=== PATIENT | male | born 1945 | race Caucasian/White ===

== ENCOUNTER 2016-10-03 20:12 | Emergency (ER) | payer MEDICARE, OTHER ==
[~2016-10-03] VITALS: Ht 175.3 cm; Wt 78.0 kg
[~2016-10-03 20:12] MED LIST: ALPR.5 PO; CLON.1 PO; DUONI INH; GABA100C4 PO; LOPE2 PO; RANI150UDC PO; RIVA15 PO; SINE25100 PO
[2016-10-03 20:14] VITALS: BP 152/84; PULSE 105; RESP 16; TEMP 98.6; O2SAT 96
[2016-10-03] MEDS ORDERED: OMEP20TA PO (20:55)
[2016-10-03] MEDS ORDERED: HYDR-3580 PO (20:55)
[2016-10-03] MEDS ORDERED: XARE10TA PO (20:55)
[2016-10-03] MEDS ORDERED: ONDA1TAB16 PO (20:55)
[2016-10-03] MEDS ORDERED: XANA1TAB2 PO (20:55)
[2016-10-03] MEDS ORDERED: CARB25TA9 PO (20:55)
[2016-10-03] MEDS ORDERED: GABA100C4 PO (20:55)
[2016-10-03] MEDS ORDERED: ACETAMINOPHEN 325 MG TAB PO ONE (21:15)
--- NOTE | 2016-10-03 21:15 | PD ---
HPI Chief Complaint: Injury Time Seen by Provider: 20:33 Travel History International Travel<30 days: No Contact w/Intl Traveler<30days: No Traveled to known affect area: No History of Present Illness HPI The patient is a 71 year old male who presents to the [facility] emergency department with a history of right elbow pain that began 4 weeks ago. He denies any specific injury, however he reports that he does have a history of Parkinson's disease and because his was admitted to the intensive care unit a month ago and then ultimately he was not taking his Parkinson's medications on a regular basis. He reports that he developed abnormal movements related to this/jerking movements of his extremities. He reports that he restarted his medicines and the jerking movements stop, however he continued to have pain in the medial aspect, ulnar aspect of the right elbow. He reports that he went to the [facility] an x-ray of the elbow was done which was reportedly unremarkable. He reports that he has a follow-up appointment scheduled for tomorrow. He reports that over the last week the pain has migrated up the arm into the right shoulder. He reports having decreased range of motion related to this. He reports that intermittently he feels a popping sensation in his shoulder. He denies having any chest pain, chest pressure, or shortness of breath. He denies having any sweating. The patient does have a however have a prior history of stage IV esophageal cancer. The patient reports that he had chemotherapy and radiation therapy and in his last scan in July 2016 he continued to be in remission. He reports that he does not follow with an oncologist at this point. The patient reports that related to the history of esophageal cancer and radiation therapy he is on a soft foods diet. The patient reports that he is right-handed. The patient denies any recent fevers, cough, congestion, neck pain, abdominal pain, vomiting , diarrhea, urinary symptoms, or neurologic symptoms. [facility] Past Medical History Narrative Medical The patient's past medical history is significant for stage IV esophageal cancer , Parkinson's disorder, history of prior right clavicle fracture, history of being admitted to the hospital in January 2016 related to septic shock with multiorgan dysfunction syndrome, history of bilateral lower extremity DVT, chronically anticoagulated on Xarelto, history of chronic back pain, history of chronic diarrhea. Anxiety: Yes Cancer: Yes (stage 4 ESOPHAGEAL - 2013) Chemotherapy: Yes Diminished Hearing: No Deep Vein Thrombosis: Yes Gastrointestinal Disorders: Yes (CHRONIC DIARRHEA) GERD: Yes Implanted Vascular Access Dvce: Yes (RIGHT SIDED POWER PORT LAST ACCESS 10/30/14 ) Parkinson's Disease: Yes Respiratory: Yes ('CHEMICAL PNEUMONIA') Immunizations Current: Yes Tetanus Vaccination: < 5 Years Past Surgical History Narrative Surgical The patient's past surgical history is significant for an appendectomy, cholecystectomy, tonsillectomy. Appendectomy: Yes Cholecystectomy: Yes Joint Replacement: No Oral Surgery: Yes (throat cancer) Tonsillectomy: Yes Other Surgery: Yes Social History Alcohol Use: No Tobacco Use: No Substance Use: No Allergies-Medications (Allergen,Severity, Reaction): Coded Allergies: Demerol (Unverified Allergy, Mild, 10/03/16) Morphine (Unverified Allergy, Mild, 10/03/16) Reported Meds & Prescriptions Reported Meds & Active Scripts Active Reported Xarelto (Rivaroxaban) 10 Mg Tab 10 Mg PO DAILY Hydrocodone-Acetaminophen 7.5-325 mg Tab 1 Tab PO BID PRN Ondansetron (Ondansetron HCl) 4 Mg Tab 1 Tab PO BID PRN Omeprazole 20 Mg Tab 20 Mg PO BID Gabapentin 100 Mg Cap 100 Mg PO Q6HR PRN Carbidopa-Levodopa 25-100 Mg Tab 1 Tab PO Q4HR Xanax (Alprazolam) 1 Mg Tab 1 Mg PO TID PRN Review of Systems Except as stated in HPI: all other systems reviewed are Neg General / Constitutional: No: Fever Eyes: No: Visual changes HENT: No: Headaches Cardiovascular: Positive: Dyspnea on exertion (chronic dyspnea on exertion per his report), No: Chest Pain or Discomfort Respiratory: No: Cough, Shortness of Breath Gastrointestinal: No: Nausea, Vomiting, Diarrhea, Abdominal Pain, Hematemesis, Hematochezia, Changes in Bowel Habits (last bowel movement was earlier today), Indigestion, Loss of Appetite Genitourinary: No: Dysuria Musculoskeletal: Positive: Myalgias, Arthralgias, Limited ROM, Pain Skin: No Rash Neurologic: No: Weakness, Focal Abnormalities, Change in Mentation, Slurred Speech, Sensory Disturbance Psychiatric: No: Depression Endocrine: No: Polydipsia Hematologic/Lymphatic: No: Easy Bruising Physical Exam Narrative General: The patient is a well-developed well-nourished male in no acute distress. Head and Neck exam: Head is normocephalic atraumatic. Eyes: EOMI, pupils are equal round and reactive to light. Nose: Midline septum with pink mucous membranes Mouth: Dentition unremarkable. Moist mucus membranes. Posterior oropharynx is not erythematous. No tonsillar hypertrophy. Uvula midline. Airway patent. Neck: No palpable lymphadenopathy. No nuchal rigidity. No thyromegaly. Cardiovascular: Regular rate and rhythm without murmurs, gallops, or rubs. Lungs: Clear to auscultation bilaterally. No wheezes, rhonchi, or rales. Abdomen: Soft, without tenderness to palpation in all 4 quadrants of the abdomen. No guarding, rebound, or rigidity. Normal bowel sounds are audible. No tenderness on palpation of McBurney's point. Extremities: No clubbing, cyanosis, or edema. 2+ pulses in all 4 extremities. The area of interest is the right shoulder, the patient has no clavicle tenderness on palpation. The patient has pain with attempted abduction of his right shoulder beyond 30. The patient has pain with flexion of the shoulder. The patient has no crepitus or step-off. No deformity palpated. The patient reports having pain on palpation of the proximal right humerus. The patient also reports having pain on palpation along the ulnar side of the elbow. There is no deformity. No loss of range of motion of the elbow. Back: No spinous process tenderness to palpation. No costovertebral angle tenderness to palpation. Neurologic Exam: Cranial nerves 2-12 were intact on exam. Strength is 5/5 in all 4 extremities. No sensory deficits noted. Skin Exam: No rash noted. Intact skin that is warm and dry. Data Data Last Documented VS Vital Signs Date Time Temp Pulse Resp B/P Pulse Ox O2 Delivery O2 Flow Rate FiO2 10/03/16 21:20 97 Room Air 10/03/16 20:14 98.6 105 16 152/84 Orders Electrocardiogram (10/03/16 20:52) Humerus (Min 2vws) (10/03/16 20:52) Scapula (10/03/16 20:52) Ice/Cold Pack (10/03/16 20:52) Ct Shoulder W/O Contrast (10/03/16 ) Complete Blood Count With Diff (10/03/16 21:01) Basic Metabolic Panel (Bmp) (10/03/16 21:01) Creatine Kinase (Cpk) (10/03/16 21:01) Ckmb (Isoenzyme) Profile (10/03/16 21:01) Troponin I (10/03/16 21:01) Magnesium (Mg) (10/03/16 21:01) Chest, Single Ap (10/03/16 21:01) Iv Access Insert/Monitor (10/03/16 21:01) Ecg Monitoring (10/03/16 21:01) Oximetry (10/03/16 21:01) Splint Or Brace Apply/Monitor (10/03/16 21:02) Acetaminophen (Tylenol) (10/03/16 21:15) Sling Cradle Arm (10/03/16 ) CKMB (10/03/16 21:20) CKMB% (10/03/16 21:20) Labs Laboratory Tests Test 10/03/16 21:20 White Blood Count 11.4 TH/MM3 Red Blood Count 5.53 MIL/MM3 Hemoglobin 15.6 GM/DL Hematocrit 45.9 % Mean Corpuscular Volume 83.1 FL Mean Corpuscular Hemoglobin 28.3 PG Mean Corpuscular Hemoglobin 34.1 % Concent Red Cell Distribution Width 15.1 % Platelet Count 236 TH/MM3 Mean Platelet Volume 7.8 FL Neutrophils (%) (Auto) 82.8 % Lymphocytes (%) (Auto) 9.2 % Monocytes (%) (Auto) 6.5 % Eosinophils (%) (Auto) 0.9 % Basophils (%) (Auto) 0.6 % Neutrophils # (Auto) 9.4 TH/MM3 Lymphocytes # (Auto) 1.0 TH/MM3 Monocytes # (Auto) 0.7 TH/MM3 Eosinophils # (Auto) 0.1 TH/MM3 Basophils # (Auto) 0.1 TH/MM3 CBC Comment DIFF FINAL Differential Comment Sodium Level 138 MEQ/L Potassium Level 4.5 MEQ/L Chloride Level 102 MEQ/L Carbon Dioxide Level 25.2 MEQ/L Anion Gap 11 MEQ/L Blood Urea Nitrogen 20 MG/DL Creatinine 1.18 MG/DL Estimat Glomerular Filtration 61 ML/MIN Rate Random Glucose 107 MG/DL Calcium Level 11.4 MG/DL Magnesium Level 2.2 MG/DL Total Creatine Kinase 119 U/L Creatine Kinase MB 0.7 NG/ML Troponin I LESS THAN 0.02 NG/ML MDM Medical Decision Making Medical Screen Exam Complete: Yes Emergency Medical Condition: Yes Medical Record Reviewed: Yes Interpretation(s) Last Impressions Chest X-Ray 10/03/162100 Signed Impressions: Service Date/Time: Monday, October 03, 2016 21:30 - CONCLUSION: 1. Right clavicle fracture, appears old. 2. No acute cardiopulmonary disease. Enoc Valdivia MD Scapular X-Ray 10/03/162051 Signed Impressions: Service Date/Time: Monday, October 03, 2016 21:31 - CONCLUSION: 1. Old right clavicle fracture. 2. Irregularity along the glenoid could be related to fracture. Enoc Valdivia MD Humerus X-Ray 10/03/162051 Signed Impressions: Service Date/Time: Monday, October 03, 2016 21:34 - CONCLUSION: No acute fracture. Enoc Valdivia MD Upper Extremity CT 10/03/16 0000 Signed Impressions: Service Date/Time: Monday, October 03, 2016 21:38 - CONCLUSION: 1. Lytic lesion along the posterior glenoid with destruction of the posterior cortex, concerning for a metastatic lesion. 2. No acute fracture. 3. Remote fracture midshaft right clavicle. Enoc Valdivia MD Differential Diagnosis Rotator cuff injury, versus proximal humerus fracture, versus scapular fracture , versus tendinitis, versus bony metastasis related to his history of esophageal cancer Narrative Course During the course of the patients emergency department visit, the patients history, examination, and differential diagnosis were reviewed with the patient. The patient had IV access obtained and blood work sent for analysis. The patient was placed on a personnel monitor with oximetry and blood pressure monitoring. An EKG was done on arrival. The patient's EKG shows a sinus rhythm heart rate of 92, no acute ST segment elevation or depression, downsloping ST segments in lead 3, T waves inverted in V1. Right scapular x-ray , right humerus x-ray, CT scan of the shoulder joint was ordered. The patient was initially provided Tylenol 650 by mouth 1 as he reports that Lortab is too strong for him, ice pack was applied to the right shoulder. The patient was placed in a shoulder sling. The patients laboratory studies were reviewed and remarkable for white count of 11.4, hemoglobin 15.6, platelets 236 with neutrophils 82.8, BMP is remarkable for a BUN of 20, glucose 107, calcium 11.4, CPK is 119, troponin I less than 0.02. Radiology studies were reviewed and remarkable for a chest x-ray that shows an old right mid clavicle fracture, no other acute abnormality, right humerus x- ray shows no acute abnormality, right scapular x-ray reveals an irregularity along the glenoid that could be related to a fracture. CT scan of the shoulder joint shows a lytic lesion along the posterior glenoid with distraction of the posterior cortex concerning for metastatic lesion, no acute fracture. The patient's results were discussed with him. He reports that [facility] The patient will be continued and a right shoulder sling. The patient will be sent home with pain medication to be taken as needed for discomfort. The patient is resting comfortably and feels better, is alert and in no distress. The patients results and examination findings were discussed with the patient. The repeat examination is unremarkable and benign. The history, exam, diagnostic testing, and current condition do not suggest any significant pathology to warrant further testing, continued ED treatment, admission, or surgical evaluation at this point. The vital signs have been stable. The patient does not have uncontrollable pain, intractable vomiting, or other significant symptoms. The patient's condition is stable and appropriate for discharge. The patient will pursue further outpatient evaluation with a primary care physician or other designated or consulting physician as indicated in the discharge instructions. The patient expressed understanding and was agreeable with this plan. Diagnosis Primary Impression: Lytic bone lesions on xray Additional Impression: Right shoulder pain Qualified Code: M25.511 - Acute pain of right shoulder Referrals: [facility] Patient Instructions: General Instructions, Shoulder Pain (ED) Additional Instructions: The patient is provided a copy of this and findings to discuss with his [facility] physician tomorrow. Med/Other Pt SpecificInfo: Prescription(s) given Scripts Hydrocodone-Acetaminophen (Lortab)5-325 Mg Tab1 Tab PO Q6H PRN (PAIN) #16 TAB Ref 0 Prov:Aniyah Lama MD 10/03/16 Disposition: DISCHARGE HOME Condition: Stable Aniyah Lama MD Oct 03, 2016 21:15
[2016-10-03 21:20] VITALS: O2SAT 97
[2016-10-03 21:33] LABS: AUTOMATED NEUTROPHIL # 9.4 TH/MM3 (1.8-7.7); BASOPHIL # 0.1 TH/MM3 (0-0.2); BASOPHIL % 0.6 % (0.0-2.0); EOSINOPHIL # 0.1 TH/MM3 (0-0.4); EOSINOPHIL % 0.9 % (0.0-4.0); HEMATOCRIT 45.9 % (39.0-51.0); HEMO FLAGS DIFF FINAL; LYMPH % 9.2 % (9.0-44.0); MEAN CELL VOLUME 83.1 FL (80.0-100.0); MEAN CORPUSCULAR HEMOGLOBIN 28.3 PG (27.0-34.0); MEAN CORPUSCULAR HGB CONC 34.1 % (32.0-36.0); MONO % 6.5 % (0.0-8.0); NEUT % 82.8 % (16.0-70.0); PLATELET COUNT 236 TH/MM3 (150-450); RED BLOOD COUNT 5.53 MIL/MM3 (4.50-5.90); RED CELL DISTRIBUTION WIDTH 15.1 % (11.6-17.2); WHITE BLOOD COUNT 11.4 TH/MM3 (4.0-11.0)
--- NOTE | 2016-10-03 21:49 | RADRPT ---
EXAM DATE/TIME: 10/03/2016 21:30 [facility] COMPARISON: No previous studies available for comparison. INDICATIONS : Shortness of breath. MEDICAL HISTORY : Parkinson's disease, ptsd, previous right clavicle fracture SURGICAL HISTORY : None. ENCOUNTER: Initial ACUITY: 1 day PAIN SCORE: 0/10 LOCATION: Bilateral chest FINDINGS: A single view of the chest demonstrates the lungs to be symmetrically aerated without evidence of mas s, infiltrate or effusion. The cardiomediastinal contours are unremarkable. Right clavicle fracture, appears old. CONCLUSION: 1. Right clavicle fracture, appears old. 2. No acute cardiopulmonary disease. Enoc Valdivia MD on October 03, 2016 at 21:46 Board Certified Radiologist. This report was verified electronically.
--- NOTE | 2016-10-03 21:51 | RADRPT ---
EXAM DATE/TIME: 10/03/2016 21:31 [facility] COMPARISON: No previous studies available for comparison. INDICATIONS : Right scapula pain. MEDICAL HISTORY : Parkinson's disease, ptsd, previous right clavicle fracture SURGICAL HISTORY : None. ENCOUNTER: Initial ACUITY: 1 month PAIN SCORE: 10/10 LOCATION: Right upper quadrant FINDINGS: Two view examination of the right scapula demonstrates old right clavicle fracture. Irregularity tha g the glenoid is seen. The glenohumeral and acromioclavicular joints are maintained. Proximal humeru s intact. Bony mineralization is normal. CONCLUSION: 1. Old right clavicle fracture. 2. Irregularity along the glenoid could be related to fracture. Enoc Valdivia MD on October 03, 2016 at 21:47 Board Certified Radiologist. This report was verified electronically.
--- NOTE | 2016-10-03 21:51 | RADRPT ---
EXAM DATE/TIME: 10/03/2016 21:34 [facility] COMPARISON: No previous studies available for comparison. INDICATIONS : Right proximal humerus pain. MEDICAL HISTORY : Parkinson's disease, ptsd, previous right clavicle fracture SURGICAL HISTORY : None. ENCOUNTER: Initial ACUITY: 1 month PAIN SCORE: 10/10 LOCATION: Right proximal humerus FINDINGS: Two view examination of the right humerus demonstrates no evidence of fracture or dislocation. Bony mineralization is normal. The soft tissue structures are intact. CONCLUSION: No acute fracture. Enoc Valdivia MD on October 03, 2016 at 21:49 Board Certified Radiologist. This report was verified electronically.
[2016-10-03 22:01] LABS: ANION GAP 11 MEQ/L (5-15); BICARBONATE 25.2 MEQ/L (21.0-32.0); BLOOD UREA NITROGEN 20 MG/DL (7-18); CHLORIDE 102 MEQ/L (98-107); CREATINE KINASE 119 U/L (39-308); GLOMERULAR FILTRATION RATE 61 ML/MIN (>89); MAGNESIUM 2.2 MG/DL (1.5-2.5); POTASSIUM 4.5 MEQ/L (3.5-5.1); SODIUM (NA) 138 MEQ/L (136-145)
--- NOTE | 2016-10-03 22:12 | RADRPT ---
EXAM DATE/TIME: 10/03/2016 21:38 [facility] COMPARISON: SCAPULA RIGHT, October 03, 2016, 21:31. INDICATIONS : Right arm pain , possible injury form seizure four weeks ago . RADIATION DOSE: 30.11 CTDIvol (mGy) MEDICAL HISTORY : Metastatic, neck. Parkinsons. Deep venous thrombosis.Gerd SURGICAL HISTORY : Appendectomy. Cholecystectomy. ENCOUNTER: Initial ACUITY: 1 month PAIN SCALE: 6/10 LOCATION: Right scapular TECHNIQUE: Volumetric scanning of the shoulder was performed. Using automated exposure control and adjustment o f the mA and/or kV according to patient size, radiation dose was kept as low as reasonably achievable to obtain optimal diagnostic quality images. FINDINGS: BONES: No evidence of acute fracture. Alignment is within normal limits. There is prominent lucency within the posterior glenoid measuring 2.3 x 1.3 x 1.6 cm. There is irregularity of the posterior cortex. Me tastatic lesions cannot be excluded. No acute fracture identified. Old fracture of the midshaft of th e clavicle. JOINTS: No evidence of joint narrowing or effusion. SOFT TISSUES: Muscles, tendons, and neurovascular structures are grossly unremarkable. The integrity of the rotato r cuff tendons cannot be reliably evaluated on CT without intra-articular contrast. No evidence of m ass, organized fluid collection, or foreign body. CONCLUSION: 1. Lytic lesion along the posterior glenoid with destruction of the posterior cortex, concerning for a metastatic lesion. 2. No acute fracture. 3. Remote fracture midshaft right clavicle. Enoc Valdivia MD on October 03, 2016 at 22:05 Board Certified Radiologist. This report was verified electronically.
[2016-10-03 22:13] LABS: CKMB 0.7 NG/ML (0.5-3.6)
[2016-10-03] MEDS ORDERED: HYDR-3533 PO (22:24)
--- NOTE | 2016-10-04 20:19 | EKG ---
Date Performed: 10/03/2016 Time Performed: 21:23:07 PTAGE: 71 years EKG: Sinus rhythm NORMAL ECG Since PREVIOUS TRACING , no longer tachycardic PREVIOUS TRACIN01/11/2016 19.48 DOCTOR: Mary Ann Harding Interpretating Date/Time 10/04/2016 20:18:03
== END 2016-10-03 22:49 | disposition home or self-care (01) ==
LOC: NEPE 20:12
DX: M89.9 Disorder of bone, unspecified (principal); M25.511 Pain in right shoulder; M25.521 Pain in right elbow; G20 Parkinson's disease; R06.02 Shortness of breath; Z85.01 Personal history of malignant neoplasm of esophagus; Z79.899 Other long term (current) drug therapy
CPT/HCPCS: 71010; 73010; 73060; 73200; 80048; 82550; 82552; 83735; 84484; 85025; 93005

== ENCOUNTER 2017-01-28 19:54 | Inpatient (IN) | payer OTHER, MEDICARE ==
[~2017-01-28] VITALS: Ht 167.6 cm; Wt 71.3 kg
[~2017-01-28 19:54] MED LIST changes: -ALPR.5 PO; +CARB25TA9 PO; -CLON.1 PO; -DUONI INH; +HYDR-3533 PO; +HYDR-3580 PO; -LOPE2 PO; +OMEP20TA PO; +ONDA1TAB16 PO; -RANI150UDC PO; -RIVA15 PO; -SINE25100 PO; +XANA1TAB2 PO; +XARE10TA PO
[2017-01-28 19:57] VITALS: BP 110/75; PULSE 102; RESP 16; TEMP 97.6; O2SAT 97
[2017-01-28] MEDS ORDERED: PANTOPRAZOLE INJ 80 MG in SODIUM CHLORIDE 0.9% INJ 35 ML IV ONE (22:23)
[2017-01-28] MEDS ORDERED: ONDANSETRON HCL 4 MG/2 ML VIAL ONE (22:23)
[2017-01-28] MEDS ORDERED: SODIUM CHLORIDE 0.9% FLUSH 10 ML FLUSH IVF PRN (22:30)
[2017-01-28] MEDS ORDERED: PROTHROMBIN COMPLEX CONC INJ 4,000 UNITS in SYRINGE/BAG 1 EA IV ONE ×2 (22:30→22:45)
[2017-01-28] MEDS ORDERED: ONDANSETRON HCL 4 MG/2 ML VIAL IVP ONE (22:30)
[2017-01-28] MEDS ORDERED: SODIUM CHLOR 0.9% 1000 ML INJ 1,000 ML IV ONE ×2 (22:30)
[2017-01-28] MEDS ORDERED: MORP1TAB25 PO (22:48)
[2017-01-28 22:51] VITALS: RESP 18
[2017-01-28] MEDS: PANTOPRAZOLE INJ 80 MG in SODIUM CHLORIDE 0.9% INJ 100 ML IV SCH (22:55)
--- NOTE | 2017-01-28 23:00 | RADRPT ---
EXAM DATE/TIME: 01/28/2017 22:44 [facility] COMPARISON: No previous studies available for comparison. INDICATIONS : Chest pain. MEDICAL HISTORY : Parkinson's disease, ptsd, previous right clavicle fracture SURGICAL HISTORY : None. ENCOUNTER: Initial ACUITY: 1 day PAIN SCORE: 0/10 LOCATION: Bilateral chest FINDINGS: A single view of the chest demonstrates the lungs to be symmetrically aerated without evidence of mas s, infiltrate or effusion. [id number] in superior vena cava. The cardiomediastinal contours are un remarkable. Osseous structures are intact. CONCLUSION: 1. No acute findings. Selvin Whittington MD on January 28, 2017 at 22:58 Board Certified Radiologist. This report was verified electronically.
[2017-01-28 23:01] LABS: AUTOMATED NEUTROPHIL # 1.7 TH/MM3 (1.8-7.7); BASOPHIL % 0.2 % (0.0-2.0); EOSINOPHIL % 0.2 % (0.0-4.0); HEMATOCRIT 41.5 % (39.0-51.0); LYMPH % 32.4 % (9.0-44.0); LYMPHOCYTE # 1.1 TH/MM3 (1.0-4.8); MEAN CELL VOLUME 93.2 FL (80.0-100.0); MEAN CORPUSCULAR HEMOGLOBIN 30.3 PG (27.0-34.0); MEAN CORPUSCULAR HGB CONC 32.5 % (32.0-36.0); MONO % 18.8 % (0.0-8.0); NEUT % 48.4 % (16.0-70.0); PLATELET COUNT 91 TH/MM3 (150-450); RED BLOOD COUNT 4.45 MIL/MM3 (4.50-5.90); RED CELL DISTRIBUTION WIDTH 21.8 % (11.6-17.2); WHITE BLOOD COUNT 3.5 TH/MM3 (4.0-11.0)
[2017-01-28 23:04] LABS: HEMO FLAGS AUTO DIFF
[2017-01-28 23:19] LABS: ALT (GPT) 10 U/L (12-78); ANION GAP 16 MEQ/L (5-15); AST (GOT) 32 U/L (15-37); BICARBONATE 21.3 MEQ/L (21.0-32.0); BLOOD UREA NITROGEN 11 MG/DL (7-18); CHLORIDE 101 MEQ/L (98-107); GLOMERULAR FILTRATION RATE 68 ML/MIN (>89); POTASSIUM 3.7 MEQ/L (3.5-5.1); SODIUM (NA) 138 MEQ/L (136-145)
[2017-01-28 23:21] LABS: ALKALINE PHOSPHATASE 107 U/L (45-117); TOTAL BILIRUBIN ADULT 1.4 MG/DL (0.2-1.0)
--- NOTE | 2017-01-28 23:21 | PD ---
HPI Chief Complaint: GI Complaint Time Seen by Provider: 22:26 Travel History International Travel<30 days: No Contact w/Intl Traveler<30days: No Traveled to known affect area: No History of Present Illness HPI Patient is a 71-year-old male with history of stage 4 esophageal cancer, pancreatic cancer, liver cancer, DVT currently on Xarrellto, presents to emergency room with complaints of gi bleed. Patient reports that he has been having abdominal pain, reports that he hasn't been feeling well and has been nauseous all day. Patient reports that he has been vomiting up coffee ground emesis. Patient reports that his fur farmer is Dr. Stone. Reports diffuse abdominal pain at this time. PFSH Past Medical History Anxiety: Yes Cancer: Yes (stage 4 ESOPHAGEAL - 2013) Chemotherapy: Yes Diminished Hearing: No Deep Vein Thrombosis: Yes Gastrointestinal Disorders: Yes (CHRONIC DIARRHEA) GERD: Yes Implanted Vascular Access Dvce: Yes (L. SIDE POWER PORT) Parkinson's Disease: Yes Respiratory: Yes ('CHEMICAL PNEUMONIA') Immunizations Current: Yes Tetanus Vaccination: < 5 Years Influenza Vaccination: No Past Surgical History Appendectomy: Yes Cholecystectomy: Yes Joint Replacement: No Oral Surgery: Yes (throat cancer) Tonsillectomy: Yes Other Surgery: Yes Social History Alcohol Use: No Tobacco Use: No Substance Use: No Allergies-Medications (Allergen,Severity, Reaction): Coded Allergies: meperidine (Unverified Allergy, Mild, 01/23/17) Reported Meds & Prescriptions Reported Meds & Active Scripts Active Reported Morphine ER (Morphine Sulfate) 30 Mg Tab 30 Mg PO DAILY Xarelto (Rivaroxaban) 10 Mg Tab 20 Mg PO DAILY Omeprazole 20 Mg Tab 20 Mg PO BID Gabapentin 100 Mg Cap 100 Mg PO Q6HR PRN Carbidopa-Levodopa 25-100 Mg Tab 1 Tab PO Q4HR Xanax (Alprazolam) 1 Mg Tab 1 Mg PO TID PRN Review of Systems General / Constitutional: No: Fever Eyes: No: Visual changes HENT: No: Headaches Cardiovascular: No: Chest Pain or Discomfort Respiratory: No: Shortness of Breath Gastrointestinal: Positive: Nausea, Vomiting, Diarrhea, Abdominal Pain, Hematemesis, No: Constipation Genitourinary: No: Dysuria Musculoskeletal: No: Pain Skin: No Rash Neurologic: No: Weakness Psychiatric: No: Depression Endocrine: No: Polydipsia Hematologic/Lymphatic: No: Easy Bruising Physical Exam Narrative GENERAL: Moderate distress SKIN: Focused skin assessment warm/dry. HEAD: Atraumatic. Normocephalic. EYES: Pupils equal and round. No scleral icterus. No injection or drainage. ENT: No nasal bleeding or discharge. Mucous membranes pink and moist. Patient vomiting coffee ground emesis NECK: Trachea midline. No JVD. CARDIOVASCULAR: Regular rate and rhythm. No murmur appreciated. RESPIRATORY: No accessory muscle use. Clear to auscultation. Breath sounds equal bilaterally. GASTROINTESTINAL: Abdomen soft, diffuse abdominal tenderness with guarding on exam MUSCULOSKELETAL: No obvious deformities. No clubbing. No cyanosis. No edema. NEUROLOGICAL: Awake and alert. No obvious cranial nerve deficits. Motor grossly within normal limits. Normal speech. PSYCHIATRIC: Appropriate mood and affect; insight and judgment normal. Data Data Last Documented VS Vital Signs Date Time Temp Pulse Resp B/P (MAP) Pulse Ox O2 Delivery O2 Flow Rate FiO2 01/28/17 22:51 18 01/28/17 19:57 97.6 102 97 Room Air Orders Orders Complete Blood Count With Diff (01/28/17 22:23) Comprehensive Metabolic Panel (01/28/17 22:23) Prothrombin Time / Inr (Pt) (01/28/17 22:23) Act Partial Throm Time (Ptt) (01/28/17 22:23) Type And Screen (01/28/17 22:23) Ecg Monitoring (01/28/17 22:23) Iv Access Insert/Monitor (01/28/17 22:23) Ng Gastric Tube Insert/Monitor (01/28/17 22:23) Oximetry (01/28/17 22:23) Ondansetron Inj (Zofran Inj) (01/28/17 22:30) Sodium Chloride 0.9% Flush (Ns Flush) (01/28/17 22:30) Sodium Chloride 0.9... W/Pantoprazole In (01/28/17 22:23) Sodium Chloride 0.9... W/Pantoprazole In (01/28/17 22:23) Ondansetron Inj (Zofran Inj) (01/28/17 22:23) ^ Lab Follow Up (01/28/17 22:24) Prothrombin Complex Conc Inj (Kcentra In (01/28/17 22:30) Sodium Chlorid 0.9%... W/Octreotide Inj (01/28/17 22:25) Lactic Acid (01/28/17 22:25) Ct Abd/Pel W Iv Contrast(Rout) (01/28/17 22:25) Sodium Chlor 0.9% 1000 Ml Inj (Ns 1000 M (01/28/17 22:30) Sodium Chlor 0.9% 1000 Ml Inj (Ns 1000 M (01/28/17 22:30) Chest, Single Ap (01/28/17 22:28) Prothrombin Complex Conc Inj (Kcentra In (01/28/17 22:45) Lipase (01/28/17 22:35) Blood Culture (01/28/17 23:17) Cefepime Inj (Maxipime Inj) (01/28/17 23:30) Iohexol 350 Inj (Omnipaque 350 Inj) (01/28/17 23:32) Vancomycin Inj (Vancomycin Inj) (01/29/17 00:00) Add Patient To Providers List (01/29/17 ) Sodium Chlor 0.9% 250 Ml Inj (Ns 250 Ml (01/29/17 00:30) Sodium Chlor 0.9% 250 Ml Inj (Ns 250 Ml (01/29/17 00:30) Admit Order (Ed Use Only) (01/29/17 00:16) Labs Laboratory Tests Test 01/28/17 22:35 01/28/17 22:40 White Blood Count 3.5 TH/MM3 Red Blood Count 4.45 MIL/MM3 Hemoglobin 13.5 GM/DL Hematocrit 41.5 % Mean Corpuscular Volume 93.2 FL Mean Corpuscular Hemoglobin 30.3 PG Mean Corpuscular Hemoglobin Concent 32.5 % Red Cell Distribution Width 21.8 % Platelet Count 91 TH/MM3 Mean Platelet Volume 7.7 FL Neutrophils (%) (Auto) 48.4 % Lymphocytes (%) (Auto) 32.4 % Monocytes (%) (Auto) 18.8 % Eosinophils (%) (Auto) 0.2 % Basophils (%) (Auto) 0.2 % Neutrophils # (Auto) 1.7 TH/MM3 Lymphocytes # (Auto) 1.1 TH/MM3 Monocytes # (Auto) 0.7 TH/MM3 Eosinophils # (Auto) 0.0 TH/MM3 Basophils # (Auto) 0.0 TH/MM3 CBC Comment AUTO DIFF Prothrombin Time 12.2 SEC Prothromb Time International Ratio 1.1 RATIO Activated Partial Thromboplast Time 29.4 SEC Blood Urea Nitrogen 11 MG/DL Creatinine 1.08 MG/DL Random Glucose 118 MG/DL Total Protein 7.0 GM/DL Albumin 3.4 GM/DL Calcium Level 10.7 MG/DL Alkaline Phosphatase 107 U/L Aspartate Amino Transf (AST/SGOT) 32 U/L Alanine Aminotransferase (ALT/SGPT) 10 U/L Total Bilirubin 1.4 MG/DL Sodium Level 138 MEQ/L Potassium Level 3.7 MEQ/L Chloride Level 101 MEQ/L Carbon Dioxide Level 21.3 MEQ/L Anion Gap 16 MEQ/L Estimat Glomerular Filtration Rate 68 ML/MIN Lipase 79 U/L Lactic Acid Level 6.3 mmol/L [facility] Medical Decision Making Medical Screen Exam Complete: Yes Emergency Medical Condition: Yes Interpretation(s) Vital Signs Date Time Temp Pulse Resp B/P (MAP) Pulse Ox O2 Delivery O2 Flow Rate FiO2 01/28/17 22:51 18 01/28/17 19:57 97.6 102 16 110/75 (87) 97 Room Air Differential Diagnosis Differential includes GI bleed, pneumonia, pancreatitis, gastroenteritis, esophageal rupture, esophageal variceal bleed, SBO Narrative Course Patient is a 71-year-old male who presents to emergency room complaints of coffee-ground emesis with abdominal pain. Patient reports the pain started this morning. Patient with audrey coffee-ground emesis upon arrival to emergency room. Patient is currently on Xarrelto as he has history of DVT. Patient was placed on a drill rig operator upon arrival to emergency room. Patient was given Zofran as he is nauseous and vomiting. Protonix bolus as well as Protonix drip ordered. Octreotide gtt ordered as well. Patient was typed and screened, lab work including blood cultures and lactic acid ordered. CT the abdomen pelvis ordered to evaluate further abdominal pain. Patient is on Xarrelto, [facility] ordered to reverse this - he last took his dose of xarelto this AM. IVF ordered as well Vital Signs Date Time Temp Pulse Resp B/P (MAP) Pulse Ox O2 Delivery O2 Flow Rate FiO2 01/28/17 22:51 18 01/28/17 19:57 97.6 102 16 110/75 (87) 97 Room Air Laboratory Tests Test 8/20/17 22:35 01/28/17 22:40 White Blood Count 3.5 TH/MM3 (4.0-11.0) Red Blood Count 4.45 MIL/MM3 (4.50-5.90) Hemoglobin 13.5 GM/DL (13.0-17.0) Hematocrit 41.5 % (39.0-51.0) Mean Corpuscular Volume 93.2 FL (80.0-100.0) Mean Corpuscular Hemoglobin 30.3 PG (27.0-34.0) Mean Corpuscular Hemoglobin Concent 32.5 % (32.0-36.0) Red Cell Distribution Width 21.8 % (11.6-17.2) Platelet Count 91 TH/MM3 (150-450) Mean Platelet Volume 7.7 FL (7.0-11.0) Neutrophils (%) (Auto) 48.4 % (16.0-70.0) Lymphocytes (%) (Auto) 32.4 % (9.0-44.0) Monocytes (%) (Auto) 18.8 % (0.0-8.0) Eosinophils (%) (Auto) 0.2 % (0.0-4.0) Basophils (%) (Auto) 0.2 % (0.0-2.0) Neutrophils # (Auto) 1.7 TH/MM3 (1.8-7.7) Lymphocytes # (Auto) 1.1 TH/MM3 (1.0-4.8) Monocytes # (Auto) 0.7 TH/MM3 (0-0.9) Eosinophils # (Auto) 0.0 TH/MM3 (0-0.4) Basophils # (Auto) 0.0 TH/MM3 (0-0.2) CBC Comment AUTO DIFF Prothrombin Time 12.2 SEC (9.8-11.6) Prothromb Time International Ratio 1.1 RATIO Activated Partial Thromboplast Time 29.4 SEC (24.3-30.1) Blood Urea Nitrogen 11 MG/DL (7-18) Creatinine 1.08 MG/DL (0.60-1.30) Random Glucose 118 MG/DL (74-106) Total Protein 7.0 GM/DL (6.4-8.2) Albumin 3.4 GM/DL (3.4-5.0) Calcium Level 10.7 MG/DL (8.5-10.1) Alkaline Phosphatase 107 U/L (45-117) Aspartate Amino Transf (AST/SGOT) 32 U/L (15-37) Alanine Aminotransferase (ALT/SGPT) 10 U/L (12-78) Total Bilirubin 1.4 MG/DL (0.2-1.0) Sodium Level 138 MEQ/L (136-145) Potassium Level 3.7 MEQ/L (3.5-5.1) Chloride Level 101 MEQ/L (98-107) Carbon Dioxide Level 21.3 MEQ/L (21.0-32.0) Anion Gap 16 MEQ/L (5-15) Estimat Glomerular Filtration Rate 68 ML/MIN (>89) Lipase 79 U/L (73-393) Lactic Acid Level 6.3 mmol/L (0.4-2.0) Hemoglobin 13.5, platelets 91, lactic acid 6.3 CT abdomen/pelvis: Proximal and mid small bowel dilation with air-fluid levels and distal decompression characteristic of early or partial small bowel obstruction. After patient was given Zofran, patient had resolution of his nausea and vomiting. Patient has stabilized while in the emergency room, he has received 2 L of IV fluid. Patient does have a lactic acid of 6.3, a clear etiology of his source of infection. He has been pancultured. Patient last received radiation treatments to 3 weeks ago, his last course of chemotherapy was last week. Patient was given broad-spectrum antibiotics, cefepime for treatment of this sepsis. Patient was placed on a Protonix drip as well as octreotide drip for his upper GI bleed, plan to admit him to the hospital at this time. Patient reports that he is feeling much better at this time, all studies reviewed with patient in detail. Case reviewed with Dr. Montiel who accepts pt to service Critical Care Narrative Aggregate critical care time was 45 minutes. Time to perform other separately billable procedures was not included in the critical care time. My time did not include minutes spent treating any other patients simultaneously or on activities that did not directly contribute to the patient's treatment. The services I provided to this patient were to treat and/or prevent clinically significant deterioration that could result in: , decompensation, deterioration I provided critical care services requiring my management, as noted below: Chart data review, documentation time, medication orders and management, vital sign assessments/reviewing monitor data, ordering and reviewing lab tests, ordering and interpreting/reviewing x-rays and diagnostic studies, care of the patient and discussion of the patient with the admitting physicians. Diagnosis Primary Impression: GI bleed Additional Impressions: Thrombocytopenia Lactic acid acidosis Small bowel obstruction Jessica Ivey DO Jan 28, 2017 23:21
[2017-01-28] MEDS ORDERED: CEFEPIME INJ 2,000 MG in SODIUM CHLORIDE 0.9% INJ 100 ML IV ONE (23:30)
[2017-01-28] MEDS ORDERED: IOHEXOL 350 MG/ML 10 ML VIAL (for RAD DIAG) IVCONTRAST ONE (23:32)
[2017-01-28 23:37] LABS: APTT (PATIENT) 29.4 SEC (24.3-30.1); INTERNATIONAL NORMALIZED RATIO 1.1 RATIO; PROTHROMBIN TIME - PATIENT 12.2 SEC (9.8-11.6)
--- NOTE | 2017-01-28 23:48 | RADRPT ---
EXAM DATE/TIME: 01/28/2017 23:20 [facility] COMPARISON: CT ABDOMEN & PELVIS W/O CONTRAST, January 13, 2016, 8:51. INDICATIONS : Abdominal pain with nausea and vomiting. IV CONTRAST: 69 cc Omnipaque 350 (iohexol) IV ORAL CONTRAST: No oral contrast ingested. RADIATION DOSE: 12.40 CTDIvol (mGy) MEDICAL HISTORY : Carcinoma, esophageal. Deep venous thrombosis. Parkinsons. SURGICAL HISTORY : Appendectomy. Cholecystectomy. ENCOUNTER: Initial ACUITY: 1 day PAIN SCALE: 7/10 LOCATION: abdomen TECHNIQUE: Volumetric scanning of the abdomen and pelvis was performed. Using automated exposure control and ad justment of the mA and/or kV according to patient size, radiation dose was kept as low as reasonably achievable to obtain optimal diagnostic quality images. DICOM format image data is available electro nically for review and comparison. FINDINGS: There is linear atelectasis or scarring left lung base. Mild fatty liver. Probable small hepatic cyst left lobe as well as suspected small hemangioma anterio rly. There are multiple dilated loops of small bowel proximally with some decompression distally. There ar e air fluid levels. Findings are characteristic of an early or partial small bowel obstruction. Spleen, adrenals, kidneys and pancreas demonstrate no acute findings. Previous cholecystectomy. There is a small amount of free fluid around the liver and in the pelvis. Prostatic enlargement. Small fat containing umbilical hernia. CONCLUSION: 1. Proximal and mid small bowel dilatation with air-fluid levels and distal decompression characteris tic of an early or partial small bowel obstruction. No free air. Small amount of free fluid in the ab domen and pelvis. Selvin Whittington MD on January 28, 2017 at 23:36 Board Certified Radiologist. This report was verified electronically.
[2017-01-29] VITALS (13 sets, daily range): BP systolic 103–133; BP diastolic 60–98; PULSE 83–99; RESP 18–22; TEMP 98.4–99.3; O2SAT 93–98
[2017-01-29] MEDS ORDERED: VANCOMYCIN INJ 1,150 MG in SODIUM CHLOR 0.9% 250 ML INJ 250 ML IV ONE ×2
[2017-01-29] MEDS: OCTREOTIDE INJ 500 MCG in SODIUM CHLORID 0.9% 500 ML INJ 500 ML IV SCH ×3 (00:29→22:26)
[2017-01-29] MEDS ORDERED: SODIUM CHLOR 0.9% 250 ML INJ 250 ML IV ONE ×2 (00:30)
[2017-01-29] MEDS ORDERED: BISACODYL 10 MG SUPP RECTAL PRN (01:15)
[2017-01-29] MEDS ORDERED: MISCELLANEOUS NURSING INFORMATION XX SCH (01:15)
[2017-01-29] MEDS ORDERED: MAGNESIUM HYDROXIDE SUSP 30 ML CUP PO PRN (01:15)
[2017-01-29] MEDS ORDERED: SENNOSIDES 8.6 MG TAB PO PRN (01:15)
[2017-01-29] MEDS ORDERED: GABAPENTIN 100 MG CAP PO PRN (01:15)
[2017-01-29] MEDS ORDERED: RESP: ALBUTEROL 2.5 MG/IPRATROPIUM 0.5 MG NEB (PRN) INH (01:15)
[2017-01-29] MEDS ORDERED: CHLORHEXIDINE GLUCONATE 2 % 1 PACK (2 CLOTHS) TOP PRN (01:15)
[2017-01-29] MEDS ORDERED: MORPHINE SULFATE 4 MG/ML INJ IV PUSH ONE (01:15)
[2017-01-29] MEDS ORDERED: LACTULOSE SYRUP 20 GM/30 ML CUP PO PRN (01:15)
[2017-01-29] MEDS: SODIUM CHLOR 0.9% 1000 ML INJ 1,000 ML IV SCH ×2 (01:19→15:19)
[2017-01-29 01:43] LABS: PROTHROMBIN TIME - PATIENT 10.9 SEC (9.8-11.6)
[2017-01-29 01:44] LABS: SCAN/DIFF AUTO DIFF CONFIRMED
[2017-01-29 01:45] LABS: PLATELET ESTIMATE SMEAR LOW (NORMAL); PLATELET MORPHOLOGY NORMAL (NORMAL)
[2017-01-29 01:46] LABS: ACANTHOCYTES OCC (NORMAL)
[2017-01-29] MEDS: PANTOPRAZOLE SODIUM 40 MG VIAL IV SCH ×2 (02:00→14:00)
--- NOTE | 2017-01-29 02:28 | HHI.HP ---
HPI Service Critical Care Medicine Primary Care Physician Hero Stone III, MD Admission Diagnosis GI BLEED, SBO Diagnosis: Travel History International Travel<30 Days: No Contact w/Intl Traveler <30 Da: No Traveled to Known Affected Are: No History of Present Illness 71-year-old male with history of stage 4 esophageal cancer, pancreatic and liver metastases disease, DVT currently on Xarrellto, presents to emergency room with complaints of gastrointestinal bleed with hematemesis. Patient reports that he has been having abdominal pain, reports that he hasn't been feeling well and has been nauseous all day. Patient reports that he has been vomiting up coffee ground emesis as well as some fresh blood. Patient reports that his gift wrapper is Dr. Stone. He was resuscitated with the IV fluids and reverse coagulation with Kcentra in the emergency department with improvement of vital signs and clinical picture and is admitted to critical care unit due to hematemesis. Review of Systems Constitutional: DENIES: Diaphoretic episodes, Fatigue, Fever, Weight gain, Weight loss, Chills, Dizziness, Change in appetite, Night Sweats Endocrine: DENIES: Heat/cold intolerance, Polydipsia, Polyuria, Polyphagia Eyes: DENIES: Blurred vision, Diplopia, Eye inflammation, Eye pain, Vision loss , Photosensitivity, Double Vision Ears, nose, mouth, throat: DENIES: Tinnitus, Hearing loss, Vertigo, Nasal discharge, Oral lesions, Throat pain, Hoarseness, Ear Pain, Running Nose, Epistaxis, Sinus Pain, Toothache, Odynophagia Respiratory: DENIES: Apneas, Cough, Snoring, Wheezing, Hemoptysis, Sputum production, Shortness of breath Cardiovascular: DENIES: Chest pain, Palpitations, Syncope, Dyspnea on Exertion , PND, Lower Extremity Edema, Orthopnea, Claudication Gastrointestinal: COMPLAINS OF: Abdominal pain, Nausea, Vomiting, Anorexia, DENIES: Black stools, Bloody stools, Constipation, Diarrhea, Difficulty Swallowing Genitourinary: DENIES: Sexual dysfunction, Urinary frequency, Urinary incontinence, Urgency, Hematuria, Dysuria, Nocturia, Penile Discharge, Testicular Pain, Testicular Swelling Musculoskeletal: DENIES: Joint pain, Muscle aches, Stiffness, Joint Swelling, Back pain, Neck pain Integumentary: DENIES: Abnormal pigmentation, Nail changes, Pruritus, Rash Hematologic/lymphatic: DENIES: Bruising, Lymphadenopathy Immunologic/allergic: DENIES: Eczema, Urticaria Neurologic: DENIES: Abnormal gait, Headache, Localized weakness, Paresthesias, Seizures, Speech Problems, Tremor, Poor Balance Psychiatric: DENIES: Anxiety, Confusion, Mood changes, Depression, Hallucinations, Agitation, Suicidal Ideation, Homicidal Ideation, Delusions Past Family Social History Allergies: Coded Allergies: meperidine (Unverified Allergy, Mild, 01/23/17) Past Medical History Esophageal cancer stage IV diagnosed in April 2014 Chronic back pain Chronic diarrhea DVT Past Surgical History Tonsillectomy Appendectomy Cholecystectomy Reported Medications Reported Meds & Active Scripts Active Reported Morphine ER (Morphine Sulfate) 30 Mg Tab 30 Mg PO DAILY Xarelto (Rivaroxaban) 10 Mg Tab 20 Mg PO DAILY Omeprazole 20 Mg Tab 20 Mg PO BID Gabapentin 100 Mg Cap 100 Mg PO Q6HR PRN Carbidopa-Levodopa 25-100 Mg Tab 1 Tab PO Q4HR Xanax (Alprazolam) 1 Mg Tab 1 Mg PO TID PRN Active Ordered Medications Current Medications Medications (Trade) Dose Ordered Sig/Sisi Route PRN Reason Start Time Stop Time Status Last Admin Dose Admin Sodium Chloride (NS Flush) 2 ml UNSCH PRN IVF FLUSH AFTER USING IV ACCESS 01/28/17 22:30 Pantoprazole Sodium 80 mg/ Sodium Chloride 100 ml @ 10 mls/hr Q10H IV 01/28/17 22:23 01/28/17 22:55 Octreotide Acetate 500 mcg/ Sodium Chloride 500.5 ml @ 50 mls/hr Q10H1M IV 01/28/17 22:25 01/29/17 00:29 Sodium Chloride 250 ml @ 15 mls/hr ONCE ONCE IV 01/29/17 00:30 01/29/17 17:09 Sodium Chloride 250 ml @ 15 mls/hr ONCE ONCE IV 01/29/17 00:30 01/29/17 17:09 Alprazolam (Xanax) 1 mg TID PRN PO ANXIETY 01/29/17 01:15 Carbidopa/Levodopa (Sinemet 25-100 Mg) 1 tab Q4HR PO 01/29/17 04:00 01/29/17 05:13 Gabapentin (Neurontin) 100 mg Q6HR PRN PO PAIN 1 TO 10 AND/OR AGITATION 01/29/17 01:15 Morphine Sulfate (Oramorph Sr) 30 mg DAILY PO 01/29/17 09:00 Pantoprazole Sodium (Protonix) 20 mg BID PO 01/29/17 09:00 Sodium Chloride 1,000 ml @ 84 mls/hr [id number] IV 01/29/17 01:05 01/29/17 01:19 Sodium Chloride (NS Flush) 2 ml UNSCH PRN .XX FLUSH AFTER USING IV ACCESS 01/29/17 01:15 Sodium Chloride (NS Flush) 2 ml BID .XX 01/29/17 09:00 Hydromorphone HCl (Dilaudid Pf Inj) 1 mg Q4H PRN IV PAIN SCALE 6 TO 10 01/29/17 01:15 Pantoprazole Sodium (Protonix Inj) 40 mg Q12H IV 01/29/17 02:00 Ondansetron HCl (Zofran Inj) 4 mg Q6H PRN IV NAUSEA OR VOMITING 01/29/17 01:15 Albuterol/ Ipratropium (Duoneb Neb) 1 ampule Q2HR NEB PRN INH WHEEZING 01/29/17 01:15 Miscellaneous Information 1 [id number] XX 01/29/17 01:15 Chlorhexidine Gluconate (Chlorhexidine 2% Cloth) 3 pack Taper DAILY@04 TOP 01/29/17 04:00 01/25/18 03:59 01/29/17 02:30 Chlorhexidine Gluconate (Chlorhexidine 2% Cloth) 3 pack UNSCH PRN TOP HYGIENIC CARE 01/29/17 01:15 Senna/Docusate Sodium (Bryanna-Colace) 1 tab BID PO 01/29/17 09:00 Magnesium Hydroxide (Milk Of Magnesia Liq) 30 ml Q12H PRN PO MILD - MODERATE CONSTIPATION 01/29/17 01:15 Sennosides (Senokot) 17.2 mg Q12H PRN PO MODERATE - SEVERE CONSTIPATION 01/29/17 01:15 Bisacodyl (Dulcolax Supp) 10 mg DAILY PRN RECTAL SEVERE CONSITIPATION 01/29/17 01:15 Lactulose (Lactulose Liq) 30 ml DAILY PRN PO SEVERE CONSITIPATION 01/29/17 01:15 Cefepime HCl 2000 mg/Sodium Chloride 100 ml @ 200 mls/hr Q8H IV 01/29/17 09:00 Family History No family history of early coronary artery disease or malignancy Social History Denies history of alcohol or illicit drug abuse Physical Exam Vital Signs Vital Signs Date Time Temp Pulse Resp B/P (MAP) Pulse Ox O2 Delivery O2 Flow Rate FiO2 01/29/17 02:17 99.3 93 20 128/80 (96) 98 01/29/17 01:51 01/29/17 01:00 98 18 133/98 (110) 96 Room Air 01/28/17 22:51 18 01/28/17 19:57 97.6 102 16 110/75 (87) 97 Room Air Physical Exam GENERAL: Well-nourished, well-developed patient. SKIN: Warm and dry. HEAD: Normocephalic. EYES: No scleral icterus. No injection or drainage. NECK: Supple, trachea midline. No JVD or lymphadenopathy. CARDIOVASCULAR: Regular rate and rhythm without murmurs, gallops, or rubs. RESPIRATORY: Breath sounds equal bilaterally. No accessory muscle use. GASTROINTESTINAL: Abdomen soft, non-tender, nondistended. MUSCULOSKELETAL: No cyanosis, or edema. BACK: Nontender without obvious deformity. NEURO EXAM: GCS: M6 V5 E4 Mental Status: The patient is alert and oriented to person, place, and time with normal speech. Cranial Nerves: Visual acuity intact bilaterally. Visual gilbert normal in all quadrants. Pupils are round, reactive to light. Extraocular movements are intact without ptosis. Hearing is normal bilaterally. Voice is normal. Tongue protrudes midline and moves symmetrically. Reflexes: Biceps, patellar, and Achilles are 2/4 bilaterally. No clonus. Sensation: Sensation is intact bilaterally to pain and light touch. Two-point discrimination is intact. Motor: Good muscle tone. Strength is 5/5 bilaterally. Cerebellar: [id number] and [id number] test normal bilaterally. Laboratory Laboratory Tests Test 01/28/17 22:35 01/28/17 22:40 01/29/17 00:30 01/29/17 01:05 White Blood Count 3.5 Red Blood Count 4.45 Hemoglobin 13.5 Hematocrit 41.5 Mean Corpuscular Volume 93.2 Mean Corpuscular Hemoglobin 30.3 Mean Corpuscular Hemoglobin Concent 32.5 Red Cell Distribution Width 21.8 Platelet Count 91 Mean Platelet Volume 7.7 Neutrophils (%) (Auto) 48.4 Lymphocytes (%) (Auto) 32.4 Monocytes (%) (Auto) 18.8 Eosinophils (%) (Auto) 0.2 Basophils (%) (Auto) 0.2 Neutrophils # (Auto) 1.7 Lymphocytes # (Auto) 1.1 Monocytes # (Auto) 0.7 Eosinophils # (Auto) 0.0 Basophils # (Auto) 0.0 CBC Comment AUTO DIFF Differential Comment AUTO DIFF CONFIRMED Platelet Estimate LOW Platelet Morphology Comment NORMAL Acanthocytes OCC Prothrombin Time 12.2 10.9 Prothromb Time International Ratio 1.1 1.0 Activated Partial Thromboplast Time 29.4 Blood Urea Nitrogen 11 Creatinine 1.08 Random Glucose 118 Total Protein 7.0 Albumin 3.4 Calcium Level 10.7 Alkaline Phosphatase 107 Aspartate Amino Transf (AST/SGOT) 32 Alanine Aminotransferase (ALT/SGPT) 10 Total Bilirubin 1.4 Sodium Level 138 Potassium Level 3.7 Chloride Level 101 Carbon Dioxide Level 21.3 Anion Gap 16 Estimat Glomerular Filtration Rate 68 Lipase 79 Lactic Acid Level 6.3 3.6 Test 01/29/17 01:35 Ammonia 15 Date/Time Source Procedure Growth Status 01/29/17 00:30 Blood Peripheral Aerobic Blood Culture Pending Received 01/29/17 00:30 Blood Peripheral Anaerobic Blood Culture Pending Received Result Diagram: 01/28/17223401/28/172234 Caprini VTE Risk Assessment Caprini VTE Risk Assessment: Mod/High Risk (score >= 2) VTE Pharm Contraindication: Hemorrhage Caprini Risk Assessment Model Point Value = 1 Point Value = 2 Point Value = 3 Point Value = 5 Age 41-60 Minor surgery BMI > 25 kg/m2 Swollen legs Varicose veins or History of unexplained or recurrent spontaneous Oral contraceptives or hormone replacement Sepsis (< 1 month) Serious lung disease, including pneumonia (< 1 month) Abnormal pulmonary function Acute myocardial infarction Congestive heart failure (< 1 month) History of inflammatory bowel disease Medical patient at bed rest Age 61-74 Arthroscopic surgery Major open surgery (> 45 min) Laparoscopic surgery (> 45 min) Malignancy Confined to bed (> 72 hours) Immobilizing plaster cast Central venous access Age >= 75 History of VTE Family history of VTE Factor V Leiden Prothrombin [id number] Lupus anticoagulant Anticardiolipin antibodies Elevated serum homocysteine Heparin-induced thrombocytopenia Other congenital or acquired thrombophilia Stroke (< 1 month) Elective arthroplasty Hip, pelvis, or leg fracture Acute spinal cord injury (< 1 month) Prophylaxis Regimen Total Risk Factor Score Risk Level Prophylaxis Regimen 0-1 Low Early ambulation 2 Moderate Order ONE of the following: *Sequential Compression Device (SCD) *Heparin 5000 units SQ BID 3-4 Higher Order ONE of the following medications: *Heparin 5000 units SQ TID *Enoxaparin/Lovenox 40 mg SQ daily (WT < 150 kg, CrCl > 30 mL/min) *Enoxaparin/Lovenox 30 mg SQ daily (WT < 150 kg, CrCl > 10-29 mL/min) *Enoxaparin/Lovenox 30 mg SQ BID (WT < 150 kg, CrCl > 30 mL/min) AND/OR *Sequential Compression Device (SCD) 5 or more Highest Order ONE of the following medications: *Heparin 5000 units SQ TID (Preferred with Epidurals) *Enoxaparin/Lovenox 40 mg SQ daily (WT < 150 kg, CrCl > 30 mL/min) *Enoxaparin/Lovenox 30 mg SQ daily (WT < 150 kg, CrCl > 10-29 mL/min) *Enoxaparin/Lovenox 30 mg SQ BID (WT < 150 kg, CrCl > 30 mL/min) AND *Sequential Compression Device (SCD) Assessment and Plan Assessment and Plan Hematemesis - IV Protonix - Octreotide - History of metastatic liver disease (possible varices???) - Broad-spectrum antibiotics prophylaxis and variceal bleed?? - GI consult Coagulopathy - On Xarelto - Hold above meds - Reversed by ED with [facility] Esophageal cancer - Supportive care - Palliative care evaluation - Also per GI Thrombocytopenia - No obvious acute - Transfuse for platelet count less than 90 or if acute bleed DVT GI prophylaxis - Teds SCDs - No pharmacological DVT prophylaxis due to acute GI bleed - IV Protonix Critical Care: The total critical care time was 35 minutes. Time to perform other separately billable procedures was not included in the critical care time. Kee Montiel MD Jan 29, 2017 02:28
[2017-01-29] MEDS: CHLORHEXIDINE GLUCONATE 2 % 1 PACK (2 CLOTHS) TOP SCH (02:30)
[2017-01-29 02:36] LABS: LACTIC ACID GHOST NOT REPORTABLE
[2017-01-29 04:07] LABS: HEMATOCRIT 32.5 % (39.0-51.0)
[2017-01-29 04:09] LABS: REVIEW FLAG FINAL
[2017-01-29] MEDS: CARBIDOPA/LEVODOPA 25 MG/100 MG TAB PO SCH ×5 (05:13→21:11)
[2017-01-29] MEDS: DOCUSATE SODIUM 50 MG/SENNA 8.6 MG TAB PO SCH ×2 (08:57→21:11)
[2017-01-29] MEDS: CEFEPIME INJ 2,000 MG in SODIUM CHLORIDE 0.9% INJ 100 ML IV SCH ×2 (08:58→15:20)
[2017-01-29] MEDS: SODIUM CHLORIDE 0.9% FLUSH 10 ML FLUSH SCH ×2 (08:58→21:11)
[2017-01-29] MEDS ORDERED: PANTOPRAZOLE SOD 20 MG DELAYED RELEASE TAB PO SCH (09:00)
--- NOTE | 2017-01-29 09:52 | PD.CONS ---
HPI History of Present Illness This is a 71 year old male with a history of Stage IV esophageal cancer with metastatic disease to the liver. He was diagnosed in April of 2014 and is s/ p chemotherapy and radiation. He reports that he had a PET scan in May that was clear that was recently found to have cancer in his right upper extremity. He cannot provide me the details but states he was having right upper extremity pain and was found to have a lytic lesions in his right upper extremity with a pathological fracture of his right wrist. He reports that he recently completed 3 months of chemotherapy and radiation with Dr. Stone. He also has a history of a DVT and is on Xarelto at home. He presented to the emergency room on 01/28/17 for evaluation of abdominal pain with coffee ground emesis. He has been having "stomach aches" intermittently for several weeks. He reports that on Sunday and Sunday of last week she did have multiple loose stools but denies any melena or hematochezia. He states that this resolved after taking a couple of Imodium and he was having formed bowel movements on Sunday. Yesterday, the abdominal pain returned (dull ache in his epigastric area" and he began vomiting a large amount of dark red/coffee grounds. He reports that he probably had 6-7 episodes in his last episode was around 10 PM last night. He denies any prior history of GI bleeding. He cannot tell me when his last EGD or colonoscopy was but states it was several years ago. He reports that he has had weight loss related to his chemotherapy and that he has to drink insured to keep this stable. He cannot quantify the amount of weight loss. He denies any history of peptic ulcer disease. Hx of appendectomy. (Janice Bajwa) PFSH Past Medical History Stage IV Esophageal cancer Cancer to RUE GERD Parkinson's disease Familial hypercalcemia BPH PTSD Anxiety Hepatitis B Chronic diarrhea Chronic back pain Clavicle fracture. Past Surgical History Appendectomy Cholecystectomy Tonsillectomy Left port placement Teeth extraction EGD/Colonoscopy EUS (Janice Bajwa) Coded Allergies: meperidine (Unverified Allergy, Mild, 01/23/17) Medications Allergies Coded Allergies Type Severity Reaction Last Updated Verified meperidine Allergy Mild 01/23/17 No Active Scripts Medications Dose Route/Sig Max Daily Dose Days Date Category Morphine ER (Morphine Sulfate) 30 Mg Tab 30 Mg PO DAILY 8/20/17 Reported Xarelto (Rivaroxaban) 10 Mg Tab 20 Mg PO DAILY 10/03/16 Reported Omeprazole 20 Mg Tab 20 Mg PO BID 10/03/16 Reported Gabapentin 100 Mg Cap 100 Mg PO Q6HR PRN 10/03/16 Reported Carbidopa-Levodopa 25-100 Mg Tab 1 Tab PO Q4HR 10/03/16 Reported Xanax (Alprazolam) 1 Mg Tab 1 Mg PO TID PRN 10/03/16 Reported Family History Mother from esophageal cancer. Father from esophageal and bladder cancer. Sister and paternal grandmother had pancreatic cancer. Sister has familial hypercalcemia Social History Former smoker No etoh use (Janice Bajwa) Review of Systems Constitutional: COMPLAINS OF: Fatigue, Weight loss, Change in appetite, DENIES : Fever, Chills Respiratory: DENIES: Cough, Hemoptysis Cardiovascular: DENIES: Chest pain Gastrointestinal: COMPLAINS OF: Abdominal pain, Constipation, Diarrhea, Nausea , Vomiting, Hematemesis, DENIES: Black stools, Bloody stools Musculoskeletal: COMPLAINS OF: Joint pain, Joint Swelling Hematologic/lymphatic: COMPLAINS OF: Bruising Neurologic: DENIES: Headache Psychiatric: DENIES: Confusion (Janice Bajwa) GI Exam Vitals I&O Vital Signs Date Time Temp Pulse Resp B/P (MAP) Pulse Ox O2 Delivery O2 Flow Rate FiO2 01/29/17 06:00 92 01/29/17 04:00 96 01/29/17 02:30 99 01/29/17 02:17 99.3 93 20 128/80 (96) 98 01/29/17 01:51 01/29/17 01:00 98 18 133/98 (110) 96 Room Air 01/28/17 22:51 18 01/28/17 19:57 97.6 102 16 110/75 (87) 97 Room Air I/O 01/28/17 01/28/17 01/28/17 01/29/17 01/29/17 01/29/17 07:00 15:00 23:00 07:00 15:00 23:00 Intake Total 1058 ml Output Total 1200 ml Balance -142 ml Intake Oral 30 ml IV Total 1028 ml Output Urine Total 1200 ml # Voids [address] abdomen and pelvis with IV contrast (01/28/17) proximal and mid small bowel dilatation with air-fluid levels and distal decompressive characteristic of an early or partial small bowel obstruction. No free air. Small amount of free fluid in the abdomen and pelvis. Chest x-ray (01/28/17) no acute findings Laboratory Test 01/28/17 22:35 01/28/17 22:40 01/29/17 00:30 01/29/17 01:05 White Blood Count 3.5 TH/MM3 Red Blood Count 4.45 MIL/MM3 Hemoglobin 13.5 GM/DL Hematocrit 41.5 % Mean Corpuscular Volume 93.2 FL Mean Corpuscular Hemoglobin 30.3 PG Mean Corpuscular Hemoglobin Concent 32.5 % Red Cell Distribution Width 21.8 % Platelet Count 91 TH/MM3 Mean Platelet Volume 7.7 FL Neutrophils (%) (Auto) 48.4 % Lymphocytes (%) (Auto) 32.4 % Monocytes (%) (Auto) 18.8 % Eosinophils (%) (Auto) 0.2 % Basophils (%) (Auto) 0.2 % Neutrophils # (Auto) 1.7 TH/MM3 Lymphocytes # (Auto) 1.1 TH/MM3 Monocytes # (Auto) 0.7 TH/MM3 Eosinophils # (Auto) 0.0 TH/MM3 Basophils # (Auto) 0.0 TH/MM3 CBC Comment AUTO DIFF Differential Comment AUTO DIFF CONFIRMED Platelet Estimate LOW Platelet Morphology Comment NORMAL Acanthocytes OCC Prothrombin Time 12.2 SEC 10.9 SEC Prothromb Time International Ratio 1.1 RATIO 1.0 RATIO Activated Partial Thromboplast Time 29.4 SEC Blood Urea Nitrogen 11 MG/DL Creatinine 1.08 MG/DL Random Glucose 118 MG/DL Total Protein 7.0 GM/DL Albumin 3.4 GM/DL Calcium Level 10.7 MG/DL Alkaline Phosphatase 107 U/L Aspartate Amino Transf (AST/SGOT) 32 U/L Alanine Aminotransferase (ALT/SGPT) 10 U/L Total Bilirubin 1.4 MG/DL Sodium Level 138 MEQ/L Potassium Level 3.7 MEQ/L Chloride Level 101 MEQ/L Carbon Dioxide Level 21.3 MEQ/L Anion Gap 16 MEQ/L Estimat Glomerular Filtration Rate 68 ML/MIN Lipase 79 U/L Lactic Acid Level 6.3 mmol/L 3.6 mmol/L Test 01/29/17 01:35 01/29/17 02:15 01/29/17 03:45 Ammonia 15 MCMOL/L Nasal Screen MRSA (PCR) MRSA NOT DETECTED Hemoglobin 10.7 GM/DL Hematocrit 32.5 % Lactic Acid Level 1.5 mmol/L Date/Time Source Procedure Growth Status 01/29/17 00:30 Blood Peripheral Aerobic Blood Culture Pending Received 01/29/17 00:30 Blood Peripheral Anaerobic Blood Culture Pending Received Physical Examination HEENT: Normocephalic; atraumatic; no jaundice. CHEST: CTA CARDIAC: RRR ABDOMEN: Soft, mildly distended, mild diffuse tenderness; no hepatosplenomegaly ; bowel sounds are present in all four quadrants. EXTREMITIES: No clubbing, cyanosis, or edema. SKIN: Normal; no rash; no jaundice. OPERATING ENGINEER: No focal deficits; alert and oriented times three. (Janice Bajwa) Assessment and Plan Plan ASSESSMENT: - Upper GI Bleeding. Intermittent stomachache x 2 weeks. Started having n/v with large amount of dark red/coffee ground yesterday, last episode around 10pm. Hx esophageal cancer. No hx of PUD. On Xarelto at home for DVT. HH 10.7/32.5. - Anemia, acute blood loss. HH 10.7/32.5. - Thrombocytopenia. Plt 91,000. - Ileus vs. PSBO. CT abdomen and pelvis with IV contrast (01/28/17) proximal and mid small bowel dilatation with air-fluid levels and distal decompressive characteristic of an early or partial small bowel obstruction. No free air. Small amount of free fluid in the abdomen and pelvis. Only abdominal surgery appendectomy. Mildly distended/ tender. Last BM (formed) on Sunday. Not currently having nausea/vomiting and requesting ensure. - GERD. PPI - Lytic lesions RUE. Pt poor historian. He cannot provide me the details but states he was having right upper extremity pain and was found to have a lytic lesions in his right upper extremity with a pathological fracture of his right wrist. Recently completed 3 months of chemotherapy and radiation with Dr. Stone. - Hx DVT. On Xarelto at home, currently on hold. - Hx Stage IV Esophageal cancer. Dx April of 2014, s/p chemotherapy and radiation. He reports that he had a PET scan in May that was clear with regards to his esophageal cancer, but that was recently found to have cancer in his right upper extremity. - Parkinson's disease, Hx Familial hypercalcemia, BPH, PTSD, Anxiety, chronic pain per attending. PLAN: - Plan for EGD in am - Obtain consents - NPO except ice chips - KUB today - Protonix Gtt - Monitor HH - Transfuse as necessary - Supportive care - Further recommendations to follow based on results of above - Pt seen and examined by Dr. Li and myself and this note is written on his behalf (Janice Bajwa) Physician Comments Seen and examined, discussed with the patient and his sister endoscopy plan, Will follow up with you Further recommendations to follow pending EGD findings. (Mo Li MD) Janice Bajwa Jan 29, 2017 09:52 Mo iL MD Jan 29, 2017 17:34
[2017-01-29] MEDS: PANTOPRAZOLE INJ 80 MG in SODIUM CHLORIDE 0.9% INJ 100 ML IV SCH ×2 (10:22→18:33)
[2017-01-29] MEDS: MORPHINE SULFATE 30 MG CONTROLLED RELEASE TAB PO SCH (10:24)
--- NOTE | 2017-01-29 11:06 | PD.CONS ---
Consult Service Palliative Care Consult Requested By Dr. Montiel . Primary Care Physician Hero Stone III, MD . Reason for Consultation a. To assist with evaluation and management of symptoms including: pain, debility, nausea/vomiting b. To assist medical decision maker(s) with: better understanding of current medical conditions; weighing benefits/burdens of medical treatment options; making medical treatment decisions. HPI History of Present Illness Mr. Hairston is a 72-year-old male with a history of stage IV esophageal cancer, pancreatic cancer, liver cancer, DVT (on Xarelto), GERD, Parkinson's, BPH, PTSD , anxiety and Hep B. He presented to [facility] ED on 01/28/2017 with diffuse abdominal pain and suspected GI bleed. The patient reported he had been experiencing abdominal pain and feeling nauseated all day. He stated that he had been vomiting coffee-ground emesis. Patient has a history of esophageal cancer status post chemotherapy and radiation. Of note, patient reported he follows Dr. Stone (hematology/oncology) and has been undergoing chemotherapy for 3 months secondary to recurrence of metastatic cancer in September,. Upon presentation to the ED, patient with audrey coffee-ground emesis. Of note, patient is currently on Xarelto due to his history of DVTs. Hemodynamically stable. Heart rate: 102, respirations 16, BP 110/75, oxygen saturation 97% on room air, oral temperature 97.6. Mr. Hairston was given Zofran for his nausea/ vomiting with positive effect. He also received 2L of IV fluids. Additional diagnostic findings: * WBC: 3.5, hemoglobin 13.5, hematocrit 41.5, platelets 91, neutrophils 48.4% * Sodium: 138, potassium 3.7, chloride 101, carbon dioxide 21.3, glucose 118, calcium 10.7 * BUN: 11, creatinine 1.08, GFR 68 * Lactic acid: 6.3 * Total bilirubin: 1.4, AST 32, ALT 10, alkaline phosphatase 107 * Total protein: 7.0, albumin 3.4 * PT: 12.2, INR 1.1, APTT 29.4 Patient's lactic acid was elevated at 6.3, unknown etiology of his source of infection. He was pancultured. Patient was then started on broad-spectrum antibiotics. Patient received a Protonix bolus; he was then placed in a Protonix drip as well as a Octreotide for GI bleed. Patient was administered Kcentral to reverse the effects of the Xarelto which was last taken earlier that morning. Patient was admitted for further evaluation and medical management; gastroenterology was consulted. A chest x-ray showed no acute findings. CT abdomen/pelvis showed proximal and mid small bowel dilatation with air-fluid levels and distal compression characteristic of an early or partial small bowel obstruction; no free air; small amount of free fluid in the abdomen and pelvis. Palliative Care was consulted to assist with symptom management and to discuss with the family the benefits and burdens of his current illnesses and the options regarding future care. . Function/Cognitive Trajectory Patient has a history of esophageal cancer for which he follows Dr. Stone's; reportedly diagnosed with metastatic disease in September, and has been receiving palliative chemotherapy. Patient reports an overall decline in the past year as evidenced by weight loss, decreased appetite, fatigue and debility. . Review of Systems Constitutional: COMPLAINS OF: Fatigue, Weight loss, Change in appetite, Generalized weakness, DENIES: Fever Endocrine: DENIES: Polydipsia, Polyuria, Polyphagia Eyes: DENIES: Blurred vision Ears, nose, mouth, throat: COMPLAINS OF: Hearing loss, DENIES: Epistaxis Respiratory: COMPLAINS OF: Cough, Hemoptysis Cardiovascular: DENIES: Chest pain Gastrointestinal: COMPLAINS OF: Abdominal pain, Vomiting blood (COFFEE GROUND EMESIS ON ADMISSION) Musculoskeletal: COMPLAINS OF: Joint pain, Joint Swelling, Decreased range of motion (RIGHT ARM) Hematologic/Lymphatics: COMPLAINS OF: Bruising Neurologic: COMPLAINS OF: Localized weakness, DENIES: Headache Psychiatric: COMPLAINS OF: Anxiety, DENIES: Confusion Past Family Social History Coded Allergies: meperidine (Unverified Allergy, Mild, 01/23/17) Past Medical History Per old EMR review, conversation with family and medical oncology: Stage IV esophageal cancer originally diagnosed April 2014 s/p chemo and XRT GERD Parkinson's 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 BPH PTSD Anxiety Hepatitis B Chronic diarrhea Chronic back pain Recent clavicle fracture . Past Surgical History Appendectomy Cholecystectomy Tonsillectomy Left port placement Teeth extraction EGD/Colonoscopy EUS . Reported Medications Morphine ER (Morphine Sulfate) 30 Mg Tab 30 Mg PO DAILY Xarelto (Rivaroxaban) 10 Mg Tab 20 Mg PO DAILY Omeprazole 20 Mg Tab 20 Mg PO BID Gabapentin 100 Mg Cap 100 Mg PO Q6HR PRN Carbidopa-Levodopa 25-100 Mg Tab 1 Tab PO Q4HR Xanax (Alprazolam) 1 Mg Tab 1 Mg PO TID PRN . Current Medications Medications (Trade) Dose Ordered Sig/Sisi Route Start Time Stop Time Status Last Admin (NS Flush) 2 ml UNSCH PRN IVF 01/28/17 22:30 Pantoprazole Sodium 80 mg/ Sodium Chloride 100 ml @ 10 mls/hr Q10H IV 01/28/17 22:23 01/28/17 22:55 Octreotide Acetate 500 mcg/ Sodium Chloride 500.5 ml @ 50 mls/hr Q10H1M IV 01/28/17 22:25 01/29/17 00:29 Sodium Chloride 250 ml @ 15 mls/hr ONCE ONCE IV 01/29/17 00:30 01/29/17 17:09 Sodium Chloride 250 ml @ 15 mls/hr ONCE ONCE IV 01/29/17 00:30 01/29/17 17:09 (Xanax) 1 mg TID PRN PO 01/29/17 01:15 (Sinemet 25-100 Mg) 1 tab Q4HR PO 01/29/17 04:00 01/29/17 08:57 (Neurontin) 100 mg Q6HR PRN PO 01/29/17 01:15 (Oramorph Sr) 30 mg DAILY PO 01/29/17 09:00 Sodium Chloride 1,000 ml @ 84 mls/hr [id number] IV 01/29/17 01:05 01/29/17 01:19 (NS Flush) 2 ml UNSCH PRN .XX 01/29/17 01:15 (NS Flush) 2 ml BID .XX 01/29/17 09:00 01/29/17 08:58 (Dilaudid Pf Inj) 1 mg Q4H PRN IV 01/29/17 01:15 (Protonix Inj) 40 mg Q12H IV 01/29/17 02:00 Future hold (Zofran Inj) 4 mg Q6H PRN IV 01/29/17 01:15 (Duoneb Neb) 1 ampule Q2HR NEB PRN INH 01/29/17 01:15 Miscellaneous Information 1 Q361D XX 01/29/17 01:15 (Chlorhexidine 2% Cloth) 3 pack Taper DAILY@04 TOP 01/29/17 04:00 01/25/18 03:59 01/29/17 02:30 (Chlorhexidine 2% Cloth) 3 pack UNSCH PRN TOP 01/29/17 01:15 (Bryanna-Colace) 1 tab BID PO 01/29/17 09:00 01/29/17 08:57 (Milk Of Magnesia Liq) 30 ml Q12H PRN PO 01/29/17 01:15 (Senokot) 17.2 mg Q12H PRN PO 01/29/17 01:15 (Dulcolax Supp) 10 mg DAILY PRN RECTAL 01/29/17 01:15 (Lactulose Liq) 30 ml DAILY PRN PO 01/29/17 01:15 Cefepime HCl 2000 mg/Sodium Chloride 100 ml @ 200 mls/hr Q8H IV 01/29/17 09:00 01/29/17 08:58 Family History Patient's mother is from esophageal cancer; His father is from esophageal and bladder cancer. Patient's sister and paternal grandmother had pancreatic cancer. Sister has familial hypercalcemia. . Substance Use Tobacco: Former smoker; Agent orange exposure Alcohol: None known Prescription med abuse: None known Illicits: None known . Psychosocial History Patient is originally from [place]. He has 1 adult daughter, Tiffany, who still resides there. 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 Patient states he sailed his yacht from [place] to [place] approximately 12 years ago, and has been living here ever since. The patient was 3 times; his third (Gurpreet) from a drug overdose in August,. 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 Served in [employer]. He has one daughter, Tiffany Sheffiled (here from [place]). One sister, Roseann here from [place]. . Spiritual/Cultural Factors Declines kitchen worker support. Health Care Surrogate: Copy in medical record Durable Power of Continuous Improvement Coach: Copy in medical record Date completed: 01/29/17 . . Health Care Surrogate(s): Patient has designated his sister, Roseann, as the healthcare surrogate decision maker. His daughter, Alexandria, is designated as the alternate health care surrogate. . Today's verbally stated goals: Aggressive goals up to the point of cardiopulmonary resuscitation . Family/friends goals: Patient's sister indicates that she supports her brother and his verbalized medical treatment goals. Ethical and Legal Issues No known ethical issues impacting care at this time. . Physical Exam Vital Signs Date Time Temp Pulse Resp B/P (MAP) Pulse Ox O2 Delivery O2 Flow Rate FiO2 01/29/17 06:00 92 01/29/17 04:00 96 01/29/17 02:30 99 01/29/17 02:17 99.3 93 20 128/80 (96) 98 01/29/17 01:51 01/29/17 01:00 98 18 133/98 (110) 96 Room Air 01/28/17 22:51 18 01/28/17 19:57 97.6 102 16 110/75 (87) 97 Room Air . Exam CONSTITUTIONAL/GENERAL: This is a frail elderly male in no apparent distress TUBES/LINES/DRAINS: Planted the ED, PIV SKIN: Pale Ecchymoses on upper extremities. No wounds seen anteriorly. Skin temperature appropriate. Not diaphoretic. HEAD: Atraumatic. Normocephalic. EYES: Pupils equal and round and reactive. No scleral icterus. No injection or drainage. Fundi not examined. ENT: Hearing grossly normal. Nose without bleeding or purulent drainage. NECK: Trachea midline. Supple, nontender. No palpable thyroid enlargement or nodularity. CARDIOVASCULAR: Regular rate and rhythm without murmurs, gallops, or rubs. No JVD. Peripheral pulses symmetric. BLE with trace edema RESPIRATORY/CHEST: Symmetric, unlabored respirations. Breath sounds diminished bilaterally. No wheezes, rales, or rhonchi. GASTROINTESTINAL: Abdomen soft, non-tender, nondistended. No hepato-splenomegaly , or palpable masses. No guarding. Bowel sounds present. GENITOURINARY: Without palpable bladder distension. MUSCULOSKELETAL: Extremities without clubbing, cyanosis. Trace edema LYMPHATICS: No palpable cervical or supraclavicular adenopathy. NEUROLOGICAL: Awake and alert. Follows commands. Cognitively sharp. Moves all extremities. PSYCHIATRIC: No obvious anxiety/depression. no apparent hallucinations or other psychotic thought process. . Diagnostic Tests Laboratory Laboratory Tests Test 01/28/17 22:35 01/28/17 22:40 01/29/17 00:30 01/29/17 01:05 White Blood Count 3.5 TH/MM3 (4.0-11.0) Red Blood Count 4.45 MIL/MM3 (4.50-5.90) Hemoglobin 13.5 GM/DL (13.0-17.0) Hematocrit 41.5 % (39.0-51.0) Mean Corpuscular Volume 93.2 FL (80.0-100.0) Mean Corpuscular Hemoglobin 30.3 PG (27.0-34.0) Mean Corpuscular Hemoglobin Concent 32.5 % (32.0-36.0) Red Cell Distribution Width 21.8 % (11.6-17.2) Platelet Count 91 TH/MM3 (150-450) Mean Platelet Volume 7.7 FL (7.0-11.0) Neutrophils (%) (Auto) 48.4 % (16.0-70.0) Lymphocytes (%) (Auto) 32.4 % (9.0-44.0) Monocytes (%) (Auto) 18.8 % (0.0-8.0) Eosinophils (%) (Auto) 0.2 % (0.0-4.0) Basophils (%) (Auto) 0.2 % (0.0-2.0) Neutrophils # (Auto) 1.7 TH/MM3 (1.8-7.7) Lymphocytes # (Auto) 1.1 TH/MM3 (1.0-4.8) Monocytes # (Auto) 0.7 TH/MM3 (0-0.9) Eosinophils # (Auto) 0.0 TH/MM3 (0-0.4) Basophils # (Auto) 0.0 TH/MM3 (0-0.2) CBC Comment AUTO DIFF Differential Comment AUTO DIFF CONFIRMED Platelet Estimate LOW (NORMAL) Platelet Morphology Comment NORMAL (NORMAL) Acanthocytes OCC (NORMAL) Prothrombin Time 12.2 SEC (9.8-11.6) 10.9 SEC (9.8-11.6) Prothromb Time International Ratio 1.1 RATIO 1.0 RATIO Activated Partial Thromboplast Time 29.4 SEC (24.3-30.1) Blood Urea Nitrogen 11 MG/DL (7-18) Creatinine 1.08 MG/DL (0.60-1.30) Random Glucose 118 MG/DL (74-106) Total Protein 7.0 GM/DL (6.4-8.2) Albumin 3.4 GM/DL (3.4-5.0) Calcium Level 10.7 MG/DL (8.5-10.1) Alkaline Phosphatase 107 U/L (45-117) Aspartate Amino Transf (AST/SGOT) 32 U/L (15-37) Alanine Aminotransferase (ALT/SGPT) 10 U/L (12-78) Total Bilirubin 1.4 MG/DL (0.2-1.0) Sodium Level 138 MEQ/L (136-145) Potassium Level 3.7 MEQ/L (3.5-5.1) Chloride Level 101 MEQ/L (98-107) Carbon Dioxide Level 21.3 MEQ/L (21.0-32.0) Anion Gap 16 MEQ/L (5-15) Estimat Glomerular Filtration Rate 68 ML/MIN (>89) Lipase 79 U/L (73-393) Lactic Acid Level 6.3 mmol/L (0.4-2.0) 3.6 mmol/L (0.4-2.0) Test 01/29/17 01:35 01/29/17 02:15 01/29/17 03:45 Ammonia 15 MCMOL/L (11-32) Nasal Screen MRSA (PCR) MRSA NOT DETECTED (NOT Hemoglobin 10.7 GM/DL (13.0-17.0) Hematocrit 32.5 % (39.0-51.0) Lactic Acid Level 1.5 mmol/L (0.4-2.0) . Result Diagram: 01/29/17 0345 01/28/17 2235 Microbiology Microbiology Date/Time Source Procedure Growth Status 01/29/17 00:30 Blood Peripheral Aerobic Blood Culture Pending Received 01/29/17 00:30 Blood Peripheral Anaerobic Blood Culture Pending Received 01/29/17 00:30 Blood Peripheral Aerobic Blood Culture Pending Received 01/29/17 00:30 Blood Peripheral Anaerobic Blood Culture Pending Received . Patient/Family Conference Present at Family Conference: Met with patient at bedside and again later in the afternoon when his sister was present. . Family Conference Location: Bedside Issues Discussed: * Palliative care role, purpose, approach * Additional medical, psychosocial, and spiritual history * Patients general health, functional status, and cognitive changes in the months leading up to the current hospitalization * Patient/family understanding of the current medical problems * Patient/family understanding of prognosis * Patients goals of care as best understood from advance directives and/or conversations and/or values * Current medical treatment options and benefits/burdens of those options * Likely scenarios comparing ongoing aggressive care with a transition to comfort measures only * Questions answered to the best of my ability * Palliative care contact information provided . Assessment and Plan Disease Oriented Problem List: (1) Esophageal cancer Comment: History of Stage IV esophageal cancer status post chemotherapy and radiation (2) Lytic bone lesions on xray (3) GI bleed (4) Thrombocytopenia (5) DVT of lower extremity, bilateral Comment: History of DVT. On Xarelto at home, currently on hold . (6) Parkinsons disease Symptom Scale: (1) Pain (2) Debility (3) Nausea & vomiting Pertinent Non-Medical Issues Psychosocial:Patient is originally from [place]. He has 1 adult daughter, Tiffany, who still resides there. 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 Patient states he sailed his yacht from [place] to [place] approximately 12 years ago, and has been living here ever since. The patient was 3 times; his third (Gurpreet) from a drug overdose in August. 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 Served in [place]. He has one daughter, Tiffany Sheffiled (here from [place]). One sister, Roseann here from [place]. Spiritual: Patient denies kitchen worker visits Legal:Patient has designated his sister, Roseann, as the healthcare surrogate decision maker. His daughter, Alexandria, is designated as the alternate health care surrogate. Ethical issues impacting care: No known ethical issues impacting care. . Important Contacts Gurpreet Hairston, : [phone] or [phone] Fe Hernandez, daughter: [phone] . Code Status: No Code Plan * NO CODE-DNR/DNI * Decision making: Patient has designated his sister, Roseann, as the healthcare surrogate decision maker. His daughter, Alexandria, is designated as the alternate health care surrogate. * GOALS: Aggressive up to the point of cardiopulmonary resuscitation * Updated POA documentation received from patient's sister. Copy left and patient's paper chart and faxed to HIM to be scanned into the patient's EMR. Patient completed health care surrogate form and living well on 01/29/2017. These documents are also accessible and the patient's EMR. * Symptom management-nausea/vomiting:patient presented with coffee ground emesis ,questionable GI bleed. GI following. PLan for EGD in AM. NPO except for ice chips. Remains on Protonix and Octreotide drip. Monitoring H/H, will transfuse as necessary.PRN Zofran available q6 hours IV * Symptom management-pain. Patient c/o right arm pain that is rated 2-4 at baseline;described as a constant dull ache with occasional sharp pinching sensation. Also having diffuse dull abdominal pain that was not quantified. Orders for MS Contin 30mg PO daily and Dilaudid 4mg IV q4 hours PRN for pain rated 6-10 which was administered x 1 today. Patient states pain is adequately controlled with current regime. * Palliative care contact information provided to the patient and his sister, Roseann. Thank you for the opportunity to participate in the care of Mr. Hairston. Stephanie Melgar Jan 29, 2017 11:06
[2017-01-29 11:09] LABS: HEMATOCRIT 32.2 % (39.0-51.0)
[2017-01-29 11:19] LABS: REVIEW FLAG FINAL
[2017-01-29] MEDS: HYDROmorphone HCL PF 1 MG/ML VIAL IV PRN (11:45)
[2017-01-29] MEDS: ONDANSETRON HCL 4 MG/2 ML VIAL IV PRN (11:45)
--- NOTE | 2017-01-29 12:20 | RADRPT ---
EXAM DATE/TIME: 01/29/2017 11:13 [facility] COMPARISON: CT ABDOMEN & PELVIS W CONTRAST, January 28, 2017, 23:20. INDICATIONS : Follow up ileus vs. partial small bowel obstruction. MEDICAL HISTORY : Carcinoma, esophageal. Parkinson's SURGICAL HISTORY : Appendectomy. Cholecystectomy. ENCOUNTER: Initial ACUITY: 1 day PAIN SCORE: 5/10 LOCATION: Bilateral abdomen FINDINGS: 2 portable supine frontal views of the abdomen showed no significant change from the prior CT. Gas di lated loops of proximal small bowel again seen. A normal caliber colon noted. No gross pneumoperitone um in this supine positioned the patient. Cholecystectomy clips. No organomegaly. CONCLUSION: Unchanged dilated small bowel suggesting distal small bowel obstruction. Gualberto Calderon Jr., MD on January 29, 2017 at 12:17 Board Certified Radiologist. This report was verified electronically.
--- NOTE | 2017-01-29 16:14 | HHI.HCPN ---
Met with Mr. Hairston to discuss living will. Sister also present for conversation and completion of advanced directive. Mr. Hairston is adamant he would not want to "live like a vegetable". He talks about his love for life and participates in some life review regarding things he's seen and done in his lifetime. He specifically states he would not want any such heroic measures ( feeding tube, mechanical ventilation, tracheostomy) if they were to be permanent. Again confirms his desire for NO CODE status. He becomes tearful many times during conversation as he also lost his a few months ago. Appears to be grieving appropriately. Well supported by sister and a daughter. Living will completed 01/29/2017. Copy placed in chart and faxed to HIM for EMR record. Palliative care number provided. All questions answered to the best of my ability. Palliative care will continue to follow throughout hospitalization. Tere Calderon, DRILL PRESS OPERATOR Jan 29, 2017 16:14
[2017-01-29 17:01] LABS: HEMATOCRIT 31.5 % (39.0-51.0)
[2017-01-29 17:03] LABS: REVIEW FLAG FINAL
[2017-01-29 23:03] LABS: HEMATOCRIT 31.7 % (39.0-51.0)
[2017-01-29 23:04] LABS: REVIEW FLAG FINAL
[2017-01-30] VITALS (12 sets, daily range): BP systolic 110–123; BP diastolic 62–76; PULSE 69–91; RESP 14–26; TEMP 98.2–98.9; O2SAT 94–97
[2017-01-30] MEDS: CEFEPIME INJ 2,000 MG in SODIUM CHLORIDE 0.9% INJ 100 ML IV SCH ×4 (00:23→23:31)
[2017-01-30] MEDS: CARBIDOPA/LEVODOPA 25 MG/100 MG TAB PO SCH ×7 (00:23→23:30)
[2017-01-30] MEDS: SODIUM CHLOR 0.9% 1000 ML INJ 1,000 ML IV SCH ×2 (00:24→12:46)
[2017-01-30] MEDS: PANTOPRAZOLE SODIUM 40 MG VIAL IV SCH (02:00)
[2017-01-30] MEDS: CHLORHEXIDINE GLUCONATE 2 % 1 PACK (2 CLOTHS) TOP SCH (03:43)
[2017-01-30] MEDS: HYDROmorphone HCL PF 1 MG/ML VIAL IV PRN (04:03)
[2017-01-30] MEDS: PANTOPRAZOLE INJ 80 MG in SODIUM CHLORIDE 0.9% INJ 100 ML IV SCH ×3 (04:04→23:31)
[2017-01-30 06:24] LABS: AUTOMATED NEUTROPHIL # 0.5 TH/MM3 (1.8-7.7); BASOPHIL % 0.5 % (0.0-2.0); EOSINOPHIL % 2.5 % (0.0-4.0); HEMATOCRIT 32.7 % (39.0-51.0); LYMPH % 34.6 % (9.0-44.0); LYMPHOCYTE # 0.5 TH/MM3 (1.0-4.8); MEAN CELL VOLUME 93.7 FL (80.0-100.0); MEAN CORPUSCULAR HEMOGLOBIN 30.8 PG (27.0-34.0); MEAN CORPUSCULAR HGB CONC 32.9 % (32.0-36.0); MONO % 31.3 % (0.0-8.0); NEUT % 31.1 % (16.0-70.0); PLATELET COUNT 71 TH/MM3 (150-450); RED BLOOD COUNT 3.49 MIL/MM3 (4.50-5.90); RED CELL DISTRIBUTION WIDTH 22.3 % (11.6-17.2); WHITE BLOOD COUNT 1.5 TH/MM3 (4.0-11.0)
[2017-01-30 06:40] LABS: HEMO FLAGS AUTO DIFF
[2017-01-30 07:25] LABS: ALT (GPT) LESS THAN 6 U/L (12-78); ANION GAP 8 MEQ/L (5-15); AST (GOT) 31 U/L (15-37); BICARBONATE 23.5 MEQ/L (21.0-32.0); BLOOD UREA NITROGEN 7 MG/DL (7-18); CHLORIDE 109 MEQ/L (98-107); GLOMERULAR FILTRATION RATE 131 ML/MIN (>89); MAGNESIUM 1.7 MG/DL (1.5-2.5); POTASSIUM 3.1 MEQ/L (3.5-5.1); SODIUM (NA) 140 MEQ/L (136-145)
[2017-01-30 07:28] LABS: ALKALINE PHOSPHATASE 86 U/L (45-117); TOTAL BILIRUBIN ADULT 1.6 MG/DL (0.2-1.0)
[2017-01-30] MEDS: MORPHINE SULFATE 30 MG CONTROLLED RELEASE TAB PO SCH (07:55)
[2017-01-30] MEDS: DOCUSATE SODIUM 50 MG/SENNA 8.6 MG TAB PO SCH ×2 (07:57→21:00)
[2017-01-30] MEDS: SODIUM CHLORIDE 0.9% FLUSH 10 ML FLUSH SCH ×2 (07:57→21:27)
[2017-01-30] MEDS: OCTREOTIDE INJ 500 MCG in SODIUM CHLORID 0.9% 500 ML INJ 500 ML IV SCH ×2 (08:54→16:41)
[2017-01-30 09:38] LABS: BANDS 1 % (0-6); NEUTROPHIL # MANUAL DIFF 0.6 TH/MM3 (1.8-7.7); POLYS (SEG NEUTROPHILS) 38 % (16-70); WBC DIFF SAMPLE 100
[2017-01-30 09:39] LABS: OVALOCYTES 1+ (NORMAL); PLATELET ESTIMATE SMEAR LOW (NORMAL); PLATELET MORPHOLOGY NORMAL (NORMAL); SCAN/DIFF FINAL DIFF MANUAL; TEARDROP RBCS 1+ (NORMAL)
[2017-01-30] MEDS ORDERED: DO NOT ADM ANY ANTICOAGULANT DRUGS PRN (10:30)
--- NOTE | 2017-01-30 10:30 | GIPROC ---
[facility] [address] [facility]. [facility], [address] EGD PROCEDURE REPORT EXAM DATE: 01/30/2017 PATIENT NAME: Anam Hairston MR #: [id number] BIRTHDATE: 1945 ATTENDING: Mo Li MD ORDER #: [id number] ORTHOPEDIC TECHNICIAN: Tere Mejia and Thalia Hester STATUS: inpatient INDICATIONS: The patient is a 71 yr old male here for an EGD due to anemia and hematemesis PROCEDURE PERFORMED: EGD w/ biopsy MEDICATIONS: None and Per Anesthesia. TOPICAL ANESTHETIC: none CONSENT: The patient understands the risks and benefits of the procedure and understands that these risks include, but are not limited to: sedation, allergic reaction, infection, perforation and/or bleeding. Alternative means of evaluation and treatment include, among others: physical exam, x-rays, and/or surgical intervention. The patient elects to proceed with this endoscopic procedure. medical equipment was checked for proper function. Hand hygiene and appropriate measures for infection prevention was taken. After the risks, benefits and alternatives of the procedure were thoroughly explained, Informed consent was verified, confirmed and timeout was successfully executed by the treatment team. The patient was anesthetized with topical anesthesia and the Pentax EG-[id number] endoscope was introduced through the mouth and advanced to the second portion of the duodenum. Retroflexed views revealed a hiatal hernia The gastroscope was then slowly withdrawn and removed. ESOPHAGUS: A large non-bleeding, irregular shaped, deep and clean-based ulcer was found in the distal esophagus. Biopsies were taken at the center of the ulcer and at edge of the ulcer. DUODENUM: The duodenal mucosa appeared normal in the bulb and second portion of the duodenum. STOMACH: The stomach otherwise appeared normal. ADVERSE EVENTS: There were no complications. IMPRESSIONS: 1. Large ulcer was found in the distal esophagus, 5 CM above GE junction; with minimal narrowing of the lumen, biopsies were taken 2. Normal stomach and duodenal mucosa . 3. Retroflexed views revealed a hiatal hernia RECOMMENDATIONS: 1. Await biopsy results. Biopsy results will not be ready for 7-10 days. If you don't hear from us in two weeks, call our office for biopsy results. 2. Continue PPI PATIENT CONDITION: stable DISPOSITION: Observation REPEAT EXAM: NONE Mo Li MD eSigned: Mo Li MD 01/30/2017 10:30 AM cc: PATIENT NAME: Anam Hairston MR#: [id number]
--- NOTE | 2017-01-30 10:37 | HHI.CCPN ---
Subjective Remarks/Hospital Course 71-year-old male with history of stage 4 esophageal cancer, pancreatic and liver metastases disease, DVT currently on Xarrellto, presents to emergency room with complaints of gastrointestinal bleed with hematemesis. Patient reports that he has been having abdominal pain, reports that he hasn't been feeling well and has been nauseous all day. Patient reports that he has been vomiting up coffee ground emesis as well as some fresh blood. 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 He was resuscitated with the IV fluids and reverse coagulation with Kcentra in the emergency department with improvement of vital signs and clinical picture and is admitted to critical care unit due to hematemesis. Subjective 01/30: Resting comfortably in bed. Currently down for EGD in OR. Hemoglobin remained stable. Required hydromorphone for pain management overnight. Objective Vital Signs Date Time Temp Pulse Resp B/P (MAP) Pulse Ox O2 Delivery O2 Flow Rate FiO2 01/30/17 08:55 20 01/30/17 08:00 98.2 83 120/76 (91) 95 01/29/17 01:00 Room Air Intake and Output 01/30/17 01/30/17 01/31/17 08:00 16:00 00:00 Intake Total 1501 ml Output Total 2750 ml Balance -1249 ml Result Diagram: 01/30/17 0520 01/30/17519 Other Results Microbiology Date/Time Source Procedure Growth Status 01/29/17 00:30 Blood Peripheral Aerobic Blood Culture Pending Worksheet 01/29/17 00:30 Blood Peripheral Anaerobic Blood Culture Pending Worksheet Imaging Last Impressions Chest X-Ray 01/28/172227 Signed Impressions: Service Date/Time: Saturday, January 28, 2017 22:44 - CONCLUSION: 1. No acute findings. Selvin Whittington MD Abdomen/Pelvis CT 01/28/172224 Signed Impressions: Service Date/Time: Saturday, January 28, 2017 23:20 - CONCLUSION: 1. Proximal and mid small bowel dilatation with air-fluid levels and distal decompression characteristic of an early or partial small bowel obstruction. No free air. Small amount of free fluid in the abdomen and pelvis. Selvin Whittington MD Objective Remarks GENERAL: 71-year-old male currently resting in bed in no acute distress SKIN: Warm and dry. Well perfused. No rash. HEAD: Normocephalic. EYES: His around 3 mm bilaterally and reactive. No scleral icterus. No injection or drainage. NECK: Supple, trachea midline. No JVD or lymphadenopathy. CARDIOVASCULAR: RRR. S1, S2 without murmur RESPIRATORY: Breath sounds equal bilaterally. No accessory muscle use. GASTROINTESTINAL: Abdomen soft, slightly distended. Hypoactive bowel sounds appreciated with tympanic in right lower quadrant MUSCULOSKELETAL: Prior right clavicle fracture. Pathological BACK: Nontender without obvious deformity. NEURO EXAM: Cranial nerves II-12 grossly intact. Strength is equal symmetric. Normal sensation A/P Assessment and Plan Neuro/Psych: Parkinson's disease PTSD Chronic pain syndrome Anxiety disorder NOS Chronic opiate use Chronic benzodiazepine use Continue carbidopa/levodopa 25/100 1 tablet every 4 hours Parkinson's disease Continue gabapentin 100 mg every 6 hours when necessary pain Patient is on alprazolam 1 mg 3 times a day at nursing facility/at this facility Patient is morphine sulfate 30 mg daily Hydromorphone 1 mg every 4 hours when necessary breakthrough pain CV: Lactic acidosis - resolved Patient is currently hemodynamic stable and normal saline at 84 cc an hour Not requiring antihypertensives and/or vasopressors 2-D echocardiogram revealed EF 55-60%. RV dilation. Lactate 1.5 this am. Resp: Nasal cannula to maintain saturations greater than equal to 92% Incentive spirometry while awake GI: Hematemesis Hepatitis B Gastroesophageal reflux disease PSBO versus ileus Patient is currently on a pantoprazole drip at 8 mg an hour along Sandostatin drip at 50 g an hour Currently down for EGD GI CT abdomen/pelvis 01/29 revealed proximal to mid small bowel dilatation with air in the colon. On omeprazole 20 mg twice a day at nursing facility Patient had liquid green bowel movement today Docusate sodium/senna 1 tablet twice a day for bowel regimen. : Bustamante catheter if indicated for accurate I's and O's in a critically ill patient Endo: Sliding-scale insulin if indicated to maintain euglycemia/blood sugar less than 15 Renal: Monitor urine output Accurate I's and O's Creatinine currently within normal limits Heme: Stage IV esophageal cancer - status post radiation/chemotherapy by Dr. Stone Leukopenia Anemia Thrombocytopenia Chronic Rivaroxaban use Received K Centra/PCC in ED No indication for transfusion of blood proximal at this time. ID: Gram-positive cocci bacteremia versus contaminant Patient is on cefepime 2 g IV every 8 hours upper GI prophylaxis 3 days Pertinent cultures 01/29 - blood cultures 2 - 1+ out of 4 for gram-positive cocci. Recheck blood cultures 2 today FEN: History of familial hypercalcemia Hypopotassemia Hypo-magnesium Hypophosphatemia Replace electrolytes as clinically indicated. 30 mmol K-Phos, 2 g mag sulfate IV 1. MSK: Right upper extremity - chronic pathological fracture PT evaluate and treat Prophylaxis - GI - pantoprazole drip - DVT - SCD/pharmacological prophylaxis contra indicated with active upper GI bleed Access - Utilize peripheral IV. Central line if indicated Level III follow-up Regis Jordan MD Jan 30, 2017 10:37
[2017-01-30] MEDS ORDERED: PROPOFOL 200 MG/20 ML AMP IV ONE (10:38)
[2017-01-30] MEDS ORDERED: POTASSIUM PHOSPHATE INJ 30 MMOL in SODIUM CHLOR 0.9% 250 ML INJ 250 ML IV ONE (11:00)
[2017-01-30] MEDS: MAGNESIUM SULFATE 1 GM PREMIX 100 ML IV SCH ×2 (11:22→12:46)
[2017-01-30] MEDS: ALPRAZolam 1 MG TAB PO PRN (17:06)
--- NOTE | 2017-01-30 18:04 | ECHRPT ---
Indication: follow up endocarditis CONCLUSIONS The left ventricular systolic function is normal with an estimated ejection fraction in the range of 55-60%. No regional wall motion abnormalities are present. Wall thickness is normal. The right ventricular systoilc function is normal. Mild thickening of the mitral valve leaflets. [id number] mitral valve regurgitation. No aortic valve regurgitation. No aortic valve stenosis. There is mild tricuspid valve regurgitation. Mobile vegetation seen on the tricuspid valve. The estimated pulmonary arterial pressure is _32_ mmHg. Tricuspid valve vegetation The pulmonary valve is not well visualized. BP: / HR: Rhythm: MEASUREMENTS (Male / Female) Normal Values Technical Quality:Fair 2D ECHO LV Diastolic Diameter PLAX 4.6 cm 4.2 - 5.9 / 3.9 - 5.3 cm LV Systolic Diameter PLAX 3.5 cm IVS Diastolic Thickness 0.9 cm 0.6 - 1.0 / 0.6 - 0.9 cm LVPW Diastolic Thickness 0.7 cm 0.6 - 1.0 / 0.6 - 0.9 cm LV Relative Wall Thickness 0.3 RV Internal Dim ED PLAX 3.5 cm M-MODE Aortic Root Diameter MM 3.3 cm LA Systolic Diameter MM 3.0 cm LA Ao Ratio MM 0.9 AV Cusp Separation MM 1.9 cm DOPPLER TR Peak Velocity 235.0 cm/s TR Peak Gradient 22.1 mmHg FINDINGS LEFT VENTRICLE The left ventricular systolic function is normal with an estimated ejection fraction in the range of 55-60%. No regional wall motion abnormalities are present. Wall thickness is normal. RIGHT VENTRICLE The right ventricular systoilc function is normal. LEFT ATRIUM The left atrial size is normal. RIGHT ATRIUM The right atrial size is normal. ATRIAL SEPTUM Normal atrial septal thickness without atrial level shunting by limited color doppler interrogation. AORTA The aortic root and proximal ascending aorta are normal in size on limited imaging. MITRAL VALVE Mild thickening of the mitral valve leaflets. [id number] mitral valve regurgitation. AORTIC VALVE Trileaflet aortic valve. No aortic valve regurgitation. No aortic valve stenosis. TRICUSPID VALVE There is mild tricuspid valve regurgitation. Mobile vegetation seen on the tricuspid valve. The estimated pulmonary arterial pressure is _32_ mmHg. Tricuspid valve vegetation PULMONARY VALVE The pulmonary valve is not well visualized. VESSELS The inferior vena cava is normal in size. PERICARDIUM No pericardial effusion. Mary Ann Harding MD, FACC (Electronically Signed) Final Date:30 January 2017 18:04
[2017-01-31] VITALS (11 sets, daily range): BP systolic 104–122; BP diastolic 59–75; PULSE 79–106; RESP 17–39; TEMP 97.9–98.6; O2SAT 94–99
[2017-01-31] MEDS: SODIUM CHLOR 0.9% 1000 ML INJ 1,000 ML IV SCH ×3 (00:45→23:46)
[2017-01-31] MEDS: CHLORHEXIDINE GLUCONATE 2 % 1 PACK (2 CLOTHS) TOP SCH (04:00)
[2017-01-31] MEDS: CARBIDOPA/LEVODOPA 25 MG/100 MG TAB PO SCH ×6 (06:18→23:46)
[2017-01-31] MEDS: PANTOPRAZOLE INJ 80 MG in SODIUM CHLORIDE 0.9% INJ 100 ML IV SCH ×3 (06:18→20:32)
[2017-01-31] MEDS: OCTREOTIDE INJ 500 MCG in SODIUM CHLORID 0.9% 500 ML INJ 500 ML IV SCH ×4 (06:18→23:54)
[2017-01-31 06:19] LABS: HEMATOCRIT 34.4 % (39.0-51.0); MEAN CELL VOLUME 92.8 FL (80.0-100.0); MEAN CORPUSCULAR HEMOGLOBIN 30.5 PG (27.0-34.0); MEAN CORPUSCULAR HGB CONC 32.9 % (32.0-36.0); PLATELET COUNT 86 TH/MM3 (150-450); RED BLOOD COUNT 3.71 MIL/MM3 (4.50-5.90); RED CELL DISTRIBUTION WIDTH 22.7 % (11.6-17.2); WHITE BLOOD COUNT 1.4 TH/MM3 (4.0-11.0)
[2017-01-31 06:23] LABS: REVIEW FLAG FINAL
[2017-01-31 06:53] LABS: ALKALINE PHOSPHATASE 88 U/L (45-117); ALT (GPT) LESS THAN 6 U/L (12-78); ANION GAP 10 MEQ/L (5-15); AST (GOT) 36 U/L (15-37); BICARBONATE 23.5 MEQ/L (21.0-32.0); BLOOD UREA NITROGEN 4 MG/DL (7-18); CHLORIDE 109 MEQ/L (98-107); GLOMERULAR FILTRATION RATE 135 ML/MIN (>89); MAGNESIUM 2.1 MG/DL (1.5-2.5); SODIUM (NA) 142 MEQ/L (136-145); TOTAL BILIRUBIN ADULT 1.6 MG/DL (0.2-1.0)
[2017-01-31 07:00] LABS: POTASSIUM 2.9 MEQ/L (3.5-5.1)
[2017-01-31] MEDS ORDERED: POTASSIUM CHLORIDE 10 MEQ CONTROLLED RELEASE TAB PO ONE (08:15)
[2017-01-31] MEDS: MORPHINE SULFATE 30 MG CONTROLLED RELEASE TAB PO SCH (08:37)
[2017-01-31] MEDS: DOCUSATE SODIUM 50 MG/SENNA 8.6 MG TAB PO SCH ×2 (08:38→20:33)
[2017-01-31] MEDS: SODIUM CHLORIDE 0.9% FLUSH 10 ML FLUSH SCH ×2 (08:38→20:34)
[2017-01-31] MEDS: CEFEPIME INJ 2,000 MG in SODIUM CHLORIDE 0.9% INJ 100 ML IV SCH ×3 (08:39→23:46)
[2017-01-31] MEDS ORDERED: POTASSIUM PHOSPHATE INJ 30 MMOL in SODIUM CHLOR 0.9% 250 ML INJ 250 ML IV ONE (09:00)
--- NOTE | 2017-01-31 09:44 | HHI.CCPN ---
Subjective Remarks/Hospital Course 71-year-old male with history of stage 4 esophageal cancer, pancreatic and liver metastases disease, DVT currently on Xarrellto, presents to emergency room with complaints of gastrointestinal bleed with hematemesis. Patient reports that he has been having abdominal pain, reports that he hasn't been feeling well and has been nauseous all day. Patient reports that he has been vomiting up coffee ground emesis as well as some fresh blood. 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 He was resuscitated with the IV fluids and reverse coagulation with Kcentra in the emergency department with improvement of vital signs and clinical picture and is admitted to critical care unit due to hematemesis. 01/30: Resting comfortably in bed. Currently down for EGD in OR. Hemoglobin remained stable. Required hydromorphone for pain management overnight. Subjective 01/31: Afebrile. Complains of poor sleeping overnight. EGD revealed esophageal ulcer. Continues on pantoprazole and Sandostatin drips. Phosphorus been replaced today. Objective Vital Signs Date Time Temp Pulse Resp B/P (MAP) Pulse Ox O2 Delivery O2 Flow Rate FiO2 01/31/17 08:00 94 01/31/17 08:00 98.6 32 122/69 (86) 01/31/17 04:00 94 01/30/17 10:50 Room Air Intake and Output 01/31/17 01/31/17 02/01/17 08:00 16:00 00:00 Intake Total 1096 ml 100 ml Output Total 1100 ml Balance -4 ml 100 ml Result Diagram: 01/31/17 0530 01/31/17 0530 Other Results Microbiology Date/Time Source Procedure Growth Status 01/30/17 14:35 Blood Peripheral Aerobic Blood Culture Pending Received 01/30/17 14:35 Blood Peripheral Anaerobic Blood Culture Pending Received Imaging Last Impressions Abdomen X-Ray 01/29/17 0000 Signed Impressions: Service Date/Time: Sunday, January 29, 2017 11:13 - CONCLUSION: Unchanged dilated small bowel suggesting distal small bowel obstruction. Gualberto Calderon Jr., MD Chest X-Ray 01/28/172227 Signed Impressions: Service Date/Time: Saturday, January 28, 2017 22:44 - CONCLUSION: 1. No acute findings. Selvin Whittington MD Abdomen/Pelvis CT 01/28/172224 Signed Impressions: Service Date/Time: Saturday, January 28, 2017 23:20 - CONCLUSION: 1. Proximal and mid small bowel dilatation with air-fluid levels and distal decompression characteristic of an early or partial small bowel obstruction. No free air. Small amount of free fluid in the abdomen and pelvis. Slevin Whittington MD Objective Remarks GENERAL: 72-year-old male currently resting in bed in no acute distress SKIN: Warm and dry. Well perfused. No rash. HEAD: Normocephalic. EYES: Pupils around 3 mm bilaterally and reactive. No scleral icterus. No injection or drainage. NECK: Supple, trachea midline. No JVD or lymphadenopathy. CARDIOVASCULAR: RRR. S1, S2 without murmur RESPIRATORY: Breath sounds equal bilaterally. No accessory muscle use. GASTROINTESTINAL: Abdomen soft, slightly distended. Hypoactive bowel sounds appreciated with tympanic in right lower quadrant MUSCULOSKELETAL: Prior right clavicle fracture. Pathological BACK: Nontender without obvious deformity. NEURO EXAM: Cranial nerves II-12 grossly intact. Strength is equal symmetric. Normal sensation A/P Assessment and Plan Neuro/Psych: Parkinson's disease PTSD Chronic pain syndrome Anxiety disorder NOS Chronic opiate use Chronic benzodiazepine use Continue carbidopa/levodopa 25/100 1 tablet every 4 hours Parkinson's disease Continue gabapentin 100 mg every 6 hours when necessary pain Patient is on alprazolam 1 mg 3 times a day at nursing facility/at this facility Patient is morphine sulfate and release 30 mg daily Hydromorphone 1 mg every 4 hours when necessary breakthrough pain CV: Lactic acidosis - resolved Patient is currently hemodynamic stable and normal saline at 84 cc an hour Not requiring antihypertensives and/or vasopressors 2-D echocardiogram revealed EF 55-60%. RV dilation. Lactate 1.5 01/30 Resp: Nasal cannula to maintain saturations greater than equal to 92% Incentive spirometry while awake GI: Esophageal ulcer Hematemesis Hepatitis B Gastroesophageal reflux disease PSBO versus ileus Patient is currently on a pantoprazole drip at 8 mg an hour along Sandostatin drip at 50 g an hour Currently down for EGD GI CT abdomen/pelvis 01/29 revealed proximal to mid small bowel dilatation with air in the colon. On omeprazole 20 mg twice a day at nursing facility Patient had liquid green bowel movement 01/30 Docusate sodium/senna 1 tablet twice a day for bowel regimen. EGD revealed esophageal ulcer 5 cm from gastric junction. Biopsied. : Bustamnate catheter if indicated for accurate I's and O's in a critically ill patient Endo: Sliding-scale insulin if indicated to maintain euglycemia/blood sugar less than 15 Renal: Monitor urine output Accurate I's and O's Creatinine currently within normal limits Heme: Stage IV esophageal cancer - status post radiation/chemotherapy by Dr. Stone Leukopenia Anemia Thrombocytopenia Chronic Rivaroxaban use Received K Centra/PCC in ED No indication for transfusion of blood proximal at this time. Hemoglobin will slowly increasing to 11.3 this a.m. ID: Staph epi bacteremia versus contaminant Patient is on cefepime 2 g IV every 8 hours upper GI prophylaxis 3 days Pertinent cultures 01/29 - blood cultures 2 - 1+ out of 4 for staph epi likely contaminant. Recheck blood cultures FEN: History of familial hypercalcemia Hypopotassemia Hypophosphatemia Replace electrolytes as clinically indicated. 30 mmol K-Phos, 40 mEq KCl by mouth times one. Recheck potassium this evening MSK: Right upper extremity - chronic pathological fracture PT evaluate and treat Prophylaxis - GI - pantoprazole drip - DVT - SCD/pharmacological prophylaxis contra indicated with active upper GI bleed Access - Utilize peripheral IV. Central line if indicated Level II follow-up Regis Jordan MD Jan 31, 2017 09:44
[2017-01-31] MEDS: ONDANSETRON HCL 4 MG/2 ML VIAL IV PRN (11:15)
--- NOTE | 2017-01-31 11:32 | HHI.GIFU ---
Subjective Remarks Pt resting in bed. Denies pain. Says he has no appetite but did eat some grits. BM yesterday. (Niecy Butler) Objective Vitals I&O Vital Signs Date Time Temp Pulse Resp B/P (MAP) Pulse Ox O2 Delivery O2 Flow Rate FiO2 01/31/17 10:00 89 01/31/17 09:37 24 01/31/17 08:00 94 01/31/17 08:00 98.6 94 24 122/69 (86) 99 01/31/17 06:00 79 01/31/17 04:00 98.2 81 39 121/75 (90) 94 01/31/17 04:00 81 01/31/17 02:00 96 01/31/17 00:00 98.2 85 29 111/66 (81) 94 01/31/17 00:00 85 01/30/17 22:00 75 01/30/17 20:00 69 01/30/17 20:00 98.9 69 26 110/62 (78) 94 01/30/17 18:00 79 01/30/17 16:00 98.8 77 16 123/75 (91) 94 01/30/17 16:00 77 01/30/17 14:00 88 01/30/17 12:00 98.6 79 18 117/70 (86) 94 01/30/17 12:00 79 I/O 01/30/17 01/30/17 01/30/17 01/31/17 01/31/17 01/31/17 07:00 15:00 23:00 07:00 15:00 23:00 Intake Total 1501 ml 450 ml 2030 ml 1096 ml 200 ml Output Total 2750 ml 2100 ml 1100 ml Balance -1249 ml 450 ml -70 ml -4 ml 200 ml Intake Oral 200 ml 600 ml 240 ml IV Total 1301 ml 300 ml 1430 ml 856 ml 200 ml Other 150 ml Output Urine Total 2750 ml 2100 ml 1100 ml # Bowel Movements 1 2 1 Laboratory Laboratory Tests Test 01/31/17 05:30 White Blood Count 1.4 Red Blood Count 3.71 Hemoglobin 11.3 Hematocrit 34.4 Mean Corpuscular Volume 92.8 Mean Corpuscular Hemoglobin 30.5 Mean Corpuscular Hemoglobin Concent 32.9 Red Cell Distribution Width 22.7 Platelet Count 86 Mean Platelet Volume 7.2 Blood Urea Nitrogen 4 Creatinine 0.59 Random Glucose 104 Total Protein 5.6 Albumin 2.7 Calcium Level 8.8 Phosphorus Level 1.2 Magnesium Level 2.1 Alkaline Phosphatase 88 Aspartate Amino Transf (AST/SGOT) 36 Alanine Aminotransferase (ALT/SGPT) LESS THAN 6 Total Bilirubin 1.6 Sodium Level 142 Potassium Level 2.9 Chloride Level 109 Carbon Dioxide Level 23.5 Anion Gap 10 Estimat Glomerular Filtration Rate 135 Date/Time Source Procedure Growth Status 01/30/17 14:35 Blood Peripheral Aerobic Blood Culture - Preliminary NO GROWTH IN 1 DAY Resulted 01/30/17 14:35 Blood Peripheral Anaerobic Blood Culture - Preliminary NO GROWTH IN 1 DAY Resulted Physical Exam HEENT: PERRL; normocephalic; atraumatic; no jaundice. CHEST: CTA CARDIAC: RRR ABDOMEN: Soft, nondistended, diffuse TTP; no hepatosplenomegaly; bowel sounds are present in all four quadrants. EXTREMITIES: No clubbing, cyanosis, or edema. SKIN: Normal; no rash; no jaundice. 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 Intermittent stomachache x 2 weeks. Started having n/v with large amount of dark red/coffee ground yesterday, last episode around 10pm. Hx esophageal cancer. No hx of PUD. On Xarelto at home for DVT. HH stable s/p EGD found large ulcer distal esophagus - Anemia, acute blood loss. HH stable - Thrombocytopenia. Plt 91,000 on admission, trending down - Ileus vs. PSBO. CT abdomen and pelvis with IV contrast (01/28/17) proximal and mid small bowel dilatation with air-fluid levels and distal decompressive characteristic of an early or partial small bowel obstruction. No free air. Small amount of free fluid in the abdomen and pelvis. Only abdominal surgery appendectomy. Mildly distended/ tender. BM yesterday. Not currently having nausea/vomiting and requesting ensure. - GERD. PPI - Lytic lesions RUE. Pt poor historian. He cannot provide me the details but states he was having right upper extremity pain and was found to have a lytic lesions in his right upper extremity with a pathological fracture of his right wrist. Recently completed 3 months of chemotherapy and radiation with Dr. Stone. - Hx DVT. On Xarelto at home, currently on hold. - Hx Stage IV Esophageal cancer. Dx April of 2014, s/p chemotherapy and radiation. He reports that he had a PET scan in May that was clear with regards to his esophageal cancer, but that was recently found to have cancer in his right upper extremity. - Parkinson's disease, Hx Familial hypercalcemia, BPH, PTSD, Anxiety, chronic pain per attending. PLAN: - await bx - full liquid diet - cont Protonix Gtt - Monitor HH - Transfuse as necessary - Supportive care - Pt seen and examined by Dr. Li and myself and this note is written on his behalf (Niecy Butler) Physician Comments Seen and examined. Biopsy pending. Will follow up with you. (Mo Li MD) Niecy Butler Jan 31, 2017 11:32 Mo Li MD Jan 31, 2017 12:23
--- NOTE | 2017-01-31 17:01 | HHI.HCPN ---
Reason for visit a. To assist with evaluation and management of symptoms including: pain, debility, nausea/vomiting b. To assist medical decision maker(s) with: better understanding of current medical conditions; weighing benefits/burdens of medical treatment options; making medical treatment decisions. Subjective/Interval History Mr. Hairston is a 72-year-old male with a history of stage IV esophageal cancer, pancreatic cancer, liver cancer, DVT (on Xarelto), GERD, Parkinson's, BPH, PTSD , anxiety and Hep B. He presented to [facility] ED on 01/28/2017 with diffuse abdominal pain and suspected GI bleed. The patient reported he had been experiencing abdominal pain and feeling nauseated all day. He stated that he had been vomiting coffee-ground emesis. Patient has a history of esophageal cancer status post chemotherapy and radiation. Of note, patient reported he follows Dr. Stone (hematology/oncology) and has been undergoing chemotherapy for 3 months secondary to recurrence of metastatic cancer in September,. Upon presentation to the ED, patient with audrey coffee-ground emesis. Patient's lactic acid was elevated at 6.3, unknown etiology of his source of infection. He was pancultured. Patient was then started on broad-spectrum antibiotics. Patient received a Protonix bolus; he was then placed in a Protonix drip as well as a Octreotide for GI bleed. Patient was administered Kcentral to reverse the effects of the Xarelto which was last taken earlier that morning. Patient was admitted for further evaluation and medical management; gastroenterology was consulted. Patient seen and assessed in room 507. Oxygen saturation in the mid 90s on room air. Patient denies dyspnea. Reporting ongoing, intermittent pain in right upper extremity that can be severe at times. Current orders for extended release morphine 30mg PO daily and IV hydromorphone 1 mg PO every 4 hours PRN for breakthrough pain which is being sparingly used. Stable H/H at 11.3/34.4 status post EGD on 01/30/2017 which revealed a large ulcer in the distal esophagus. Biopsy pending. Patient tolerating liquid diet ; reporting poor appetite. Nausea and vomiting have resolved per patient. Patient would like to return home upon discharge with home health care. . Advance Directives Health Care Surrogate: Copy in medical record Durable Power of Cylinder Sander Operator: Copy in medical record Advance Directive Specifics Date completed: 01/29/17 . . Health Care Surrogate(s): Patient has designated his sister, Roseann, as the healthcare surrogate decision maker. His daughter, Alexandria, is designated as the alternate health care surrogate. . Objective Vital Signs Date Time Temp Pulse Resp B/P (MAP) Pulse Ox O2 Delivery O2 Flow Rate FiO2 01/31/17 16:00 96 01/31/17 16:00 97.9 96 23 104/59 (74) 97 01/31/17 14:00 106 01/31/17 12:00 98.3 101 23 115/70 (85) 97 01/31/17 12:00 101 01/31/17 10:00 89 01/31/17 09:37 24 01/31/17 08:00 94 01/31/17 08:00 98.6 94 24 122/69 (86) 99 01/31/17 06:00 79 01/31/17 04:00 98.2 81 39 121/75 (90) 94 01/31/17 04:00 81 01/31/17 02:00 96 01/31/17 00:00 98.2 85 29 111/66 (81) 94 01/31/17 00:00 85 01/30/17 22:00 75 01/30/17 20:00 69 01/30/17 20:00 98.9 69 26 110/62 (78) 94 01/30/17 18:00 79 Intake & Output 01/31/17 01/31/17 07:00 19:00 Intake Total 1356 ml 1960.5 ml Output Total 1100 ml Balance 256 ml 1960.5 ml Intake Oral 240 ml IV Total 1116 ml 1960.5 ml Output Urine Total 1100 ml # Bowel Movements 1 . Physical Exam CONSTITUTIONAL/GENERAL: This is a frail elderly male in no apparent distress TUBES/LINES/DRAINS: , PIV SKIN: Ecchymoses on upper extremities. Skin temperature appropriate. Not diaphoretic. HEAD: Atraumatic. Normocephalic. EYES: Pupils equal and round and reactive. No scleral icterus. No injection or drainage. Fundi not examined. ENT: Hearing grossly normal. Nose without bleeding or purulent drainage. NECK: Trachea midline. Supple, nontender. No palpable thyroid enlargement or nodularity. CARDIOVASCULAR: Regular rate and rhythm without murmurs, gallops, or rubs. RESPIRATORY/CHEST: Symmetric, unlabored respirations. Breath sounds diminished bilaterally. GASTROINTESTINAL: Abdomen soft, non-tender, nondistended.. No guarding. Bowel sounds present. GENITOURINARY: Without palpable bladder distension. MUSCULOSKELETAL: Extremities without clubbing, cyanosis. Trace edema LYMPHATICS: No palpable cervical or supraclavicular adenopathy. NEUROLOGICAL: Awake and alert. Follows commands. Cognitively sharp. Moves all extremities. PSYCHIATRIC: No obvious anxiety/depression. no apparent hallucinations or other psychotic thought process. . Diagnostic Tests Laboratory Laboratory Tests Test 01/28/17 22:35 01/28/17 22:40 01/29/17 00:30 01/29/17 01:05 White Blood Count 3.5 TH/MM3 (4.0-11.0) Red Blood Count 4.45 MIL/MM3 (4.50-5.90) Hemoglobin 13.5 GM/DL (13.0-17.0) Hematocrit 41.5 % (39.0-51.0) Mean Corpuscular Volume 93.2 FL (80.0-100.0) Mean Corpuscular Hemoglobin 30.3 PG (27.0-34.0) Mean Corpuscular Hemoglobin Concent 32.5 % (32.0-36.0) Red Cell Distribution Width 21.8 % (11.6-17.2) Platelet Count 91 TH/MM3 (150-450) Mean Platelet Volume 7.7 FL (7.0-11.0) Neutrophils (%) (Auto) 48.4 % (16.0-70.0) Lymphocytes (%) (Auto) 32.4 % (9.0-44.0) Monocytes (%) (Auto) 18.8 % (0.0-8.0) Eosinophils (%) (Auto) 0.2 % (0.0-4.0) Basophils (%) (Auto) 0.2 % (0.0-2.0) Neutrophils # (Auto) 1.7 TH/MM3 (1.8-7.7) Lymphocytes # (Auto) 1.1 TH/MM3 (1.0-4.8) Monocytes # (Auto) 0.7 TH/MM3 (0-0.9) Eosinophils # (Auto) 0.0 TH/MM3 (0-0.4) Basophils # (Auto) 0.0 TH/MM3 (0-0.2) CBC Comment AUTO DIFF Differential Comment AUTO DIFF CONFIRMED Platelet Estimate LOW (NORMAL) Platelet Morphology Comment NORMAL (NORMAL) Acanthocytes OCC (NORMAL) Prothrombin Time 12.2 SEC (9.8-11.6) 10.9 SEC (9.8-11.6) Prothromb Time International Ratio 1.1 RATIO 1.0 RATIO Activated Partial Thromboplast Time 29.4 SEC (24.3-30.1) Blood Urea Nitrogen 11 MG/DL (7-18) Creatinine 1.08 MG/DL (0.60-1.30) Random Glucose 118 MG/DL (74-106) Total Protein 7.0 GM/DL (6.4-8.2) Albumin 3.4 GM/DL (3.4-5.0) Calcium Level 10.7 MG/DL (8.5-10.1) Alkaline Phosphatase 107 U/L (45-117) Aspartate Amino Transf (AST/SGOT) 32 U/L (15-37) Alanine Aminotransferase (ALT/SGPT) 10 U/L (12-78) Total Bilirubin 1.4 MG/DL (0.2-1.0) Sodium Level 138 MEQ/L (136-145) Potassium Level 3.7 MEQ/L (3.5-5.1) Chloride Level 101 MEQ/L (98-107) Carbon Dioxide Level 21.3 MEQ/L (21.0-32.0) Anion Gap 16 MEQ/L (5-15) Estimat Glomerular Filtration Rate 68 ML/MIN (>89) Lipase 79 U/L (73-393) Lactic Acid Level 6.3 mmol/L (0.4-2.0) 3.6 mmol/L (0.4-2.0) Test 01/29/17 01:35 01/29/17 02:15 01/29/17 03:45 01/29/17 10:30 Ammonia 15 MCMOL/L (11-32) Nasal Screen MRSA (PCR) MRSA NOT DETECTED (NOT Hemoglobin 10.7 GM/DL (13.0-17.0) 10.6 GM/DL (13.0-17.0) Hematocrit 32.5 % (39.0-51.0) 32.2 % (39.0-51.0) Lactic Acid Level 1.5 mmol/L (0.4-2.0) Test 01/29/17 15:30 01/29/17 22:19 01/30/17 05:20 01/31/17 05:30 Hemoglobin 10.3 GM/DL (13.0-17.0) 10.3 GM/DL (13.0-17.0) 10.8 GM/DL (13.0-17.0) 11.3 GM/DL (13.0-17.0) Hematocrit 31.5 % (39.0-51.0) 31.7 % (39.0-51.0) 32.7 % (39.0-51.0) 34.4 % (39.0-51.0) White Blood Count 1.5 TH/MM3 (4.0-11.0) 1.4 TH/MM3 (4.0-11.0) Red Blood Count 3.49 MIL/MM3 (4.50-5.90) 3.71 MIL/MM3 (4.50-5.90) Mean Corpuscular Volume 93.7 FL (80.0-100.0) 92.8 FL (80.0-100.0) Mean Corpuscular Hemoglobin 30.8 PG (27.0-34.0) 30.5 PG (27.0-34.0) Mean Corpuscular Hemoglobin Concent 32.9 % (32.0-36.0) 32.9 % (32.0-36.0) Red Cell Distribution Width 22.3 % (11.6-17.2) 22.7 % (11.6-17.2) Platelet Count 71 TH/MM3 (150-450) 86 TH/MM3 (150-450) Mean Platelet Volume 7.9 FL (7.0-11.0) 7.2 FL (7.0-11.0) Neutrophils (%) (Auto) 31.1 % (16.0-70.0) Lymphocytes (%) (Auto) 34.6 % (9.0-44.0) Monocytes (%) (Auto) 31.3 % (0.0-8.0) Eosinophils (%) (Auto) 2.5 % (0.0-4.0) Basophils (%) (Auto) 0.5 % (0.0-2.0) Neutrophils # (Auto) 0.5 TH/MM3 (1.8-7.7) Lymphocytes # (Auto) 0.5 TH/MM3 (1.0-4.8) Monocytes # (Auto) 0.5 TH/MM3 (0-0.9) Eosinophils # (Auto) 0.0 TH/MM3 (0-0.4) Basophils # (Auto) 0.0 TH/MM3 (0-0.2) CBC Comment AUTO DIFF Differential Total Cells Counted 100 Neutrophils % (Manual) 38 % (16-70) Band Neutrophils % 1 % (0-6) Lymphocytes % 33 % (9-44) Monocytes % 28 % (0-8) Neutrophils # (Manual) 0.6 TH/MM3 (1.8-7.7) Differential Comment FINAL DIFF MANUAL Platelet Estimate LOW (NORMAL) Platelet Morphology Comment NORMAL (NORMAL) Tear Drop Cells 1+ (NORMAL) Ovalocytes 1+ (NORMAL) Blood Urea Nitrogen 7 MG/DL (7-18) 4 MG/DL (7-18) Creatinine 0.61 MG/DL (0.60-1.30) 0.59 MG/DL (0.60-1.30) Random Glucose 96 MG/DL (74-106) 104 MG/DL (74-106) Total Protein 5.5 GM/DL (6.4-8.2) 5.6 GM/DL (6.4-8.2) Albumin 2.6 GM/DL (3.4-5.0) 2.7 GM/DL (3.4-5.0) Calcium Level 8.5 MG/DL (8.5-10.1) 8.8 MG/DL (8.5-10.1) Phosphorus Level 0.9 MG/DL (2.5-4.9) 1.2 MG/DL (2.5-4.9) Magnesium Level 1.7 MG/DL (1.5-2.5) 2.1 MG/DL (1.5-2.5) Alkaline Phosphatase 86 U/L (45-117) 88 U/L (45-117) Aspartate Amino Transf (AST/SGOT) 31 U/L (15-37) 36 U/L (15-37) Alanine Aminotransferase (ALT/SGPT) LESS THAN 6 U/L (12-78) LESS THAN 6 U/L (12-78) Total Bilirubin 1.6 MG/DL (0.2-1.0) 1.6 MG/DL (0.2-1.0) Sodium Level 140 MEQ/L (136-145) 142 MEQ/L (136-145) Potassium Level 3.1 MEQ/L (3.5-5.1) 2.9 MEQ/L (3.5-5.1) Chloride Level 109 MEQ/L (98-107) 109 MEQ/L (98-107) Carbon Dioxide Level 23.5 MEQ/L (21.0-32.0) 23.5 MEQ/L (21.0-32.0) Anion Gap 8 MEQ/L (5-15) 10 MEQ/L (5-15) Estimat Glomerular Filtration Rate 131 ML/MIN (>89) 135 ML/MIN (>89) . Result Diagram: 01/31/1752901/31/1730 Microbiology Microbiology Date/Time Source Procedure Growth Status 01/30/17 14:35 Blood Peripheral Aerobic Blood Culture - Preliminary NO GROWTH IN 1 DAY Resulted 01/30/17 14:35 Blood Peripheral Anaerobic Blood Culture - Preliminary NO GROWTH IN 1 DAY Resulted 01/30/17 14:30 Blood Peripheral Aerobic Blood Culture - Preliminary NO GROWTH IN 1 DAY Resulted 01/30/17 14:30 Blood Peripheral Anaerobic Blood Culture - Preliminary NO GROWTH IN 1 DAY Resulted 01/29/17 00:30 Blood Peripheral Aerobic Blood Culture - Preliminary NO GROWTH IN 2 DAYS Resulted 01/29/17 00:30 Blood Peripheral Anaerobic Blood Culture - Preliminary NO GROWTH IN 2 DAYS Resulted 01/29/17 00:30 Blood Peripheral Aerobic Blood Culture - Final Staph Sp Coagulase Negative Resulted 01/29/17 00:30 Anaerobic Blood Culture - Preliminary Staphylococcus Epidermidis Resulted Assessment and Plan Disease Oriented Problem List: (1) Esophageal cancer Comment: History of Stage IV esophageal cancer status post chemotherapy and radiation (2) Lytic bone lesions on xray (3) GI bleed (4) Thrombocytopenia (5) DVT of lower extremity, bilateral Comment: History of DVT. On Xarelto at home, currently on hold . (6) Parkinsons disease Symptom Scale: (1) Pain (2) Debility (3) Nausea & vomiting Pertinent Non-Medical Issues Psychosocial:Patient is originally from [place]. He has 1 adult daughter, Tiffany, who still resides there. He worked as a [employer] until he retired at the age of 56. Patient states he sailed his yacht from [place] to [place] approximately 12 years ago, and has been living here ever since. The patient was 3 times; his third (Gurpreet) from a drug overdose in August. 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 Served in [place]. He has one daughter, Tiffany Celeste (here from [place]). One sister, Roseann here from [place]. Spiritual: Patient denies online program coordinator visits Legal:Patient has designated his sister, Roseann, as the healthcare surrogate decision maker. His daughter, Alexandria, is designated as the alternate health care surrogate. Ethical issues impacting care: No known ethical issues impacting care. . Important Contacts Gurpreet Hairston, : [phone] or [phone] Fe Hernandez, daughter: [phone] . Prognosis Patient is a 72 year old male with stage IV metastatic esophageal cancer, currently receiving palliative chemotherapy with Dr. Stone. Patient reports an overall decline in past year as evidenced by weight loss, decreased appetite, fatigue and increased difficulty with ADLs/weakness. Given patient's advanced age, disease progression and recent functional decline, his overall prognosis is poor. . Code Status: No Code Plan * NO CODE-DNR/DNI * Decision making: Patient has designated his sister, Roseann, as the healthcare surrogate decision maker. His daughter, Alexandria, is designated as the alternate health care surrogate. * GOALS: Aggressive up to the point of cardiopulmonary resuscitation * Attempted to contact Dr. Stone, patient's oncologist. Message left on physicians voicemail; awaiting return phone call. * Symptom management-nausea/vomiting: Nausea and vomiting have resolved. PRN Zofran available q6 hours IV. * Symptom management-pain: Reporting ongoing, intermittent pain in right upper extremity that can be severe at times. Current orders for extended release morphine 30mg PO daily and IV hydromorphone 1 mg PO every 4 hours PRN for breakthrough pain which is being sparingly used. * Symptom management - debility: Physical therapy is following. Patient would like to return home upon discharge with home health care. . Attestation To help prompt me to consider important information that might be impacting today's encounter and assessment, information from prior notes written by myself or my colleagues may have been "brought forward" into today's note. My signature on this note, however, is an attestation that I personally performed the exam, history, and/or decision-making noted today, and, unless otherwise indicated, the interactions with patient, family, and staff as well as the review of records all occurred today. I also attest that the listed assessment and stated plan reflect my best clinical judgment today based on the combination of historical information, prior notes, and today's exam/ interactions. When time spent is documented, it refers only to time spent today by the signer, or if indicated, combined time spent today by collaborating physician/nurse practitioner. . Stephanie Melgar Jan 31, 2017 17:01
[2017-01-31 20:35] LABS: POTASSIUM 3.3 MEQ/L (3.5-5.1)
[2017-01-31] MEDS: POTASSIUM CHLOR 20 MEQ PREMIX 100 ML IV SCH ×2 (23:46→23:55)
[2017-01-31] MEDS: HYDROmorphone HCL PF 1 MG/ML VIAL IV PRN (23:55)
[2017-02-01] VITALS (9 sets, daily range): BP systolic 102–133; BP diastolic 62–75; PULSE 66–83; RESP 12–19; TEMP 97.8–98.4; O2SAT 97–99
[2017-02-01] MEDS: CHLORHEXIDINE GLUCONATE 2 % 1 PACK (2 CLOTHS) TOP SCH (04:00)
[2017-02-01] MEDS: CARBIDOPA/LEVODOPA 25 MG/100 MG TAB PO SCH ×5 (04:07→23:21)
[2017-02-01] MEDS: PANTOPRAZOLE INJ 80 MG in SODIUM CHLORIDE 0.9% INJ 100 ML IV SCH (04:07)
[2017-02-01 05:23] LABS: HEMATOCRIT 32.3 % (39.0-51.0); MEAN CELL VOLUME 92.9 FL (80.0-100.0); MEAN CORPUSCULAR HEMOGLOBIN 31.5 PG (27.0-34.0); MEAN CORPUSCULAR HGB CONC 33.9 % (32.0-36.0); PLATELET COUNT 95 TH/MM3 (150-450); RED BLOOD COUNT 3.47 MIL/MM3 (4.50-5.90); RED CELL DISTRIBUTION WIDTH 23.8 % (11.6-17.2); WHITE BLOOD COUNT 1.7 TH/MM3 (4.0-11.0)
[2017-02-01 05:35] LABS: HEMO FLAGS AUTO DIFF
[2017-02-01 05:43] LABS: ANION GAP 6 MEQ/L (5-15); AST (GOT) 29 U/L (15-37); BICARBONATE 24.7 MEQ/L (21.0-32.0); BLOOD UREA NITROGEN 4 MG/DL (7-18); CHLORIDE 111 MEQ/L (98-107); GLOMERULAR FILTRATION RATE 119 ML/MIN (>89); MAGNESIUM 1.9 MG/DL (1.5-2.5); POTASSIUM 3.6 MEQ/L (3.5-5.1); SODIUM (NA) 142 MEQ/L (136-145)
[2017-02-01 05:47] LABS: ALKALINE PHOSPHATASE 84 U/L (45-117); ALT (GPT) 6 U/L (12-78); TOTAL BILIRUBIN ADULT 1.2 MG/DL (0.2-1.0)
[2017-02-01 07:39] LABS: CORRECTED NUCLEATED RBC 1 /100 WBC (0-0); EOSINOPHILS 1 % (0-4); POLYS (SEG NEUTROPHILS) 25 % (16-70); WBC DIFF SAMPLE 100
[2017-02-01 07:46] LABS: NEUTROPHIL # MANUAL DIFF 0.4 TH/MM3 (1.8-7.7); PLATELET ESTIMATE SMEAR LOW (NORMAL); PLATELET MORPHOLOGY NORMAL (NORMAL); SCAN/DIFF FINAL DIFF MANUAL
--- NOTE | 2017-02-01 08:26 | HHI.CCPN ---
Subjective Remarks/Hospital Course 71-year-old male with history of stage 4 esophageal cancer, pancreatic and liver metastases disease, DVT currently on Xarrellto, presents to emergency room with complaints of gastrointestinal bleed with hematemesis. Patient reports that he has been having abdominal pain, reports that he hasn't been feeling well and has been nauseous all day. Patient reports that he has been vomiting up coffee ground emesis as well as some fresh blood. Patient reports that his thermostatic controls supervisor is Dr. Stone. He was resuscitated with the IV fluids and reverse coagulation with Kcentra in the emergency department with improvement of vital signs and clinical picture and is admitted to critical care unit due to hematemesis. 01/30: Resting comfortably in bed. Currently down for EGD in OR. Hemoglobin remained stable. Required hydromorphone for pain management overnight. 01/31: Afebrile. Complains of poor sleeping overnight. EGD revealed esophageal ulcer. Continues on pantoprazole and Sandostatin drips. Phosphorus been replaced today. Subjective 02/01: Currently resting in bed. Tolerating diet. Wants to go home. Continues on pantoprazole and Sandostatin drips. Phosphorus again been replaced today. Hemoglobin stable 48 hours. Objective Vital Signs Date Time Temp Pulse Resp B/P (MAP) Pulse Ox O2 Delivery O2 Flow Rate FiO2 02/01/17 04:00 98.2 66 15 122/74 (90) 99 01/30/17 10:50 Room Air Intake and Output 02/01/17 02/01/17 02/02/17 08:00 16:00 00:00 Intake Total 240 ml Output Total 1100 ml Balance -860 ml Result Diagram: 02/01/17 0410 02/01/17 0410 Other Results Microbiology Date/Time Source Procedure Growth Status 01/30/17 14:35 Blood Peripheral Aerobic Blood Culture - Preliminary NO GROWTH IN 1 DAY Resulted 01/30/17 14:35 Blood Peripheral Anaerobic Blood Culture - Preliminary NO GROWTH IN 1 DAY Resulted Imaging Last Impressions Abdomen X-Ray 01/29/17 0000 Signed Impressions: Service Date/Time: Sunday, January 29, 2017 11:13 - CONCLUSION: Unchanged dilated small bowel suggesting distal small bowel obstruction. Gualberto Calderon Jr., MD Chest X-Ray 01/28/178 Signed Impressions: Service Date/Time: Saturday, January 28, 2017 22:44 - CONCLUSION: 1. No acute findings. Selvin Whittington MD Abdomen/Pelvis CT 01/28/17 1356 Signed Impressions: Service Date/Time: Saturday, January 28, 2017 23:20 - CONCLUSION: 1. Proximal and mid small bowel dilatation with air-fluid levels and distal decompression characteristic of an early or partial small bowel obstruction. No free air. Small amount of free fluid in the abdomen and pelvis. Selvin Whittington MD Objective Remarks GENERAL: 72-year-old male currently resting in bed in no acute distress SKIN: Warm and dry. Well perfused. No rash. HEAD: Normocephalic. EYES: Pupils around 3 mm bilaterally and reactive. No scleral icterus. No injection or drainage. NECK: Supple, trachea midline. No JVD or lymphadenopathy. CARDIOVASCULAR: RRR. S1, S2 without murmur RESPIRATORY: Breath sounds equal bilaterally. No accessory muscle use. GASTROINTESTINAL: Abdomen soft, slightly distended. Hypoactive bowel sounds appreciated MUSCULOSKELETAL: Prior right clavicle fracture. Pathological. Right lower extremity brace in place BACK: Nontender without obvious deformity. NEURO EXAM: Cranial nerves II-12 grossly intact. Strength is equal symmetric. Normal sensation A/P Assessment and Plan Neuro/Psych: Parkinson's disease PTSD Chronic pain syndrome Anxiety disorder NOS Chronic opiate use Chronic benzodiazepine use Continue carbidopa/levodopa 25/100 1 tablet every 4 hours Parkinson's disease Continue gabapentin 100 mg every 6 hours when necessary pain Patient is on alprazolam 1 mg 3 times a day at nursing facility/at this facility Patient is morphine sulfate extended release 30 mg daily Hydromorphone 1 mg every 4 hours when necessary breakthrough pain CV: Lactic acidosis - resolved Patient is currently hemodynamic stable and normal saline at 84 cc an hour Not requiring antihypertensives and/or vasopressors 2-D echocardiogram revealed EF 55-60%. RV dilation. Lactate 1.5 01/30 Resp: Nasal cannula to maintain saturations greater than equal to 92% Incentive spirometry while awake GI: Esophageal ulcer Hematemesis Hepatitis B Gastroesophageal reflux disease PSBO versus ileus Patient is currently on a pantoprazole drip at 8 mg an hour along Sandostatin drip at 50 g an hour Currently down for EGD GI CT abdomen/pelvis 01/29 revealed proximal to mid small bowel dilatation with air in the colon. On omeprazole 20 mg twice a day at nursing facility Patient had liquid green bowel movement 01/30 Docusate sodium/senna 1 tablet twice a day for bowel regimen. EGD revealed esophageal ulcer 5 cm from gastric junction. Biopsied with pathology pending as of 02/01. : Bustamante catheter if indicated for accurate I's and O's in a critically ill patient Endo: Sliding-scale insulin if indicated to maintain euglycemia/blood sugar less than 15 Renal: Monitor urine output Accurate I's and O's Creatinine currently within normal limits Heme: Stage IV esophageal cancer - status post radiation/chemotherapy by Dr. Stone Leukopenia Anemia Thrombocytopenia Chronic Rivaroxaban use Received K Centra/PCC in ED No indication for transfusion of blood proximal at this time. Hemoglobin will slowly increasing to 11.3 this a.m. ID: Staph epi bacteremia versus contaminant Patient is on cefepime 2 g IV every 8 hours upper GI prophylaxis 3 days Pertinent cultures 01/29 - blood cultures 2 - 1+ out of 4 for staph epi likely contaminant. Recheck blood cultures FEN: History of familial hypercalcemia Hypophosphatemia Replace electrolytes as clinically indicated. 30 mmol K-Phos, 1000 mg Neutra-Phos by mouth times one. Recheck phosphorus in a.m. MSK: Right upper extremity - chronic pathological fracture PT/OT evaluate and treat Prophylaxis - GI - pantoprazole drip - DVT - SCD/pharmacological prophylaxis contra indicated with active upper GI bleed Access - Utilize peripheral IV. Central line if indicated Level II follow-up. Patient is stable from a critical care medicine standpoint. We'll assign care to hospitalist in a.m. 02/02. Regis Jordan MD Feb 01, 2017 08:26
[2017-02-01] MEDS: DOCUSATE SODIUM 50 MG/SENNA 8.6 MG TAB PO SCH ×2 (09:00→23:22)
[2017-02-01] MEDS: MORPHINE SULFATE 30 MG CONTROLLED RELEASE TAB PO SCH (09:04)
[2017-02-01] MEDS: ONDANSETRON HCL 4 MG/2 ML VIAL IV PRN ×2 (09:04→23:22)
[2017-02-01] MEDS: SODIUM CHLORIDE 0.9% FLUSH 10 ML FLUSH SCH ×2 (09:05→21:00)
[2017-02-01] MEDS: POTASSIUM PHOSPHATE/SODIUM PHOSPHATE 250 MG TAB PO SCH ×4 (09:09→23:22)
[2017-02-01] MEDS ORDERED: POTASSIUM PHOSPHATE INJ 30 MMOL in SODIUM CHLOR 0.9% 250 ML INJ 250 ML IV ONE (10:00)
[2017-02-01] MEDS: HYDROmorphone HCL PF 1 MG/ML VIAL IV PRN ×2 (10:51→23:23)
--- NOTE | 2017-02-01 11:40 | HHI.HCPN ---
Reason for visit a. To assist with evaluation and management of symptoms including: pain, debility, nausea/vomiting b. To assist medical decision maker(s) with: better understanding of current medical conditions; weighing benefits/burdens of medical treatment options; making medical treatment decisions. Subjective/Interval History Mr. Hairston is a 72-year-old male with a history of stage IV esophageal cancer, pancreatic cancer, liver cancer, DVT (on Xarelto), GERD, Parkinson's, BPH, PTSD , anxiety and Hep B. He presented to [facility] ED on 01/28/2017 with diffuse abdominal pain and suspected GI bleed. The patient reported he had been experiencing abdominal pain and feeling nauseated all day. He stated that he had been vomiting coffee-ground emesis. Patient has a history of esophageal cancer status post chemotherapy and radiation. Of note, patient reported he follows Dr. Stone (hematology/oncology) and has been undergoing chemotherapy for 3 months secondary to recurrence of metastatic cancer in September,. Upon presentation to the ED, patient with audrey coffee-ground emesis. Patient's lactic acid was elevated at 6.3, unknown etiology of his source of infection. He was pancultured. Patient was then started on broad-spectrum antibiotics. Patient received a Protonix bolus; he was then placed in a Protonix drip as well as a Octreotide for GI bleed. Patient was administered Kcentral to reverse the effects of the Xarelto which was last taken earlier that morning. Patient was admitted for further evaluation and medical management; gastroenterology was consulted. Patient seen and assessed in room 507, finishing up with PT upon my arrival. He reports fatigue lethargy. Hemodynamically stable. Patient denies shortness of breath, oxygen saturation in the high 90s on room air. Patient reports pain in right upper extremity that can be severe at times, currently rated 7 out of 10. Patient states he does not want to be "floaty" but wants to be comfortable enough to function. He states a pain level of 2 out 10 would be acceptable. Current orders for extended release morphine 30mg PO daily and IV hydromorphone 1 mg PO every 4 hours PRN for breakthrough pain which is being sparingly used. Discussed with patient's nurse, Jessica. PRN hydromorphone administered for breakthrough pain. EGD on 01/30/2017 which revealed a large ulcer in the distal esophagus. Biopsy still pending. Patient's appetite remains poor; nutritional intake consists primarily of ensure. Nausea and vomiting have resolved per patient. Patient remains on Protonix drip, Octreotide has been discontinued. Patient continues to work with physical therapy. Case management assisting with discharge planning. Patient plans to return home with home health care with stable. Currently goals remain aggressive; hospice was introduced to the patient who states he was previously on hospice. Patient states he will discuss medical treatment goals with Dr. Stone further after a PET scan scheduled for Sunday02/05/17. Community DNR completed per patient's request. Patient received original [place] DNR form; copies were placed in the patient's paper chart and faxed to HIM to be scanned into the patient's EMR. . Advance Directives Health Care Surrogate: Copy in medical record Durable Power of Custodian: Copy in medical record Advance Directive Specifics Date completed: 01/29/17 . . Health Care Surrogate(s): Patient has designated his sister, Roseann, as the healthcare surrogate decision maker. His daughter, Alexandria, is designated as the alternate health care surrogate. . Objective Vital Signs Date Time Temp Pulse Resp B/P (MAP) Pulse Ox O2 Delivery O2 Flow Rate FiO2 02/01/17 10:04 15 02/01/17 10:00 83 02/01/17 08:00 67 02/01/17 08:00 98.4 67 12 133/75 (94) 98 02/01/17 04:00 98.2 66 15 122/74 (90) 99 02/01/17 00:00 98.1 70 13 114/67 (83) 99 01/31/17 20:00 98.0 80 17 105/71 (82) 98 01/31/17 18:00 82 01/31/17 16:00 96 01/31/17 16:00 97.9 96 23 104/59 (74) 97 01/31/17 14:00 106 01/31/17 12:00 98.3 101 23 115/70 (85) 97 01/31/17 12:00 101 Intake & Output 02/01/17 02/01/17 07:00 19:00 Intake Total 240 ml 1160 ml Output Total 1100 ml Balance -860 ml 1160 ml Intake Oral 240 ml IV Total 1160 ml Output Urine Total 1100 ml # Bowel Movements 0 Physical Exam CONSTITUTIONAL/GENERAL: This is a frail elderly male in no apparent distress TUBES/LINES/DRAINS: , PIV SKIN: Ecchymoses on upper extremities. Skin temperature appropriate. Not diaphoretic. HEAD: Atraumatic. Normocephalic. EYES: Pupils equal and round and reactive. No scleral icterus. No injection or drainage. Fundi not examined. ENT: Hearing grossly normal. Nose without bleeding or purulent drainage. NECK: Trachea midline. Supple, nontender. No palpable thyroid enlargement or nodularity. CARDIOVASCULAR: Regular rate and rhythm without murmurs, gallops, or rubs. RESPIRATORY/CHEST: Symmetric, unlabored respirations. Breath sounds diminished bilaterally. GASTROINTESTINAL: Abdomen soft, non-tender, nondistended.. No guarding. Bowel sounds present. GENITOURINARY: Without palpable bladder distension. MUSCULOSKELETAL: Extremities without clubbing, cyanosis. Trace edema LYMPHATICS: No palpable cervical or supraclavicular adenopathy. NEUROLOGICAL: Awake and alert. Follows commands. Cognitively sharp. Moves all extremities. PSYCHIATRIC: No obvious anxiety/depression. no apparent hallucinations or other psychotic thought process. . Diagnostic Tests Laboratory Laboratory Tests Test 01/29/17 15:30 01/29/17 22:19 01/30/17 05:20 01/31/17 05:30 Hemoglobin 10.3 GM/DL (13.0-17.0) 10.3 GM/DL (13.0-17.0) 10.8 GM/DL (13.0-17.0) 11.3 GM/DL (13.0-17.0) Hematocrit 31.5 % (39.0-51.0) 31.7 % (39.0-51.0) 32.7 % (39.0-51.0) 34.4 % (39.0-51.0) White Blood Count 1.5 TH/MM3 (4.0-11.0) 1.4 TH/MM3 (4.0-11.0) Red Blood Count 3.49 MIL/MM3 (4.50-5.90) 3.71 MIL/MM3 (4.50-5.90) Mean Corpuscular Volume 93.7 FL (80.0-100.0) 92.8 FL (80.0-100.0) Mean Corpuscular Hemoglobin 30.8 PG (27.0-34.0) 30.5 PG (27.0-34.0) Mean Corpuscular Hemoglobin Concent 32.9 % (32.0-36.0) 32.9 % (32.0-36.0) Red Cell Distribution Width 22.3 % (11.6-17.2) 22.7 % (11.6-17.2) Platelet Count 71 TH/MM3 (150-450) 86 TH/MM3 (150-450) Mean Platelet Volume 7.9 FL (7.0-11.0) 7.2 FL (7.0-11.0) Neutrophils (%) (Auto) 31.1 % (16.0-70.0) Lymphocytes (%) (Auto) 34.6 % (9.0-44.0) Monocytes (%) (Auto) 31.3 % (0.0-8.0) Eosinophils (%) (Auto) 2.5 % (0.0-4.0) Basophils (%) (Auto) 0.5 % (0.0-2.0) Neutrophils # (Auto) 0.5 TH/MM3 (1.8-7.7) Lymphocytes # (Auto) 0.5 TH/MM3 (1.0-4.8) Monocytes # (Auto) 0.5 TH/MM3 (0-0.9) Eosinophils # (Auto) 0.0 TH/MM3 (0-0.4) Basophils # (Auto) 0.0 TH/MM3 (0-0.2) CBC Comment AUTO DIFF Differential Total Cells Counted 100 Neutrophils % (Manual) 38 % (16-70) Band Neutrophils % 1 % (0-6) Lymphocytes % 33 % (9-44) Monocytes % 28 % (0-8) Neutrophils # (Manual) 0.6 TH/MM3 (1.8-7.7) Differential Comment FINAL DIFF MANUAL Platelet Estimate LOW (NORMAL) Platelet Morphology Comment NORMAL (NORMAL) Tear Drop Cells 1+ (NORMAL) Ovalocytes 1+ (NORMAL) Blood Urea Nitrogen 7 MG/DL (7-18) 4 MG/DL (7-18) Creatinine 0.61 MG/DL (0.60-1.30) 0.59 MG/DL (0.60-1.30) Random Glucose 96 MG/DL (74-106) 104 MG/DL (74-106) Total Protein 5.5 GM/DL (6.4-8.2) 5.6 GM/DL (6.4-8.2) Albumin 2.6 GM/DL (3.4-5.0) 2.7 GM/DL (3.4-5.0) Calcium Level 8.5 MG/DL (8.5-10.1) 8.8 MG/DL (8.5-10.1) Phosphorus Level 0.9 MG/DL (2.5-4.9) 1.2 MG/DL (2.5-4.9) Magnesium Level 1.7 MG/DL (1.5-2.5) 2.1 MG/DL (1.5-2.5) Alkaline Phosphatase 86 U/L (45-117) 88 U/L (45-117) Aspartate Amino Transf (AST/SGOT) 31 U/L (15-37) 36 U/L (15-37) Alanine Aminotransferase (ALT/SGPT) LESS THAN 6 U/L (12-78) LESS THAN 6 U/L (12-78) Total Bilirubin 1.6 MG/DL (0.2-1.0) 1.6 MG/DL (0.2-1.0) Sodium Level 140 MEQ/L (136-145) 142 MEQ/L (136-145) Potassium Level 3.1 MEQ/L (3.5-5.1) 2.9 MEQ/L (3.5-5.1) Chloride Level 109 MEQ/L (98-107) 109 MEQ/L (98-107) Carbon Dioxide Level 23.5 MEQ/L (21.0-32.0) 23.5 MEQ/L (21.0-32.0) Anion Gap 8 MEQ/L (5-15) 10 MEQ/L (5-15) Estimat Glomerular Filtration Rate 131 ML/MIN (>89) 135 ML/MIN (>89) Test 01/31/17 18:20 02/01/17 04:10 Potassium Level 3.3 MEQ/L (3.5-5.1) 3.6 MEQ/L (3.5-5.1) Phosphorus Level 1.7 MG/DL (2.5-4.9) 1.1 MG/DL (2.5-4.9) White Blood Count 1.7 TH/MM3 (4.0-11.0) Red Blood Count 3.47 MIL/MM3 (4.50-5.90) Hemoglobin 10.9 GM/DL (13.0-17.0) Hematocrit 32.3 % (39.0-51.0) Mean Corpuscular Volume 92.9 FL (80.0-100.0) Mean Corpuscular Hemoglobin 31.5 PG (27.0-34.0) Mean Corpuscular Hemoglobin Concent 33.9 % (32.0-36.0) Red Cell Distribution Width 23.8 % (11.6-17.2) Platelet Count 95 TH/MM3 (150-450) Mean Platelet Volume 7.7 FL (7.0-11.0) CBC Comment AUTO DIFF Differential Total Cells Counted 100 Neutrophils % (Manual) 25 % (16-70) Lymphocytes % 31 % (9-44) Monocytes % 43 % (0-8) Eosinophils % 1 % (0-4) Neutrophils # (Manual) 0.4 TH/MM3 (1.8-7.7) Nucleated Red Blood Cells 1 /100 WBC (0-0) Differential Comment FINAL DIFF MANUAL Smudge Cells Platelet Estimate LOW (NORMAL) Platelet Morphology Comment NORMAL (NORMAL) Blood Urea Nitrogen 4 MG/DL (7-18) Creatinine 0.66 MG/DL (0.60-1.30) Random Glucose 123 MG/DL (74-106) Total Protein 5.3 GM/DL (6.4-8.2) Albumin 2.6 GM/DL (3.4-5.0) Calcium Level 8.7 MG/DL (8.5-10.1) Magnesium Level 1.9 MG/DL (1.5-2.5) Alkaline Phosphatase 84 U/L (45-117) Aspartate Amino Transf (AST/SGOT) 29 U/L (15-37) Alanine Aminotransferase (ALT/SGPT) 6 U/L (12-78) Total Bilirubin 1.2 MG/DL (0.2-1.0) Sodium Level 142 MEQ/L (136-145) Chloride Level 111 MEQ/L (98-107) Carbon Dioxide Level 24.7 MEQ/L (21.0-32.0) Anion Gap 6 MEQ/L (5-15) Estimat Glomerular Filtration Rate 119 ML/MIN (>89) Result Diagram: 02/01/17 0410 02/01/17 0410 Microbiology Microbiology Date/Time Source Procedure Growth Status 01/30/17 14:35 Blood Peripheral Aerobic Blood Culture - Preliminary NO GROWTH IN 1 DAY Resulted 01/30/17 14:35 Blood Peripheral Anaerobic Blood Culture - Preliminary NO GROWTH IN 1 DAY Resulted 01/30/17 14:30 Blood Peripheral Aerobic Blood Culture - Preliminary NO GROWTH IN 1 DAY Resulted 01/30/17 14:30 Blood Peripheral Anaerobic Blood Culture - Preliminary NO GROWTH IN 1 DAY Resulted Assessment and Plan Disease Oriented Problem List: (1) Esophageal cancer Comment: History of Stage IV esophageal cancer status post chemotherapy and radiation (2) Lytic bone lesions on xray (3) GI bleed (4) Thrombocytopenia (5) DVT of lower extremity, bilateral Comment: History of DVT. On Xarelto at home, currently on hold . (6) Parkinsons disease Symptom Scale: (1) Pain (2) Debility (3) Decrease in appetite Pertinent Non-Medical Issues Psychosocial:Patient is originally from [place]. He has 1 adult daughter, Tiffany, who still resides there. He worked as a [employer] until he retired at the age of 56. Patient states he sailed his yacht from [place] to [place] approximately 12 years ago, and has been living here ever since. The patient was 3 times; his third (Gurpreet) from a drug overdose in August. 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 Served in [place]. He has one daughter, Tiffany Sheffiled (here from [place]). One sister, Roseann here from [place]. Spiritual: Patient denies store shopper visits Legal:Patient has designated his sister, Roseann, as the healthcare surrogate decision maker. His daughter, Alexandria, is designated as the alternate health care surrogate. Ethical issues impacting care: No known ethical issues impacting care. . Important Contacts Gurpreet Hairston, : [phone] or [phone] Fe Hernandez, daughter: [phone] . Prognosis Patient is a 72 year old male with stage IV metastatic esophageal cancer, currently receiving palliative chemotherapy with Dr. Stone. Patient reports an overall decline in past year as evidenced by weight loss, decreased appetite, fatigue and increased difficulty with ADLs/weakness. Given patient's advanced age, disease progression and recent functional decline, his overall prognosis is poor. . Code Status: No Code Plan * NO CODE-DNR/DNI * Decision making: Patient has designated his sister, Roseann, as the healthcare surrogate decision maker. His daughter, Alexandria, is designated as the alternate health care surrogate. * GOALS: Aggressive up to the point of cardiopulmonary resuscitation-Patient states he will discuss medical treatment goals with Dr. Stone further after a PET scan scheduled for Sunday02/05/17. * Hospice was introduced; patient states he was previously on hospice and he is familiar with hospice services. * Discussed with patient's nurse, Jessica * Symptom management-decreased appetite: Patient's appetite remains poor; nutritional intake consists primarily of ensure. Nausea and vomiting have resolved per patient. Consider starting the patient on low dose dexamethasone PO 2mg BID which may assist with feelings of overall wellbeing and improve appetite. * Symptom management-pain: Patient reports pain in right upper extremity that can be severe at times, currently rated 7 out of 10. Patient states he does not want to be "floaty" but wants to be comfortable enough to function. He states a pain level of 2 out 10 would be acceptable. Current orders for extended release morphine 30mg PO daily and IV hydromorphone 1 mg PO every 4 hours PRN for breakthrough pain which is being sparingly used. Discussed with patient's nurse , Jessica. PRN hydromorphone administered for breakthrough pain. Will need to transition from IV hydromorphone to oral prior to discharge. * Symptom management - debility: Patient continues to work with physical therapy. Case management assisting with discharge planning. Patient plans to return home with home health care with stable. * Community DNR completed per patient's request. Patient received original [place] DNR form; copies were placed in the patient's paper chart and faxed to HIM to be scanned into the patient's EMR. . Attestation To help prompt me to consider important information that might be impacting today's encounter and assessment, information from prior notes written by myself or my colleagues may have been "brought forward" into today's note. My signature on this note, however, is an attestation that I personally performed the exam, history, and/or decision-making noted today, and, unless otherwise indicated, the interactions with patient, family, and staff as well as the review of records all occurred today. I also attest that the listed assessment and stated plan reflect my best clinical judgment today based on the combination of historical information, prior notes, and today's exam/ interactions. When time spent is documented, it refers only to time spent today by the signer, or if indicated, combined time spent today by collaborating physician/nurse practitioner. . Stephanie Melgar Feb 01, 2017 11:40
--- NOTE | 2017-02-01 15:08 | HHI.GIFU ---
Subjective Remarks Pt resting in bed. He is tolerating a full liquid diet. He has not had any active GI bleeding. He has mild epigastric discomfort. He states that foods sometimes are sluggish to go down but denies any food actually getting caught in his esophagus. (Janice Bajwa) Objective Vitals I&O Vital Signs Date Time Temp Pulse Resp B/P (MAP) Pulse Ox O2 Delivery O2 Flow Rate FiO2 02/01/17 14:00 83 02/01/17 12:00 98.3 79 19 102/62 (75) 97 02/01/17 12:00 79 02/01/17 11:21 14 02/01/17 10:04 15 02/01/17 10:00 83 02/01/17 08:00 67 02/01/17 08:00 98.4 67 12 133/75 (94) 98 02/01/17 04:00 98.2 66 15 122/74 (90) 99 02/01/17 00:00 98.1 70 13 114/67 (83) 99 01/31/17 20:00 98.0 80 17 105/71 (82) 98 01/31/17 18:00 82 01/31/17 16:00 96 01/31/17 16:00 97.9 96 23 104/59 (74) 97 I/O 01/31/17 01/31/17 01/31/17 02/01/17 02/01/17 02/01/17 06:59 14:59 22:59 06:59 14:59 22:59 Intake Total 1096 ml 200 ml 2580.5 ml 240 ml 1260 ml Output Total 1100 ml 1025 ml 1100 ml Balance -4 ml 200 ml 1555.5 ml -860 ml 1260 ml Intake Oral 240 ml 720 ml 240 ml IV Total 856 ml 200 ml 1860.5 ml 1260 ml Output Urine Total 1100 ml 1025 ml 1100 ml # Bowel Movements 1 1 0 Laboratory Laboratory Tests Test 01/31/17 18:20 02/01/17 04:10 Potassium Level 3.3 3.6 Phosphorus Level 1.7 1.1 White Blood Count 1.7 Red Blood Count 3.47 Hemoglobin 10.9 Hematocrit 32.3 Mean Corpuscular Volume 92.9 Mean Corpuscular Hemoglobin 31.5 Mean Corpuscular Hemoglobin Concent 33.9 Red Cell Distribution Width 23.8 Platelet Count 95 Mean Platelet Volume 7.7 CBC Comment AUTO DIFF Differential Total Cells Counted 100 Neutrophils % (Manual) 25 Lymphocytes % 31 Monocytes % 43 Eosinophils % 1 Neutrophils # (Manual) 0.4 Nucleated Red Blood Cells 1 Differential Comment FINAL DIFF MANUAL Smudge Cells Platelet Estimate LOW Platelet Morphology Comment NORMAL Blood Urea Nitrogen 4 Creatinine 0.66 Random Glucose 123 Total Protein 5.3 Albumin 2.6 Calcium Level 8.7 Magnesium Level 1.9 Alkaline Phosphatase 84 Aspartate Amino Transf (AST/SGOT) 29 Alanine Aminotransferase (ALT/SGPT) 6 Total Bilirubin 1.2 Sodium Level 142 Chloride Level 111 Carbon Dioxide Level 24.7 Anion Gap 6 Estimat Glomerular Filtration Rate 119 Date/Time Source Procedure Growth Status 01/30/17 14:35 Blood Peripheral Aerobic Blood Culture - Preliminary NO GROWTH IN 2 DAYS Resulted 01/30/17 14:35 Blood Peripheral Anaerobic Blood Culture - Preliminary NO GROWTH IN 2 DAYS Resulted Imaging Last Impressions Abdomen X-Ray 01/29/17 0000 Signed Impressions: Service Date/Time: Sunday, January 29, 2017 11:13 - CONCLUSION: Unchanged dilated small bowel suggesting distal small bowel obstruction. Gualberto Calderon Jr., MD Chest X-Ray 01/28/[id number] Signed Impressions: Service Date/Time: Saturday, January 28, 2017 22:44 - CONCLUSION: 1. No acute findings. Selvin Whittington MD Abdomen/Pelvis CT 01/28/[id number] Signed Impressions: Service Date/Time: Saturday, January 28, 2017 23:20 - CONCLUSION: 1. Proximal and mid small bowel dilatation with air-fluid levels and distal decompression characteristic of an early or partial small bowel obstruction. No free air. Small amount of free fluid in the abdomen and pelvis. Selvin Whittington MD Physical Exam HEENT: Normocephalic; atraumatic; no jaundice. CHEST: CTA, diminished bases CARDIAC: RRR ABDOMEN: Soft, nondistended, mild epigastric tenderness; no hepatosplenomegaly ; bowel sounds are present in all four quadrants. EXTREMITIES: No clubbing, cyanosis, or edema. SKIN: Normal; no rash; no jaundice. 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 S/P EGD (01/30/17)----> 1. Large ulcer was found in the distal esophagus, 5 CM above GE junction; with minimal narrowing of the lumen, biopsies were taken 2. Normal stomach and duodenal mucosa. 3. Retroflexed views revealed a hiatal hernia. Pathology pending. No further bleeding. HH stable 10.9/32.3. Protonix Gtt. Tolerating full liquids. - Anemia, acute blood loss. HH stable at 10.9/32.3 - Thrombocytopenia. Plt 95,000 - Ileus vs. PSBO. CT abdomen and pelvis with IV contrast (01/28/17) proximal and mid small bowel dilatation with air-fluid levels and distal decompressive characteristic of an early or partial small bowel obstruction. No free air. Small amount of free fluid in the abdomen and pelvis. Only abdominal surgery appendectomy. KUB (01/29/17)---> unchanged dilated small bowel suggesting distal small bowel obstruction. Abdomen soft. Tolerating full liquids. (+) 1 bm. Will get repeat KUB in am to follow up. - GERD. PPI - Lytic lesions RUE. Pt poor historian. He cannot provide me the details but states he was having right upper extremity pain and was found to have a lytic lesions in his right upper extremity with a pathological fracture of his right wrist. Recently completed 3 months of chemotherapy and radiation with Dr. Stone. - Hx DVT. On Xarelto at home, currently on hold. - Hx Stage IV Esophageal cancer. Dx April of 2014, s/p chemotherapy and radiation. He reports that he had a PET scan in May that was clear with regards to his esophageal cancer, but that was recently found to have cancer in his right upper extremity. - Parkinson's disease, Hx Familial hypercalcemia, BPH, PTSD, Anxiety, chronic pain per attending. PLAN: - Soft diet as tolerated - Await pathology - D/C protonix Gtt - Protonix 40mg po BID - KUB in am - Monitor HH - Transfuse as necessary - Hold Xarelto 3 days - Supportive care - Pt seen and examined by Dr. Li and myself and this note is written on his behalf (Janice Bajwa) Physician Comments Seen and examined, plan as above, further recommendations to follow. (Mo Li MD) Janice Bajwa Feb 01, 2017 15:08 Mo Li MD Feb 02, 2017 06:16
[2017-02-01] MEDS: PANTOPRAZOLE SOD 40 MG DELAYED RELEASE TAB PO SCH (23:21)
[2017-02-02 00:13] VITALS: BP 100/63; PULSE 84; RESP 18; TEMP 98.3; O2SAT 93
[2017-02-02] MEDS: CARBIDOPA/LEVODOPA 25 MG/100 MG TAB PO SCH ×6 (00:46→22:02)
[2017-02-02 01:32] LABS: POTASSIUM 3.2 MEQ/L (3.5-5.1)
[2017-02-02] MEDS: CHLORHEXIDINE GLUCONATE 2 % 1 PACK (2 CLOTHS) TOP SCH (04:00)
[2017-02-02] MEDS: HYDROmorphone HCL PF 1 MG/ML VIAL IV PRN ×2 (04:40→22:03)
[2017-02-02] MEDS: SODIUM CHLORIDE 0.9% FLUSH 10 ML FLUSH PRN (04:41)
[2017-02-02 05:03] VITALS: BP 101/61; PULSE 71; RESP 16; TEMP 97.6; O2SAT 95
[2017-02-02 08:00] VITALS: BP 111/65; PULSE 71; RESP 17; RESP 18; TEMP 98.8; O2SAT 97
[2017-02-02] MEDS: SODIUM CHLORIDE 0.9% FLUSH 10 ML FLUSH SCH ×2 (09:00→22:04)
--- NOTE | 2017-02-02 09:28 | RADRPT ---
EXAM DATE/TIME: 02/02/2017 08:40 [facility] COMPARISON: ABDOMEN KUB ONLY, January 29, 2017, 11:13. INDICATIONS : Abdominal pain . MEDICAL HISTORY : Carcinoma, esophageal. Parkinson's SURGICAL HISTORY : Cholecystectomy. Appendectomy. ENCOUNTER: Subsequent ACUITY: 4 - 6 days PAIN SCORE: 1/10 LOCATION: Bilateral upper quadrant FINDINGS: A single frontal view of the abdomen in the supine position shows gas-filled loops of nondilated smal l bowel. A small amount of gas and stool seen scattered throughout the colon. Gas seen to the level o f the sigmoid. No dilated loops of bowel currently seen. No gross pneumoperitoneum. Cholecystectomy c lips noted. CONCLUSION: Some improvement with gas-filled loops of nondilated small bowel. This is a nonspecific pattern. Gualberto Calderon Jr., MD on February 02, 2017 at 9:25 Board Certified Radiologist. This report was verified electronically.
[2017-02-02] MEDS: PANTOPRAZOLE SOD 40 MG DELAYED RELEASE TAB PO SCH ×2 (09:37→22:03)
[2017-02-02] MEDS: DOCUSATE SODIUM 50 MG/SENNA 8.6 MG TAB PO SCH ×3 (09:37→22:03)
[2017-02-02] MEDS: MORPHINE SULFATE 30 MG CONTROLLED RELEASE TAB PO SCH (09:38)
[2017-02-02 10:13] LABS: HEMATOCRIT 36.7 % (39.0-51.0); MEAN CELL VOLUME 94.3 FL (80.0-100.0); MEAN CORPUSCULAR HEMOGLOBIN 31.2 PG (27.0-34.0); MEAN CORPUSCULAR HGB CONC 33.1 % (32.0-36.0); PLATELET COUNT 117 TH/MM3 (150-450); RED CELL DISTRIBUTION WIDTH 23.7 % (11.6-17.2); WHITE BLOOD COUNT 2.2 TH/MM3 (4.0-11.0)
[2017-02-02 10:33] LABS: HEMO FLAGS AUTO DIFF
[2017-02-02 11:01] LABS: ALKALINE PHOSPHATASE 92 U/L (45-117); ALT (GPT) 8 U/L (12-78); ANION GAP 10 MEQ/L (5-15); AST (GOT) 26 U/L (15-37); BICARBONATE 26.2 MEQ/L (21.0-32.0); BLOOD UREA NITROGEN 8 MG/DL (7-18); CHLORIDE 104 MEQ/L (98-107); GLOMERULAR FILTRATION RATE 95 ML/MIN (>89); MAGNESIUM 1.9 MG/DL (1.5-2.5); POTASSIUM 3.1 MEQ/L (3.5-5.1); SODIUM (NA) 140 MEQ/L (136-145); TOTAL BILIRUBIN ADULT 1.2 MG/DL (0.2-1.0)
[2017-02-02 11:24] LABS: EOSINOPHILS 2 % (0-4); POLYS (SEG NEUTROPHILS) 23 % (16-70); WBC DIFF SAMPLE 100
[2017-02-02 11:25] LABS: ACANTHOCYTES 1+ (NORMAL); OVALOCYTES 1+ (NORMAL); PLATELET ESTIMATE SMEAR LOW (NORMAL); PLATELET MORPHOLOGY NORMAL (NORMAL); TEARDROP RBCS 2+ (NORMAL)
[2017-02-02 11:26] LABS: SCAN/DIFF FINAL DIFF MANUAL
[2017-02-02 11:33] LABS: NEUTROPHIL # MANUAL DIFF 0.5 TH/MM3 (1.8-7.7)
[2017-02-02 12:00] VITALS: BP_SYST 99; BP_DIAS 59; BP_DIAS 60; PULSE 80; RESP 17; TEMP 98.6; O2SAT 95
[2017-02-02] MEDS ORDERED: POTASSIUM CHLORIDE 20 MEQ CONTROLLED RELEASE TAB PO ONE (12:30)
[2017-02-02 16:00] VITALS: BP 117/71; PULSE 86; RESP 18; TEMP 98.5; O2SAT 99
[2017-02-02] MEDS: ALPRAZolam 1 MG TAB PO PRN (16:27)
--- NOTE | 2017-02-02 16:27 | HHI.PR ---
Subjective Remarks Patient denies any cough fever chills chest pain diarrhea He wants to be discharged his WBC is 2.2 today, however it's trending up This with him and his family, work on discharging him tomorrow hopefully if WBC and 2 new to get higher Objective Vitals Vital Signs Date Time Temp Pulse Resp B/P (MAP) Pulse Ox O2 Delivery O2 Flow Rate FiO2 02/02/17 12:00 98.6 80 17 99/60 (73) 95 02/02/17 08:00 98.8 71 18 111/65 (80) 97 02/02/17 08:00 98.8 71 17 111/65 (80) 97 02/02/17 05:03 97.6 71 16 101/61 (74) 95 02/02/17 00:13 98.3 84 18 100/63 (75) 93 02/01/17 20:49 97.8 67 18 111/62 (78) 98 02/01/17 17:21 98.0 73 18 122/65 (84) 99 I/O 02/01/17 02/01/17 02/01/17 02/02/17 02/02/17 02/02/17 07:00 15:00 23:00 07:00 15:00 23:00 Intake Total 340 ml 1160 ml 1240 ml Output Total 1100 ml 2310 ml Balance -760 ml 1160 ml -1070 ml Intake Oral 240 ml 720 ml IV Total 100 ml 1160 ml 520 ml Output Urine Total 1100 ml 2310 ml # Voids 2 # Bowel Movements 0 Result Diagram: 02/02/1720 02/02/17 0820 Objective Remarks GENERAL: This is a well-nourished, well-developed patient, in no apparent distress. SKIN: No rashes, warm and dry HEAD: Atraumatic. Normocephalic. EYES: Pupils equal round and reactive. Extraocular motions intact. No scleral icterus. ENT: Nose without bleeding, or drainage, Airway patent. NECK: Trachea midline. Supple CARDIOVASCULAR: Regular rate and rhythm without murmurs, gallops, or rubs. RESPIRATORY: Fair air entry bilaterally. No wheezes, rales, or rhonchi. GASTROINTESTINAL: Abdomen soft, non-tender, nondistended. Positive bowel sounds MUSCULOSKELETAL: Extremities without clubbing, cyanosis, or edema. Pedal pulses appreciated NEUROLOGICAL: Awake and alert. Moves all extremity. Normal speech.no focal neurological deficit A/P Assessment and Plan 02/02: Patient wants to be discharged home, however he doesn't look strong enough to be discharged today I discussed with him to monitor his CBC and his bowel movement for tonight make sure his WBC is trending up A/P: Esophageal ulcer Hematemesis Hepatitis B Gastroesophageal reflux disease Recurrent versus ileus CT abdomen/pelvis 01/29 revealed proximal to mid small bowel dilatation with air in the colon. On omeprazole 20 mg twice a day at nursing facility Patient had liquid green bowel movement 01/30 Docusate sodium/senna 1 tablet twice a day for bowel regimen. EGD revealed esophageal ulcer 5 cm from gastric junction. Biopsied with pathology pending as of 02/01. Stage IV esophageal cancer - status post radiation/chemotherapy by Dr. Stone Pancytopenia Chronic Rivaroxaban use, on hold until 02/05 per GI Parkinson's disease PTSD Chronic pain syndrome Anxiety disorder NOS Chronic opiate use Chronic benzodiazepine use Continue carbidopa/levodopa 25/100 1 tablet every 4 hours Parkinson's disease Continue gabapentin 100 mg every 6 hours when necessary pain Patient is on alprazolam 1 mg 3 times a day at nursing facility/at this facility Patient is morphine sulfate extended release 30 mg daily Hydromorphone 1 mg every 4 hours when necessary breakthrough pain Lactic acidosis - resolved 2-D echocardiogram revealed EF 55-60%. RV dilation. Lactate 1.5 01/30 History of familial hypercalcemia Hypophosphatemia PT/OT evaluate and treat Prophylaxis - GI - pantoprazole drip - DVT - SCD/pharmacological prophylaxis contra indicated with active upper GI bleed Pa Murray MD Feb 02, 2017 16:27
--- NOTE | 2017-02-02 16:29 | HHI.DS ---
Discharge Summary Admission Date Jan 29, 2017 at 00:17 Discharge Date: Feb 06, 2017 Admitting Diagnosis GI BLEED, SBO (1) Nausea & vomiting ICD Code: R11.2 - Nausea with vomiting, unspecified (2) GI bleed ICD Code: K92.2 - Gastrointestinal hemorrhage, unspecified Status: Acute (3) Small bowel obstruction ICD Code: K56.69 - Other intestinal obstruction Status: Acute Procedures See below Brief History - From Admission 71-year-old male with history of stage 4 esophageal cancer, pancreatic and liver metastases disease, DVT currently on Xarrellto, presents to emergency room with complaints of gastrointestinal bleed with hematemesis. Patient reports that he has been having abdominal pain, reports that he hasn't been feeling well and has been nauseous all day. Patient reports that he has been vomiting up coffee ground emesis as well as some fresh blood. 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 Stone. He was resuscitated with the IV fluids and reverse coagulation with Kcentra in the emergency department with improvement of vital signs and clinical picture and is admitted to critical care unit due to hematemesis. CBC/BMP: 02/02/17 0820 02/02/17 0820 Significant Findings Laboratory Tests Test 01/31/17 05:30 01/31/17 18:20 02/01/17 04:10 02/02/17 00:50 White Blood Count 1.4 TH/MM3 (4.0-11.0) 1.7 TH/MM3 (4.0-11.0) Red Blood Count 3.71 MIL/MM3 (4.50-5.90) 3.47 MIL/MM3 (4.50-5.90) Hemoglobin 11.3 GM/DL (13.0-17.0) 10.9 GM/DL (13.0-17.0) Hematocrit 34.4 % (39.0-51.0) 32.3 % (39.0-51.0) Red Cell Distribution Width 22.7 % (11.6-17.2) 23.8 % (11.6-17.2) Platelet Count 86 TH/MM3 (150-450) 95 TH/MM3 (150-450) Blood Urea Nitrogen 4 MG/DL (7-18) 4 MG/DL (7-18) Creatinine 0.59 MG/DL (0.60-1.30) Total Protein 5.6 GM/DL (6.4-8.2) 5.3 GM/DL (6.4-8.2) Albumin 2.7 GM/DL (3.4-5.0) 2.6 GM/DL (3.4-5.0) Phosphorus Level 1.2 MG/DL (2.5-4.9) 1.7 MG/DL (2.5-4.9) 1.1 MG/DL (2.5-4.9) Alanine Aminotransferase (ALT/SGPT) LESS THAN 6 U/L (12-78) 6 U/L (12-78) Total Bilirubin 1.6 MG/DL (0.2-1.0) 1.2 MG/DL (0.2-1.0) Potassium Level 2.9 MEQ/L (3.5-5.1) 3.3 MEQ/L (3.5-5.1) 3.2 MEQ/L (3.5-5.1) Chloride Level 109 MEQ/L (98-107) 111 MEQ/L (98-107) Monocytes % 43 % (0-8) Neutrophils # (Manual) 0.4 TH/MM3 (1.8-7.7) Nucleated Red Blood Cells 1 /100 WBC (0-0) Platelet Estimate LOW (NORMAL) Random Glucose 123 MG/DL (74-106) Test 02/02/17 08:20 White Blood Count 2.2 TH/MM3 (4.0-11.0) Red Blood Count 3.90 MIL/MM3 (4.50-5.90) Hemoglobin 12.1 GM/DL (13.0-17.0) Hematocrit 36.7 % (39.0-51.0) Red Cell Distribution Width 23.7 % (11.6-17.2) Platelet Count 117 TH/MM3 (150-450) Lymphocytes % 46 % (9-44) Monocytes % 29 % (0-8) Neutrophils # (Manual) 0.5 TH/MM3 (1.8-7.7) Platelet Estimate LOW (NORMAL) Tear Drop Cells 2+ (NORMAL) Ovalocytes 1+ (NORMAL) Acanthocytes 1+ (NORMAL) Total Protein 6.0 GM/DL (6.4-8.2) Albumin 3.0 GM/DL (3.4-5.0) Alanine Aminotransferase (ALT/SGPT) 8 U/L (12-78) Total Bilirubin 1.2 MG/DL (0.2-1.0) Potassium Level 3.1 MEQ/L (3.5-5.1) PE at Discharge GENERAL: This is a well-nourished, well-developed patient, in no apparent distress. SKIN: No rashes, warm and dry HEAD: Atraumatic. Normocephalic. EYES: Pupils equal round and reactive. Extraocular motions intact. No scleral icterus. ENT: Nose without bleeding, or drainage, Airway patent. NECK: Trachea midline. Supple CARDIOVASCULAR: Regular rate and rhythm without murmurs, gallops, or rubs. RESPIRATORY: Fair air entry bilaterally. No wheezes, rales, or rhonchi. GASTROINTESTINAL: Abdomen soft, non-tender, nondistended. Positive bowel sounds MUSCULOSKELETAL: Extremities without clubbing, cyanosis, or edema. Pedal pulses appreciated NEUROLOGICAL: Awake and alert. Moves all extremity. Normal speech.no focal neurological deficit Hospital Course 47 years old male with history of esophageal cancer admitted with Upper GI Bleeding, hematemesis. S/P EGD (01/30/17)----> 1. Large ulcer was found in the distal esophagus, 5 CM above GE junction; with minimal narrowing of the lumen, biopsies were taken 2. Normal stomach and duodenal mucosa. Retroflexed views revealed a hiatal hernia. Pathology pending. No further bleeding. HH stable 10.9/32.3. Protonix Gtt. Tolerating full liquids. Anemia, acute blood loss. HH stable at 10.9/32.3 Thrombocytopenia. Was trending up Ileus vs. PSBO. CT abdomen and pelvis with IV contrast (01/28/17) proximal and mid small bowel dilatation with airfluid levels and distal decompressive characteristic of an early or partial small bowel obstruction. No free air. Small amount of free fluid in the abdomen and pelvis. Only abdominal surgery appendectomy. KUB (01/29/17)> unchanged dilated small bowel suggesting distal small bowel obstruction. Abdomen soft. Tolerating full liquids. (+) 1 bm. Will get repeat KUB in am to follow up. Lytic lesions RUE. Patient stated he follow up with with Dr. Stone. He is on chemotherapy and radiation Hx DVT. On Xarelto at home, currently on hold. Hx Stage IV Esophageal cancer. Dx April of 2014, s/p chemotherapy and radiation. He reports that he had a PET scan in May that was clear with regards to his esophageal cancer, but that was recently found to have cancer in his right upper extremity. Parkinson's disease, Hx Familial hypercalcemia, BPH, PTSD, Anxiety, continue meds. Today white blood count is 2.6, patient cleared by GI for discharge and to resume Xarelto on 05 February Patient does not want to wait till WBC normalized, he stated he has appointment with his oncologist on Sunday, I explained to him the neutropenic precaution, he has no symptoms, will discharge him and check CBC in 2 days Pt Condition on Discharge: Fair Discharge Disposition: Discharge Home Discharge Time: <= 30 minutes Discharge Instructions New Orders: CBC WITH DIFF - 2-3 Days Continued Medications: Alprazolam (Xanax) 1 Mg Tab 1 MG PO TID PRN for ANXIETY, TAB 0 Refills Carbidopa-Levodopa (Carbidopa-Levodopa) 25-100 Mg Tab 1 TAB PO Q4HR for Parkinson Disease Mgmt, #90 TAB 0 Refills Gabapentin (Gabapentin) 100 Mg Cap 100 MG PO Q6HR PRN for PAIN 1 TO 10 AND/OR AGITATION, #90 CAP 0 Refills Morphine ER (Morphine ER) 30 Mg Tab 30 MG PO DAILY for Pain Management, TAB 0 Refills Omeprazole (Omeprazole) 20 Mg Tab 20 MG PO BID, #30 TAB 0 Refills Rivaroxaban (Xarelto) 10 Mg Tab 20 MG PO DAILY for Blood Clot Prevention, TAB 0 Refills Pa Murray MD Feb 02, 2017 16:28
[2017-02-02 20:00] VITALS: BP 160/65; PULSE 75; RESP 18; TEMP 96.8; O2SAT 100
[2017-02-02] MEDS: ONDANSETRON HCL 4 MG/2 ML VIAL IV PRN (22:02)
[2017-02-03] VITALS: BP 157/55; PULSE 76; RESP 18; TEMP 97.6; O2SAT 100
[2017-02-03] MEDS: CARBIDOPA/LEVODOPA 25 MG/100 MG TAB PO SCH ×6 (00:22→21:09)
[2017-02-03] MEDS: HYDROmorphone HCL PF 1 MG/ML VIAL IV PRN ×5 (02:41→22:16)
[2017-02-03] MEDS: ONDANSETRON HCL 4 MG/2 ML VIAL IV PRN ×3 (03:45→18:01)
[2017-02-03] MEDS: CHLORHEXIDINE GLUCONATE 2 % 1 PACK (2 CLOTHS) TOP SCH (04:00)
[2017-02-03] MEDS ORDERED: PROCHLORPERAZINE INJ 10 MG/2 ML VIAL IV PUSH ONE (05:30)
[2017-02-03 05:49] VITALS: BP 117/75; PULSE 93; RESP 19; TEMP 97.9; O2SAT 95
[2017-02-03] MEDS: SODIUM CHLORIDE 0.9% FLUSH 10 ML FLUSH PRN (05:55)
--- NOTE | 2017-02-03 06:01 | RADRPT ---
EXAM DATE/TIME: 02/03/2017 05:15 [facility] COMPARISON: ABDOMEN KUB ONLY, February 02, 2017, 8:40. INDICATIONS : Vomiting MEDICAL HISTORY : Carcinoma, esophageal. Parkinson's SURGICAL HISTORY : Appendectomy. Cholecystectomy. ENCOUNTER: Subsequent ACUITY: 4 - 6 days PAIN SCORE: 8/10 LOCATION: Bilateral Abdomen FINDINGS: Supine view of the abdomen was performed. Cholecystectomy clips in position The abdominal bowel gas p attern is normal however there is clearly more small bowel air in some distended loops of small bowel than on the 25th. No abnormal masses, calcifications, or organomegaly is seen. The osseous structu res are unremarkable. CONCLUSION: There does appear to be some more small bowel air today than on the 25th. Glenn Kiser MD on February 03, 2017 at 5:59 Board Certified Radiologist. This report was verified electronically.
[2017-02-03 06:54] LABS: AUTOMATED NEUTROPHIL # 1.1 TH/MM3 (1.8-7.7); BASOPHIL % 0.4 % (0.0-2.0); EOSINOPHIL % 0.3 % (0.0-4.0); HEMATOCRIT 41.5 % (39.0-51.0); HEMO FLAGS DIFF FINAL; LYMPH % 23.3 % (9.0-44.0); LYMPHOCYTE # 0.6 TH/MM3 (1.0-4.8); MEAN CELL VOLUME 93.2 FL (80.0-100.0); MEAN CORPUSCULAR HEMOGLOBIN 30.7 PG (27.0-34.0); MONO % 33.1 % (0.0-8.0); NEUT % 42.9 % (16.0-70.0); PLATELET COUNT 130 TH/MM3 (150-450); RED BLOOD COUNT 4.45 MIL/MM3 (4.50-5.90); RED CELL DISTRIBUTION WIDTH 24.1 % (11.6-17.2); WHITE BLOOD COUNT 2.6 TH/MM3 (4.0-11.0)
[2017-02-03 08:00] VITALS: BP 110/80; PULSE 96; RESP 16; TEMP 97.6; O2SAT 95
[2017-02-03] MEDS: SODIUM CHLORIDE 0.9% FLUSH 10 ML FLUSH SCH ×2 (09:00→21:11)
[2017-02-03] MEDS: DOCUSATE SODIUM 50 MG/SENNA 8.6 MG TAB PO SCH ×2 (09:00→21:10)
[2017-02-03] MEDS: MORPHINE SULFATE 30 MG CONTROLLED RELEASE TAB PO SCH (09:00)
--- NOTE | 2017-02-03 11:59 | HHI.GIFU ---
Subjective Remarks Patient resting in bed. Reports that he had a bad night with multiple episodes of nausea and vomiting. He has diffuse abdominal discomfort. He states that he did pass 2 formed bowel movements this a.m. (Janice Bajwa) Objective Vitals I&O Vital Signs Date Time Temp Pulse Resp B/P (MAP) Pulse Ox O2 Delivery O2 Flow Rate FiO2 02/03/17 08:00 97.6 96 16 110/80 (90) 95 02/03/17 05:49 97.9 93 19 117/75 (89) 95 02/03/17 00:00 97.6 76 18 157/55 (89) 100 02/02/17 20:00 96.8 75 18 160/65 (96) 100 02/02/17 16:00 98.5 86 18 117/71 (86) 99 02/02/17 12:00 98.6 80 17 99/60 (73) 95 I/O 02/02/17 02/02/17 02/02/17 02/03/17 02/03/17 02/03/17 07:00 15:00 23:00 07:00 15:00 23:00 # Voids 2 3 # Bowel Movements 1 Laboratory Laboratory Tests Test 02/03/17 06:30 White Blood Count 2.6 Red Blood Count 4.45 Hemoglobin 13.7 Hematocrit 41.5 Mean Corpuscular Volume 93.2 Mean Corpuscular Hemoglobin 30.7 Mean Corpuscular Hemoglobin Concent 33.0 Red Cell Distribution Width 24.1 Platelet Count 130 Mean Platelet Volume 7.2 Neutrophils (%) (Auto) 42.9 Lymphocytes (%) (Auto) 23.3 Monocytes (%) (Auto) 33.1 Eosinophils (%) (Auto) 0.3 Basophils (%) (Auto) 0.4 Neutrophils # (Auto) 1.1 Lymphocytes # (Auto) 0.6 Monocytes # (Auto) 0.9 Eosinophils # (Auto) 0.0 Basophils # (Auto) 0.0 CBC Comment DIFF FINAL Differential Comment Date/Time Source Procedure Growth Status 01/30/17 14:35 Blood Peripheral Aerobic Blood Culture - Preliminary NO GROWTH IN 4 DAYS Resulted 01/30/17 14:35 Blood Peripheral Anaerobic Blood Culture - Preliminary NO GROWTH IN 4 DAYS Resulted Imaging Last Impressions Abdomen X-Ray 02/03/17 0000 Signed Impressions: Service Date/Time: Friday, February 03, 2017 05:15 - CONCLUSION: There does appear to be some more small bowel air today than on the . Glenn Kiser MD Chest X-Ray 01/28/172227 Signed Impressions: Service Date/Time: Saturday, January 28, 2017 22:44 - CONCLUSION: 1. No acute findings. Selvin Whittington MD Abdomen/Pelvis CT 01/28/172224 Signed Impressions: Service Date/Time: Saturday, January 28, 2017 23:20 - CONCLUSION: 1. Proximal and mid small bowel dilatation with air-fluid levels and distal decompression characteristic of an early or partial small bowel obstruction. No free air. Small amount of free fluid in the abdomen and pelvis. Selvin Whittington MD Physical Exam HEENT: Normocephalic; atraumatic; no jaundice. CHEST: CTA, diminished bases CARDIAC: RRR ABDOMEN: Mildly tympanic, distended, diffuse tenderness; no hepatosplenomegaly ; bowel sounds are present in all four quadrants. EXTREMITIES: No clubbing, cyanosis, or edema. SKIN: Normal; no rash; no jaundice. DIGITAL PRESS OPERATOR: lethargic (Janice Bajwa) Assessment and Plan Plan ASSESSMENT: - Upper GI Bleeding, hematemesis. S/P EGD (01/30/17)----> 1. Large ulcer was found in the distal esophagus, 5 CM above GE junction; with minimal narrowing of the lumen, biopsies were taken 2. Normal stomach and duodenal mucosa. 3. Retroflexed views revealed a hiatal hernia. Pathology invasively poorly differentiated carcinoma with extensive ulceration, A GMS stain is negative for fungal organisms. No active bleeding. H&H stable. Will change Protonix to IV with twice a day dosing secondary to persistent nausea and vomiting - Esophageal cancer. Patient has a history of stage IV esophageal cancer, diagnosed in April 2014. He was treated with chemotherapy and radiation and reports that his last PET scan in May 2016 did not show any active disease with regards to his esophageal cancer. He was noted to have lytic lesions in his right upper extremity for which she is being treated for by Dr. Stone. She underwent EGD for evaluation of hematemesis and was noted to have a large ulcer in distal esophagus, pathology came back as invasive poorly differentiated carcinoma with extensive ulceration. Discuss the findings with the patient. Riya consult medical oncology for further recommendations. - Ileus versus PSBO. CT abdomen and pelvis with IV contrast (01/28/17) proximal and mid small bowel dilatation with air-fluid levels and distal decompressive characteristic of an early or partial small bowel obstruction. No free air. Small amount of free fluid in the abdomen and pelvis. Only abdominal surgery appendectomy. This was improving , however the patient had worsening abdominal distention with Multiple episodes of nausea vomiting with abdominal discomfort overnight. Will start Reglan. Also check small bowel follow-through to rule out Bowel obstruction. If patient has any further nausea or vomiting, insert NG tube in place to LIWS. - Anemia, acute blood loss. HH stable at 13.7/41.5 - Thrombocytopenia. Plt 130, 000 - GERD. PPI - Lytic lesions RUE. Pt poor historian. He cannot provide me the details but states he was having right upper extremity pain and was found to have a lytic lesions in his right upper extremity with a pathological fracture of his right wrist. Recently completed 3 months of chemotherapy and radiation with Dr. Stone. - Hx DVT. On Xarelto at home, currently on hold. - Hx Stage IV Esophageal cancer. Dx April of 2014, s/p chemotherapy and radiation. He reports that he had a PET scan in May that was clear with regards to his esophageal cancer, but that was recently found to have cancer in his right upper extremity. - Parkinson's disease, Hx Familial hypercalcemia, BPH, PTSD, Anxiety, chronic pain per attending. PLAN: - Nothing by mouth except ice chips - Small bowel follow-through - If further nausea and vomiting, insert NG tube in place to LIWS - Change Protonix to 2 IV with twice a day dosing - Monitor H&H - Transfuse as necessary - Consult medical oncology for recurrent esophageal cancer - Reglan 10 mg IV every 8 hours - Supportive care - Further recommendations to follow based on results of above - Pt seen and examined by Dr. Li and myself and this note is written on his behalf (Janice Bajwa) Physician Comments Seen and examined, plan as above, agree with the need for SBFT . Will follow up with you. (Mo Li MD) Janice Bajwa Feb 03, 2017 11:59 Mo Li MD Feb 03, 2017 14:41
[2017-02-03 12:00] VITALS: BP 98/66; PULSE 111; RESP 17; TEMP 97.8; O2SAT 97
--- NOTE | 2017-02-03 13:45 | HHI.PR ---
Subjective Remarks Patient doing much worse today nausea and multiple vomiting abdominal discomfort No fever or chills looked like bowel obstruction, I discussed with GI POWER DISTRIBUTOR Objective Vitals Vital Signs Date Time Temp Pulse Resp B/P (MAP) Pulse Ox O2 Delivery O2 Flow Rate FiO2 02/03/17 12:00 97.8 111 17 98/66 (77) 97 02/03/17 08:00 97.6 96 16 110/80 (90) 95 02/03/17 05:49 97.9 93 19 117/75 (89) 95 02/03/17 00:00 97.6 76 18 157/55 (89) 100 02/02/17 20:00 96.8 75 18 160/65 (96) 100 02/02/17 16:00 98.5 86 18 117/71 (86) 99 I/O 02/02/17 02/02/17 02/02/17 02/03/17 02/03/17 02/03/17 07:00 15:00 23:00 07:00 15:00 23:00 # Voids 2 3 # Bowel Movements 1 Result Diagram: 02/03/17 0630 02/02/17 0820 Imaging Last Impressions Abdomen/Pelvis CT 02/03/17 0000 Signed Impressions: Service Date/Time: Friday, February 03, 2017 15:48 - CONCLUSION: 1. Persistent fluid-filled dilated loops of small bowel suggesting small bowel obstruction. Clinical correlation is recommended. 2. Multiple enhancing lesions scattered throughout the liver raising the possibility of metastatic disease. PET/CT scan would be helpful for further evaluation of these lesions. The largest lesion measures 1.7 cm. 3. Circumferentially thickened distal esophagus raising the possibility of neoplasm or esophagitis. Upper endoscopy may be helpful; for further evaluation of this finding. 4. 2.6 x 1.9 cm right adrenal nodule which is indeterminate. Metastatic disease and adenoma remain in the differential. 5. Sclerotic lesions within the lumbar spine which are indeterminate. These also could be assessed with PET/CT scan to rule out metastatic disease. 6. Uncomplicated colonic diverticulosis. 7. Enlarged prostate. 8. Fatty liver. 9. Tiny bilateral pleural effusions with left basilar atelectasis and/or scarring. 10. Umbilical hernia containing only fat. Joaquim Lawson MD Abdomen X-Ray 02/03/17 0000 Signed Impressions: Service Date/Time: Friday, February 03, 2017 05:15 - CONCLUSION: There does appear to be some more small bowel air today than on the . Glenn Kiser MD Chest X-Ray 01/28/178 Signed Impressions: Service Date/Time: Saturday, January 28, 2017 22:44 - CONCLUSION: 1. No acute findings. Selvin Whittington MD Objective Remarks - GENERAL: This is a well-nourished, well-developed patient, in mild distress due to nausea and vomiting SKIN: No rashes, warm and dry HEAD: Atraumatic. Normocephalic. EYES: Pupils equal round and reactive. Extraocular motions intact. No scleral icterus. ENT: Nose without bleeding, or drainage, Airway patent. NECK: Trachea midline. Supple CARDIOVASCULAR: Regular rate and rhythm without murmurs, gallops, or rubs. RESPIRATORY: Fair air entry bilaterally. No wheezes, rales, or rhonchi. GASTROINTESTINAL: Abdomen soft, slightly tender to palpation, nondistended. Positive bowel sounds MUSCULOSKELETAL: Extremities without clubbing, cyanosis, or edema. Pedal pulses appreciated NEUROLOGICAL: Awake and alert. Moves all extremity. Normal speech.no focal neurological deficit Procedures See below A/P Problem List: (1) Nausea & vomiting ICD Code: R11.2 - Nausea with vomiting, unspecified (2) GI bleed ICD Code: K92.2 - Gastrointestinal hemorrhage, unspecified Status: Acute (3) Small bowel obstruction ICD Code: K56.69 - Other intestinal obstruction Status: Acute Assessment and Plan 02/03: Worsening nausea and vomiting, CT abdomen repeated today showed dilated intestinal loop consistent with obstruction, discussed with GI POWER DISTRIBUTOR did not recommend NG tube due to the ulcer, discussed with Dr. Lao's oncologist who recommended iv fluid for hydration, and surgery consultation for SBO, added potassium to the iv fluid, monitor electrolyte, poor prognosis for oncologist A/P: Esophageal ulcer Hematemesis Hepatitis B Gastroesophageal reflux disease Recurrent versus ileus CT abdomen/pelvis 01/29 revealed proximal to mid small bowel dilatation with air in the colon. On omeprazole 20 mg twice a day at nursing facility Patient had liquid green bowel movement 01/30 Docusate sodium/senna 1 tablet twice a day for bowel regimen. EGD revealed esophageal ulcer 5 cm from gastric junction. Biopsied with pathology pending as of 02/01. Stage IV esophageal cancer - status post radiation/chemotherapy by Dr. Stone Pancytopenia Chronic Rivaroxaban use, on hold until 02/05 per GI Parkinson's disease PTSD Chronic pain syndrome Anxiety disorder NOS Chronic opiate use Chronic benzodiazepine use Continue carbidopa/levodopa 25/100 1 tablet every 4 hours Parkinson's disease Continue gabapentin 100 mg every 6 hours when necessary pain Patient is on alprazolam 1 mg 3 times a day at nursing facility/at this facility Patient is morphine sulfate extended release 30 mg daily Hydromorphone 1 mg every 4 hours when necessary breakthrough pain Lactic acidosis - resolved 2-D echocardiogram revealed EF 55-60%. RV dilation. Lactate 1.5 01/30 History of familial hypercalcemia Hypophosphatemia PT/OT evaluate and treat Prophylaxis - GI - pantoprazole drip - DVT - SCD/pharmacological prophylaxis contra indicated with active upper GI bleed Pa Murray MD Feb 03, 2017 13:45
[2017-02-03] MEDS: PANTOPRAZOLE SODIUM 40 MG VIAL IV PUSH SCH (14:12)
[2017-02-03] MEDS: METOCLOPRAMIDE HCL 10 MG/2 ML VIAL IV PUSH SCH ×2 (14:13→21:10)
[2017-02-03] MEDS ORDERED: IOHEXOL 350 MG/ML 10 ML VIAL (for RAD DIAG) IVCONTRAST ONE (15:52)
[2017-02-03 16:00] VITALS: BP 146/94; PULSE 111; RESP 16; TEMP 96.4; O2SAT 96
--- NOTE | 2017-02-03 16:36 | RADRPT ---
EXAM DATE/TIME: 02/03/2017 15:48 [facility] COMPARISON: CT ABDOMEN & PELVIS W CONTRAST, January 28, 2017, 23:20. INDICATIONS : Abdominal distension with nausea and vomiting. IV CONTRAST: 90 cc Omnipaque 350 (iohexol) IV ORAL CONTRAST: No oral contrast ingested. RADIATION DOSE: 16.24 CTDIvol (mGy) MEDICAL HISTORY : Parkinson's. Carcinoma, esophageal. SURGICAL HISTORY : Appendectomy. Cholecystectomy. ENCOUNTER: Initial ACUITY: 1 day PAIN SCALE: 5/10 LOCATION: Bilateral abdomen TECHNIQUE: Volumetric scanning of the abdomen and pelvis was performed. Using automated exposure control and ad justment of the mA and/or kV according to patient size, radiation dose was kept as low as reasonably achievable to obtain optimal diagnostic quality images. DICOM format image data is available electro nically for review and comparison. FINDINGS: There is persistent fluid-filled dilatation of the proximal and mid small bowel suggestive of persist ent small bowel obstruction. The distal small bowel is decompressed. The colon is nondilated. Ther e is circumferential thickening of the visualized portion of the distal esophagus consistent with pos sible neoplasm or esophagitis. Upper endoscopy may be helpful for further evaluation of this finding . There are scattered enhancing lesions within the liver parenchyma with the largest measuring 1.7 c m in size. These lesions raise the possibility of metastatic disease. PET/CT scan would be helpful for further evaluation of these lesions. There is a low density lesion within the medial segment of the left lobe of the liver which measures 1.4 cm consistent with probable cyst. There is underlying fatty infiltration of the liver also. The patient is status post cholecystectomy. There is no intra hepatic biliary ductal dilatation. There is a 2.6 x 1.9 cm right adrenal nodule which is nonspecific . Adrenal adenoma and metastatic disease remain the top two possibilities in this patient. The left adrenal gland is unremarkable. The pancreas is normal. Uncomplicated colonic diverticulosis is not ed. The kidneys enhance briskly and demonstrate no evidence of focal mass or hydronephrosis. The sp gage is normal. Tiny bilateral pleural effusions are noted. Left basilar atelectasis is noted. An umbilical hernia containing only fat is noted. The prostate gland is enlarged. The urinary bladder is unremarkable. The abdominal aorta and inferior vena cava are unremarkable. There is no paraaorti c, retroperitoneal or mesenteric lymphadenopathy. Scattered sclerotic lesions are noted within the l umbar spine and are indeterminate. These also could be evaluated with PET/CT scan to rule out metast atic disease. CONCLUSION: 1. Persistent fluid-filled dilated loops of small bowel suggesting small bowel obstruction. Clinica l correlation is recommended. 2. Multiple enhancing lesions scattered throughout the liver raising the possibility of metastatic d isease. PET/CT scan would be helpful for further evaluation of these lesions. The largest lesion me asures 1.7 cm. 3. Circumferentially thickened distal esophagus raising the possibility of neoplasm or esophagitis. Upper endoscopy may be helpful; for further evaluation of this finding. 4. 2.6 x 1.9 cm right adrenal nodule which is indeterminate. Metastatic disease and adenoma remain in the differential. 5. Sclerotic lesions within the lumbar spine which are indeterminate. These also could be assessed with PET/CT scan to rule out metastatic disease. 6. Uncomplicated colonic diverticulosis. 7. Enlarged prostate. 8. Fatty liver. 9. Tiny bilateral pleural effusions with left basilar atelectasis and/or scarring. 10. Umbilical hernia containing only fat. Joaquim Lawson MD on February 03, 2017 at 16:13 Board Certified Radiologist. This report was verified electronically.
[2017-02-03] MEDS ORDERED: DEXT 5%-NACL 0.9% 1000 ML INJ 1,000 ML IV SCH (19:30)
--- NOTE | 2017-02-03 21:04 | RADRPT ---
EXAM DATE/TIME: 02/03/2017 20:28 [facility] COMPARISON: No previous studies available for comparison. INDICATIONS : Left lower leg pain. Pain on the medial side. Rule-out metastases. MEDICAL HISTORY : Parkinson's. carcinoma, esophageal. SURGICAL HISTORY : Appendectomy. Cholecystectomy. ENCOUNTER: Initial ACUITY: 3 months PAIN SCORE: 10/10 LOCATION: Left medial lower leg. FINDINGS: Two view examination of the left tibia demonstrates no evidence of fracture or dislocation. Bony min eralization is normal. The soft tissue structures are intact. CONCLUSION: No acute disease. Joaquim Lawson MD on February 03, 2017 at 21:02 Board Certified Radiologist. This report was verified electronically.
--- NOTE | 2017-02-03 21:08 | RADRPT ---
EXAM DATE/TIME: 02/03/2017 20:26 [facility] COMPARISON: No previous studies available for comparison. INDICATIONS : Left knee and lower leg pain. Pain on medial side. Rule out metastases. MEDICAL HISTORY : Parkinson's. Carcinoma, esophageal. SURGICAL HISTORY : Appendectomy. Cholecystectomy. ENCOUNTER: Initial ACUITY: 3 months PAIN SCORE: 10/10 LOCATION: Left medial knee. FINDINGS: There is no acute fracture or dislocation of the left knee. Mild degenerative changes are noted invo lving the femoral tibial and patellofemoral joints. There is no knee joint effusion. There is spurr ing at the insertion of the quadriceps tendon on the patella. CONCLUSION: 1. Mild degenerative changes involving the femoral tibial and patellofemoral joints. 2. No acute fracture or dislocation. 3. No knee joint effusion. 4. Spurring at the insertion of the quadriceps tendon on the patella. Joaquim Lawson MD on February 03, 2017 at 21:00 Board Certified Radiologist. This report was verified electronically.
[2017-02-03] MEDS: ALPRAZolam 1 MG TAB PO PRN (21:10)
[2017-02-03] MEDS: D5-1/2 NS + KCL 20 MEQ INJ 1,000 ML IV SCH (21:11)
[2017-02-03 21:12] VITALS: BP 125/85; PULSE 117; RESP 18; TEMP 98.2; O2SAT 100
--- NOTE | 2017-02-03 21:35 | MB ---
cc: HERO STONE M.D., RICHARD C. M.D. DATE OF CONSULTATION 02/03/17 REASON FOR CONSULTATION Patient with metastatic esophageal cancer, recent upper GI bleed, and possible bowel obstruction. PATIENT PROFILE The patient is a 75-year old white male. He has been at the very least three times. His in August of 2016 of a drug overdose. The patient was born in [place], [place]. He has lived in [place] for 10 years. He lives alone. 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 He does not smoke and does not drink. HISTORY OF PRESENT ILLNESS The patient is a 71-year-old whose history dates back to approximately April of 2013 when he had an upper endoscopy at the [facility] and was found to have an esophageal cancer. He was treated by Dr. Hero Stone and received radiation therapy and concomitant chemotherapy. The radiation was delivered at [facility] over approximately six weeks. He did well and entered a remission. In August of 2016, he was found to have recurrent disease with metastatic disease to multiple bones including the right shoulder, right hand, scapula and liver. He was started on chemotherapy which he has been receiving every other week administered by Dr. Stone. He was scheduled within the next 1-2 weeks for a PET scan to evaluate his response to therapy. His current admission to the hospital was precipitated by an upper gastrointestinal hemorrhage. He takes Xarelto 20 mg a day. He has a history of a deep venous thrombosis dating back to 01/11/2016 when he had an ultrasound showing extensive bilateral lower extremity deep venous thrombosis, worse on the right side. He has taken Xarelto since this time and has had no recurrent thromboembolic events. The Xarelto was discontinued. He underwent an upper endoscopy on 01/30/2017 and the esophagus showed a large non-bleeding irregularly shaped deep based ulcer in the distal esophagus. Biopsies were taken and this revealed a poorly differentiated carcinoma with extensive acute ulceration. There were no fungal organisms present. He was being prepared for discharge and then developed abdominal distension, nausea and vomiting. He underwent a CT scan of the abdomen and pelvis today. I have reviewed the images and also reviewed them with the patient and his sister. He has persistent fluid-filled dilated loops of small bowel suggesting a small bowel obstruction. There are multiple enhancing lesions scattered throughout the liver raising the possibility of metastatic disease. There is circumferentially thickened distal esophagus raising the possibility of neoplasm or esophagitis. There is a 2.6 cm right adrenal nodule which is indeterminate. There are sclerotic lesions within the lumbar spine which are indeterminate. There is uncomplicated colonic diverticulosis. At the present time, the patient is miserable. He is thirsty. He is n.p.o. He has had episodes of nausea and vomiting. He has significant pain in the left knee and is afraid that he has metastases to this area as he recently had a pathologic fracture involving the hand. PAST SURGICAL HISTORY 1. Appendectomy 2. Cholecystectomy 3. Tonsillectomy 4. Port placement. PAST MEDICAL HISTORY 1. Stage IV esophageal cancer 2. History of deep vein thrombosis in 2016 3. Mild Parkinson's. MEDICATIONS Prior to admission 1. Morphine sulfate extended release 30 mg p.o. q.8 h 2. Neurontin 100 mg t.i.d. 3. Omeprazole 20 mg a day 4. Dilaudid 4 mg p.o. q.4 h 5. Xarelto 20 mg a day. 6. Carbidopa-levodopa 25/100 b.i.d. 7. MiraLax. ALLERGIES None. FAMILY HISTORY Father at 83 of bladder cancer. Mother of cancer of the oral cavity. The patient has a sister who of pancreatic cancer. REVIEW OF SYSTEMS Vision is fine. Hearing is slightly diminished. CARDIOVASCULAR: No chest pain, palpitations. RESPIRATORY: Minimal exertional shortness of breath. GI: Nausea, vomiting, abdominal discomfort. : No dysuria or frequency. MUSCULOSKELETAL: Severe pain left knee. NEUROLOGIC: Generalized weakness. PSYCHIATRIC: Discouraged and sad SKIN: Intact. PHYSICAL EXAMINATION GENERAL: A chronically ill-appearing male looking older than his age of 75. He has significant muscle wasting. VITAL SIGNS: Blood pressure is 140/90, respiratory rate 16, pulse 110, afebrile. O2 sat 96%. HEENT: Head is normocephalic. Sclerae and conjunctivae are normal. Oropharynx - missing teeth. There is no cervical, supraclavicular, axillary or inguinal adenopathy. HEART: Regular rhythm. LUNGS: Clear. ABDOMEN: Soft. No hepatosplenomegaly or masses. EXTREMITIES: Trace edema. Muscle wasting is present. MUSCULOSKELETAL: There is muscle wasting. The patient has severe tenderness of the area of the left knee. NEUROLOGIC: Generalized but not focal weakness. ASSESSMENT The patient is a 75-year old male. He has widespread metastatic esophageal cancer. He has been extensively treated. I believe that he is terminally ill. He may have a bowel obstruction or another possibility is an ileus. He may be at risk of imminent fracture involving the area about the left knee. PLAN 1. I contacted his medical oncologist, Dr. Hero Stone, and we had a lengthy discussion. I then handed my phone to the patient's sister and they were able to talk to Dr. Stone as we worked out a plan. 2. The patient will begin IV fluids. 3. I will place a consultation with surgery. I do not believe that he is likely to be a surgical candidate even if he has a mechanical bowel obstruction. I would like the surgeons to help us determine whether he has an ileus or mechanical obstruction. If he has obstruction, it would be reasonable to place a gastrostomy tube. It would be very difficult to place an NG tube as he has a large ulcerated lesion involving the esophagus which is malignant and would likely bleed if there was an NG tube present. I will order x-rays of the left knee and left tibia. I have contacted his primary care physician, Dr. Murray, and asked that he write for IV fluids. I have spoken with Dr. Sanderson from surgery Ultimately, I believe He is going to end up with Hospice and Dr. Stone feels likewise. I feel that we need to make these efforts to see if we can resolve the current problem of a potential obstruction, and, after this, I feel that he is likely to be transitioned to Hospice. This was explained to the patient and his sister. MD EVA Dickey/ /7:39 PM /9:06 PM [facility]AV[facility]
--- NOTE | 2017-02-03 21:48 | HHI.PR ---
Subjective Subjective Notes came to see pt for surgical consult, he was asleep with lights off, no family present. willl try again tomorrow or sunday. d/w dr andres. PSBO vs ileus. Objective Vitals/I&O Vital Signs Date Time Temp Pulse Resp B/P (MAP) Pulse Ox O2 Delivery O2 Flow Rate FiO2 02/03/17 21:12 98.2 117 18 125/85 (98) 100 01/30/17 10:50 Room Air Labs Laboratory Tests Test 02/03/17 06:30 White Blood Count 2.6 Red Blood Count 4.45 Hemoglobin 13.7 Hematocrit 41.5 Mean Corpuscular Volume 93.2 Mean Corpuscular Hemoglobin 30.7 Mean Corpuscular Hemoglobin Concent 33.0 Red Cell Distribution Width 24.1 Platelet Count 130 Mean Platelet Volume 7.2 Neutrophils (%) (Auto) 42.9 Lymphocytes (%) (Auto) 23.3 Monocytes (%) (Auto) 33.1 Eosinophils (%) (Auto) 0.3 Basophils (%) (Auto) 0.4 Neutrophils # (Auto) 1.1 Lymphocytes # (Auto) 0.6 Monocytes # (Auto) 0.9 Eosinophils # (Auto) 0.0 Basophils # (Auto) 0.0 CBC Comment DIFF FINAL Differential Comment Date/Time Source Procedure Growth Status 01/30/17 14:35 Blood Peripheral Aerobic Blood Culture - Preliminary NO GROWTH IN 4 DAYS Resulted 01/30/17 14:35 Blood Peripheral Anaerobic Blood Culture - Preliminary NO GROWTH IN 4 DAYS Resulted A/P Assessment and Plan metastatic recurrent esophageal cancer - PSBO vs Ileus will d/w pt and family whether they want to pursue laparoscopy to r/o PSBO or just have palliative PEG tube by GI. i will try to come by Sunday or Sunday to review options with patient and family Galen Sanderson MD Feb 03, 2017 21:48
[2017-02-04] MEDS: CARBIDOPA/LEVODOPA 25 MG/100 MG TAB PO SCH ×6 (00:01→20:00)
[2017-02-04] MEDS: PANTOPRAZOLE SODIUM 40 MG VIAL IV PUSH SCH ×2 (00:02→15:30)
[2017-02-04 00:43] VITALS: BP 135/53; PULSE 110; RESP 18; TEMP 98.6; O2SAT 100
[2017-02-04] MEDS: CHLORHEXIDINE GLUCONATE 2 % 1 PACK (2 CLOTHS) TOP SCH (04:00)
[2017-02-04 04:04] VITALS: BP 145/57; PULSE 114; RESP 18; TEMP 98.4; O2SAT 100
[2017-02-04] MEDS: METOCLOPRAMIDE HCL 10 MG/2 ML VIAL IV PUSH SCH ×3 (04:57→21:58)
[2017-02-04] MEDS: HYDROmorphone HCL PF 1 MG/ML VIAL IV PRN ×4 (04:58→21:58)
[2017-02-04] MEDS: D5-1/2 NS + KCL 20 MEQ INJ 1,000 ML IV SCH ×2 (06:55→15:45)
[2017-02-04 07:38] LABS: AUTOMATED NEUTROPHIL # 2.2 TH/MM3 (1.8-7.7); BASOPHIL % 0.1 % (0.0-2.0); EOSINOPHIL % 0.4 % (0.0-4.0); HEMATOCRIT 38.8 % (39.0-51.0); HEMO FLAGS DIFF FINAL; LYMPH % 23.2 % (9.0-44.0); LYMPHOCYTE # 1.1 TH/MM3 (1.0-4.8); MEAN CORPUSCULAR HEMOGLOBIN 31.4 PG (27.0-34.0); MEAN CORPUSCULAR HGB CONC 33.1 % (32.0-36.0); MONO % 27.6 % (0.0-8.0); NEUT % 48.7 % (16.0-70.0); PLATELET COUNT 140 TH/MM3 (150-450); RED BLOOD COUNT 4.08 MIL/MM3 (4.50-5.90); RED CELL DISTRIBUTION WIDTH 22.9 % (11.6-17.2); WHITE BLOOD COUNT 4.6 TH/MM3 (4.0-11.0)
[2017-02-04 07:50] LABS: BICARBONATE 23.8 MEQ/L (21.0-32.0); POTASSIUM 3.3 MEQ/L (3.5-5.1)
[2017-02-04 08:00] VITALS: BP 104/57; PULSE 100; RESP 18; TEMP 97.8; O2SAT 98
[2017-02-04] MEDS: SODIUM CHLORIDE 0.9% FLUSH 10 ML FLUSH SCH ×2 (09:00→21:00)
[2017-02-04] MEDS: MORPHINE SULFATE 30 MG CONTROLLED RELEASE TAB PO SCH (09:00)
[2017-02-04] MEDS: DOCUSATE SODIUM 50 MG/SENNA 8.6 MG TAB PO SCH ×2 (09:00→21:00)
[2017-02-04] MEDS: ONDANSETRON HCL 4 MG/2 ML VIAL IV PRN ×2 (09:29→15:25)
[2017-02-04 12:00] VITALS: BP 98/56; PULSE 88; RESP 18; TEMP 97.9; O2SAT 95
--- NOTE | 2017-02-04 15:00 | HHI.PR ---
Subjective Remarks Patient stated he passed stool today, no abdominal pain, no nausea or vomiting Surgery general and oncology as well as GI on the case regarding his symptoms of ileus versus bowel partial obstruction Objective Vitals Vital Signs Date Time Temp Pulse Resp B/P (MAP) Pulse Ox O2 Delivery O2 Flow Rate FiO2 02/04/17 12:00 97.9 88 18 98/56 (70) 95 02/04/17 08:00 97.8 100 18 104/57 (73) 98 02/04/17 04:04 98.4 114 18 145/57 (86) 100 02/04/17 00:43 98.6 110 18 135/53 (80) 100 02/03/17 21:12 98.2 117 18 125/85 (98) 100 02/03/17 16:00 96.4 111 16 146/94 (111) 96 I/O 02/03/17 02/03/17 02/03/17 02/04/17 02/04/17 02/04/17 06:59 14:59 22:59 06:59 14:59 22:59 # Voids 2 4 # Bowel Movements 1 1 Result Diagram: 02/04/17 0655 02/04/17 0655 Objective Remarks - GENERAL: This is a well-nourished, well-developed patient, in mild distress due to nausea and vomiting SKIN: No rashes, warm and dry HEAD: Atraumatic. Normocephalic. EYES: Pupils equal round and reactive. Extraocular motions intact. No scleral icterus. ENT: Nose without bleeding, or drainage, Airway patent. NECK: Trachea midline. Supple CARDIOVASCULAR: Regular rate and rhythm without murmurs, gallops, or rubs. RESPIRATORY: Fair air entry bilaterally. No wheezes, rales, or rhonchi. GASTROINTESTINAL: Abdomen soft, slightly tender to palpation, nondistended. Positive bowel sounds MUSCULOSKELETAL: Extremities without clubbing, cyanosis, or edema. Pedal pulses appreciated NEUROLOGICAL: Awake and alert. Moves all extremity. Normal speech.no focal neurological deficit Procedures See below A/P Problem List: (1) Nausea & vomiting ICD Code: R11.2 - Nausea with vomiting, unspecified (2) GI bleed ICD Code: K92.2 - Gastrointestinal hemorrhage, unspecified Status: Acute (3) Small bowel obstruction ICD Code: K56.69 - Other intestinal obstruction Status: Acute Assessment and Plan 02/04 : Discussed with GI, and oncology, consulted symptoms of bowel obstruction , GI recommended small bowel follow-through, Gen. surgery consulted, iv fluid started, monitor electrolyte A/P: Esophageal ulcer Hematemesis Hepatitis B Gastroesophageal reflux disease Recurrent versus ileus CT abdomen/pelvis 01/29 revealed proximal to mid small bowel dilatation with air in the colon. On omeprazole 20 mg twice a day at nursing facility Patient had liquid green bowel movement 01/30 Docusate sodium/senna 1 tablet twice a day for bowel regimen. EGD revealed esophageal ulcer 5 cm from gastric junction. Biopsied with pathology pending as of 02/01. Stage IV esophageal cancer - status post radiation/chemotherapy by Dr. Stone Pancytopenia Chronic Rivaroxaban use, on hold until 02/05 per GI Parkinson's disease PTSD Chronic pain syndrome Anxiety disorder NOS Chronic opiate use Chronic benzodiazepine use Continue carbidopa/levodopa 25/100 1 tablet every 4 hours Parkinson's disease Continue gabapentin 100 mg every 6 hours when necessary pain Patient is on alprazolam 1 mg 3 times a day at nursing facility/at this facility Patient is morphine sulfate extended release 30 mg daily Hydromorphone 1 mg every 4 hours when necessary breakthrough pain Lactic acidosis - resolved 2-D echocardiogram revealed EF 55-60%. RV dilation. Lactate 1.5 01/30 History of familial hypercalcemia Hypophosphatemia PT/OT evaluate and treat Prophylaxis - GI - pantoprazole drip - DVT - SCD/pharmacological prophylaxis contra indicated with active upper GI bleed Pa Murray MD Feb 04, 2017 15:00
--- NOTE | 2017-02-04 15:06 | PD.ONC.PN ---
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 Objective Data Date Time Temp Pulse Resp B/P (MAP) Pulse Ox O2 Delivery O2 Flow Rate FiO2 02/04/17 12:00 97.9 88 18 98/56 (70) 95 02/04/17 08:00 97.8 100 18 104/57 (73) 98 02/04/17 04:04 98.4 114 18 145/57 (86) 100 02/04/17 00:43 98.6 110 18 135/53 (80) 100 02/03/17 21:12 98.2 117 18 125/85 (98) 100 02/03/17 16:00 96.4 111 16 146/94 (111) 96 Result Diagram: 02/04/1755 02/04/17 0655 Laboratory Results Laboratory Tests Test 02/04/17 06:55 White Blood Count 4.6 TH/MM3 Red Blood Count 4.08 MIL/MM3 Hemoglobin 12.8 GM/DL Hematocrit 38.8 % Mean Corpuscular Volume 95.0 FL Mean Corpuscular Hemoglobin 31.4 PG Mean Corpuscular Hemoglobin Concent 33.1 % Red Cell Distribution Width 22.9 % Platelet Count 140 TH/MM3 Mean Platelet Volume 7.7 FL Neutrophils (%) (Auto) 48.7 % Lymphocytes (%) (Auto) 23.2 % Monocytes (%) (Auto) 27.6 % Eosinophils (%) (Auto) 0.4 % Basophils (%) (Auto) 0.1 % Neutrophils # (Auto) 2.2 TH/MM3 Lymphocytes # (Auto) 1.1 TH/MM3 Monocytes # (Auto) 1.3 TH/MM3 Eosinophils # (Auto) 0.0 TH/MM3 Basophils # (Auto) 0.0 TH/MM3 CBC Comment DIFF FINAL Differential Comment Blood Urea Nitrogen 16 MG/DL Creatinine 0.88 MG/DL Random Glucose 110 MG/DL Calcium Level 8.9 MG/DL Sodium Level 138 MEQ/L Potassium Level 3.3 MEQ/L Chloride Level 105 MEQ/L Carbon Dioxide Level 23.8 MEQ/L Anion Gap 9 MEQ/L Estimat Glomerular Filtration Rate 85 ML/MIN Administered Medications Medications (Trade) Dose Ordered Sig/Sisi Route PRN Reason Start Time Stop Time Status Last Admin Dose Admin Alprazolam (Xanax) 1 mg TID PRN PO ANXIETY 01/29/17 01:15 02/03/17 21:10 Carbidopa/Levodopa (Sinemet 25-100 Mg) 1 tab Q4HR PO 01/29/17 04:00 02/04/17 04:57 Morphine Sulfate (Oramorph Sr) 30 mg DAILY PO 01/29/17 09:00 02/02/17 09:38 Sodium Chloride (NS Flush) 2 ml UNSCH PRN .XX FLUSH AFTER USING IV ACCESS 01/29/17 01:15 02/03/17 05:55 Sodium Chloride (NS Flush) 2 ml BID .XX 01/29/17 09:00 02/03/17 21:11 Hydromorphone HCl (Dilaudid Pf Inj) 1 mg Q4H PRN IV PAIN SCALE 6 TO 10 01/29/17 01:15 02/04/17 09:35 Ondansetron HCl (Zofran Inj) 4 mg Q6H PRN IV NAUSEA OR VOMITING 01/29/17 01:15 02/04/17 09:29 Chlorhexidine Gluconate (Chlorhexidine 2% Cloth) Taper DAILY@04 TOP 01/29/17 04:00 01/25/18 03:59 02/01/17 04:00 Senna/Docusate Sodium (Bryanna-Colace) 1 tab BID PO 01/29/17 09:00 02/03/17 21:10 Metoclopramide HCl (Reglan Inj) 10 mg Q8HR IV PUSH 02/03/17 14:00 02/04/17 04:57 Pantoprazole Sodium (Protonix Inj) 40 mg Q12H IV PUSH 02/03/17 13:00 02/04/17 00:02 Potassium Chloride/Dextrose/ Sod Cl 1,000 ml @ 100 mls/hr Q10H IV 02/03/17 19:45 02/04/17 06:55 Objective Remarks GENERAL: Chronically ill appearing older male, resting in bed in no acute distress. SKIN: Warm and dry. HEAD: Normocephalic. EYES: No injection or drainage. NECK: Supple, trachea midline. CARDIOVASCULAR: Regular rate and rhythm without murmurs. RESPIRATORY: Breath sounds equal bilaterally. No accessory muscle use. GASTROINTESTINAL: Abdomen soft, mildly protuberant but non-tender. EXTREMITIES: No cyanosis, or edema. NEUROLOGICAL: No obvious focal deficit. Awake, alert, and oriented x3. Assessment/Plan Plan 1. The pt has just returned from getting a small bowel GI series done in radiology. We examined the pt along with the GI nurse practitioner. She will followup on the result of the GI series and allow the pt clear liquids if there does not appear to be a blockage. 2. Dr Galen Sanderson will see the pt in am to discuss surgical placement of G tube if there is an obstruction and if this is the best approach 3. His overall prognosis remains the same and when all is said and done, he is still a candidate for Hospice. Attending Statement The exam, history, and the medical decision-making described in the above note were completed with the assistance of the mid-level provider. I reviewed and agree with the findings presented. I attest that I had a [id number] encounter with the patient on the same day, and personally performed and documented my assessment and findings in the medical record. He looks better today and hopefully the GI series will not demonstrate an obstruction. If there is no obstruction he will begin clear liquids. Even if there is no obstruction it is unlikely that he will receive additional chemotherapy. If and when taking PO he will be able to go home and follow up with Thelma Gaspar Feb 04, 2017 15:06 Ricci Johns MD Feb 04, 2017 15:11
[2017-02-04 16:00] VITALS: BP 112/64; PULSE 89; RESP 18; TEMP 98.4; O2SAT 95
--- NOTE | 2017-02-04 16:11 | HHI.GIFU ---
Subjective Remarks Pt just back from SBFT. Says he feels better. Says he was able to drink one container of contrast, did not vomit. No vomiting today. had 3-4 liquid stool , + flatus. (Niecy Butler) Objective Vitals I&O Vital Signs Date Time Temp Pulse Resp B/P (MAP) Pulse Ox O2 Delivery O2 Flow Rate FiO2 02/04/17 12:00 97.9 88 18 98/56 (70) 95 02/04/17 08:00 97.8 100 18 104/57 (73) 98 02/04/17 04:04 98.4 114 18 145/57 (86) 100 02/04/17 00:43 98.6 110 18 135/53 (80) 100 02/03/17 21:12 98.2 117 18 125/85 (98) 100 I/O 02/03/17 02/03/17 02/03/17 02/04/17 02/04/17 02/04/17 07:00 15:00 23:00 07:00 15:00 23:00 # Voids 2 4 # Bowel Movements 1 1 Laboratory Laboratory Tests Test 02/04/17 06:55 White Blood Count 4.6 Red Blood Count 4.08 Hemoglobin 12.8 Hematocrit 38.8 Mean Corpuscular Volume 95.0 Mean Corpuscular Hemoglobin 31.4 Mean Corpuscular Hemoglobin Concent 33.1 Red Cell Distribution Width 22.9 Platelet Count 140 Mean Platelet Volume 7.7 Neutrophils (%) (Auto) 48.7 Lymphocytes (%) (Auto) 23.2 Monocytes (%) (Auto) 27.6 Eosinophils (%) (Auto) 0.4 Basophils (%) (Auto) 0.1 Neutrophils # (Auto) 2.2 Lymphocytes # (Auto) 1.1 Monocytes # (Auto) 1.3 Eosinophils # (Auto) 0.0 Basophils # (Auto) 0.0 CBC Comment DIFF FINAL Differential Comment Blood Urea Nitrogen 16 Creatinine 0.88 Random Glucose 110 Calcium Level 8.9 Sodium Level 138 Potassium Level 3.3 Chloride Level 105 Carbon Dioxide Level 23.8 Anion Gap 9 Estimat Glomerular Filtration Rate 85 Date/Time Source Procedure Growth Status 01/30/17 14:35 Blood Peripheral Aerobic Blood Culture - Final NO GROWTH IN 5 DAYS Complete 01/30/17 14:35 Blood Peripheral Anaerobic Blood Culture - Final NO GROWTH IN 5 DAYS Complete Imaging Last Impressions Tibia/Fibula X-Ray 02/03/17 0000 Signed Impressions: Service Date/Time: Friday, February 03, 2017 20:28 - CONCLUSION: No acute disease. Joaquim Lawson MD Knee X-Ray 02/03/17 0000 Signed Impressions: Service Date/Time: Friday, February 03, 2017 20:26 - CONCLUSION: 1. Mild degenerative changes involving the femoral tibial and patellofemoral joints. 2. No acute fracture or dislocation. 3. No knee joint effusion. 4. Spurring at the insertion of the quadriceps tendon on the patella. Joaquim Lawson MD Abdomen/Pelvis CT 02/03/17 0000 Signed Impressions: Service Date/Time: Friday, February 03, 2017 15:48 - CONCLUSION: 1. Persistent fluid-filled dilated loops of small bowel suggesting small bowel obstruction. Clinical correlation is recommended. 2. Multiple enhancing lesions scattered throughout the liver raising the possibility of metastatic disease. PET/CT scan would be helpful for further evaluation of these lesions. The largest lesion measures 1.7 cm. 3. Circumferentially thickened distal esophagus raising the possibility of neoplasm or esophagitis. Upper endoscopy may be helpful; for further evaluation of this finding. 4. 2.6 x 1.9 cm right adrenal nodule which is indeterminate. Metastatic disease and adenoma remain in the differential. 5. Sclerotic lesions within the lumbar spine which are indeterminate. These also could be assessed with PET/CT scan to rule out metastatic disease. 6. Uncomplicated colonic diverticulosis. 7. Enlarged prostate. 8. Fatty liver. 9. Tiny bilateral pleural effusions with left basilar atelectasis and/or scarring. 10. Umbilical hernia containing only fat. Joaquim Lawson MD Abdomen X-Ray 02/03/17 0000 Signed Impressions: Service Date/Time: Friday, February 03, 2017 05:15 - CONCLUSION: There does appear to be some more small bowel air today than on the . Glenn Kiser MD Chest X-Ray 01/28/178 Signed Impressions: Service Date/Time: Saturday, January 28, 2017 22:44 - CONCLUSION: 1. No acute findings. Selvin Whittington MD Physical Exam HEENT: Normocephalic; atraumatic; no jaundice. CHEST: CTA, diminished bases CARDIAC: RRR ABDOMEN: Mildly tympanic, soft, mildly distended, mild diffuse TTP; no hepatosplenomegaly; bowel sounds are present in all four quadrants. EXTREMITIES: No clubbing, cyanosis, or edema. SKIN: Normal; no rash; no jaundice. THERAPY SITE COORDINATOR: alert and oriented (Niecy Butler) Assessment and Plan Plan ASSESSMENT: - Upper GI Bleeding, hematemesis. S/P EGD (01/30/17)----> 1. Large ulcer was found in the distal esophagus, 5 CM above GE junction; with minimal narrowing of the lumen, biopsies were taken 2. Normal stomach and duodenal mucosa. 3. Retroflexed views revealed a hiatal hernia. Pathology invasively poorly differentiated carcinoma with extensive ulceration, A GMS stain is negative for fungal organisms. No active bleeding. H&H stable. Will change Protonix to IV with twice a day dosing secondary to persistent nausea and vomiting - Esophageal cancer. Patient has a history of stage IV esophageal cancer, diagnosed in April 2014. He was treated with chemotherapy and radiation and reports that his last PET scan in May 2016 did not show any active disease with regards to his esophageal cancer. He was noted to have lytic lesions in his right upper extremity for which she is being treated for by Dr. Stone. She underwent EGD for evaluation of hematemesis and was noted to have a large ulcer in distal esophagus, pathology came back as invasive poorly differentiated carcinoma with extensive ulceration. Discuss the findings with the patient. Oncology following - Ileus versus PSBO. CT abdomen and pelvis with IV contrast (01/28/17) proximal and mid small bowel dilatation with air-fluid levels and distal decompressive characteristic of an early or partial small bowel obstruction. No free air. Small amount of free fluid in the abdomen and pelvis. Only abdominal surgery appendectomy. This was improving , however the patient had worsening abdominal distention with Multiple episodes of nausea vomiting with abdominal discomfort overnight. Today improved. Reglan. SBFT in progress, d/w radiology and so far the contrast is passing through albeit slowly; +BM, flatus. If patient has any further nausea or vomiting, insert NG tube in place to LIWS. - Anemia, acute blood loss. Hgb mild decrease to 12.8 - Thrombocytopenia. improving - GERD. PPI - Lytic lesions RUE. Pt poor historian. He cannot provide me the details but states he was having right upper extremity pain and was found to have a lytic lesions in his right upper extremity with a pathological fracture of his right wrist. Recently completed 3 months of chemotherapy and radiation with Dr. Stone. - Hx DVT. On Xarelto at home, currently on hold. - Hx Stage IV Esophageal cancer. Dx April of 2014, s/p chemotherapy and radiation. He reports that he had a PET scan in May that was clear with regards to his esophageal cancer, but that was recently found to have cancer in his right upper extremity. - Parkinson's disease, Hx Familial hypercalcemia, BPH, PTSD, Anxiety, chronic pain per attending. PLAN: - consider hospice - await GS f/u - sips of clears and ice chips for nwo - await Small bowel follow-through, per radiology contrast is moving through but slowly; report not ready for another hour - if no obstruction can advance to clears liquids - If further nausea and vomiting, insert NG tube in place to LIWS - cont IV protonix - Monitor H&H - Transfuse as necessary - continue Reglan 10 mg IV every 8 hours - Supportive care - d/w DR Johns & [employer] - Pt seen and examined by Dr. Li and myself and this note is written on his behalf (Niecy Bulter) Physician Comments Agree with the plan as above, SBFT pending. jail plan pending . Will follow up with you. (Mo Li MD) Niecy Butler Feb 04, 2017 16:11 Mo Li MD Feb 04, 2017 22:56
--- NOTE | 2017-02-04 17:23 | RADRPT ---
EXAM DATE/TIME: 02/04/2017 13:11 [facility] COMPARISON: CT ABDOMEN & PELVIS W CONTRAST, February 03, 2017, 15:48. INDICATIONS : Evaluate for small bowel obstruction. FLUORO TIME: 0 minutes IMAGE COUNT: 12 CONTRAST: MD Chambers IMAGING TIME(S): 15 min, 30 min, 45 min, 1 hr, 2 hr, 3.5 hrs MEDICAL HISTORY : Carcinoma, esophageal. Gastroesophageal reflux disease. SURGICAL HISTORY : Appendectomy. Cholecystectomy. ENCOUNTER: Initial ACUITY: 1 day PAIN SCORE: 10/10 LOCATION: Left abdomen FINDINGS: The initial steel layer radiograph shows mild jejunal distention. No colonic distention. No evidence of chauncey e air. Gastroesophageal reflux is demonstrated during the course of this exam. Moderate severity mucosal fold thickening seen of the jejunum. The jejunum is at the upper limits of normal caliber. There is normal caliber ileum without evidence of wall thickening. Small bowel transi t time is approximately 3 hours. CONCLUSION: 1. Ileus versus low-grade mid small bowel obstruction. No complete obstruction is demonstrated. 2. Nonspecific enteritis of the jejunum. 3. Gastroesophageal reflux. Robbin Cheney MD on February 04, 2017 at 17:19 Board Certified Radiologist. This report was verified electronically.
[2017-02-04 20:00] VITALS: BP 101/59; PULSE 96; RESP 18; TEMP 98.5; O2SAT 94
[2017-02-05] MEDS: CARBIDOPA/LEVODOPA 25 MG/100 MG TAB PO SCH ×6 (00:40→20:43)
[2017-02-05] MEDS: PANTOPRAZOLE SODIUM 40 MG VIAL IV PUSH SCH ×2 (00:42→13:20)
[2017-02-05] MEDS: D5-1/2 NS + KCL 20 MEQ INJ 1,000 ML IV SCH ×3 (00:43→21:45)
[2017-02-05] MEDS: CHLORHEXIDINE GLUCONATE 2 % 1 PACK (2 CLOTHS) TOP SCH (03:56)
[2017-02-05 04:00] VITALS: BP 93/51; PULSE 94; RESP 20; TEMP 98.8; O2SAT 95
[2017-02-05] MEDS: HYDROmorphone HCL PF 1 MG/ML VIAL IV PRN ×3 (04:00→20:43)
[2017-02-05 05:54] VITALS: BP 92/58; PULSE 93; RESP 18; O2SAT 96
[2017-02-05] MEDS: METOCLOPRAMIDE HCL 10 MG/2 ML VIAL IV PUSH SCH ×3 (05:54→20:43)
[2017-02-05 08:43] VITALS: BP 105/60; PULSE 92; RESP 20; TEMP 98.8; O2SAT 95
[2017-02-05] MEDS: SODIUM CHLORIDE 0.9% FLUSH 10 ML FLUSH SCH ×2 (09:00→20:43)
[2017-02-05] MEDS: MORPHINE SULFATE 30 MG CONTROLLED RELEASE TAB PO SCH (10:34)
[2017-02-05] MEDS: DOCUSATE SODIUM 50 MG/SENNA 8.6 MG TAB PO SCH ×2 (10:35→20:43)
[2017-02-05 11:33] VITALS: BP 115/75; PULSE 90; RESP 20; TEMP 98.2; O2SAT 99
--- NOTE | 2017-02-05 11:55 | MB ---
cc: KAYLEY ONOFRE M.D. DATE OF CONSULTATION 02/05/2017 REASON FOR CONSULTATION Possible bowel obstruction. HISTORY OF PRESENT ILLNESS Mr. Hairston is a very pleasant 72-year-old gentleman who unfortunately has recurrent metastatic esophageal cancer. He was admitted on 01/29/2017 for nausea, vomiting and upper GI bleed. He was having some abdominal pain. He was vomiting up dark red emesis consistent with an upper GI bleed. He underwent an endoscopy which unfortunately showed recurrence of his esophageal cancer with a large tumor with ulceration. Since then the patient has been hospitalized and has had intermittent episodes of nausea and vomiting. He underwent imaging which showed a mildly dilated small bowel with some decompressed distal bowel and there was a concern for possible bowel obstruction. The patient reports his only previous abdominal surgery was appendicitis many years ago. The patient was seen by Dr. Johns who requested surgical consultation to evaluate for possible mechanical bowel obstruction. I initially attempted see the patient on Sunday night but he was asleep and there were no family members present so I advised the nursing staff I would return today to do a formal consultation and evaluate him. This morning the patient states he feels fine. He is hungry and requesting food. He reports multiple loose bowel movements over the weekend. He denies any abdominal pain at this time. The patient is asking if I can order him some Boost or Ensure because he has not had anything to eat for several days and he is quite weak and hungry. PAST MEDICAL HISTORY 1. Stage IV esophageal cancer. 2. He also has anxiety disorder. 3. Hepatitis B. 4. Reflux disease. PAST SURGICAL HISTORY 1. Appendectomy. 2. Laparoscopic cholecystectomy. 3. Tonsillectomy. 4. [id number] placement. 5. Esophageal dilatations. MEDICATIONS His medication list is well-documented in the EMR. Please see that. ALLERGIES His only documented allergy is to MEPERIDINE. FAMILY HISTORY He has extensive family history of esophageal cancer as well as pancreatic cancer. SOCIAL HISTORY His social history is a former smoker. Does not currently smoke or drink alcohol. 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 REVIEW OF SYSTEMS Please see HPI. PHYSICAL EXAMINATION VITAL SIGNS: Temperature is 98, pulse is 90, blood pressure 100/60, respiratory rate 20. GENERAL: This si a pleasant older gentleman watching TV, in no apparent distress. HEENT: Pupils equal round, reactive to light. Sclerae are white. Oropharynx is clear and moist. NECK: Supple. No masses. LUNGS: Clear to auscultation bilaterally. HEART: S1-S2, no murmur. ABDOMEN: Soft and nondistended. Active bowel sounds. He has a large umbilical hernia that is easily reducible. No abdominal tenderness. EXTREMITIES: Free range of motion x 4. NEUROLOGICAL: Alert and oriented x 3. ALL IMAGING REVIEWED The patient has had two CT scans which showed some mild dilatation of the proximal small bowel. He does have air and stool in the colon on both the CAT scans indicating that his intestinal tract appears to be patent. He had a small bowel series yesterday which showed slow transit through the bowel but he was able to get contrast to his colon. LABORATORY DATA White blood cell count is 4, hemoglobin 12, platelet count is 140. Electrolytes - Hypokalemia at 3.3, hyperglycemia at 110. IMPRESSION 1. Ileus versus partial small bowel obstruction. 2. Stage IV esophageal cancer. PLAN At this point I advised the patient that he does not appear to have a complete mechanical bowel obstruction. I believe that his most likely etiology for his bowel dysfunction is his metastatic esophageal cancer and recent upper GI bleed. I have recommended that we go ahead and start him on a full liquid diet and see how he tolerates that. The patient is requesting some Boost or Ensure and I have ordered that. I also discussed the fact that the patient may need a palliative G-tube as his esophageal cancer continues to progress. He states he is going to follow up with Dr. Stone and will discussed the G-tube with him. If he develops an esophageal obstruction, he may be a candidate for a laparoscopic G-tube. If his bowels fail to open up, we could always do a diagnostic laparoscopy and evaluate the small bowel and place a G-tube at that time. At this point the patient is deferring any surgical intervention or placement of a G-tube. He would like to be started on a diet and see how he does. He would like to follow up with Dr. Stone is an outpatient. I will go ahead and start him on a full liquid diet today with Boost or Ensure and will recheck him in the next day or two. Thank you so much for allowing me to participate in his care. Sincerely, Kayley MD MAILE Onofre /10:20 AM /11:33 AM
--- NOTE | 2017-02-05 14:58 | PD.ONC.PN ---
Subjective Subjective Remarks feeling better and tolerating liquid diet and had loose stools. Objective Data Date Time Temp Pulse Resp B/P (MAP) Pulse Ox O2 Delivery O2 Flow Rate FiO2 02/05/17 11:33 98.2 90 20 115/75 (88) 99 02/05/17 08:43 98.8 92 20 105/60 (75) 95 02/05/17 05:54 93 18 92/58 (69) 96 02/05/17 04:30 17 02/05/17 04:00 98.8 94 20 93/51 (65) 95 02/04/17 20:00 98.5 96 18 101/59 (73) 94 02/04/17 16:00 98.4 89 18 112/64 (80) 95 02/05/17 02/05/17 02/05/17 07:00 15:00 23:00 Intake Total 601 ml Output Total 275 ml Balance 326 ml Result Diagram: 02/04/17 0655 02/04/17 0655 Imaging Studies Last 48 hours Impressions Small Bowel X-Ray 02/04/17 0000 Signed Impressions: Service Date/Time: Saturday, February 04, 2017 13:11 - CONCLUSION: 1. Ileus versus low-grade mid small bowel obstruction. No complete obstruction is demonstrated. 2. Nonspecific enteritis of the jejunum. 3. Gastroesophageal reflux. Robbin Cheney MD Administered Medications Medications (Trade) Dose Ordered Sig/Sisi Route PRN Reason Start Time Stop Time Status Last Admin Dose Admin Alprazolam (Xanax) 1 mg TID PRN PO ANXIETY 01/29/17 01:15 02/03/17 21:10 Carbidopa/Levodopa (Sinemet 25-100 Mg) 1 tab Q4HR PO 01/29/17 04:00 02/05/17 12:00 Morphine Sulfate (Oramorph Sr) 30 mg DAILY PO 01/29/17 09:00 02/05/17 10:34 Sodium Chloride (NS Flush) 2 ml UNSCH PRN .XX FLUSH AFTER USING IV ACCESS 01/29/17 01:15 02/03/17 05:55 Sodium Chloride (NS Flush) 2 ml BID .XX 01/29/17 09:00 02/05/17 09:00 Hydromorphone HCl (Dilaudid Pf Inj) 1 mg Q4H PRN IV PAIN SCALE 6 TO 10 01/29/17 01:15 02/05/17 04:00 Ondansetron HCl (Zofran Inj) 4 mg Q6H PRN IV NAUSEA OR VOMITING 01/29/17 01:15 02/04/17 15:25 Chlorhexidine Gluconate (Chlorhexidine 2% Cloth) Taper DAILY@04 TOP 01/29/17 04:00 01/25/18 03:59 02/01/17 04:00 Senna/Docusate Sodium (Bryanna-Colace) 1 tab BID PO 01/29/17 09:00 02/05/17 10:35 Metoclopramide HCl (Reglan Inj) 10 mg Q8HR IV PUSH 02/03/17 14:00 02/05/17 13:20 Pantoprazole Sodium (Protonix Inj) 40 mg Q12H IV PUSH 02/03/17 13:00 02/05/17 13:20 Potassium Chloride/Dextrose/ Sod Cl 1,000 ml @ 100 mls/hr Q10H IV 02/03/17 19:45 02/05/17 00:43 Objective Remarks GENERAL: frail and gaunt. SKIN: Warm and dry. HEAD: Normocephalic. EYES: No scleral icterus. No injection or drainage. NECK: Supple, trachea midline. No JVD or lymphadenopathy. LYMPHATIC: No adenopathy. CARDIOVASCULAR: Regular rate and rhythm without murmurs. RESPIRATORY: Breath sounds equal bilaterally. No accessory muscle use. GASTROINTESTINAL: mild distention and soft. EXTREMITIES: No cyanosis, or edema. MUSCULOSKELETAL: poor muscle tone. NEUROLOGICAL: No obvious focal deficit. Awake, alert, and oriented x3. PSYCHIATRIC: Appropriate mood and affect; insight and judgment normal. Assessment/Plan Plan 1. doing better and if able to take po will be able to go home and follow up with Dr. Stone. Situation discussed with patient and daughter. I have asked him to walk about with help of daughter and not remain in bed as being sedentary will not help an ileus resolve. Ricci Johns MD Feb 05, 2017 14:58
[2017-02-05 16:23] VITALS: BP 99/58; PULSE 100; RESP 20; TEMP 97.6; O2SAT 95
--- NOTE | 2017-02-05 16:40 | HHI.GIFU ---
Subjective Remarks Pt resting in bed, family at bedside. He feels better, + liquid stools, + flatus. Tolerating full liquid diet. REady to go home. Does not want g tube at this time. (Niecy Butler) Objective Vitals I&O Vital Signs Date Time Temp Pulse Resp B/P (MAP) Pulse Ox O2 Delivery O2 Flow Rate FiO2 02/05/17 16:23 97.6 100 20 99/58 (72) 95 02/05/17 11:33 98.2 90 20 115/75 (88) 99 02/05/17 08:43 98.8 92 20 105/60 (75) 95 02/05/17 05:54 93 18 92/58 (69) 96 02/05/17 04:30 17 02/05/17 04:00 98.8 94 20 93/51 (65) 95 02/04/17 20:00 98.5 96 18 101/59 (73) 94 I/O 02/04/17 02/04/17 02/04/17 02/05/17 02/05/17 02/05/17 07:00 15:00 23:00 07:00 15:00 23:00 Intake Total 0 ml 1000 ml 601 ml 712 ml Output Total 275 ml Balance 0 ml 1000 ml 326 ml 712 ml Intake Oral 0 ml 1 ml 712 ml IV Total 1000 ml 600 ml Output Urine Total 275 ml # Voids 4 5 2 # Bowel Movements 1 4 1 Laboratory Date/Time Source Procedure Growth Status 01/30/17 14:35 Blood Peripheral Aerobic Blood Culture - Final NO GROWTH IN 5 DAYS Complete 01/30/17 14:35 Blood Peripheral Anaerobic Blood Culture - Final NO GROWTH IN 5 DAYS Complete Imaging Last Impressions Small Bowel X-Ray 02/04/17 0000 Signed Impressions: Service Date/Time: Saturday, February 04, 2017 13:11 - CONCLUSION: 1. Ileus versus low-grade mid small bowel obstruction. No complete obstruction is demonstrated. 2. Nonspecific enteritis of the jejunum. 3. Gastroesophageal reflux. Robbin Cheney MD Tibia/Fibula X-Ray 02/03/17 0000 Signed Impressions: Service Date/Time: Friday, February 03, 2017 20:28 - CONCLUSION: No acute disease. Joaquim Lawson MD Knee X-Ray 02/03/17 0000 Signed Impressions: Service Date/Time: Friday, February 03, 2017 20:26 - CONCLUSION: 1. Mild degenerative changes involving the femoral tibial and patellofemoral joints. 2. No acute fracture or dislocation. 3. No knee joint effusion. 4. Spurring at the insertion of the quadriceps tendon on the patella. Joaquim Lawson MD Abdomen/Pelvis CT 02/03/17 0000 Signed Impressions: Service Date/Time: Friday, February 03, 2017 15:48 - CONCLUSION: 1. Persistent fluid-filled dilated loops of small bowel suggesting small bowel obstruction. Clinical correlation is recommended. 2. Multiple enhancing lesions scattered throughout the liver raising the possibility of metastatic disease. PET/CT scan would be helpful for further evaluation of these lesions. The largest lesion measures 1.7 cm. 3. Circumferentially thickened distal esophagus raising the possibility of neoplasm or esophagitis. Upper endoscopy may be helpful; for further evaluation of this finding. 4. 2.6 x 1.9 cm right adrenal nodule which is indeterminate. Metastatic disease and adenoma remain in the differential. 5. Sclerotic lesions within the lumbar spine which are indeterminate. These also could be assessed with PET/CT scan to rule out metastatic disease. 6. Uncomplicated colonic diverticulosis. 7. Enlarged prostate. 8. Fatty liver. 9. Tiny bilateral pleural effusions with left basilar atelectasis and/or scarring. 10. Umbilical hernia containing only fat. Joaquim Lawson MD Abdomen X-Ray 02/03/17 0000 Signed Impressions: Service Date/Time: Friday, February 03, 2017 05:15 - CONCLUSION: There does appear to be some more small bowel air today than on the . Glenn Kiser MD Chest X-Ray 01/28/178 Signed Impressions: Service Date/Time: Saturday, January 28, 2017 22:44 - CONCLUSION: 1. No acute findings. Selvin Whittington MD Physical Exam HEENT: Normocephalic; atraumatic; no jaundice. CHEST: CTA, diminished bases CARDIAC: RRR ABDOMEN: soft, mildly distended, mild diffuse TTP; no hepatosplenomegaly; bowel sounds are present in all four quadrants. EXTREMITIES: No clubbing, cyanosis, or edema. SKIN: Normal; no rash; no jaundice. PHYSICIAN OBSTETRICIAN: alert and oriented (Niecy Butler ENDBAND CUTTER HAND) Assessment and Plan Plan ASSESSMENT: - Upper GI Bleeding, hematemesis. S/P EGD (01/30/17)----> 1. Large ulcer was found in the distal esophagus, 5 CM above GE junction; with minimal narrowing of the lumen, biopsies were taken 2. Normal stomach and duodenal mucosa. 3. Retroflexed views revealed a hiatal hernia. Pathology invasively poorly differentiated carcinoma with extensive ulceration, A GMS stain is negative for fungal organisms. No active bleeding. H&H stable. Will change Protonix to IV with twice a day dosing secondary to persistent nausea and vomiting - Esophageal cancer. Patient has a history of stage IV esophageal cancer, diagnosed in April 2014. He was treated with chemotherapy and radiation and reports that his last PET scan in May 2016 did not show any active disease with regards to his esophageal cancer. He was noted to have lytic lesions in his right upper extremity for which she is being treated for by Dr. Stone. She underwent EGD for evaluation of hematemesis and was noted to have a large ulcer in distal esophagus, pathology came back as invasive poorly differentiated carcinoma with extensive ulceration. Discuss the findings with the patient. Oncology following - Ileus versus PSBO. CT abdomen and pelvis with IV contrast (01/28/17) proximal and mid small bowel dilatation with air-fluid levels and distal decompressive characteristic of an early or partial small bowel obstruction. No free air. Small amount of free fluid in the abdomen and pelvis. Only abdominal surgery appendectomy. This was improving , however the patient had worsening abdominal distention with Multiple episodes of nausea vomiting with abdominal discomfort overnight. Today improved. Reglan. +BM, flatus. SBFT --> ileus vs low grade mid small bowel obstruction, no complete obstruction seen. GS following. May be candidate for lap g tube, diagnostic lap. Pt does not want g tube at this time, tolerating ensures - Anemia, acute blood loss. Hgb mild decrease to 12.8 - Thrombocytopenia. improving - GERD. PPI - Lytic lesions RUE. Pt poor historian. He cannot provide me the details but states he was having right upper extremity pain and was found to have a lytic lesions in his right upper extremity with a pathological fracture of his right wrist. Recently completed 3 months of chemotherapy and radiation with Dr. Stone. - Hx DVT. On Xarelto at home, currently on hold. - Hx Stage IV Esophageal cancer. Dx April of 2014, s/p chemotherapy and radiation. He reports that he had a PET scan in May that was clear with regards to his esophageal cancer, but that was recently found to have cancer in his right upper extremity. - Parkinson's disease, Hx Familial hypercalcemia, BPH, PTSD, Anxiety, chronic pain per attending. PLAN: - consider hospice - diet per GS - cont IV protonix - Monitor H&H - Transfuse as necessary - continue Reglan 10 mg IV every 8 hours - Supportive care - GI will sign off. please reconsult if needed - Pt seen and examined by Dr. Li and myself and this note is written on his behalf (Niecy Butler) Physician Comments Plan as above, please notify us if further needed. (Mo Li MD) Niecy Butler Feb 05, 2017 16:40 Mo Li MD Feb 05, 2017 21:54
--- NOTE | 2017-02-05 16:46 | HHI.PR ---
Subjective Remarks Stated he is passing loose stool, he was able to eat in short today without any nausea or vomiting or problems Surgery, GI, oncology following up, hopefully discharge tomorrow if he continued to be stable and no GI obstruction symptoms Objective Vitals Vital Signs Date Time Temp Pulse Resp B/P (MAP) Pulse Ox O2 Delivery O2 Flow Rate FiO2 02/05/17 16:23 97.6 100 20 99/58 (72) 95 02/05/17 11:33 98.2 90 20 115/75 (88) 99 02/05/17 08:43 98.8 92 20 105/60 (75) 95 02/05/17 05:54 93 18 92/58 (69) 96 02/05/17 04:30 17 02/05/17 04:00 98.8 94 20 93/51 (65) 95 02/04/17 20:00 98.5 96 18 101/59 (73) 94 I/O 02/04/17 02/04/17 02/04/17 02/05/17 02/05/17 02/05/17 07:00 15:00 23:00 07:00 15:00 23:00 Intake Total 0 ml 1000 ml 601 ml 712 ml Output Total 275 ml Balance 0 ml 1000 ml 326 ml 712 ml Intake Oral 0 ml 1 ml 712 ml IV Total 1000 ml 600 ml Output Urine Total 275 ml # Voids 4 5 2 # Bowel Movements 1 4 1 Result Diagram: 02/04/17 0655 02/04/17 0655 Imaging Last Impressions Small Bowel X-Ray 02/04/17 0000 Signed Impressions: Service Date/Time: Saturday, February 04, 2017 13:11 - CONCLUSION: 1. Ileus versus low-grade mid small bowel obstruction. No complete obstruction is demonstrated. 2. Nonspecific enteritis of the jejunum. 3. Gastroesophageal reflux. Robbin Cheney MD Tibia/Fibula X-Ray 02/03/17 0000 Signed Impressions: Service Date/Time: Friday, February 03, 2017 20:28 - CONCLUSION: No acute disease. Joaquim Lawson MD Knee X-Ray 02/03/17 0000 Signed Impressions: Service Date/Time: Friday, February 03, 2017 20:26 - CONCLUSION: 1. Mild degenerative changes involving the femoral tibial and patellofemoral joints. 2. No acute fracture or dislocation. 3. No knee joint effusion. 4. Spurring at the insertion of the quadriceps tendon on the patella. Joaquim Lawson MD Abdomen/Pelvis CT 02/03/17 0000 Signed Impressions: Service Date/Time: Friday, February 03, 2017 15:48 - CONCLUSION: 1. Persistent fluid-filled dilated loops of small bowel suggesting small bowel obstruction. Clinical correlation is recommended. 2. Multiple enhancing lesions scattered throughout the liver raising the possibility of metastatic disease. PET/CT scan would be helpful for further evaluation of these lesions. The largest lesion measures 1.7 cm. 3. Circumferentially thickened distal esophagus raising the possibility of neoplasm or esophagitis. Upper endoscopy may be helpful; for further evaluation of this finding. 4. 2.6 x 1.9 cm right adrenal nodule which is indeterminate. Metastatic disease and adenoma remain in the differential. 5. Sclerotic lesions within the lumbar spine which are indeterminate. These also could be assessed with PET/CT scan to rule out metastatic disease. 6. Uncomplicated colonic diverticulosis. 7. Enlarged prostate. 8. Fatty liver. 9. Tiny bilateral pleural effusions with left basilar atelectasis and/or scarring. 10. Umbilical hernia containing only fat. Joaquim Lawson MD Abdomen X-Ray 02/03/17 0000 Signed Impressions: Service Date/Time: Friday, February 03, 2017 05:15 - CONCLUSION: There does appear to be some more small bowel air today than on the . Glenn Kiser MD Chest X-Ray 01/28/17 2228 Signed Impressions: Service Date/Time: Saturday, January 28, 2017 22:44 - CONCLUSION: 1. No acute findings. Selvin Whittington MD Objective Remarks - GENERAL: This is a well-nourished, well-developed patient, in mild distress due to nausea and vomiting SKIN: No rashes, warm and dry HEAD: Atraumatic. Normocephalic. EYES: Pupils equal round and reactive. Extraocular motions intact. No scleral icterus. ENT: Nose without bleeding, or drainage, Airway patent. NECK: Trachea midline. Supple CARDIOVASCULAR: Regular rate and rhythm without murmurs, gallops, or rubs. RESPIRATORY: Fair air entry bilaterally. No wheezes, rales, or rhonchi. GASTROINTESTINAL: Abdomen soft, slightly tender to palpation, nondistended. Positive bowel sounds MUSCULOSKELETAL: Extremities without clubbing, cyanosis, or edema. Pedal pulses appreciated NEUROLOGICAL: Awake and alert. Moves all extremity. Normal speech.no focal neurological deficit Procedures See below A/P Problem List: (1) Nausea & vomiting ICD Code: R11.2 - Nausea with vomiting, unspecified (2) GI bleed ICD Code: K92.2 - Gastrointestinal hemorrhage, unspecified Status: Acute (3) Small bowel obstruction ICD Code: K56.69 - Other intestinal obstruction Status: Acute Assessment and Plan 02/04 : Discussed with GI, and oncology, consulted symptoms of bowel obstruction , GI recommended small bowel follow-through, Gen. surgery consulted, iv fluid started, monitor electrolyte 02/05: Small bowel follow-through showed Ileus versus low-grade mid small bowel obstruction. No complete obstruction is demonstrated. 2. Nonspecific enteritis of the jejunum. 3. Gastroesophageal reflux. Oncology/general surgery/GI following> decided on resuming diet and monitoring symptoms, should any recurrent symptoms of obstruction surgery may consider laparoscopy and drainage A/P: Esophageal ulcer Hematemesis Hepatitis B Gastroesophageal reflux disease Recurrent versus ileus CT abdomen/pelvis 01/29 revealed proximal to mid small bowel dilatation with air in the colon. On omeprazole 20 mg twice a day at nursing facility Patient had liquid green bowel movement 01/30 Docusate sodium/senna 1 tablet twice a day for bowel regimen. EGD revealed esophageal ulcer 5 cm from gastric junction. Biopsied with pathology pending as of 02/01. Stage IV esophageal cancer - status post radiation/chemotherapy by Dr. Stone Pancytopenia Chronic Rivaroxaban use, on hold until 02/05 per GI Parkinson's disease PTSD Chronic pain syndrome Anxiety disorder NOS Chronic opiate use Chronic benzodiazepine use Continue carbidopa/levodopa 25/100 1 tablet every 4 hours Parkinson's disease Continue gabapentin 100 mg every 6 hours when necessary pain Patient is on alprazolam 1 mg 3 times a day at nursing facility/at this facility Patient is morphine sulfate extended release 30 mg daily Hydromorphone 1 mg every 4 hours when necessary breakthrough pain Lactic acidosis - resolved 2-D echocardiogram revealed EF 55-60%. RV dilation. Lactate 1.5 01/30 History of familial hypercalcemia Hypophosphatemia PT/OT evaluate and treat Prophylaxis - GI - pantoprazole drip - DVT - SCD/pharmacological prophylaxis contra indicated with active upper GI bleed Pa Murray MD Feb 05, 2017 16:46
--- NOTE | 2017-02-05 16:57 | HHI.HCPN ---
Reason for visit a. To assist with evaluation and management of symptoms including: pain, debility, decreased appetite b. To assist medical decision maker(s) with: better understanding of current medical conditions; weighing benefits/burdens of medical treatment options; making medical treatment decisions. Subjective/Interval History Patient seen and assessed in room 1525. Patient's daughter, Concepcion, arrived earlier today and was sitting at bedside. Patient is alert and oriented 4. He reports he is feeling better; tolerating full liquid diet today. Having loose stools. Patient denies any complaints, wants to go home. Possible discharge tomorrow if he continues to tolerate PO. EGD on 01/30/2017 which revealed a large ulcer in the distal esophagus; pathology revealed invasive poorly differentiated carcinoma with extensive acute ulceration. Small bowel x-ray on 02/04/17 revealed ileus versus low-grade mid small bowel obstruction, no complete obstruction was seen. It is unclear if the patient is a candidate for additional chemotherapy. He plans to follow-up with Dr. Stone outpatient and proceed with planned PET scan. We discussed potential for disease progression and continued functional decline. Patient verbalizes understanding that current treatment is palliative , but he states he is feeling better and he wants to continue treatment as long as it is offered. Patient's asking about home health services when he returns home; he was previously followed by [facility]. Discussed with Julieta INTERIANO. She has contacted [facility] and they will coordinate a [id number] visit with the patient at home after discharge. . Advance Directives Health Care Surrogate: Copy in medical record Durable Power of Pleating Supervisor: Copy in medical record Advance Directive Specifics Date completed: 01/29/17 . . Health Care Surrogate(s): Patient has designated his sister, Roseann, as the healthcare surrogate decision maker. His daughter, Alexandria, is designated as the alternate health care surrogate. . Objective Vital Signs Date Time Temp Pulse Resp B/P (MAP) Pulse Ox O2 Delivery O2 Flow Rate FiO2 02/05/17 16:23 97.6 100 20 99/58 (72) 95 02/05/17 11:33 98.2 90 20 115/75 (88) 99 02/05/17 08:43 98.8 92 20 105/60 (75) 95 02/05/17 05:54 93 18 92/58 (69) 96 02/05/17 04:30 17 02/05/17 04:00 98.8 94 20 93/51 (65) 95 02/04/17 20:00 98.5 96 18 101/59 (73) 94 Intake & Output 02/05/17 02/05/17 06:59 18:59 Intake Total 1601 ml 712 ml Output Total 275 ml Balance 1326 ml 712 ml Intake Oral 1 ml 712 ml IV Total 1600 ml Output Urine Total 275 ml # Voids 2 # Bowel Movements 1 . Physical Exam CONSTITUTIONAL/GENERAL: This is a frail elderly male in no apparent distress TUBES/LINES/DRAINS: PIV x 1 SKIN: Ecchymoses on upper extremities. Skin temperature appropriate. Not diaphoretic. Pale HEAD: Atraumatic. Normocephalic. EYES: Pupils equal and round and reactive. No scleral icterus. No injection or drainage. Fundi not examined. ENT: Hearing grossly normal. Nose without bleeding or purulent drainage. NECK: Trachea midline. Supple, nontender. No palpable thyroid enlargement or nodularity. CARDIOVASCULAR: Regular rate and rhythm without murmurs, gallops, or rubs. RESPIRATORY/CHEST: Symmetric, unlabored respirations. Breath sounds equal bilaterally. GASTROINTESTINAL: Abdomen soft, non-tender, nondistended.. No guarding. Bowel sounds present. GENITOURINARY: Without palpable bladder distension. MUSCULOSKELETAL: Extremities without clubbing, cyanosis. LYMPHATICS: No palpable cervical or supraclavicular adenopathy. NEUROLOGICAL: Awake and alert. Follows commands. Cognitively sharp. Moves all extremities. PSYCHIATRIC: No obvious anxiety/depression. No apparent hallucinations or other psychotic thought process. . Diagnostic Tests Laboratory Laboratory Tests Test 02/03/17 06:30 02/04/17 06:55 White Blood Count 2.6 TH/MM3 (4.0-11.0) 4.6 TH/MM3 (4.0-11.0) Red Blood Count 4.45 MIL/MM3 (4.50-5.90) 4.08 MIL/MM3 (4.50-5.90) Hemoglobin 13.7 GM/DL (13.0-17.0) 12.8 GM/DL (13.0-17.0) Hematocrit 41.5 % (39.0-51.0) 38.8 % (39.0-51.0) Mean Corpuscular Volume 93.2 FL (80.0-100.0) 95.0 FL (80.0-100.0) Mean Corpuscular Hemoglobin 30.7 PG (27.0-34.0) 31.4 PG (27.0-34.0) Mean Corpuscular Hemoglobin Concent 33.0 % (32.0-36.0) 33.1 % (32.0-36.0) Red Cell Distribution Width 24.1 % (11.6-17.2) 22.9 % (11.6-17.2) Platelet Count 130 TH/MM3 (150-450) 140 TH/MM3 (150-450) Mean Platelet Volume 7.2 FL (7.0-11.0) 7.7 FL (7.0-11.0) Neutrophils (%) (Auto) 42.9 % (16.0-70.0) 48.7 % (16.0-70.0) Lymphocytes (%) (Auto) 23.3 % (9.0-44.0) 23.2 % (9.0-44.0) Monocytes (%) (Auto) 33.1 % (0.0-8.0) 27.6 % (0.0-8.0) Eosinophils (%) (Auto) 0.3 % (0.0-4.0) 0.4 % (0.0-4.0) Basophils (%) (Auto) 0.4 % (0.0-2.0) 0.1 % (0.0-2.0) Neutrophils # (Auto) 1.1 TH/MM3 (1.8-7.7) 2.2 TH/MM3 (1.8-7.7) Lymphocytes # (Auto) 0.6 TH/MM3 (1.0-4.8) 1.1 TH/MM3 (1.0-4.8) Monocytes # (Auto) 0.9 TH/MM3 (0-0.9) 1.3 TH/MM3 (0-0.9) Eosinophils # (Auto) 0.0 TH/MM3 (0-0.4) 0.0 TH/MM3 (0-0.4) Basophils # (Auto) 0.0 TH/MM3 (0-0.2) 0.0 TH/MM3 (0-0.2) CBC Comment DIFF FINAL DIFF FINAL Differential Comment Blood Urea Nitrogen 16 MG/DL (7-18) Creatinine 0.88 MG/DL (0.60-1.30) Random Glucose 110 MG/DL (74-106) Calcium Level 8.9 MG/DL (8.5-10.1) Sodium Level 138 MEQ/L (136-145) Potassium Level 3.3 MEQ/L (3.5-5.1) Chloride Level 105 MEQ/L (98-107) Carbon Dioxide Level 23.8 MEQ/L (21.0-32.0) Anion Gap 9 MEQ/L (5-15) Estimat Glomerular Filtration Rate 85 ML/MIN (>89) . Result Diagram: 02/04/17 0655 02/04/17 0655 Imaging Last 72 hours Impressions Small Bowel X-Ray 02/04/17 0000 Signed Impressions: Service Date/Time: Saturday, February 04, 2017 13:11 - CONCLUSION: 1. Ileus versus low-grade mid small bowel obstruction. No complete obstruction is demonstrated. 2. Nonspecific enteritis of the jejunum. 3. Gastroesophageal reflux. Robbin Cheney MD Tibia/Fibula X-Ray 02/03/17 0000 Signed Impressions: Service Date/Time: Friday, February 03, 2017 20:28 - CONCLUSION: No acute disease. Joaquim Lawson MD Knee X-Ray 02/03/17 0000 Signed Impressions: Service Date/Time: Friday, February 03, 2017 20:26 - CONCLUSION: 1. Mild degenerative changes involving the femoral tibial and patellofemoral joints. 2. No acute fracture or dislocation. 3. No knee joint effusion. 4. Spurring at the insertion of the quadriceps tendon on the patella. Joaquim Lawson MD Abdomen/Pelvis CT 02/03/17 0000 Signed Impressions: Service Date/Time: Friday, February 03, 2017 15:48 - CONCLUSION: 1. Persistent fluid-filled dilated loops of small bowel suggesting small bowel obstruction. Clinical correlation is recommended. 2. Multiple enhancing lesions scattered throughout the liver raising the possibility of metastatic disease. PET/CT scan would be helpful for further evaluation of these lesions. The largest lesion measures 1.7 cm. 3. Circumferentially thickened distal esophagus raising the possibility of neoplasm or esophagitis. Upper endoscopy may be helpful; for further evaluation of this finding. 4. 2.6 x 1.9 cm right adrenal nodule which is indeterminate. Metastatic disease and adenoma remain in the differential. 5. Sclerotic lesions within the lumbar spine which are indeterminate. These also could be assessed with PET/CT scan to rule out metastatic disease. 6. Uncomplicated colonic diverticulosis. 7. Enlarged prostate. 8. Fatty liver. 9. Tiny bilateral pleural effusions with left basilar atelectasis and/or scarring. 10. Umbilical hernia containing only fat. Joaquim Lawson MD Abdomen X-Ray 02/03/17 0000 Signed Impressions: Service Date/Time: Sunday, February 03, 2017 05:15 - CONCLUSION: There does appear to be some more small bowel air today than on the . Glenn Kiser MD . Assessment and Plan Disease Oriented Problem List: (1) Esophageal cancer Comment: History of Stage IV esophageal cancer status post chemotherapy and radiation (2) Lytic bone lesions on xray (3) GI bleed (4) Thrombocytopenia (5) DVT of lower extremity, bilateral Comment: History of DVT. On Xarelto at home, currently on hold . (6) Parkinsons disease Symptom Scale: (1) Pain (2) Debility (3) Decrease in appetite Pertinent Non-Medical Issues Psychosocial:Patient is originally from [place]. He has 1 adult daughter, Tiffany, who still resides there. 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 Patient states [place], and has been living here ever since. The patient was 3 times; his third (Gurpreet) from a drug overdose in August. 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 Served in [place]. He has one daughter, Tiffany Sheffiled (here from [place]). One sister, Roseann here from [place]. Spiritual: Patient denies diabetes physician visits Legal:Patient has designated his sister, Roseann, as the healthcare surrogate decision maker. His daughter, Alexandria, is designated as the alternate health care surrogate. Ethical issues impacting care: No known ethical issues impacting care. . Important Contacts Gurpreet Hairston, : [phone] or [phone] Fe Hernandez, daughter: [phone] . Prognosis Patient is a 72 year old male with stage IV metastatic esophageal cancer, currently receiving palliative chemotherapy with Dr. Stone. Patient reports an overall decline in past year as evidenced by weight loss, decreased appetite, fatigue and increased difficulty with ADLs/weakness. Given patient's advanced age, disease progression and recent functional decline, his overall prognosis is poor. . Code Status: No Code Plan * NO CODE-DNR/DNI * Decision making: Patient has designated his sister, Roseann, as the healthcare surrogate decision maker. His daughter, Alexandria, is designated as the alternate health care surrogate. * GOALS: Aggressive up to the point of cardiopulmonary resuscitation-Patient states he will discuss medical treatment goals with Dr. Stone further after a PET. * Symptom management-decreased appetite: Concern for possible obstruction over the weekend. Small bowel x-ray on 02/04/17 revealed ileus versus low-grade mid small bowel obstruction, no complete obstruction was seen. Patient tolerating full liquid diet today. Consider starting the patient on low dose dexamethasone PO 2mg BID which may assist with feelings of overall wellbeing and improve appetite. * Symptom management-pain: Patient previously reporting pain and right upper extremity but denies pain on exam. Current orders for extended release morphine 30mg PO daily and IV hydromorphone 1 mg PO every 4 hours PRN. Patient has had 3 doses of IV Dilaudid in the past 24 hours; will need to transition to oral medications prior to discharge. * Symptom management - debility: Patient continues to work with physical therapy. Patient's asking about home health services when he returns home; he was previously followed by [facility]. Discussed with Julieta INTERIANO. She has contacted [facility] and they will coordinate a [id number] visit with the patient at home after discharge. * It is unclear if the patient is a candidate for additional chemotherapy. He plans to follow-up with Dr. Stone outpatient and proceed with planned PET scan. We discussed potential for disease progression and continued functional decline. Patient verbalizes understanding that current treatment is palliative , but he states he is feeling better and he wants to continue treatment as long as it is offered. * Community DNR completed on 01/31/17. Accessible in EMR. * Received a phone call from patient's sister, Roseann. Update provided on patient's clinical condition and current medical treatment goals. Met with the patient and his dtr, who just arrived from out of state, at bedside. Answers questions best mobility. . Stephanie Melgar Feb 05, 2017 16:56
[2017-02-05 20:48] VITALS: BP 107/64; PULSE 94; RESP 20; TEMP 98.5; O2SAT 96
[2017-02-06 01:11] VITALS: BP 99/57; PULSE 90; RESP 19; TEMP 98.6; O2SAT 97
[2017-02-06] MEDS: CARBIDOPA/LEVODOPA 25 MG/100 MG TAB PO SCH ×3 (02:03→07:55)
[2017-02-06] MEDS: PANTOPRAZOLE SODIUM 40 MG VIAL IV PUSH SCH (02:04)
[2017-02-06] MEDS: CHLORHEXIDINE GLUCONATE 2 % 1 PACK (2 CLOTHS) TOP SCH (04:00)
[2017-02-06] MEDS: METOCLOPRAMIDE HCL 10 MG/2 ML VIAL IV PUSH SCH (05:33)
[2017-02-06] MEDS: HYDROmorphone HCL PF 1 MG/ML VIAL IV PRN (05:35)
[2017-02-06 06:14] VITALS: BP 109/59; PULSE 86; RESP 20; TEMP 99; O2SAT 95
[2017-02-06] MEDS: DOCUSATE SODIUM 50 MG/SENNA 8.6 MG TAB PO SCH (07:53)
[2017-02-06] MEDS: MORPHINE SULFATE 30 MG CONTROLLED RELEASE TAB PO SCH (07:56)
[2017-02-06] MEDS: SODIUM CHLORIDE 0.9% FLUSH 10 ML FLUSH SCH (08:00)
[2017-02-06 08:51] VITALS: BP 101/58; PULSE 82; RESP 18; TEMP 98.8; O2SAT 94
--- NOTE | 2017-02-06 10:02 | PD.ONC.PN ---
Subjective Subjective Remarks Tolerating full liquids Passing flatus Objective Data Date Time Temp Pulse Resp B/P (MAP) Pulse Ox O2 Delivery O2 Flow Rate FiO2 02/06/17 08:51 98.8 82 18 101/58 (72) 94 02/06/17 06:14 99.0 86 20 109/59 (76) 95 02/06/17 01:11 98.6 90 19 99/57 (71) 97 02/05/17 20:48 98.5 94 20 107/64 (78) 96 02/05/17 16:23 97.6 100 20 99/58 (72) 95 02/05/17 11:33 98.2 90 20 115/75 (88) 99 Result Diagram: 02/04/1765402/04/17654 Administered Medications Medications (Trade) Dose Ordered Sig/Sisi Route PRN Reason Start Time Stop Time Status Last Admin Dose Admin Alprazolam (Xanax) 1 mg TID PRN PO ANXIETY 01/29/17 01:15 02/03/17 21:10 Carbidopa/Levodopa (Sinemet 25-100 Mg) 1 tab Q4HR PO 01/29/17 04:00 02/06/17 07:55 Morphine Sulfate (Oramorph Sr) 30 mg DAILY PO 01/29/17 09:00 02/06/17 07:56 Sodium Chloride (NS Flush) 2 ml UNSCH PRN .XX FLUSH AFTER USING IV ACCESS 01/29/17 01:15 02/03/17 05:55 Sodium Chloride (NS Flush) 2 ml BID .XX 01/29/17 09:00 02/05/17 20:43 Hydromorphone HCl (Dilaudid Pf Inj) 1 mg Q4H PRN IV PAIN SCALE 6 TO 10 01/29/17 01:15 02/06/17 05:35 Ondansetron HCl (Zofran Inj) 4 mg Q6H PRN IV NAUSEA OR VOMITING 01/29/17 01:15 02/04/17 15:25 Chlorhexidine Gluconate (Chlorhexidine 2% Cloth) Taper DAILY@04 TOP 01/29/17 04:00 01/25/18 03:59 02/01/17 04:00 Senna/Docusate Sodium (Bryanna-Colace) 1 tab BID PO 01/29/17 09:00 02/06/17 07:53 Metoclopramide HCl (Reglan Inj) 10 mg Q8HR IV PUSH 02/03/17 14:00 02/06/17 05:33 Pantoprazole Sodium (Protonix Inj) 40 mg Q12H IV PUSH 02/03/17 13:00 02/06/17 02:04 Potassium Chloride/Dextrose/ Sod Cl 1,000 ml @ 100 mls/hr Q10H IV 02/03/17 19:45 02/05/17 16:09 Objective Remarks GENERAL: Chronically ill appearing older male, resting in bed in no acute distress. SKIN: Warm and dry. HEAD: Normocephalic. EYES: No injection or drainage. NECK: Supple, trachea midline. CARDIOVASCULAR: Regular rate and rhythm without murmurs. RESPIRATORY: Breath sounds equal bilaterally. No accessory muscle use. GASTROINTESTINAL: Abdomen soft, mildly protuberant but non-tender. EXTREMITIES: No cyanosis, or edema. NEUROLOGICAL: No obvious focal deficit. Awake, alert, and oriented x3. Assessment/Plan Plan 1. Okay for discharge from oncology standpoint 2. Dr. Johns has discussed with Dr. Stone and the pt will followup with him once discharged. 3. He was again encouraged to get up and move about the room as much as possible to help improve the situation with the ileus. Attending Statement The exam, history, and the medical decision-making described in the above note were completed with the assistance of the mid-level provider. I reviewed and agree with the findings presented. I attest that I had a [id number] encounter with the patient on the same day, and personally performed and documented my assessment and findings in the medical record. patient tolerating po liquids and having bowel movement. He can go him and I instructed him to take primarily liquids for the next couple of days. I reviewed his hospital stay with Dr. Stone today and he he will have the appropriate follow up in place which will include an outpatient Pet scan to review his response to chemotherapy. Thelma Ricketts Feb 06, 2017 10:02 Ricci Johns MD Feb 06, 2017 19:35
--- NOTE | 2017-02-06 12:12 | HHI.PR ---
Objective Vitals Vital Signs Date Time Temp Pulse Resp B/P (MAP) Pulse Ox O2 Delivery O2 Flow Rate FiO2 02/06/17 08:51 98.8 82 18 101/58 (72) 94 02/06/17 06:14 99.0 86 20 109/59 (76) 95 02/06/17 01:11 98.6 90 19 99/57 (71) 97 02/05/17 20:48 98.5 94 20 107/64 (78) 96 02/05/17 16:23 97.6 100 20 99/58 (72) 95 I/O 02/05/17 02/05/17 02/05/17 02/06/17 02/06/17 02/06/17 07:00 15:00 23:00 07:00 15:00 23:00 Intake Total 601 ml 712 ml Output Total 275 ml Balance 326 ml 712 ml Intake Oral 1 ml 712 ml IV Total 600 ml Output Urine Total 275 ml # Voids 2 2 # Bowel Movements 1 Result Diagram: 02/04/1755 02/04/17654 Objective Remarks - GENERAL: This is a well-nourished, well-developed patient, in mild distress due to nausea and vomiting SKIN: No rashes, warm and dry HEAD: Atraumatic. Normocephalic. EYES: Pupils equal round and reactive. Extraocular motions intact. No scleral icterus. ENT: Nose without bleeding, or drainage, Airway patent. NECK: Trachea midline. Supple CARDIOVASCULAR: Regular rate and rhythm without murmurs, gallops, or rubs. RESPIRATORY: Fair air entry bilaterally. No wheezes, rales, or rhonchi. GASTROINTESTINAL: Abdomen soft, slightly tender to palpation, nondistended. Positive bowel sounds MUSCULOSKELETAL: Extremities without clubbing, cyanosis, or edema. Pedal pulses appreciated NEUROLOGICAL: Awake and alert. Moves all extremity. Normal speech.no focal neurological deficit Procedures See below A/P Problem List: (1) Nausea & vomiting ICD Code: R11.2 - Nausea with vomiting, unspecified (2) GI bleed ICD Code: K92.2 - Gastrointestinal hemorrhage, unspecified Status: Acute (3) Small bowel obstruction ICD Code: K56.69 - Other intestinal obstruction Status: Acute Assessment and Plan 02/04 : Discussed with GI, and oncology, consulted symptoms of bowel obstruction , GI recommended small bowel follow-through, Gen. surgery consulted, iv fluid started, monitor electrolyte 02/05: Small bowel follow-through showed Ileus versus low-grade mid small bowel obstruction. No complete obstruction is demonstrated. 2. Nonspecific enteritis of the jejunum. 3. Gastroesophageal reflux. Oncology/general surgery/GI following> decided on resuming diet and monitoring symptoms, should any recurrent symptoms of obstruction surgery may consider laparoscopy and drainage A/P: Esophageal ulcer Hematemesis Hepatitis B Gastroesophageal reflux disease Recurrent versus ileus CT abdomen/pelvis 01/29 revealed proximal to mid small bowel dilatation with air in the colon. On omeprazole 20 mg twice a day at nursing facility Patient had liquid green bowel movement 01/30 Docusate sodium/senna 1 tablet twice a day for bowel regimen. EGD revealed esophageal ulcer 5 cm from gastric junction. Biopsied with pathology pending as of 02/01. Stage IV esophageal cancer - status post radiation/chemotherapy by Dr. Stone Pancytopenia Chronic Rivaroxaban use, on hold until 02/05 per GI Parkinson's disease PTSD Chronic pain syndrome Anxiety disorder NOS Chronic opiate use Chronic benzodiazepine use Continue carbidopa/levodopa 25/100 1 tablet every 4 hours Parkinson's disease Continue gabapentin 100 mg every 6 hours when necessary pain Patient is on alprazolam 1 mg 3 times a day at nursing facility/at this facility Patient is morphine sulfate extended release 30 mg daily Hydromorphone 1 mg every 4 hours when necessary breakthrough pain Lactic acidosis - resolved 2-D echocardiogram revealed EF 55-60%. RV dilation. Lactate 1.5 01/30 History of familial hypercalcemia Hypophosphatemia PT/OT evaluate and treat Prophylaxis - GI - pantoprazole drip - DVT - SCD/pharmacological prophylaxis contra indicated with active upper GI bleed Pa Murray MD Feb 06, 2017 12:12
[2017-02-06 12:40] VITALS: BP 99/58; PULSE 96; RESP 18; TEMP 98.5; O2SAT 96
== END 2017-02-06 13:22 | disposition home health service (06) | DRG 378 ==
LOC: NEPE 19:54 → NEDA 01-29 00:17 → HIMW 01-29 02:00 → HIME 01-30 18:42 → N05B 02-01 17:08
PROVIDERS: ADMIT Hospitalist; ATTEND Hospitalist
PROC: 0DB38ZX Excision of Lower Esophagus, Via Natural or Artificial Opening Endoscopic, Diagnostic (ICD-10-PCS; 2017-01-30)
PROC: 0DJ08ZZ Inspection of Upper Intestinal Tract, Via Natural or Artificial Opening Endoscopic (ICD-10-PCS; principal; 2017-01-30 10:07)
DX: K92.0 Hematemesis (principal); K56.60 Unspecified intestinal obstruction; K22.11 Ulcer of esophagus with bleeding; D61.818 Other pancytopenia; C78.7 Secondary malignant neoplasm of liver and intrahepatic bile duct; C78.89 Secondary malignant neoplasm of other digestive organs; C15.9 Malignant neoplasm of esophagus, unspecified; B19.10 Unspecified viral hepatitis B without hepatic coma; C79.51 Secondary malignant neoplasm of bone; E87.2 Acidosis; D62 Acute posthemorrhagic anemia; M84.58XD Pathological fracture in neoplastic disease, other specified site, subsequent encounter for fracture with routine healing; D69.6 Thrombocytopenia, unspecified; E83.52 Hypercalcemia; G20 Parkinson's disease; K21.9 Gastro-esophageal reflux disease without esophagitis; M54.9 Dorsalgia, unspecified; Z66 Do not resuscitate; N40.0 Benign prostatic hyperplasia without lower urinary tract symptoms; F43.10 Post-traumatic stress disorder, unspecified; Z87.891 Personal history of nicotine dependence; Z92.21 Personal history of antineoplastic chemotherapy; Z92.3 Personal history of irradiation; Z80.0 Family history of malignant neoplasm of digestive organs; Z80.52 Family history of malignant neoplasm of bladder; M79.601 Pain in right arm; K44.9 Diaphragmatic hernia without obstruction or gangrene; E27.8 Other specified disorders of adrenal gland; K57.30 Diverticulosis of large intestine without perforation or abscess without bleeding; M25.562 Pain in left knee; Z86.718 Personal history of other venous thrombosis and embolism; Z79.01 Long term (current) use of anticoagulants; K42.9 Umbilical hernia without obstruction or gangrene; E87.6 Hypokalemia; Z51.5 Encounter for palliative care; G89.4 Chronic pain syndrome; Z79.891 Long term (current) use of opiate analgesic; E83.39 Other disorders of phosphorus metabolism; Z79.899 Other long term (current) drug therapy
CPT/HCPCS: 71010; 73564; 73590; 74000; 74177; 74250; 80048; 80053; 82140; 82948; 83605; 83690; 83735; 84100; 84132; 85007; 85014; 85018; 85025; 85027; 85610; 85730; 86850; 86900; 86901; 87040; 87186; 87205; 87641; 88305; 88312; 93308; 96365; 96375; C9113; C9132; J0692; J0780; J1170; J1642; J2270; J2354; J2405; J2765; J3370; J3475; J3480; J7030; J7040; J7050; Q9967

== ENCOUNTER 2017-02-08 06:39 | Inpatient (IN) | payer OTHER, MEDICARE ==
[~2017-02-08] VITALS: Ht 167.6 cm; Wt 66.0 kg
[~2017-02-08 06:39] MED LIST changes: -HYDR-3533 PO; -HYDR-3580 PO; +MORP1TAB25 PO; -ONDA1TAB16 PO
[2017-02-08 06:42] VITALS: BP 116/74; PULSE 112; RESP 24; TEMP 99.5; O2SAT 95
[2017-02-08] MEDS ORDERED: SODIUM CHLOR 0.9% 1000 ML INJ 1,000 ML IV SCH (07:18)
[2017-02-08] MEDS ORDERED: PANTOPRAZOLE INJ 80 MG in SODIUM CHLORIDE 0.9% INJ 35 ML IV ONE (07:18)
[2017-02-08] MEDS ORDERED: ONDANSETRON HCL 4 MG/2 ML VIAL IVP ONE (07:30)
[2017-02-08] MEDS ORDERED: HYDROmorphone HCL PF 1 MG/ML VIAL IV ONE (07:30)
[2017-02-08 07:41] VITALS: O2SAT 94
[2017-02-08 07:44] LABS: AUTOMATED NEUTROPHIL # 14.3 TH/MM3 (1.8-7.7); BASOPHIL % 0.2 % (0.0-2.0); EOSINOPHIL % 0.1 % (0.0-4.0); HEMATOCRIT 39.1 % (39.0-51.0); HEMO FLAGS DIFF FINAL; LYMPH % 4.8 % (9.0-44.0); LYMPHOCYTE # 0.8 TH/MM3 (1.0-4.8); MEAN CELL VOLUME 93.9 FL (80.0-100.0); MEAN CORPUSCULAR HEMOGLOBIN 30.6 PG (27.0-34.0); MEAN CORPUSCULAR HGB CONC 32.6 % (32.0-36.0); MONO % 9.5 % (0.0-8.0); NEUT % 85.4 % (16.0-70.0); PLATELET COUNT 192 TH/MM3 (150-450); RED BLOOD COUNT 4.17 MIL/MM3 (4.50-5.90); RED CELL DISTRIBUTION WIDTH 21.3 % (11.6-17.2); WHITE BLOOD COUNT 16.8 TH/MM3 (4.0-11.0)
[2017-02-08 07:52] LABS: INTERNATIONAL NORMALIZED RATIO 1.1 RATIO; PROTHROMBIN TIME - PATIENT 11.7 SEC (9.8-11.6)
[2017-02-08 08:00] LABS: BICARBONATE 24.9 MEQ/L (21.0-32.0); POTASSIUM 3.9 MEQ/L (3.5-5.1)
[2017-02-08] MEDS: PANTOPRAZOLE INJ 80 MG in SODIUM CHLORIDE 0.9% INJ 100 ML IV SCH ×3 (08:15→21:05)
--- NOTE | 2017-02-08 09:04 | PD ---
HPI . GI bleed Chief Complaint: GI Complaint Time Seen by Provider: 07:18 Travel History International Travel<30 days: No Contact w/Intl Traveler<30days: No Traveled to known affect area: No History of Present Illness HPI This patient presents with a chief complaint of GI bleed. Onset of symptoms was yesterday. The patient and his family report 15+ episodes of dark, bloody emesis. No blood in the stool noted. He is also complaining with some periumbilical pain. No modifying factors. Patient reports a history of esophageal cancer. He reportedly has metastases to the bone and the liver. He is followed by Dr. Stone. [facility] Past Medical History Anxiety: Yes Cancer: Yes (stage 4 ESOPHAGEAL - 2013) Chemotherapy: Yes Diminished Hearing: No Deep Vein Thrombosis: Yes Gastrointestinal Disorders: Yes (CHRONIC DIARRHEA) GERD: Yes Implanted Vascular Access Dvce: Yes (L. SIDE POWER PORT) Parkinson's Disease: Yes Respiratory: Yes ('CHEMICAL PNEUMONIA') Immunizations Current: Yes Tetanus Vaccination: < 5 Years Influenza Vaccination: Yes Past Surgical History Appendectomy: Yes Cholecystectomy: Yes Joint Replacement: No Oral Surgery: Yes (throat cancer) Tonsillectomy: Yes Other Surgery: Yes Social History Alcohol Use: No Tobacco Use: No Substance Use: No Allergies-Medications (Allergen,Severity, Reaction): Coded Allergies: meperidine (Unverified Allergy, Mild, 02/08/17) Reported Meds & Prescriptions Reported Meds & Active Scripts Active Reported Morphine ER (Morphine Sulfate) 30 Mg Tab 30 Mg PO DAILY Xarelto (Rivaroxaban) 10 Mg Tab 20 Mg PO DAILY Omeprazole 20 Mg Tab 20 Mg PO BID Gabapentin 100 Mg Cap 100 Mg PO Q6HR PRN Carbidopa-Levodopa 25-100 Mg Tab 1 Tab PO Q4HR Xanax (Alprazolam) 1 Mg Tab 1 Mg PO TID PRN Review of Systems Except as stated in HPI: all other systems reviewed are Neg General / Constitutional: No: Fever, Chills Cardiovascular: No: Chest Pain or Discomfort Respiratory: No: Shortness of Breath Gastrointestinal: Positive: Nausea, Vomiting, Abdominal Pain, Hematemesis, No: Diarrhea Genitourinary: Positive: Decreased Urinary Output, Other (dark urine) Physical Exam Narrative GENERAL: This is a chronically ill-appearing man who is in no acute distress. SKIN: Warm and dry. He is pink. HEAD: Atraumatic. Normocephalic. EYES: Pupils equal and round. Sclerae are anicteric. ENT: No nasal bleeding or discharge. Mucous membranes pink and moist. NECK: Trachea midline. Neck is supple. CARDIOVASCULAR: Resting tachycardia at about 1:15. Heart sounds are normal. RESPIRATORY: No accessory muscle use. Lungs are clear with good air movement throughout. GASTROINTESTINAL: Abdomen soft. Mild mid abdominal tenderness with no guarding or rebound. Bowel sounds are present. Nondistended. MUSCULOSKELETAL: No obvious deformities. No edema. NEUROLOGICAL: Awake and alert. No obvious cranial nerve deficits. Motor grossly within normal limits. Normal speech. PSYCHIATRIC: Appropriate mood and affect; insight and judgment normal. Data Data Last Documented VS Vital Signs Date Time Temp Pulse Resp B/P (MAP) Pulse Ox O2 Delivery O2 Flow Rate FiO2 02/08/17 10:18 96/60 (72) 02/08/17 07:41 94 Room Air 02/08/17 06:42 99.5 112 24 Orders Orders Basic Metabolic Panel (Bmp) (02/08/17 07:18) Complete Blood Count With Diff (02/08/17 07:18) Prothrombin Time / Inr (Pt) (02/08/17 07:18) Act Partial Throm Time (Ptt) (02/08/17 07:18) Type And Screen (02/08/17 07:18) Ecg Monitoring (02/08/17 07:18) Iv Access Insert/Monitor (02/08/17 07:18) Ng Gastric Tube Insert/Monitor (02/08/17 07:18) Oximetry (02/08/17 07:18) Ondansetron Inj (Zofran Inj) (02/08/17 07:30) Sodium Chlor 0.9% 1000 Ml Inj (Ns 1000 M (02/08/17 07:18) Sodium Chloride 0.9% Flush (Ns Flush) (02/08/17 07:30) Sodium Chloride 0.9... W/Pantoprazole In (02/08/17 07:18) Sodium Chloride 0.9... W/Pantoprazole In (02/08/17 07:18) Hydromorphone Pf Inj (Dilaudid Pf Inj) (02/08/17 07:30) Ed Comfort Care (02/08/17 08:54) Diet Full Liquid (02/08/17 Breakfast) Consult Palliative Care (02/08/17 ) Morphine Inj (Morphine Inj) (02/08/17 09:00) Sodium Chlor 0.9% 1000 Ml Inj (Ns 1000 M (02/08/17 09:45) Ct Abd/Pel W/O Iv Contrast (02/08/17 09:39) Oral Contrast - Adult (02/08/17 09:52) (Hub Use Only)Inp Phy Cons/Ref (02/08/17 ) Diatrizoate Liq ( Gastroview Liq) (02/08/17 10:05) Ceftriaxone Inj (Rocephin Inj) (02/08/17 14:15) Azithromycin Inj (Zithromax Inj) (02/08/17 14:15) Blood Culture (02/08/17 14:05) Lactic Acid (02/08/17 14:05) Sodium Chlor 0.9% 1000 Ml Inj (Ns 1000 M (02/08/17 14:15) Admit Order (Ed Use Only) (02/08/17 16:35) Code Status (02/08/17 16:35) Consult General Surgery (02/08/17 ) Consult Medical Oncology (02/08/17 ) Complete Blood Count With Diff (02/09/17 06:00) Hgb & Hct (02/08/17 16:35) Hgb & Hct (02/08/17 22:35) Pantoprazole Inj (Protonix Inj) (02/08/17 16:45) Labs Laboratory Tests Test 02/08/17 07:30 02/08/17 14:20 White Blood Count 16.8 TH/MM3 Red Blood Count 4.17 MIL/MM3 Hemoglobin 12.8 GM/DL Hematocrit 39.1 % Mean Corpuscular Volume 93.9 FL Mean Corpuscular Hemoglobin 30.6 PG Mean Corpuscular Hemoglobin Concent 32.6 % Red Cell Distribution Width 21.3 % Platelet Count 192 TH/MM3 Mean Platelet Volume 8.0 FL Neutrophils (%) (Auto) 85.4 % Lymphocytes (%) (Auto) 4.8 % Monocytes (%) (Auto) 9.5 % Eosinophils (%) (Auto) 0.1 % Basophils (%) (Auto) 0.2 % Neutrophils # (Auto) 14.3 TH/MM3 Lymphocytes # (Auto) 0.8 TH/MM3 Monocytes # (Auto) 1.6 TH/MM3 Eosinophils # (Auto) 0.0 TH/MM3 Basophils # (Auto) 0.0 TH/MM3 CBC Comment DIFF FINAL Differential Comment Prothrombin Time 11.7 SEC Prothromb Time International Ratio 1.1 RATIO Activated Partial Thromboplast Time 26.0 SEC Blood Urea Nitrogen 13 MG/DL Creatinine 0.75 MG/DL Random Glucose 127 MG/DL Calcium Level 10.1 MG/DL Sodium Level 134 MEQ/L Potassium Level 3.9 MEQ/L Chloride Level 100 MEQ/L Carbon Dioxide Level 24.9 MEQ/L Anion Gap 9 MEQ/L Estimat Glomerular Filtration Rate 103 ML/MIN Lactic Acid Level 0.8 mmol/L MDM Medical Decision Making Medical Screen Exam Complete: Yes Emergency Medical Condition: Yes Medical Record Reviewed: Yes (this patient was admitted to the hospital from January 2129. Palliative care was consult during that hospitalization. He had an EGD done on 01/30 which showed an esophageal ulcer which was secondary to invasive cancer site.) Differential Diagnosis My differential diagnosis loose but is not limited to gastritis, esophagitis, bleeding ulcers, coagulopathy Narrative Course This patient presents complaining with hematemesis. He had a resting tachycardia which has been treated with IV fluids. CBC & BMP Diagram 02/08/17 07:30 Calcium Level 10.1 He is being treated with IV Protonix. The patient refused NG tube. The patient's family has refused palliative care. Last Impressions Abdomen/Pelvis CT 02/08/17 0939 Signed Impressions: Service Date/Time: January 13:23 - CONCLUSION: 1. New areas of consolidation in the left lower lobe most characteristic of pneumonia. 2. Worsening bowel gas pattern with increased dilatation of multiple loops of small bowel with air-fluid levels. Contrast is noted in the distal colon and this could indicate a partial small bowel obstruction. 3. Right adrenal mass again noted. Anam Agarwal MD I have ordered blood cultures and a lactic acid. He will be treated with Rocephin and Zithromax. The patient has been here for about 9 hours. There has been no hematemesis reported to me in that period of time. I'm not sure what we would be able to do with this patient. It seems that he probably has terminal cancer. He and his family seem to have an unrealistic expectation regarding his ultimate outcome. Dr. Murray was consulted for disposition. He requested a GI consult which has been obtained. The patient/family seem to be under the impression that he would be a candidate for aggressive surgical management although many people have explained to them that he is not. Physician Communication Physician Communication I spoke with Dr. Stone's PA. They have not seen the patient since his recent hospitalization. I have placed a consult to palliative care to help us with disposition. The patient's family refused care. I have talked with Dr. Murray. He requested a GI consult. I have talked to Yuliya Bajwa with GI. She will see the patient. She reports that the patient needs a G-tube to decompress his obstruction but he has refused. Diagnosis Primary Impression: Upper GI bleed Additional Impressions: Esophageal cancer Qualified Codes: C15.9 - Malignant neoplasm of esophagus, unspecified Pneumonia Qualified Codes: J18.1 - Lobar pneumonia, unspecified organism Bowel obstruction Qualified Codes: K56.60 - Unspecified intestinal obstruction Admitting Information Admitting Physician Requests: Admit Condition: Stable Janey Pablo MD Feb 08, 2017 09:04
[2017-02-08] MEDS ORDERED: SODIUM CHLOR 0.9% 1000 ML INJ 1,000 ML IV ONE ×2 (09:45→14:15)
[2017-02-08] MEDS ORDERED: DIATRIZOATE MEGLUM/DIATRIZOATE SOD 9 ML CUP ONE (10:05)
[2017-02-08 10:18] VITALS: BP 96/60
[2017-02-08] MEDS: MORPHINE SULFATE 4 MG/ML INJ IV PRN ×3 (11:29→14:50)
--- NOTE | 2017-02-08 12:20 | HHI.HCPN ---
Palliative care is familiar with this patient who was recently hospitalized with a GI bleed. He was discharged 02/06/17. Palliative care was reconsulted to assist with clarification of medical treatment goals. Prior to meeting with the patient, i received a phone call from patient's daughter in the ED asking if palliative care is the same thing as hospice. We discussed the difference between palliative care and hospice. We discussed the patient's recent decline and that his ongoing decline may impact treatment options. Patient/daughter state that medical treatment goals remain aggressive, and they do not wish to meet with palliative care at this time. Dr. Pablo in the ED was notified. . Stephanie Melgar Feb 08, 2017 12:20
--- NOTE | 2017-02-08 13:43 | RADRPT ---
EXAM DATE/TIME: 02/08/2017 13:23 [facility] COMPARISON: CT ABDOMEN & PELVIS W CONTRAST, February 03, 2017, 15:48. CT ABDOMEN & PELVIS W/O CONTRAST, January 13, 2016, 8:51. INDICATIONS : Nausea and vomiting for 2 days ORAL CONTRAST: Prescribed oral contrast ingested. RADIATION DOSE: 14.35 CTDIvol (mGy) MEDICAL HISTORY : Carcinoma, esophageal. Parkinsons. SURGICAL HISTORY : Appendectomy. Cholecystectomy. ENCOUNTER: Initial ACUITY: 2 days PAIN SCALE: 7/10 LOCATION: abdomen TECHNIQUE: Volumetric scanning of the abdomen and pelvis was performed. Using automated exposure control and ad justment of the mA and/or kV according to patient size, radiation dose was kept as low as reasonably achievable to obtain optimal diagnostic quality images. DICOM format image data is available electro nically for review and comparison. FINDINGS: LOWER LUNGS: There are new areas of consolidation in the left lower lobe most characteristic of pneumonia. There i s minimal apparent pleural fluid. LIVER: Homogeneous density without lesion. There is no dilation of the biliary tree. Status post cholecyste ctomy. SPLEEN: Normal size without lesion. PANCREAS: Within normal limits. KIDNEYS: Normal in size and shape. There is no mass, stone, or hydronephrosis. ADRENAL GLANDS: A right adrenal mass is again identified measuring approximately 2.6 x 1.9 cm. The left adrenal gland is unremarkable. VASCULAR: There is no aortic aneurysm. BOWEL/MESENTERY: An abnormal bowel gas pattern is again noted. There is increasing dilatation of multiple loops of dil ated small bowel which now measure up to approximately 4.4 cm in diameter with a couple air fluid lev els. The distal small bowel and colon are relatively decompressed. Contrast is noted in the distal co [place]. There is no free air or abnormal fluid collection. There is mild increased density noted in the mesentery. ABDOMINAL WALL: Within normal limits. RETROPERITONEUM: There is no lymphadenopathy. BLADDER: No wall thickening or mass. REPRODUCTIVE: The prostate gland remains moderately enlarged with multiple calcifications. INGUINAL: There is no lymphadenopathy or hernia. MUSCULOSKELETAL: Degenerative changes are again noted as well as minimal scoliosis. Multiple sclerotic areas are again noted which are nonspecific. There is partial fusion of the sacroiliac joints. CONCLUSION: 1. New areas of consolidation in the left lower lobe most characteristic of pneumonia. 2. Worsening bowel gas pattern with increased dilatation of multiple loops of small bowel with air-fl uid levels. Contrast is noted in the distal colon and this could indicate a partial small bowel obstr uction. 3. Right adrenal mass again noted. Anam Agarwal MD on February 08, 2017 at 13:34 Board Certified Radiologist. This report was verified electronically.
[2017-02-08] MEDS ORDERED: cefTRIAXone INJ 1,000 MG in SODIUM CHLORIDE 0.9% INJ 100 ML IV ONE (14:15)
[2017-02-08] MEDS ORDERED: AZITHROMYCIN INJ 500 MG in SODIUM CHLOR 0.9% 250 ML INJ 250 ML IV ONE (14:15)
[2017-02-08] MEDS: SODIUM CHLOR 0.9% 1000 ML INJ 1,000 ML IV SCH ×3 (16:56→20:47)
[2017-02-08] MEDS ORDERED: MORPHINE SULFATE 4 MG/ML INJ IV PUSH PRN ×2 (17:00)
[2017-02-08] MEDS ORDERED: ACETAMINOPHEN 325 MG TAB PO PRN (17:00)
[2017-02-08] MEDS ORDERED: NALOXONE HCL 0.4 MG/ML AMP IV PRN (17:00)
--- NOTE | 2017-02-08 17:02 | PD.CONS ---
HPI History of Present Illness This is a 72 year old male patient with a history of metastatic esophageal cancer, who was recently hospitalized for hematemesis. He was diagnosed in April of 2014 and is s/p chemotherapy and radiation. He was recently found to have metastatic disease in his right upper extremity and states that he recently completed 3 months of chemotherapy and radiation with Dr. Stone. He was evaluated with EGD (01/30/17)----> 1. Large ulcer was found in the distal esophagus, 5 CM above GE junction; with minimal narrowing of the lumen, biopsies were taken 2. Normal stomach and duodenal mucosa. 3. Retroflexed views revealed a hiatal hernia. Pathology invasively poorly differentiated carcinoma with extensive ulceration, A GMS stain is negative for fungal organisms. During this hospitalization, he developed abdominal distention with nausea and vomiting. CT scan abdomen and pelvis with IV contrast (02/03/17)---- > persistent fluid-filled dilated loops of small bowel suggesting small bowel obstruction. Multiple enhancing lesions scattered throughout the liver raising the possibility of metastatic disease. PET/CT scan would be helpful for further evaluation of these lesions. The largest lesion measurings 1.7 cm. Circumferentially thickened distal esophagus raising the possibility of neoplasm or esophagitis. 2.6 x 1.9 cm right adrenal nodule which is indeterminate. Metastatic disease and adenoma remain in the differential. Sclerotic lesions within the lumbar spine which are indeterminate. These also could be assessed with PET/CT scan to rule out metastatic disease, uncomplicated colonic diverticulosis, enlarged prostate, fatty liver, tiny bilateral pleural effusions with left basilar atelectasis and or scarring, umbilical hernia containing only fat. SBFT (02/04/17) revealed ileus versus low grade mid small bowel obstruction. No complete obstruction is demonstrated. Nonspecific enteritis of the jejunum, Gastroesophageal reflux. Dr. Johns was consulted for oncology, as the patient is normally followed by Dr. Stone and he does not come here. He was also seen by Dr. Sanderson for his PSBO. Pt was offered PEG tube placement for decompression, but refused at that time. His condition improved and he was discharged home with the plan of following up with Dr. Stone as outpatient for further evaluation/recommendations. The patient reports that he has an appointment with Dr. Stone on Sunday and is scheduled for a PET scan on Sunday. They report that at discharge, he was doing much better, tolerating ensure/milk, not having nausea/vomiting/bleeding/ pain. The patient reports that he was upset that he lost 15 lbs while in the hospital and was anxious to start eating again. [facility] and had 2 soft cooked eggs. He then had some mashed potatoes and finely chopped meat with gravy later in the afternoon. Around 4pm , he started having worsening abdominal distention, pain, and nausea and vomiting, consisting of brown emesis. The vomiting was persistent and forceful and he reports that he was vomiting every hour. His stomach continued to worsen and he came to the ER for further evaluation. When he arrived to the ER , he had an episode of black emesis. The patient and daughter report that this was the first episode. He went for a CT scan abdomen and pelvis without contrast (02/08/17) and this revealed new areas of consolidation in the left lower lobe most characteristic of pneumonia. Worsening bowel gas pattern with increased dilatation of multiple loops of small bowel with air-fluid levels. Contrast noted in the distal colon and this could indicate a partial small bowel obstruction. Right adrenal mass noted again. Of note, since the CT scan he has had multiple black tarry stools. The patient and his daughter state that they want aggressive care for his cancer and want to go to the OR so that his bowel issues could be addressed. They are upset and asking if they or the surgeon have the final say on if he is a candidate. They are requesting both surgical and oncology evaluation. They would like to start treatment for his cancer. I did discuss code status with patient and his daughter and they both agree that while they want aggressive care with regards to his cancer and bowel issues, he DOES NOT want to be intubated or to receive CPR/ACLS protocol should his heart stop and would like to be a NO CODE. (Janice Bajwa) PFSH Past Medical History Metastatic esophageal cancer Recent PSBO vs. 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 Past Surgical History Appendectomy Cholecystectomy Tonsillectomy Left port placement Teeth extraction EGD/Colonoscopy EUS (Janice Bajwa) Coded Allergies: meperidine (Unverified Allergy, Mild, 02/08/17) Medications Allergies Coded Allergies Type Severity Reaction Last Updated Verified meperidine Allergy Mild 02/08/17 No Active Scripts Medications Dose Route/Sig Max Daily Dose Days Date Category Morphine ER (Morphine Sulfate) 30 Mg Tab 30 Mg PO DAILY 01/28/17 Reported Xarelto (Rivaroxaban) 10 Mg Tab 20 Mg PO DAILY 10/03/16 Reported Omeprazole 20 Mg Tab 20 Mg PO BID 10/03/16 Reported Gabapentin 100 Mg Cap 100 Mg PO Q6HR PRN 10/03/16 Reported Carbidopa-Levodopa 25-100 Mg Tab 1 Tab PO Q4HR 10/03/16 Reported Xanax (Alprazolam) 1 Mg Tab 1 Mg PO TID PRN 10/03/16 Reported Family History Mother from esophageal cancer. Father from esophageal and bladder cancer. Sister and paternal grandmother had pancreatic cancer. Sister has familial hypercalcemia Social History Former smoker No etoh use (Janice Bajwa) Review of Systems Constitutional: COMPLAINS OF: Fatigue, Weight loss, Change in appetite, DENIES : Fever, Chills Cardiovascular: DENIES: Chest pain Gastrointestinal: COMPLAINS OF: Abdominal pain, Black stools, Diarrhea, Nausea , Vomiting, Swelling of Abdomen, DENIES: Bloody stools, Constipation Musculoskeletal: COMPLAINS OF: Joint pain Hematologic/lymphatic: COMPLAINS OF: Bruising Neurologic: DENIES: Headache Psychiatric: DENIES: Confusion (Janice Bajwa) GI Exam Vitals I&O Vital Signs Date Time Temp Pulse Resp B/P (MAP) Pulse Ox O2 Delivery O2 Flow Rate FiO2 02/08/17 10:18 96/60 (72) 02/08/17 07:41 94 Room Air 02/08/17 06:42 99.5 112 24 116/74 (88) 95 I/O 02/07/17 02/07/17 02/07/17 02/08/17 02/08/17 02/08/17 07:00 15:00 23:00 07:00 15:00 23:00 Intake Total 2035 ml 1250 ml Balance 2035 ml 1250 ml Intake IV Total 2035 ml 1250 ml Imaging Last 24 hours Impressions Abdomen/Pelvis CT 02/08/17 0939 Signed Impressions: Service Date/Time: January 13:23 - CONCLUSION: 1. New areas of consolidation in the left lower lobe most characteristic of pneumonia. 2. Worsening bowel gas pattern with increased dilatation of multiple loops of small bowel with air-fluid levels. Contrast is noted in the distal colon and this could indicate a partial small bowel obstruction. 3. Right adrenal mass again noted. Anam Agarwal MD Laboratory Test 02/08/17 07:30 02/08/17 14:20 White Blood Count 16.8 TH/MM3 Red Blood Count 4.17 MIL/MM3 Hemoglobin 12.8 GM/DL Hematocrit 39.1 % Mean Corpuscular Volume 93.9 FL Mean Corpuscular Hemoglobin 30.6 PG Mean Corpuscular Hemoglobin Concent 32.6 % Red Cell Distribution Width 21.3 % Platelet Count 192 TH/MM3 Mean Platelet Volume 8.0 FL Neutrophils (%) (Auto) 85.4 % Lymphocytes (%) (Auto) 4.8 % Monocytes (%) (Auto) 9.5 % Eosinophils (%) (Auto) 0.1 % Basophils (%) (Auto) 0.2 % Neutrophils # (Auto) 14.3 TH/MM3 Lymphocytes # (Auto) 0.8 TH/MM3 Monocytes # (Auto) 1.6 TH/MM3 Eosinophils # (Auto) 0.0 TH/MM3 Basophils # (Auto) 0.0 TH/MM3 CBC Comment DIFF FINAL Differential Comment Prothrombin Time 11.7 SEC Prothromb Time International Ratio 1.1 RATIO Activated Partial Thromboplast Time 26.0 SEC Blood Urea Nitrogen 13 MG/DL Creatinine 0.75 MG/DL Random Glucose 127 MG/DL Calcium Level 10.1 MG/DL Sodium Level 134 MEQ/L Potassium Level 3.9 MEQ/L Chloride Level 100 MEQ/L Carbon Dioxide Level 24.9 MEQ/L Anion Gap 9 MEQ/L Estimat Glomerular Filtration Rate 103 ML/MIN Lactic Acid Level 0.8 mmol/L Date/Time Source Procedure Growth Status 02/08/17 14:20 Blood Peripheral Aerobic Blood Culture Pending Received 02/08/17 14:20 Blood Peripheral Anaerobic Blood Culture Pending Received Physical Examination HEENT: Normocephalic; atraumatic; no jaundice. CHEST: CTA, diminished CARDIAC: RRR. ABDOMEN: Soft, distended, mild diffuse tenderness, reducible umbilical hernia. bowel sounds are active, (+) BM in er. EXTREMITIES: No clubbing, cyanosis, or edema. SKIN: Generalized pallor. DOOR REPAIRMAN: No focal deficits; alert and oriented times three. (Janice Bajwa [facility]) Assessment and Plan Plan ASSESSMENT: - PSBO vs. Severe Ileus. Pt was recently hospitalized and noted to have PSBO vs. Ileus. He was evaluated by surgery and G tube for decompression was recommended, but the patient refused at that time. SBFT (02/04/17) revealed ileus versus low grade mid small bowel obstruction. No complete obstruction is demonstrated. Nonspecific enteritis of the jejunum, Gastroesophageal reflux. His symptoms improved and he went home. He was doing well with ensure/milk, but states he was feeling better and anxious to gain back the 15 lbs that he had lost while in the hospital. He went to [employer] for breakfast and had 2 soft cooked eggs. He then had some mashed potatoes and finely chopped meat with gravy later in the afternoon. Around 4pm, he started having worsening abdominal distention, pain, and nausea and vomiting, consisting of brown emesis and then one episode of black emesis after persistent vomiting. CT scan abdomen and pelvis without contrast (02/08/17) and this revealed new areas of consolidation in the left lower lobe most characteristic of pneumonia. Worsening bowel gas pattern with increased dilatation of multiple loops of small bowel with air-fluid levels. Contrast noted in the distal colon and this could indicate a partial small bowel obstruction. Right adrenal mass noted again. Of note, since the CT scan he has had multiple black tarry stools. Family and patient want surgical evaluation. NPO. - GIB. One episode of black emesis after persistent n/v with brown emesis. Also has had black tarry stool since getting contrast for CT. EGD (01/30/17)----> 1. Large ulcer was found in the distal esophagus, 5 CM above GE junction; with minimal narrowing of the lumen, biopsies were taken 2. Normal stomach and duodenal mucosa. 3. Retroflexed views revealed a hiatal hernia. Pathology invasively poorly differentiated carcinoma with extensive ulceration, A GMS stain is negative for fungal organisms. Cont. Protonix Gtt. This would be difficult to control endoscopically. Supportive care/transfuse as necessary. HH stable at this time. - Leukocytosis. WBC 16.8. - Aspiration pneumonia. WBC 16.8. Per attending. - Metastatic esophageal cancer. Dx April of 2014 and is s/p chemotherapy and radiation. He was recently found to have metastatic disease in his right upper extremity and states that he recently completed 3 months of chemotherapy and radiation with Dr. Stone. He was noted to have metastatic disease to liver, sclerotic lesions within the lumbar spine which are indeterminate. Pt sees Dr. Stone. has an appointment with Dr. Stone on Sunday and is scheduled for a PET scan on Sunday. PLAN: - NPO - Protonix Gtt - Serial HH - Transfuse as necessary - Add zosyn - GS evaluation - Oncology evaluation - No Code per patient and daughter request - Supportive care - Further recommendations to follow based on results of above - PT seen and examined by Dr. Li and myself and this note is written on his behalf (Janice Bajwa) Physician Comments Seen and examined, plan as above. Will follow up with. Thank you for the consult (Mo Li MD) Janice Bajwa Feb 08, 2017 17:02 Mo Li MD Feb 08, 2017 19:04
[2017-02-08 17:11] VITALS: O2SAT 95
--- NOTE | 2017-02-08 17:27 | HHI.HP ---
[facility] Unknown Admission Diagnosis upper GI bleed, SBO, ? pneumonia Diagnoses: Chief Complaint: Bloody vomit Travel History International Travel<30 Days: No Contact w/Intl Traveler <30 Da: No Traveled to Known Affected Are: No History of Present Illness 72 years old male with past medical history esophageal cancer with metastases to the bone liver was recently discharged from the hospital after he had been workup by GI, oncology and surgery, patient had ulcer in the esophagus, and episodes of SBO, and GI bleed. Patient returned back this afternoon prior to see his oncologist Dr. Irizarry because of multiple hematemesis, up to 15 times as per the daughter and the patient, the daughter told me the blood was dark, however she told the surgery [employer] that it was bright, there was multiple contiguous addiction between with the patient on to say and the daughter mentioning, saying that he is not right and she knows better because she take care of him. Patient currently resting in bed he is in no pain, no acute vomit , he stated he has been having loose stool, a lot of it as per the daughter, no fever or chills, patient has been seen by surgery team, I discussed with [employer], plan for possible exploratory laparotomy and possible G-tube to alleviate his symptoms Review of Systems All systems reviewed and was positive for what is mentioned in history of present illness otherwise negative Past Family Social History Past Medical History Metastatic esophageal cancer Recent PSBO vs. 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 Past Surgical History Appendectomy Cholecystectomy Tonsillectomy Left port placement Teeth extraction EGD/Colonoscopy EUS Allergies: Coded Allergies: meperidine (Unverified Allergy, Mild, 02/08/17) Family History Mother from esophageal cancer. Father from esophageal and bladder cancer. Sister and paternal grandmother had pancreatic cancer. Sister has familial hypercalcemia Social History Former smoker No etoh use Physical Exam Vital Signs Vital Signs Date Time Temp Pulse Resp B/P (MAP) Pulse Ox O2 Delivery O2 Flow Rate FiO2 02/08/17 17:11 95 21 02/08/17 10:18 96/60 (72) 02/08/17 07:41 94 Room Air 02/08/17 06:42 99.5 112 24 116/74 (88) 95 Physical Exam GENERAL: This is a well-nourished, well-developed patient, in no apparent distress. SKIN: No rashes, warm and dry HEAD: Atraumatic. Normocephalic. EYES: Pupils equal round and reactive. Extraocular motions intact. No scleral icterus. ENT: Nose without bleeding, or drainage, Airway patent. NECK: Trachea midline. Supple CARDIOVASCULAR: Regular rate and rhythm without murmurs, gallops, or rubs. RESPIRATORY: Fair air entry bilaterally. No wheezes, rales, or rhonchi. GASTROINTESTINAL: Abdomen soft, non-tender, nondistended. Positive bowel sounds MUSCULOSKELETAL: Extremities without clubbing, cyanosis, or edema. Pedal pulses appreciated NEUROLOGICAL: Awake and alert. Moves all extremity. Normal speech.no focal neurological deficit Laboratory Laboratory Tests Test 02/08/17 07:30 02/08/17 14:20 White Blood Count 16.8 Red Blood Count 4.17 Hemoglobin 12.8 Hematocrit 39.1 Mean Corpuscular Volume 93.9 Mean Corpuscular Hemoglobin 30.6 Mean Corpuscular Hemoglobin Concent 32.6 Red Cell Distribution Width 21.3 Platelet Count 192 Mean Platelet Volume 8.0 Neutrophils (%) (Auto) 85.4 Lymphocytes (%) (Auto) 4.8 Monocytes (%) (Auto) 9.5 Eosinophils (%) (Auto) 0.1 Basophils (%) (Auto) 0.2 Neutrophils # (Auto) 14.3 Lymphocytes # (Auto) 0.8 Monocytes # (Auto) 1.6 Eosinophils # (Auto) 0.0 Basophils # (Auto) 0.0 CBC Comment DIFF FINAL Differential Comment Prothrombin Time 11.7 Prothromb Time International Ratio 1.1 Activated Partial Thromboplast Time 26.0 Blood Urea Nitrogen 13 Creatinine 0.75 Random Glucose 127 Calcium Level 10.1 Sodium Level 134 Potassium Level 3.9 Chloride Level 100 Carbon Dioxide Level 24.9 Anion Gap 9 Estimat Glomerular Filtration Rate 103 Lactic Acid Level 0.8 Date/Time Source Procedure Growth Status 02/08/17 14:20 Blood Peripheral Aerobic Blood Culture Pending Received 02/08/17 14:20 Blood Peripheral Anaerobic Blood Culture Pending Received Result Diagram: 02/08/17 0730 02/08/17 0730 Imaging Last Impressions Abdomen/Pelvis CT 02/08/17 0939 Signed Impressions: Service Date/Time: January 13:23 - CONCLUSION: 1. New areas of consolidation in the left lower lobe most characteristic of pneumonia. 2. Worsening bowel gas pattern with increased dilatation of multiple loops of small bowel with air-fluid levels. Contrast is noted in the distal colon and this could indicate a partial small bowel obstruction. 3. Right adrenal mass again noted. MD Herminio Ricardo VTE Risk Assessment Caprini VTE Risk Assessment: Mod/High Risk (score >= 2) VTE Pharm Contraindication: High risk for bleeding Caprini Risk Assessment Model Point Value = 1 Point Value = 2 Point Value = 3 Point Value = 5 Age 41-60 Minor surgery BMI > 25 kg/m2 Swollen legs Varicose veins or History of unexplained or recurrent spontaneous Oral contraceptives or hormone replacement Sepsis (< 1 month) Serious lung disease, including pneumonia (< 1 month) Abnormal pulmonary function Acute myocardial infarction Congestive heart failure (< 1 month) History of inflammatory bowel disease Medical patient at bed rest Age 61-74 Arthroscopic surgery Major open surgery (> 45 min) Laparoscopic surgery (> 45 min) Malignancy Confined to bed (> 72 hours) Immobilizing plaster cast Central venous access Age >= 75 History of VTE Family history of VTE Factor V Leiden Prothrombin [id number] Lupus anticoagulant Anticardiolipin antibodies Elevated serum homocysteine Heparin-induced thrombocytopenia Other congenital or acquired thrombophilia Stroke (< 1 month) Elective arthroplasty Hip, pelvis, or leg fracture Acute spinal cord injury (< 1 month) Prophylaxis Regimen Total Risk Factor Score Risk Level Prophylaxis Regimen 0-1 Low Early ambulation 2 Moderate Order ONE of the following: *Sequential Compression Device (SCD) *Heparin 5000 units SQ BID 3-4 Higher Order ONE of the following medications: *Heparin 5000 units SQ TID *Enoxaparin/Lovenox 40 mg SQ daily (WT < 150 kg, CrCl > 30 mL/min) *Enoxaparin/Lovenox 30 mg SQ daily (WT < 150 kg, CrCl > 10-29 mL/min) *Enoxaparin/Lovenox 30 mg SQ BID (WT < 150 kg, CrCl > 30 mL/min) AND/OR *Sequential Compression Device (SCD) 5 or more Highest Order ONE of the following medications: *Heparin 5000 units SQ TID (Preferred with Epidurals) *Enoxaparin/Lovenox 40 mg SQ daily (WT < 150 kg, CrCl > 30 mL/min) *Enoxaparin/Lovenox 30 mg SQ daily (WT < 150 kg, CrCl > 10-29 mL/min) *Enoxaparin/Lovenox 30 mg SQ BID (WT < 150 kg, CrCl > 30 mL/min) AND *Sequential Compression Device (SCD) Assessment and Plan Assessment and Plan 72 years old male with history of 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 came with Multiple episode of hematemesis 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 Partial SBO versus ileus GI bleed Leukocytosis Bilateral pneumonia possibly aspiration DVT prophylaxis with SCD Plan: Admit to telemetry, nothing by mouth Iv Protonix Consult surgery, consult GI, consult oncology appreciated their input Zosyn and Zithromax Sent for blood culture and sputum culture if available Plan for exploratory laparotomy in a.m. Palliative care also seen the patient in the daughter, they refused to accept palliative care, bland still for aggressive treatment DVT prophylaxis with SCD due to GI bleed Discussed Condition With Patient, his daughter, surgery [employer], ED physician Pa Murray MD Feb 08, 2017 17:27
--- NOTE | 2017-02-08 17:32 | PD.CONS ---
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 The patient has completed chemotherapy and radiation. The patient was recently hospitalized for PSBO and discharged home in stable condition on Sunday. The patient had some soft eggs at [facility] Sunday morning as well as some mashed potatoes. Since then he started feeling nausea and reports he threw up 15 times audrey red blood. He is having bowel movements. A CT abd/pelvis was obtained which showed air fluid levels and contrast in the distal colon. A General Surgery consultation has been requested for evaluation of surgical options for PSBO. Review of Systems Constitutional: COMPLAINS OF: Fatigue, Weight loss Endocrine: DENIES: Polydipsia, Polyuria, Polyphagia Eyes: DENIES: Diplopia Ears, nose, mouth, throat: DENIES: Hearing loss Respiratory: DENIES: Apneas Cardiovascular: DENIES: Chest pain Gastrointestinal: COMPLAINS OF: Abdominal pain, Diarrhea, Nausea, Vomiting Genitourinary: DENIES: Urgency Musculoskeletal: DENIES: Muscle aches Integumentary: DENIES: Abnormal pigmentation Hematologic/lymphatic: DENIES: Bruising Immunologic/allergic: DENIES: Eczema Neurologic: DENIES: Abnormal gait, Headache Psychiatric: DENIES: Confusion, Mood changes, Depression Past Family Social History Past Medical History Esophagus cancer Metastatic disease to the liver and bone Past Surgical History Laparoscopic cholecystectomy Open appendectomy Reported Medications Xarelto (last taken 10 days ago) Morphine Gabapentin Xanax Carbidopa-Levodopa Omeprazole Allergies: Coded Allergies: meperidine (Unverified Allergy, Mild, 02/08/17) Active Ordered Medications Current Medications Medications (Trade) Dose Ordered Sig/Sisi Route Start Time Stop Time Status Last Admin (NS Flush) 2 ml UNSCH PRN IVF 02/08/17 07:30 Pantoprazole Sodium 80 mg/ Sodium Chloride 100 ml @ 10 mls/hr Q10H IV 02/08/17 07:18 02/08/17 08:15 (Morphine Inj) 2 mg Q15M PRN IV 02/08/17 09:00 02/08/17 14:50 Pantoprazole Sodium 80 mg/ Sodium Chloride 100 ml @ 10 mls/hr CONTINUOUS IV 02/08/17 16:45 UNV Sodium Chloride 1,000 ml @ 100 mls/hr Q10H IV 02/08/17 16:56 UNV (Tylenol) 650 mg Q4H PRN PO 02/08/17 17:00 UNV (Zofran Inj) 4 mg Q6H PRN IVP 02/08/17 17:00 UNV (Narcan Inj) 0.4 mg UNSCH PRN IV 02/08/17 17:00 UNV (Morphine Inj) 1 mg Q4H PRN IV PUSH 02/08/17 17:00 UNV (Morphine Inj) 2 mg Q4H PRN IV PUSH 02/08/17 17:00 UNV Piperacillin Sod/ Tazobactam Sod 50 ml @ 100 mls/hr Q6H IV 02/08/17 17:15 UNV Sodium Chloride 1,000 ml @ 84 mls/hr [id number] IV 02/08/17 17:15 UNV Family History Non contributory Social History Denies tobacco use Denies ETOH use Denies illicit drug use Physical Exam Vital Signs Vital Signs Date Time Temp Pulse Resp B/P (MAP) Pulse Ox O2 Delivery O2 Flow Rate FiO2 02/08/17 10:18 96/60 (72) 02/08/17 07:41 94 Room Air 02/08/17 06:42 99.5 112 24 116/74 (88) 95 Physical Exam GENERAL: 72 year old male resting in bed in no acute distress. SKIN: Warm and dry. HEAD: Atraumatic. Normocephalic. EYES: Pupils equal and round. No scleral icterus. No injection or drainage. ENT: No nasal bleeding or discharge. Mucous membranes pink and moist. NECK: Trachea midline. CARDIOVASCULAR: Regular rate and rhythm. RESPIRATORY: No accessory muscle use. Bilateral rhonchi with auscultation. GASTROINTESTINAL: Abdomen soft, minimally tender to palpation; umbilical hernia ; large well healed RLQ scar. MUSCULOSKELETAL: Extremities without clubbing, cyanosis, or edema. No obvious deformities. NEUROLOGICAL: Awake and alert. No obvious cranial nerve deficits. Motor grossly within normal limits. Five out of 5 muscle strength in the arms and legs. Normal speech. PSYCHIATRIC: Appropriate mood and affect; insight and judgment normal. Laboratory Laboratory Tests Test 02/08/17 07:30 02/08/17 14:20 White Blood Count 16.8 Red Blood Count 4.17 Hemoglobin 12.8 Hematocrit 39.1 Mean Corpuscular Volume 93.9 Mean Corpuscular Hemoglobin 30.6 Mean Corpuscular Hemoglobin Concent 32.6 Red Cell Distribution Width 21.3 Platelet Count 192 Mean Platelet Volume 8.0 Neutrophils (%) (Auto) 85.4 Lymphocytes (%) (Auto) 4.8 Monocytes (%) (Auto) 9.5 Eosinophils (%) (Auto) 0.1 Basophils (%) (Auto) 0.2 Neutrophils # (Auto) 14.3 Lymphocytes # (Auto) 0.8 Monocytes # (Auto) 1.6 Eosinophils # (Auto) 0.0 Basophils # (Auto) 0.0 CBC Comment DIFF FINAL Differential Comment Prothrombin Time 11.7 Prothromb Time International Ratio 1.1 Activated Partial Thromboplast Time 26.0 Blood Urea Nitrogen 13 Creatinine 0.75 Random Glucose 127 Calcium Level 10.1 Sodium Level 134 Potassium Level 3.9 Chloride Level 100 Carbon Dioxide Level 24.9 Anion Gap 9 Estimat Glomerular Filtration Rate 103 Lactic Acid Level 0.8 Date/Time Source Procedure Growth Status 02/08/17 14:20 Blood Peripheral Aerobic Blood Culture Pending Received 02/08/17 14:20 Blood Peripheral Anaerobic Blood Culture Pending Received Result Diagram: 02/08/17 0730 02/08/17 0730 Imaging Last 48 hours Impressions Abdomen/Pelvis CT 02/08/17 0939 Signed Impressions: Service Date/Time: January 13:23 - CONCLUSION: 1. New areas of consolidation in the left lower lobe most characteristic of pneumonia. 2. Worsening bowel gas pattern with increased dilatation of multiple loops of small bowel with air-fluid levels. Contrast is noted in the distal colon and this could indicate a partial small bowel obstruction. 3. Right adrenal mass again noted. Anam Agarwal MD Assessment and Plan Assessment and Plan 72 year old male with metastatic esophagus cancer; PSBO -Plan for OR tomorrow at noon with Dr. Onofre -Obtain consents -NPO -Explained to both patient and daughter that this may not result in any solution to this problem -Continue to hold Eliquis -Thank you for this consult I CERTIFY AND ATTEST THAT I PERSONALLY EXAMINED THE PATIENT IN THEIR ROOM. MS HARDY DOCUMENTED OUR VISIT AND ENTERED ORDERS IN THE EMR UNDER MY DIRECT SUPERVISION. I REVIEWED THE CARE PLAN WITH THE FAMILY AND NURSING STAFF. WILL PROCEED WITH LAPAROSCOPY AND G TUBE PLACEMENT KAYLEY ONOFRE MD FACS Discussed Condition With Dr. Kin CABRERA Mr. Hairston + daughter Antonia Hardy RICK Feb 08, 2017 17:32 Kayley Onofre MD Feb 13, 2017 15:05
[2017-02-08 19:46] VITALS: BP 104/65; PULSE 88; RESP 17; TEMP 98.4; O2SAT 94
[2017-02-08] MEDS: PIPERACIL-TAZO 3.375 GM PREMIX 50 ML IV SCH (20:00)
[2017-02-08 22:08] LABS: HEMATOCRIT 26.9 % (39.0-51.0)
[2017-02-08 22:11] LABS: REVIEW FLAG FINAL
[2017-02-08 22:27] VITALS: PULSE 82
[2017-02-09] VITALS (10 sets, daily range): BP systolic 86–119; BP diastolic 56–71; PULSE 62–100; RESP 15–22; TEMP 95.5–98.7; O2SAT 95–98
[2017-02-09] MEDS: SODIUM CHLORIDE 0.9% FLUSH 10 ML FLUSH IVF PRN (01:29)
[2017-02-09] MEDS: PIPERACIL-TAZO 3.375 GM PREMIX 50 ML IV SCH ×4 (01:29→20:21)
[2017-02-09] MEDS: SODIUM CHLOR 0.9% 1000 ML INJ 1,000 ML IV SCH ×3 (02:56→17:00)
[2017-02-09 04:12] LABS: AUTOMATED NEUTROPHIL # 5.2 TH/MM3 (1.8-7.7); BASOPHIL % 0.3 % (0.0-2.0); EOSINOPHIL % 0.5 % (0.0-4.0); HEMATOCRIT 31.5 % (39.0-51.0); LYMPH % 13.5 % (9.0-44.0); MEAN CELL VOLUME 93.4 FL (80.0-100.0); MEAN CORPUSCULAR HEMOGLOBIN 31.6 PG (27.0-34.0); MEAN CORPUSCULAR HGB CONC 33.9 % (32.0-36.0); MONO % 11.6 % (0.0-8.0); NEUT % 74.1 % (16.0-70.0); PLATELET COUNT 137 TH/MM3 (150-450); RED BLOOD COUNT 3.37 MIL/MM3 (4.50-5.90); RED CELL DISTRIBUTION WIDTH 21.3 % (11.6-17.2); WHITE BLOOD COUNT 7.1 TH/MM3 (4.0-11.0)
[2017-02-09 04:21] LABS: HEMO FLAGS AUTO DIFF
[2017-02-09 04:42] LABS: BICARBONATE 21.6 MEQ/L (21.0-32.0); POTASSIUM 3.3 MEQ/L (3.5-5.1)
[2017-02-09 05:00] LABS: KERATOCYTES 1+ (NORMAL); OVALOCYTES 1+ (NORMAL); SCAN/DIFF AUTO DIFF CONFIRMED
--- NOTE | 2017-02-09 09:16 | MB ---
cc: MAYFIELDOSVALDO DATE OF CONSULTATION 02/08/2017 REASON FOR CONSULTATION 1. Metastatic esophageal cancer. 2. Possible bowel obstruction. 3. Probable pneumonia from aspiration. PATIENT PROFILE The patient is a 75-year-old male. He has been several times. His in August of 2016 of a drug overdose. The patient was born in [place], [place]. He has lived in [place] for 10 years. He lives alone. 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 He does not smoke and does not drink. HISTORY OF PRESENT ILLNESS The patient's history dates back to 2012 when he had an upper endoscopy at the [facility]. He was found to have an esophageal cancer. He was treated with radiation therapy and concomitant chemotherapy. His medical oncologist is Dr. Stone. He did well and entered a remission. In August of 2016 he was found to have recurrent disease with metastases to multiple bones including the right shoulder, right hand, scapula and liver. He has been receiving chemotherapy every other week. He was recently hospitalized at [facility] with an upper gastrointestinal hemorrhage. He underwent upper endoscopy on 01/30/2017 and was found to have a large ulcer in the distal esophagus. Biopsies revealed a poorly differentiated carcinoma. At the same time he had a CAT scan of the abdomen showing possible bowel obstruction with ileus. He underwent a small bowel series on 02/04/2017 showing an ileus versus a low grade mid-small bowel obstruction. Subsequent to this he was taking liquids without problems. He was discharged home and told (1) not to have solids, (2) follow up with his medical oncologist, Dr. Stone. At that time he was offered Hospice and supportive care and this is not the direction he wanted to go. He had eggs I believe this morning; he had significant vomiting following this and his family brought him to the emergency room. There is a question as to whether he was having a GI bleed. On 02/08 which is today, hemoglobin is 12.8, white count 16,000, platelets 192,000. 'Lytes, BUN and creatinine are unremarkable. He had a CT scan of the abdomen and pelvis today due to the nausea and vomiting. He was found to have an abnormal gas pattern not dissimilar from what he had before. He has increasing dilation of multiple loops of small bowel now measuring up to 4.4 cm with air-fluid levels. The distal small bowel and colon are relatively decompressed. He also has consolidation in the left lower lobe suggestive of an aspiration pneumonia. He is now scheduled for laparoscopic surgery tomorrow for evaluation of possible obstruction and if necessary placement of a gastrostomy tube if the obstruction cannot be relieved. PAST SURGICAL HISTORY 1. Appendectomy. 2. Cholecystectomy. 3. Tonsillectomy. 4. Port placement. PAST MEDICAL HISTORY 1. Stage IV esophageal cancer. 1. History of DVT in 2016. 2. Mild Parkinson's. 3. Probable partial small bowel obstruction. MEDICATIONS ON ADMISSION 1. Xanax. 2. Carbidopa-levodopa. 3. Gabapentin. 4. Morphine sulfate extended release 30 mg. 5. Omeprazole. ALLERGIES ADVERSE REACTION TO MEPERIDINE. FAMILY HISTORY Noncontributory. REVIEW OF SYSTEMS No change in vision or hearing. No chest pain or palpitations. He has had mild abdominal discomfort, nausea and vomiting. He still had occasional bowel movements. Urinary stream is poor. No bone pain. PHYSICAL EXAMINATION GENERAL: Physical exam reveals a chronically ill-appearing gentleman. VITAL SIGNS: Blood pressure 105/60, respiratory rate 18, pulse 80, afebrile. O2 sat is 94%. HEENT: Head is normocephalic. Sclerae and conjunctivae are normal. Oropharynx unremarkable. LYMPHATICS: No adenopathy. CHEST: He has a port in the upper chest. HEART: Regular rhythm. LUNGS: Slightly decreased at the left base. ABDOMEN: Without hepatosplenomegaly or masses. ABDOMEN: The abdomen is mildly distended. EXTREMITIES: Trace edema. MUSCULOSKELETAL: No bone pain. NEUROLOGIC: No focal weakness. Cognition and affect are normal SKIN: Unremarkable. ASSESSMENT The patient is a 72-year-old male. He has Stage IV adenocarcinoma of the esophagus. He still the primary tumor in place which has left him with a bleeding ulcerated area. The major issue presently is a probable bowel obstruction. PLAN I agree with laparoscopic evaluation tomorrow as this will answer the question about obstruction. If the obstruction cannot be relieved, it as my understanding a gastrostomy tube will be placed. IV fluids have been started and he has been placed on antibiotics as well as it appears that he has an aspiration pneumonia with an infiltrate at the left base. MD EVA Dickey/ELMO Rivera: 02/08/2017/8:00 PM /8:56 AM DONAVAN
--- NOTE | 2017-02-09 09:21 | PD.ONC.PN ---
Subjective Subjective Remarks patient comfortable and awaiting surgery Objective Data Date Time Temp Pulse Resp B/P (MAP) Pulse Ox O2 Delivery O2 Flow Rate FiO2 02/09/17 09:00 17 02/09/17 07:18 98.2 87 18 110/69 (83) 97 02/09/17 05:43 97 21 02/09/17 05:37 98.2 89 17 86/56 (66) 96 02/09/17 00:18 98.1 77 18 105/70 (82) 95 02/08/17 22:27 82 02/08/17 19:46 98.4 88 17 104/65 (78) 94 02/08/17 18:56 02/08/17 17:11 95 21 02/08/17 10:18 96/60 (72) 02/09/17 02/09/17 02/09/17 07:00 15:00 23:00 Intake Total 0 ml Balance 0 ml Result Diagram: 02/09/17 0400 02/09/17 0400 Laboratory Results Laboratory Tests Test 02/08/17 14:20 02/08/17 21:28 02/09/17 04:00 Lactic Acid Level 0.8 mmol/L Hemoglobin 8.8 GM/DL 10.7 GM/DL Hematocrit 26.9 % 31.5 % White Blood Count 7.1 TH/MM3 Red Blood Count 3.37 MIL/MM3 Mean Corpuscular Volume 93.4 FL Mean Corpuscular Hemoglobin 31.6 PG Mean Corpuscular Hemoglobin Concent 33.9 % Red Cell Distribution Width 21.3 % Platelet Count 137 TH/MM3 Mean Platelet Volume 7.6 FL Neutrophils (%) (Auto) 74.1 % Lymphocytes (%) (Auto) 13.5 % Monocytes (%) (Auto) 11.6 % Eosinophils (%) (Auto) 0.5 % Basophils (%) (Auto) 0.3 % Neutrophils # (Auto) 5.2 TH/MM3 Lymphocytes # (Auto) 1.0 TH/MM3 Monocytes # (Auto) 0.8 TH/MM3 Eosinophils # (Auto) 0.0 TH/MM3 Basophils # (Auto) 0.0 TH/MM3 CBC Comment AUTO DIFF Differential Comment AUTO DIFF CONFIRMED Ovalocytes 1+ Keratocytes 1+ Blood Urea Nitrogen 8 MG/DL Creatinine 0.49 MG/DL Random Glucose 89 MG/DL Calcium Level 9.3 MG/DL Sodium Level 139 MEQ/L Potassium Level 3.3 MEQ/L Chloride Level 109 MEQ/L Carbon Dioxide Level 21.6 MEQ/L Anion Gap 8 MEQ/L Estimat Glomerular Filtration Rate 168 ML/MIN Culture Results Microbiology Date/Time Source Procedure Growth Status 02/08/17 14:20 Blood Peripheral Aerobic Blood Culture Pending Received 02/08/17 14:20 Blood Peripheral Anaerobic Blood Culture Pending Received 02/08/17 14:15 Blood Peripheral Aerobic Blood Culture Pending Received 02/08/17 14:15 Blood Peripheral Anaerobic Blood Culture Pending Received Imaging Studies Last 24 hours Impressions Abdomen/Pelvis CT 02/08/17 0939 Signed Impressions: Service Date/Time: January 13:23 - CONCLUSION: 1. New areas of consolidation in the left lower lobe most characteristic of pneumonia. 2. Worsening bowel gas pattern with increased dilatation of multiple loops of small bowel with air-fluid levels. Contrast is noted in the distal colon and this could indicate a partial small bowel obstruction. 3. Right adrenal mass again noted. Anam Agarwal MD Administered Medications Medications (Trade) Dose Ordered Sig/Sisi Route PRN Reason Start Time Stop Time Status Last Admin Dose Admin Sodium Chloride (NS Flush) 2 ml UNSCH PRN IVF FLUSH AFTER USING IV ACCESS 02/08/17 07:30 02/09/17 01:29 Morphine Sulfate (Morphine Inj) 2 mg Q15M PRN IV PAIN SCALE 4 TO 10 02/08/17 09:00 02/08/17 14:50 Pantoprazole Sodium 80 mg/ Sodium Chloride 100 ml @ 10 mls/hr CONTINUOUS IV 02/08/17 16:45 02/08/17 21:05 Morphine Sulfate (Morphine Inj) 1 mg Q4H PRN IV PUSH pain 3-5 02/08/17 17:00 02/09/17 08:51 Piperacillin Sod/ Tazobactam Sod 50 ml @ 100 mls/hr Q6H IV 02/08/17 20:00 02/09/17 08:27 Sodium Chloride 1,000 ml @ 100 mls/hr Q10H IV 02/09/17 08:45 02/09/17 08:45 Objective Remarks GENERAL: gaunt with abd distention SKIN: Warm and dry. HEAD: Normocephalic. EYES: No scleral icterus. No injection or drainage. NECK: Supple, trachea midline. No JVD or lymphadenopathy. LYMPHATIC: No adenopathy. CARDIOVASCULAR: Regular rate and rhythm without murmurs. RESPIRATORY: Breath sounds equal bilaterally. No accessory muscle use. GASTROINTESTINAL: Abdomen distended and soft. EXTREMITIES: trace edema. MUSCULOSKELETAL: muscle wasting NEUROLOGICAL: No obvious focal deficit. Awake, alert, and oriented x3. PSYCHIATRIC: Appropriate mood and affect; insight and judgment normal. Assessment/Plan Assessment 1: Met with patient and with Dr. Sanderson and reviewed situation. They understand that if there is an obstruction it may be possible to relieve obstruction with surgery as long as there is not extensive disease. Situation will be clarified with surgery and will be easier for everyone to deal with once we have results of operation. If wide spread mets and not able to resolve obstruction then hospice would I believe be acceptable to family. Nothing else to add and will be back Sunday. Ricci Johns MD Feb 09, 2017 09:21
--- NOTE | 2017-02-09 10:41 | HHI.GIFU ---
Subjective Remarks Resting in bed, no distress. Going to OR today around noon per patient. No vomiting overnight. No hematemesis. States he had brown liquid stool overnight , none today. Objective Vitals I&O Vital Signs Date Time Temp Pulse Resp B/P (MAP) Pulse Ox O2 Delivery O2 Flow Rate FiO2 02/09/17 09:00 17 02/09/17 07:18 98.2 87 18 110/69 (83) 97 02/09/17 05:43 97 21 02/09/17 05:37 98.2 89 17 86/56 (66) 96 02/09/17 00:18 98.1 77 18 105/70 (82) 95 02/08/17 22:27 82 02/08/17 19:46 98.4 88 17 104/65 (78) 94 02/08/17 18:56 02/08/17 17:11 95 21 I/O 02/08/17 02/08/17 02/08/17 02/09/17 02/09/17 02/09/17 07:00 15:00 23:00 07:00 15:00 23:00 Intake Total 2035 ml 1350 ml 0 ml Balance 2035 ml 1350 ml 0 ml Intake IV Total 2035 ml 1350 ml 0 ml Laboratory Laboratory Tests Test 02/08/17 14:20 02/08/17 21:28 02/09/17 04:00 Lactic Acid Level 0.8 Hemoglobin 8.8 10.7 Hematocrit 26.9 31.5 White Blood Count 7.1 Red Blood Count 3.37 Mean Corpuscular Volume 93.4 Mean Corpuscular Hemoglobin 31.6 Mean Corpuscular Hemoglobin Concent 33.9 Red Cell Distribution Width 21.3 Platelet Count 137 Mean Platelet Volume 7.6 Neutrophils (%) (Auto) 74.1 Lymphocytes (%) (Auto) 13.5 Monocytes (%) (Auto) 11.6 Eosinophils (%) (Auto) 0.5 Basophils (%) (Auto) 0.3 Neutrophils # (Auto) 5.2 Lymphocytes # (Auto) 1.0 Monocytes # (Auto) 0.8 Eosinophils # (Auto) 0.0 Basophils # (Auto) 0.0 CBC Comment AUTO DIFF Differential Comment AUTO DIFF CONFIRMED Ovalocytes 1+ Keratocytes 1+ Blood Urea Nitrogen 8 Creatinine 0.49 Random Glucose 89 Calcium Level 9.3 Sodium Level 139 Potassium Level 3.3 Chloride Level 109 Carbon Dioxide Level 21.6 Anion Gap 8 Estimat Glomerular Filtration Rate 168 Date/Time Source Procedure Growth Status 02/08/17 14:20 Blood Peripheral Aerobic Blood Culture Pending Received 02/08/17 14:20 Blood Peripheral Anaerobic Blood Culture Pending Received Imaging Last Impressions Abdomen/Pelvis CT 02/08/17 0939 Signed Impressions: Service Date/Time: January 13:23 - CONCLUSION: 1. New areas of consolidation in the left lower lobe most characteristic of pneumonia. 2. Worsening bowel gas pattern with increased dilatation of multiple loops of small bowel with air-fluid levels. Contrast is noted in the distal colon and this could indicate a partial small bowel obstruction. 3. Right adrenal mass again noted. Anam Agarwal MD Physical Exam HEENT: Normocephalic; atraumatic; no jaundice. CHEST: CTA CARDIAC: RRR ABDOMEN: Soft, distended, mild diffuse tenderness no hepatosplenomegaly; bowel sounds are present in all four quadrants. EXTREMITIES: No clubbing, cyanosis, or edema. SKIN: Generalized pallor [employer] COMM[employer] MECH[employer]ICIAN: No focal deficits; alert and oriented times three. Assessment and Plan Plan ASSESSMENT: - PSBO. Was tolerating liquids at home, but developed distention/pain/n/v after eating solid food on 02/08. CT scan abdomen and pelvis without contrast (02/08/17) and this revealed new areas of consolidation in the left lower lobe most characteristic of pneumonia. Worsening bowel gas pattern with increased dilatation of multiple loops of small bowel with air-fluid levels. Contrast noted in the distal colon and this could indicate a partial small bowel obstruction. Right adrenal mass noted again. No vomiting. (+) liquid brown stool. GS following, going to OR today. - GIB. One episode of black emesis after persistent n/v with brown emesis. Also has had black tarry stool since getting contrast for CT. EGD (01/30/17)----> 1. Large ulcer was found in the distal esophagus, 5 CM above GE junction; with minimal narrowing of the lumen, biopsies were taken 2. Normal stomach and duodenal mucosa. 3. Retroflexed views revealed a hiatal hernia. Pathology invasively poorly differentiated carcinoma with extensive ulceration, A GMS stain is negative for fungal organisms. Cont. Protonix Gtt. This would be difficult to control endoscopically. Supportive care/transfuse as necessary. HH stable at this time. Pt denies any hematemesis or melena overnight. - Leukocytosis. Improved. Zosyn. - Aspiration pneumonia. Zosyn. - Metastatic esophageal cancer. Dx April of 2014 and is s/p chemotherapy and radiation. He was recently found to have metastatic disease in his right upper extremity and states that he recently completed 3 months of chemotherapy and radiation with Dr. Stone. He was noted to have metastatic disease to liver, sclerotic lesions within the lumbar spine which are indeterminate. Pt sees Dr. Stone. has an appointment with Dr. Stone on Sunday and is scheduled for a PET scan on Sunday. PLAN: - Going to OR with GS today - NPO - Protonix Gtt - Serial HH - Transfuse as necessary - Zosyn - GS following - Oncology following - Supportive care - No Code per patient and daughter request - Further recommendations to follow based on results of above - PT seen and examined by Dr. Arroyo and myself and this note is written on his behalf Janice Bajwa Feb 09, 2017 10:41
[2017-02-09] MEDS: MORPHINE SULFATE 4 MG/ML INJ IV PRN (10:59)
[2017-02-09] MEDS ORDERED: ONDANSETRON HCL 4 MG/2 ML VIAL IV PUSH ONE (12:00)
[2017-02-09] MEDS ORDERED: PROPOFOL 200 MG/20 ML AMP IV ONE (12:00)
[2017-02-09] MEDS ORDERED: NEOSTIGMINE 3 MG/3 ML SYR IV ONE (12:00)
[2017-02-09] MEDS ORDERED: MIDAZOLAM HCL 2 MG/2 ML VIAL ONE (13:22)
[2017-02-09] MEDS ORDERED: FAMOTIDINE 20 MG/2 ML VIAL ONE (13:22)
[2017-02-09] MEDS ORDERED: BUPIVACAINE/EPINEPHRINE 0.25% 50 ML VIAL ONE (13:50)
[2017-02-09] MEDS ORDERED: ceFAZolin INJ 1,000 MG VIAL IV ONE (14:03)
--- NOTE | 2017-02-09 14:27 | HHI.PR ---
Subjective Remarks No vomiting, no bowel movement today he feels okay no abdominal pain no short of breath no fever or chills Plan to go for exploratory laparotomy today Objective Vitals Vital Signs Date Time Temp Pulse Resp B/P (MAP) Pulse Ox O2 Delivery O2 Flow Rate FiO2 02/09/17 11:28 98.1 86 18 98/69 (79) 96 02/09/17 11:14 98.7 02/09/17 11:00 22 02/09/17 09:22 85 02/09/17 09:00 17 02/09/17 07:18 98.2 87 18 110/69 (83) 97 02/09/17 05:43 97 21 02/09/17 05:37 98.2 89 17 86/56 (66) 96 02/09/17 00:18 98.1 77 18 105/70 (82) 95 02/08/17 22:27 82 02/08/17 19:46 98.4 88 17 104/65 (78) 94 02/08/17 18:56 02/08/17 17:11 95 21 I/O 02/08/17 02/08/17 02/08/17 02/09/17 02/09/17 02/09/17 06:59 14:59 22:59 06:59 14:59 22:59 Intake Total 2035 ml 1350 ml 0 ml Balance 2035 ml 1350 ml 0 ml Intake IV Total 2035 ml 1350 ml 0 ml Result Diagram: 02/09/17 0400 02/09/17 0400 Imaging Last Impressions Abdomen/Pelvis CT 02/08/17 0939 Signed Impressions: Service Date/Time: January 13:23 - CONCLUSION: 1. New areas of consolidation in the left lower lobe most characteristic of pneumonia. 2. Worsening bowel gas pattern with increased dilatation of multiple loops of small bowel with air-fluid levels. Contrast is noted in the distal colon and this could indicate a partial small bowel obstruction. 3. Right adrenal mass again noted. Anam Agarwal MD Objective Remarks GENERAL: This is a well-nourished, well-developed patient, in no apparent distress. SKIN: No rashes, warm and dry HEAD: Atraumatic. Normocephalic. EYES: Pupils equal round and reactive. Extraocular motions intact. No scleral icterus. ENT: Nose without bleeding, or drainage, Airway patent. NECK: Trachea midline. Supple CARDIOVASCULAR: Regular rate and rhythm without murmurs, gallops, or rubs. RESPIRATORY: Fair air entry bilaterally. No wheezes, rales, or rhonchi. GASTROINTESTINAL: Abdomen soft, non-tender, nondistended. Positive bowel sounds MUSCULOSKELETAL: Extremities without clubbing, cyanosis, or edema. Pedal pulses appreciated NEUROLOGICAL: Awake and alert. Moves all extremity. Normal speech.no focal neurological deficit A/P Assessment and Plan 72 years old male with history of 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 came with Multiple episode of hematemesis 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 Partial SBO versus ileus GI bleed Leukocytosis Bilateral pneumonia possibly aspiration DVT prophylaxis with SCD Plan: Going for exploratory laparotomy today by surgical team Iv Protonix Appreciate GI, oncology consult Zosyn and Zithromax Sent for blood culture and sputum culture if available Palliative care also seen the patient in the daughter, they refused to accept palliative care, bland still for aggressive treatment DVT prophylaxis with SCD due to GI bleed Pa Murray MD Feb 09, 2017 14:27
--- NOTE | 2017-02-09 15:03 | PD.CONS ---
Consult Service Palliative Care . Consult Requested By Dr. Pablo . Primary Care Physician Unknown . Reason for Consultation a. To assist with evaluation and management of symptoms including: Pain, nausea/vomiting, debility b. To assist medical decision maker(s) with: better understanding of current medical conditions; weighing benefits/burdens of medical treatment options; making medical treatment decisions. . HPI History of Present Illness Mr. Hairston is a 72-year-old male who presented to [facility] on 02/08/2017 a chief complaint of GI bleed. The patient/family reported 15+ episodes of dark bloody emesis x 1 day. He also complained of periumbilical pain with no modifying factors. The patient had recently been hospitalized at [facility] with an upper GI bleed. He underwent an EGD on 01/30/17 which showed a large ulcer in the distal esophagus. Pathology revealed a poorly differentiated carcinoma. During the same hospitalization a CT of the abdomen was concerning for possible bowel obstruction with ileus. He then underwent a small bowel series which showed an ileus versus a low-grade mid small bowel obstruction. The patient was discharged home tolerating a full liquid diet. Of note, Mr. Hairston was first diagnosed with esophageal cancer in 2012. He was treated with radiation therapy and concomitant therapy. He was doing well until August, when he was found to have disease progression with metastasis to the bones and liver. Patient follows Dr. Irizarry; receiving palliative chemotherapy. Additional diagnostic data includes * Pulse: 112, respirations 24, BP 116/74, oxygen saturation 95% on room air, oral temperature 99.5 * WBC: 16.8, hemoglobin 12.8, hematocrit 39.1, platelets 192, neutrophils 85.4% * PT: 11.7, INR 1.1, APTT 26.[address] of the abdomen/pelvis showed new areas of consolidation in the left lower lobe characteristic of pneumonia; worsening bowel gas pattern with increased irritation of multiple loops of bowel - contrast is noted in the distal colon and could be indicative of a partial small bowel obstruction; right adrenal mass was again noted. Patient received IV fluids and was started on IV Protonix. He refused NGT placement. Patient had multiple back tarry stools while in the ED. Blood cultures and lactic acid were ordered. Patient was started on broad spectrum antibiotics. GI was consulted. Palliative care is familiar with this patient and was consulted to assist with disposition, however the family refused. The patient and his daughter were verbalizing aggressive goals stating they wanted to go to the OR to have the bowel issue addressed. They were requesting evaluation by both general surgery and oncology. He would like to continue treatment for his cancer. Goals remain aggressive up to the point of cardiopulmonary resuscitation. The patient DOES NOT want to be intubated or to receive CPR/ACLS protocol should his heart stop and would like to be a NO CODE. General surgery evaluated the patient for surgical options for PSBO. The patient is scheduled for laparoscopic surgery on 02/09/17 for evaluation of obstruction and possible G-tube placement to alleviate GI symptoms on 02/09/17. Dr. Johns, oncology, spoke with the patient and family regarding plans for surgery. They verbalize understanding that it may be possible to relieve the obstruction with surgery if there is not extensive disease. If patient is found to have widespread metastatic disease and the obstruction cannot be resolved and recommendations would be made for hospice. Palliative Care received a phone call from the patient's family stating they decided they would like palliative care to follow the patient to assist with symptom management, provide ongoing support and to discuss with the family the benefits and burdens of her current illnesses and the options regarding future care. . Function/Cognitive Trajectory Patient has a history of esophageal cancer for which he follows Dr. Stone's; reportedly diagnosed with disease progression with metastases to the bone and liver in September,. Patient has been receiving palliative chemotherapy .Patient reports an overall decline in the past year as evidenced by weight loss , decreased appetite, fatigue and debility. He continues to experience ongoing functional decline. . Review of Systems Constitutional: COMPLAINS OF: Fatigue, Fever, Weight loss, Change in appetite, Pain Ears, nose, mouth, throat: DENIES: Hearing loss Respiratory: COMPLAINS OF: Shortness of breath, DENIES: Cough, Wheezing Cardiovascular: DENIES: Chest pain, Lower Extremity Edema Gastrointestinal: COMPLAINS OF: Abdominal pain, Black stools, Nausea, Vomiting , Difficulty Swallowing, Vomiting blood Integumentary: DENIES: Pruritus Hematologic/Lymphatics: COMPLAINS OF: Bruising Neurologic: COMPLAINS OF: Poor Balance Psychiatric: COMPLAINS OF: Anxiety Past Family Social History Coded Allergies: meperidine (Unverified Allergy, Mild, 02/08/17) Past Medical History Metastatic esophageal cancer Recent PSBO vs. 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 . Past Surgical History Appendectomy Cholecystectomy Tonsillectomy Left port placement Teeth extraction EGD/Colonoscopy EUS . Reported Medications Morphine ER (Morphine Sulfate) 30 Mg Tab 30 Mg PO DAILY Xarelto (Rivaroxaban) 10 Mg Tab 20 Mg PO DAILY Omeprazole 20 Mg Tab 20 Mg PO BID Gabapentin 100 Mg Cap 100 Mg PO Q6HR PRN Carbidopa-Levodopa 25-100 Mg Tab 1 Tab PO Q4HR Xanax (Alprazolam) 1 Mg Tab 1 Mg PO TID PRN . Current Medications Medications (Trade) Dose Ordered Sig/Sisi Route Start Time Stop Time Status Last Admin (NS Flush) 2 ml UNSCH PRN IVF 02/08/17 07:30 02/09/17 01:29 Pantoprazole Sodium 80 mg/ Sodium Chloride 100 ml @ 10 mls/hr CONTINUOUS IV 02/08/17 16:45 02/08/17 21:05 (Tylenol) 650 mg Q4H PRN PO 02/08/17 17:00 (Zofran Inj) 4 mg Q6H PRN IVP 02/08/17 17:00 (Narcan Inj) 0.4 mg UNSCH PRN IV 02/08/17 17:00 (Morphine Inj) 1 mg Q4H PRN IV PUSH 02/08/17 17:00 02/09/17 08:51 (Morphine Inj) 2 mg Q4H PRN IV PUSH 02/08/17 17:00 Piperacillin Sod/ Tazobactam Sod 50 ml @ 100 mls/hr Q6H IV 02/08/17 20:00 02/09/17 08:27 Sodium Chloride 1,000 ml @ 100 mls/hr Q10H IV 02/09/17 08:45 02/09/17 08:45 Azithromycin 500 mg/Sodium Chloride 250 ml @ 250 mls/hr Q24H IV 02/09/17 14:00 Family History Mother from esophageal cancer. Father from esophageal and bladder cancer. Sister and paternal grandmother had pancreatic cancer. Sister has familial hypercalcemia Substance Use Tobacco: Former smoker Alcohol: He does not drink alcohol Prescription med abuse: None known Illicits: None known . Psychosocial History Patient is originally from [place], [place]. The patient was 3 times ; his third (Gurpreet) from a drug overdose in August,. He has 1 adult daughter, Tiffany Celeste, who still resides in [place]. One sister, Roseann here from [place]. 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 Patient states he sailed his yacht from [place] to [place] approximately 12 years ago, and has been living here ever since. 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 . Spiritual/Cultural Factors Declines expanded duty dental assistant support. . Living Will: Copy in medical record (Per patient's living will, he would not want a feeding tube for or then 12 weeks. He would not want it permanently. He feels similar about being on a ventilator or tracheostomy.) Health Care Surrogate: Copy in medical record Durable Power of Mangle Roll Operator: Copy in medical record Date completed: 01/29/17 . Health Care Surrogate(s): Patient has designated his sister, Roseann, as the healthcare surrogate decision maker. His daughter, Alexandria, is designated as the alternate health care surrogate. . Documented care wishes: Accessible in the EMR. . Today's verbally stated goals: Aggressive goals up to the point of cardiopulmonary resuscitation . Family/friends goals: Patient's sister indicates that she supports her brother and his verbalized medical treatment goals. Patient's daughter wants him to continue aggressive interventions as long as they are offered. . Ethical and Legal Issues No known ethical or legal issues impacting care at this time . Physical Exam Vital Signs Date Time Temp Pulse Resp B/P (MAP) Pulse Ox O2 Delivery O2 Flow Rate FiO2 02/09/17 11:28 98.1 86 18 98/69 (79) 96 02/09/17 11:14 98.7 02/09/17 11:00 22 02/09/17 09:22 85 02/09/17 09:00 17 02/09/17 07:18 98.2 87 18 110/69 (83) 97 02/09/17 05:43 97 21 02/09/17 05:37 98.2 89 17 86/56 (66) 96 02/09/17 00:18 98.1 77 18 105/70 (82) 95 02/08/17 22:27 82 02/08/17 19:46 98.4 88 17 104/65 (78) 94 02/08/17 18:56 02/08/17 17:11 95 21 . , 02/09/17 02/10/17 19:00 07:00 Intake Total 0 ml Balance 0 ml Intake IV Total 0 ml . Exam CONSTITUTIONAL/GENERAL: This is an adequately nourished patient, in no apparent distress. TUBES/LINES/DRAINS: Left chest port accessed SKIN: No jaundice, rashes, or lesions. No wounds seen anteriorly. Skin temperature appropriate. Not diaphoretic. Generalized pallor HEAD: Atraumatic. Normocephalic. EYES: Pupils equal and round and reactive. No scleral icterus. No injection or drainage. Fundi not examined. ENT: Hearing grossly normal. Nose without bleeding or purulent drainage. NECK: Trachea midline. Neck supple. CARDIOVASCULAR: Regular rate and rhythm without murmurs, gallops, or rubs. RESPIRATORY/CHEST: Symmetric, unlabored respirations. Clear to auscultation. Breath sounds diminished bilaterally. GASTROINTESTINAL: Abdomen soft, slightly distended, diffuse tenderness. Bowel sounds present x 4 GENITOURINARY: Without palpable bladder distension. Bustamante catheter in place. MUSCULOSKELETAL: Extremities without clubbing, cyanosis, or edema. No mottling or clubbing. LYMPHATICS: No palpable cervical or supraclavicular adenopathy. NEUROLOGICAL: Alert and oriented to person, place and time. Able to answer questions; able to make needs known. PSYCHIATRIC: No obvious anxiety/depression. no apparent hallucinations or other psychotic thought process. . Diagnostic Tests Laboratory Laboratory Tests Test 02/08/17 07:30 02/08/17 14:20 02/08/17 21:28 02/09/17 04:00 White Blood Count 16.8 TH/MM3 (4.0-11.0) 7.1 TH/MM3 (4.0-11.0) Red Blood Count 4.17 MIL/MM3 (4.50-5.90) 3.37 MIL/MM3 (4.50-5.90) Hemoglobin 12.8 GM/DL (13.0-17.0) 8.8 GM/DL (13.0-17.0) 10.7 GM/DL (13.0-17.0) Hematocrit 39.1 % (39.0-51.0) 26.9 % (39.0-51.0) 31.5 % (39.0-51.0) Mean Corpuscular Volume 93.9 FL (80.0-100.0) 93.4 FL (80.0-100.0) Mean Corpuscular Hemoglobin 30.6 PG (27.0-34.0) 31.6 PG (27.0-34.0) Mean Corpuscular Hemoglobin Concent 32.6 % (32.0-36.0) 33.9 % (32.0-36.0) Red Cell Distribution Width 21.3 % (11.6-17.2) 21.3 % (11.6-17.2) Platelet Count 192 TH/MM3 (150-450) 137 TH/MM3 (150-450) Mean Platelet Volume 8.0 FL (7.0-11.0) 7.6 FL (7.0-11.0) Neutrophils (%) (Auto) 85.4 % (16.0-70.0) 74.1 % (16.0-70.0) Lymphocytes (%) (Auto) 4.8 % (9.0-44.0) 13.5 % (9.0-44.0) Monocytes (%) (Auto) 9.5 % (0.0-8.0) 11.6 % (0.0-8.0) Eosinophils (%) (Auto) 0.1 % (0.0-4.0) 0.5 % (0.0-4.0) Basophils (%) (Auto) 0.2 % (0.0-2.0) 0.3 % (0.0-2.0) Neutrophils # (Auto) 14.3 TH/MM3 (1.8-7.7) 5.2 TH/MM3 (1.8-7.7) Lymphocytes # (Auto) 0.8 TH/MM3 (1.0-4.8) 1.0 TH/MM3 (1.0-4.8) Monocytes # (Auto) 1.6 TH/MM3 (0-0.9) 0.8 TH/MM3 (0-0.9) Eosinophils # (Auto) 0.0 TH/MM3 (0-0.4) 0.0 TH/MM3 (0-0.4) Basophils # (Auto) 0.0 TH/MM3 (0-0.2) 0.0 TH/MM3 (0-0.2) CBC Comment DIFF FINAL AUTO DIFF Differential Comment AUTO DIFF CONFIRMED Prothrombin Time 11.7 SEC (9.8-11.6) Prothromb Time International Ratio 1.1 RATIO Activated Partial Thromboplast Time 26.0 SEC (24.3-30.1) Blood Urea Nitrogen 13 MG/DL (7-18) 8 MG/DL (7-18) Creatinine 0.75 MG/DL (0.60-1.30) 0.49 MG/DL (0.60-1.30) Random Glucose 127 MG/DL (74-106) 89 MG/DL (74-106) Calcium Level 10.1 MG/DL (8.5-10.1) 9.3 MG/DL (8.5-10.1) Sodium Level 134 MEQ/L (136-145) 139 MEQ/L (136-145) Potassium Level 3.9 MEQ/L (3.5-5.1) 3.3 MEQ/L (3.5-5.1) Chloride Level 100 MEQ/L (98-107) 109 MEQ/L (98-107) Carbon Dioxide Level 24.9 MEQ/L (21.0-32.0) 21.6 MEQ/L (21.0-32.0) Anion Gap 9 MEQ/L (5-15) 8 MEQ/L (5-15) Estimat Glomerular Filtration Rate 103 ML/MIN (>89) 168 ML/MIN (>89) Lactic Acid Level 0.8 mmol/L (0.4-2.0) Ovalocytes 1+ (NORMAL) Keratocytes 1+ (NORMAL) . Result Diagram: 02/09/1739902/09/17399 Microbiology Microbiology Date/Time Source Procedure Growth Status 02/08/17 14:20 Blood Peripheral Aerobic Blood Culture - Preliminary NO GROWTH IN 1 DAY Resulted 02/08/17 14:20 Blood Peripheral Anaerobic Blood Culture - Preliminary NO GROWTH IN 1 DAY Resulted 02/08/17 14:15 Blood Peripheral Aerobic Blood Culture - Preliminary NO GROWTH IN 1 DAY Resulted 02/08/17 14:15 Blood Peripheral Anaerobic Blood Culture - Preliminary NO GROWTH IN 1 DAY Resulted . Imaging Last 72 hours Impressions Abdomen/Pelvis CT 02/08/17 0939 Signed Impressions: Service Date/Time: January 13:23 - CONCLUSION: 1. New areas of consolidation in the left lower lobe most characteristic of pneumonia. 2. Worsening bowel gas pattern with increased dilatation of multiple loops of small bowel with air-fluid levels. Contrast is noted in the distal colon and this could indicate a partial small bowel obstruction. 3. Right adrenal mass again noted. Anam Agarwal MD . Procedures Patient/Family Conference Present at Family Conference: Met with patient's sister and daughter at bedside. . Family Conference Location: Bedside Issues Discussed: * Palliative care role, purpose, approach * Additional medical, psychosocial, and spiritual history * Patients general health, functional status, and cognitive changes in the months leading up to the current hospitalization * Patient/family understanding of the current medical problems * Patient/family understanding of prognosis * Patients goals of care as best understood from advance directives and/or conversations and/or values * Current medical treatment options and benefits/burdens of those options * Likely scenarios comparing ongoing aggressive care with a transition to comfort measures only * Questions answered to the best of my ability * Palliative care contact information provided . Assessment and Plan Disease Oriented Problem List: (1) Esophageal cancer (2) Bowel obstruction (3) DVT of lower extremity, bilateral (4) Parkinsons disease Symptom Scale: (1) Nausea & vomiting (2) Pain (3) Debility Pertinent Non-Medical Issues Psychosocial: Patient is originally from [place], [place]. The patient was 3 times; his third (Gurpreet) from a drug overdose in August,. He has 1 adult daughter, Tiffany Celeste, who still resides in [place]. One sister, Roseann here from [place]. 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 Patient states he sailed his yacht from [place] to [place] approximately 12 years ago, and has been living here ever since. 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 Spiritual: Refusing expanded duty dental assistant visits Legal:Patient has designated his sister, Roseann, as the healthcare surrogate decision maker. His daughter, Alexandria, is designated as the alternate health care surrogate. Ethical issues impacting care: No known ethical issues impacting care at this time. . Important Contacts Gurpreet Hairston, : [phone] or [phone] Fe Hernandez, daughter: [phone] . Prognosis Patient is a 72 year old male with stage IV metastatic esophageal cancer, currently receiving palliative chemotherapy with Dr. Stone. Patient reports an overall decline in past year as evidenced by weight loss, decreased appetite, fatigue and increased difficulty with ADLs/weakness. Currently hospitalized with infected PSBO. Given patient's advanced age, disease progression and recent functional decline, his overall prognosis is poor. . Code Status: No Code Plan * NO CODE-DNR/DNI * Decision making: Patient has designated his sister, Roseann, as the healthcare surrogate decision maker. His daughter, Alexandria, is designated as the alternate health care surrogate. * Living will completed 01/29/2017. Accessible in the EMR. * GOALS: Aggressive up to the point of cardiopulmonary resuscitation * The patient and his daughter verbalize aggressive goals stating they want to go to the OR to have the bowel issue addressed. He would like to continue treatment for his cancer. Goals remain aggressive up to the point of cardiopulmonary resuscitation. The patient DOES NOT want to be intubated or to receive CPR/ACLS protocol should his heart stop and would like to be a NO CODE. * Symptom management-nausea/vomiting: Nausea/vomiting likely secondary to small bowel obstruction. GI and general surgery following. Plan for laparoscopic evaluation tomorrow for suspected bowel obstruction. If obstruction cannot be relieved, G-tube will likely be placed. Zofran 4mg IV q6 hours PRN * Symptom management-pain. Patient reporting moderate diffuse dull, aching abdominal pain. Current orders for morphine 1 mg to 2 mg every 4 hours IV PRN for pain; patient has received 1 dose in the past 24 hours. Patient states pain is adequately controlled with current regime. * Palliative care is familiar with this patient and was consulted to assist with disposition, however the family refused. Palliative Care received a phone call from the patient's family today 02/09/2017 stating they decided they would like palliative care to follow the patient to assist with symptom management, provide ongoing support and to discuss with the family the benefits and burdens of her current illnesses and the options regarding future care. . Thank you for the opportunity to participate in the care of Mr. Hairston. Attestation To help prompt me to consider important information that might be impacting today's encounter and assessment, information from prior notes written by myself or my colleagues may have been "brought forward" into today's note. My signature on this note, however, is an attestation that I personally performed the exam, history, and/or decision-making noted today, and, unless otherwise indicated, the interactions with patient, family, and staff as well as the review of records all occurred today. I also attest that the listed assessment and stated plan reflect my best clinical judgment today based on the combination of historical information, prior notes, and today's exam/ interactions. When time spent is documented, it refers only to time spent today by the signer, or if indicated, combined time spent today by collaborating physician/nurse practitioner. . Stephanie Melgar Feb 09, 2017 14:34
[2017-02-09] MEDS ORDERED: DO NOT ADM ANY ANTICOAGULANT DRUGS PRN (15:37)
[2017-02-09] MEDS ORDERED: *morphine SULFATE 8 MG/ML PERIprocedure ONLY ONE ×2 (15:44→15:56)
[2017-02-09] MEDS ORDERED: ceFAZolin 2 GM PREMIX 50 ML IV ONE (16:00)
[2017-02-09] MEDS ORDERED: *HYDROmorphone PF 1 MG VIAL PERIprocedural Use ONLY ONE (16:13)
[2017-02-09] MEDS ORDERED: MORPHINE SULFATE 30 MG/30 ML PCA ONE (16:26)
[2017-02-09] MEDS ORDERED: NALOXONE HCL 0.4 MG/ML AMP IV PRN (16:45)
[2017-02-09] MEDS: PANTOPRAZOLE INJ 80 MG in SODIUM CHLORIDE 0.9% INJ 100 ML IV SCH (17:02)
[2017-02-09] MEDS: MORPHINE SULFATE 30 MG/30 ML PCA IV SCH (17:04)
[2017-02-09] MEDS: AZITHROMYCIN INJ 500 MG in SODIUM CHLOR 0.9% 250 ML INJ 250 ML IV SCH (17:45)
[2017-02-09 19:10] LABS: HEMATOCRIT 31.9 % (39.0-51.0)
[2017-02-09 19:12] LABS: REVIEW FLAG FINAL
[2017-02-09] MEDS: PCA - TOTAL MG MORPHINE DELIVERED PER SHIFT SCH (20:21)
[2017-02-10] VITALS (9 sets, daily range): BP systolic 99–124; BP diastolic 57–69; PULSE 70–92; RESP 18–20; TEMP 96.2–98.6; O2SAT 94–98
[2017-02-10] MEDS: MORPHINE SULFATE 30 MG/30 ML PCA IV SCH ×2 (00:24→16:56)
[2017-02-10] MEDS: PIPERACIL-TAZO 3.375 GM PREMIX 50 ML IV SCH ×4 (00:36→20:04)
[2017-02-10] MEDS: PCA - TOTAL MG MORPHINE DELIVERED PER SHIFT SCH ×3 (04:31→20:04)
[2017-02-10] MEDS: SODIUM CHLOR 0.9% 1000 ML INJ 1,000 ML IV SCH ×2 (04:31→16:56)
[2017-02-10] MEDS: PANTOPRAZOLE INJ 80 MG in SODIUM CHLORIDE 0.9% INJ 100 ML IV SCH ×2 (04:32→13:22)
[2017-02-10 05:01] LABS: AUTOMATED NEUTROPHIL # 7.1 TH/MM3 (1.8-7.7); BASOPHIL % 0.3 % (0.0-2.0); HEMATOCRIT 29.2 % (39.0-51.0); HEMO FLAGS DIFF FINAL; LYMPH % 8.7 % (9.0-44.0); LYMPHOCYTE # 0.8 TH/MM3 (1.0-4.8); MEAN CELL VOLUME 93.4 FL (80.0-100.0); MEAN CORPUSCULAR HEMOGLOBIN 31.1 PG (27.0-34.0); MEAN CORPUSCULAR HGB CONC 33.2 % (32.0-36.0); MONO % 9.5 % (0.0-8.0); NEUT % 81.5 % (16.0-70.0); PLATELET COUNT 164 TH/MM3 (150-450); RED BLOOD COUNT 3.12 MIL/MM3 (4.50-5.90); RED CELL DISTRIBUTION WIDTH 20.9 % (11.6-17.2); WHITE BLOOD COUNT 8.7 TH/MM3 (4.0-11.0)
[2017-02-10 05:44] LABS: POTASSIUM 3.4 MEQ/L (3.5-5.1)
--- NOTE | 2017-02-10 10:38 | HHI.PR ---
Immediate Post Op Note Procedure Date: Feb 09, 2017 Pre Op Diagnosis: recurrent metastatic esophageal cancer, R/O SBO Post Op Diagnosis: no evidence of SBO - ileus pattern throughout entire small bowel, no adhesions, no evidence of carcinomatosis Surgeon: Galen Sanderson Homoeopath(s): dr martinez PGY1 Procedure: diagnostic laparoscopy, laparoscopic G tube (18F RUFUS) Findings: no SBO, no adhesions, ileus of entire small bowel, smal liver met, Complications: none Estimated blood loss: minimal Anesthesia: General Drains: None IVF Patient to: PACU Patient Condition: Good Galen Sanderson MD Feb 10, 2017 10:38
--- NOTE | 2017-02-10 11:07 | HHI.PR ---
Subjective Remarks Patient resting in bed comfortably awake alert No fever or chills, he had exploratory laparoscopy yesterday we did not show adhesions, only generalized ileus G-tube to suctioning gravity with dark material Objective Vitals Vital Signs Date Time Temp Pulse Resp B/P (MAP) Pulse Ox O2 Delivery O2 Flow Rate FiO2 02/10/17 09:09 Nasal Cannula 2.00 02/10/17 08:00 96.2 83 18 104/60 (75) 96 02/10/17 04:31 18 02/10/17 04:00 97.2 86 20 120/64 (82) 95 02/10/17 00:24 18 02/10/17 00:00 97.2 78 20 99/61 (74) 94 02/09/17 20:32 Nasal Cannula 2.00 02/09/17 20:21 18 02/09/17 20:00 99 02/09/17 20:00 98.3 62 20 118/63 (81) 98 02/09/17 18:00 95.5 100 15 119/71 (87) 97 02/09/17 17:31 Nasal Cannula 2.00 02/09/17 17:04 16 02/09/17 17:00 97.6 93 16 133/76 (95) 98 Nasal Cannula 2 02/09/17 16:45 92 15 135/78 (97) 97 Nasal Cannula 2 02/09/17 16:43 15 02/09/17 16:30 91 15 139/77 (97) 96 Nasal Cannula 2 02/09/17 16:15 90 15 140/76 (97) 96 Nasal Cannula 2 02/09/17 16:01 15 02/09/17 16:00 92 15 146/79 (101) 95 Nasal Cannula 2 02/09/17 15:49 15 02/09/17 15:45 92 15 151/82 (105) 100 Nasal Cannula 3 02/09/17 15:35 97.9 91 20 153/78 (103) 99 Nasal Cannula 3 02/09/17 11:28 98.1 86 18 98/69 (79) 96 02/09/17 11:14 98.7 I/O 02/09/17 02/09/17 02/09/17 02/10/17 02/10/17 02/10/17 07:00 15:00 23:00 07:00 15:00 23:00 Intake Total 0 ml 2120 ml 1150 ml Output Total 990 ml 1150 ml Balance 0 ml 1130 ml 0 ml Intake Oral 120 ml 0 ml IV Total 0 ml 400 ml 1150 ml Other 1600 ml Output Urine Total 950 ml 1100 ml Gastric Drainage Total 40 ml 50 ml # Bowel Movements 0 0 Result Diagram: 02/10/1744402/10/17444 Objective Remarks - GENERAL: This is a well-nourished, well-developed patient, in no apparent distress. SKIN: No rashes, warm and dry HEAD: Atraumatic. Normocephalic. EYES: Pupils equal round and reactive. Extraocular motions intact. No scleral icterus. ENT: Nose without bleeding, or drainage, Airway patent. NECK: Trachea midline. Supple CARDIOVASCULAR: Regular rate and rhythm without murmurs, gallops, or rubs. RESPIRATORY: Fair air entry bilaterally. No wheezes, rales, or rhonchi. GASTROINTESTINAL: Abdomen soft, non-tender, nondistended. Positive bowel sounds , G-tube in place suctioning to gravity with Dr. ward MUSCULOSKELETAL: Extremities without clubbing, cyanosis, or edema. Pedal pulses appreciated NEUROLOGICAL: Awake and alert. Moves all extremity. Normal speech.no focal neurological deficit A/P Assessment and Plan 72 years old male with history of 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 came with Multiple episode of hematemesis 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 Partial SBO versus ileus GI bleed Leukocytosis Bilateral pneumonia possibly aspiration DVT prophylaxis with SCD Plan: Status post exploratory laparotomy 02/09 showing generalized ileus, no adhesions no SBO, appreciate surgery follow up Iv Protonix Appreciate GI, oncology consult Zosyn and Zithromax Sent for blood culture and sputum culture if available Palliative care also seen the patient in the daughter, they refused to accept palliative care, bland still for aggressive treatment DVT prophylaxis with SCD due to GI bleed Pa Murray MD Feb 10, 2017 11:07
--- NOTE | 2017-02-10 11:21 | HHI.GIFU ---
Subjective Remarks Patient is resting in bed, feeling hungry, denies abd pain. He is s/p diagnostic laparoscopy, laparoscopic G tube (18 F) Objective Vitals I&O Vital Signs Date Time Temp Pulse Resp B/P (MAP) Pulse Ox O2 Delivery O2 Flow Rate FiO2 02/10/17 09:09 Nasal Cannula 2.00 02/10/17 08:00 96.2 83 18 104/60 (75) 96 02/10/17 04:31 18 02/10/17 04:00 97.2 86 20 120/64 (82) 95 02/10/17 00:24 18 02/10/17 00:00 97.2 78 20 99/61 (74) 94 02/09/17 20:32 Nasal Cannula 2.00 02/09/17 20:21 18 02/09/17 20:00 99 02/09/17 20:00 98.3 62 20 118/63 (81) 98 02/09/17 18:00 95.5 100 15 119/71 (87) 97 02/09/17 17:31 Nasal Cannula 2.00 02/09/17 17:04 16 02/09/17 17:00 97.6 93 16 133/76 (95) 98 Nasal Cannula 2 02/09/17 16:45 92 15 135/78 (97) 97 Nasal Cannula 2 02/09/17 16:43 15 02/09/17 16:30 91 15 139/77 (97) 96 Nasal Cannula 2 02/09/17 16:15 90 15 140/76 (97) 96 Nasal Cannula 2 02/09/17 16:01 15 02/09/17 16:00 92 15 146/79 (101) 95 Nasal Cannula 2 02/09/17 15:49 15 02/09/17 15:45 92 15 151/82 (105) 100 Nasal Cannula 3 02/09/17 15:35 97.9 91 20 153/78 (103) 99 Nasal Cannula 3 02/09/17 11:28 98.1 86 18 98/69 (79) 96 I/O 02/09/17 02/09/17 02/09/17 02/10/17 02/10/17 02/10/17 07:00 15:00 23:00 07:00 15:00 23:00 Intake Total 0 ml 2120 ml 1150 ml Output Total 990 ml 1150 ml Balance 0 ml 1130 ml 0 ml Intake Oral 120 ml 0 ml IV Total 0 ml 400 ml 1150 ml Other 1600 ml Output Urine Total 950 ml 1100 ml Gastric Drainage Total 40 ml 50 ml # Bowel Movements 0 0 Laboratory Laboratory Tests Test 02/09/17 18:39 02/10/17 04:45 Hemoglobin 10.6 9.7 Hematocrit 31.9 29.2 White Blood Count 8.7 Red Blood Count 3.12 Mean Corpuscular Volume 93.4 Mean Corpuscular Hemoglobin 31.1 Mean Corpuscular Hemoglobin Concent 33.2 Red Cell Distribution Width 20.9 Platelet Count 164 Mean Platelet Volume 7.5 Neutrophils (%) (Auto) 81.5 Lymphocytes (%) (Auto) 8.7 Monocytes (%) (Auto) 9.5 Eosinophils (%) (Auto) 0.0 Basophils (%) (Auto) 0.3 Neutrophils # (Auto) 7.1 Lymphocytes # (Auto) 0.8 Monocytes # (Auto) 0.8 Eosinophils # (Auto) 0.0 Basophils # (Auto) 0.0 CBC Comment DIFF FINAL Differential Comment Blood Urea Nitrogen 8 Creatinine 0.60 Random Glucose 102 Calcium Level 9.2 Sodium Level 140 Potassium Level 3.4 Chloride Level 107 Carbon Dioxide Level 25.0 Anion Gap 8 Estimat Glomerular Filtration Rate 133 Date/Time Source Procedure Growth Status 02/08/17 14:20 Blood Peripheral Aerobic Blood Culture - Preliminary NO GROWTH IN 2 DAYS Resulted 02/08/17 14:20 Blood Peripheral Anaerobic Blood Culture - Preliminary NO GROWTH IN 2 DAYS Resulted Imaging Last Impressions Abdomen/Pelvis CT 02/08/17 0939 Signed Impressions: Service Date/Time: January 13:23 - CONCLUSION: 1. New areas of consolidation in the left lower lobe most characteristic of pneumonia. 2. Worsening bowel gas pattern with increased dilatation of multiple loops of small bowel with air-fluid levels. Contrast is noted in the distal colon and this could indicate a partial small bowel obstruction. 3. Right adrenal mass again noted. Anam Agarwal MD Physical Exam HEENT: Normocephalic; atraumatic; no jaundice. CHEST: CTA CARDIAC: RRR ABDOMEN: Soft, distended, mild diffuse tenderness no hepatosplenomegaly; bowel sounds are hypo. G tube EXTREMITIES: No clubbing, cyanosis, or edema. SKIN: Generalized pallor CARPENTER ASSISTANT INSTALLER: No focal deficits; alert and oriented times three. Assessment and Plan Plan ASSESSMENT: - PSBO. S/P diagnostic laparoscopy, laparoscopic G tube (18 F) (02/09/17)---> ileus pattern throughout entire small bowel, no adhesions, no evidence of carcinomatosis CT scan abdomen and pelvis without contrast (02/08/17) and this revealed new areas of consolidation in the left lower lobe most characteristic of pneumonia. Worsening bowel gas pattern with increased dilatation of multiple loops of small bowel with air-fluid levels. Contrast noted in the distal colon and this could indicate a partial small bowel obstruction. Right adrenal mass noted again. - GIB. One episode of black emesis after persistent n/v with brown emesis. Also has had black tarry stool since getting contrast for CT. Currently has rectal tube with some blood liquid stools s/ p surgery yesterday. EGD (01/30/17)----> 1. Large ulcer was found in the distal esophagus, 5 CM above GE junction; with minimal narrowing of the lumen, biopsies were taken 2. Normal stomach and duodenal mucosa. 3. Retroflexed views revealed a hiatal hernia. Pathology invasively poorly differentiated carcinoma with extensive ulceration, A GMS stain is negative for fungal organisms. Cont. Protonix Gtt. This would be difficult to control endoscopically. Supportive care/transfuse as necessary. HH stable at this time. - Leukocytosis. Improved. Zosyn. - Aspiration pneumonia. Zosyn. - Metastatic esophageal cancer. Dx April of 2014 and is s/p chemotherapy and radiation. He was recently found to have metastatic disease in his right upper extremity and states that he recently completed 3 months of chemotherapy and radiation with Dr. Stone. He was noted to have metastatic disease to liver, sclerotic lesions within the lumbar spine which are indeterminate. Pt sees Dr. Stone. has an appointment with Dr. Stone on Sunday and is scheduled for a PET scan on Sunday. PLAN: - NPO, diet per GS - Protonix Gtt - Serial HH - Transfuse as necessary - Zosyn - GS following - Oncology following - Supportive care - No Code per patient and daughter request - Further recommendations to follow based on results of above - PT seen and examined by Dr. Arroyo and myself and this note is written on his behalf Reuben Grijalva Feb 10, 2017 11:21
[2017-02-10] MEDS: AZITHROMYCIN INJ 500 MG in SODIUM CHLOR 0.9% 250 ML INJ 250 ML IV SCH (13:22)
[2017-02-11] VITALS (8 sets, daily range): BP systolic 95–142; BP diastolic 60–78; PULSE 78–100; RESP 17–20; TEMP 95.9–98.4; O2SAT 91–99
[2017-02-11] MEDS: PIPERACIL-TAZO 3.375 GM PREMIX 50 ML IV SCH ×4 (00:24→19:54)
[2017-02-11] MEDS: PANTOPRAZOLE INJ 80 MG in SODIUM CHLORIDE 0.9% INJ 100 ML IV SCH ×2 (00:25→11:38)
[2017-02-11] MEDS: SODIUM CHLOR 0.9% 1000 ML INJ 1,000 ML IV SCH ×3 (00:25→19:54)
[2017-02-11] MEDS: PCA - TOTAL MG MORPHINE DELIVERED PER SHIFT SCH ×3 (04:58→22:00)
[2017-02-11 05:21] LABS: AUTOMATED NEUTROPHIL # 5.7 TH/MM3 (1.8-7.7); BASOPHIL % 0.5 % (0.0-2.0); EOSINOPHIL % 0.6 % (0.0-4.0); HEMATOCRIT 32.2 % (39.0-51.0); HEMO FLAGS DIFF FINAL; LYMPH % 11.2 % (9.0-44.0); LYMPHOCYTE # 0.9 TH/MM3 (1.0-4.8); MEAN CELL VOLUME 92.6 FL (80.0-100.0); MEAN CORPUSCULAR HEMOGLOBIN 30.3 PG (27.0-34.0); MEAN CORPUSCULAR HGB CONC 32.7 % (32.0-36.0); MONO % 13.6 % (0.0-8.0); NEUT % 74.1 % (16.0-70.0); PLATELET COUNT 174 TH/MM3 (150-450); RED BLOOD COUNT 3.47 MIL/MM3 (4.50-5.90); RED CELL DISTRIBUTION WIDTH 20.7 % (11.6-17.2); WHITE BLOOD COUNT 7.6 TH/MM3 (4.0-11.0)
[2017-02-11 05:35] LABS: BICARBONATE 27.2 MEQ/L (21.0-32.0)
[2017-02-11 05:39] LABS: POTASSIUM 2.8 MEQ/L (3.5-5.1)
[2017-02-11] MEDS ORDERED: POTASSIUM CHLORIDE 25 MEQ EFFERVESCENT TAB PO ONE (06:00)
[2017-02-11] MEDS ORDERED: POTASSIUM CHLOR 20 MEQ PREMIX 100 ML IV ONE (06:00)
--- NOTE | 2017-02-11 10:38 | HHI.PR ---
Subjective Remarks Discussed with patient and daughter Status post laparoscopy and exploratory 2 days ago Has G-tube to suction Family wanting to know when he can eat we'll defer that to surgery and GI Many questions answered Restart Xanax and Sinemet Discussed with patient and RN and daughter Objective Vitals Vital Signs Date Time Temp Pulse Resp B/P (MAP) Pulse Ox O2 Delivery O2 Flow Rate FiO2 02/11/17 09:30 Nasal Cannula 2.00 02/11/17 08:00 97.8 88 18 142/78 (99) 95 02/11/17 04:00 96.4 78 20 131/72 (91) 95 02/11/17 00:08 96.5 80 20 117/71 (86) 97 02/10/17 20:08 84 02/10/17 20:07 18 02/10/17 20:04 18 02/10/17 20:00 98.6 70 19 103/61 (75) 94 02/10/17 18:01 98 21 02/10/17 16:00 97.0 92 18 100/57 (71) 98 02/10/17 12:00 97.7 86 18 124/69 (87) 98 I/O 02/10/17 02/10/17 02/10/17 02/11/17 02/11/17 02/11/17 07:00 15:00 23:00 07:00 15:00 23:00 Intake Total 1150 ml 1672 ml 320 ml Output Total 1150 ml 1100 ml 2350 ml Balance 0 ml 572 ml -2030 ml Intake Oral 0 ml 240 ml 120 ml IV Total 1150 ml 1432 ml 200 ml Output Urine Total 1100 ml 1100 ml 2350 ml Gastric Drainage Total 50 ml # Voids 0 # Bowel Movements 0 0 0 Result Diagram: 02/11/17 0500 02/11/17 0500 Other Results Laboratory Tests Test 02/08/17 14:20 02/08/17 21:28 02/09/17 04:00 02/09/17 18:39 Lactic Acid Level 0.8 mmol/L Hemoglobin 8.8 GM/DL 10.7 GM/DL 10.6 GM/DL Hematocrit 26.9 % 31.5 % 31.9 % White Blood Count 7.1 TH/MM3 Red Blood Count 3.37 MIL/MM3 Mean Corpuscular Volume 93.4 FL Mean Corpuscular Hemoglobin 31.6 PG Mean Corpuscular Hemoglobin Concent 33.9 % Red Cell Distribution Width 21.3 % Platelet Count 137 TH/MM3 Mean Platelet Volume 7.6 FL Neutrophils (%) (Auto) 74.1 % Lymphocytes (%) (Auto) 13.5 % Monocytes (%) (Auto) 11.6 % Eosinophils (%) (Auto) 0.5 % Basophils (%) (Auto) 0.3 % Neutrophils # (Auto) 5.2 TH/MM3 Lymphocytes # (Auto) 1.0 TH/MM3 Monocytes # (Auto) 0.8 TH/MM3 Eosinophils # (Auto) 0.0 TH/MM3 Basophils # (Auto) 0.0 TH/MM3 CBC Comment AUTO DIFF Differential Comment AUTO DIFF CONFIRMED Ovalocytes 1+ Keratocytes 1+ Blood Urea Nitrogen 8 MG/DL Creatinine 0.49 MG/DL Random Glucose 89 MG/DL Calcium Level 9.3 MG/DL Sodium Level 139 MEQ/L Potassium Level 3.3 MEQ/L Chloride Level 109 MEQ/L Carbon Dioxide Level 21.6 MEQ/L Anion Gap 8 MEQ/L Estimat Glomerular Filtration Rate 168 ML/MIN Test 02/10/17 04:45 02/11/17 05:00 White Blood Count 8.7 TH/MM3 7.6 TH/MM3 Red Blood Count 3.12 MIL/MM3 3.47 MIL/MM3 Hemoglobin 9.7 GM/DL 10.5 GM/DL Hematocrit 29.2 % 32.2 % Mean Corpuscular Volume 93.4 FL 92.6 FL Mean Corpuscular Hemoglobin 31.1 PG 30.3 PG Mean Corpuscular Hemoglobin Concent 33.2 % 32.7 % Red Cell Distribution Width 20.9 % 20.7 % Platelet Count 164 TH/MM3 174 TH/MM3 Mean Platelet Volume 7.5 FL 7.3 FL Neutrophils (%) (Auto) 81.5 % 74.1 % Lymphocytes (%) (Auto) 8.7 % 11.2 % Monocytes (%) (Auto) 9.5 % 13.6 % Eosinophils (%) (Auto) 0.0 % 0.6 % Basophils (%) (Auto) 0.3 % 0.5 % Neutrophils # (Auto) 7.1 TH/MM3 5.7 TH/MM3 Lymphocytes # (Auto) 0.8 TH/MM3 0.9 TH/MM3 Monocytes # (Auto) 0.8 TH/MM3 1.0 TH/MM3 Eosinophils # (Auto) 0.0 TH/MM3 0.0 TH/MM3 Basophils # (Auto) 0.0 TH/MM3 0.0 TH/MM3 CBC Comment DIFF FINAL DIFF FINAL Differential Comment Blood Urea Nitrogen 8 MG/DL 6 MG/DL Creatinine 0.60 MG/DL 0.54 MG/DL Random Glucose 102 MG/DL 103 MG/DL Calcium Level 9.2 MG/DL 9.4 MG/DL Sodium Level 140 MEQ/L 141 MEQ/L Potassium Level 3.4 MEQ/L 2.8 MEQ/L Chloride Level 107 MEQ/L 108 MEQ/L Carbon Dioxide Level 25.0 MEQ/L 27.2 MEQ/L Anion Gap 8 MEQ/L 6 MEQ/L Estimat Glomerular Filtration Rate 133 ML/MIN 150 ML/MIN Magnesium Level 1.8 MG/DL Imaging Last Impressions Abdomen/Pelvis CT 02/08/17 0939 Signed Impressions: Service Date/Time: , February 08, 2017 13:23 - CONCLUSION: 1. New areas of consolidation in the left lower lobe most characteristic of pneumonia. 2. Worsening bowel gas pattern with increased dilatation of multiple loops of small bowel with air-fluid levels. Contrast is noted in the distal colon and this could indicate a partial small bowel obstruction. 3. Right adrenal mass again noted. Anam Agarwal MD Objective Remarks - GENERAL: This is a well-nourished, well-developed patient, in no apparent distress. SKIN: No rashes, warm and dry HEAD: Atraumatic. Normocephalic. EYES: Pupils equal round and reactive. Extraocular motions intact. No scleral icterus. ENT: Nose without bleeding, or drainage, Airway patent. Tongue is midline orol mucosa is moist NECK: Trachea midline. Supple CARDIOVASCULAR: Regular rate and rhythm without murmurs, gallops, or rubs. S1- S2 no S3 or S4 no heave or thrill RESPIRATORY: Fair air entry bilaterally. No wheezes, rales, or rhonchi. GASTROINTESTINAL: Abdomen soft, non-tender, nondistended. Positive bowel sounds , G-tube in place suctioning to gravity with dark material MUSCULOSKELETAL: Extremities without clubbing, cyanosis, or edema. Pedal pulses appreciated NEUROLOGICAL: Awake and alert. Moves all extremity. Normal speech.no focal neurological deficit Insight and judgment is okay mood and behavior is somewhat appropriate Procedures Umbilical hernia repair and diagnostic laparoscopy and laparoscopic G-tube placement on 02/09/[address] Galen sawant Medications and IVs Current Medications Ondansetron HCl (Zofran Inj) 4 mg ONCE ONCE IVP Last administered on 07:48; Start 02/08/17 at 07:30; Stop 02/08/17 at 07:31; Status DC Sodium Chloride 1,000 ml @ 1,000 mls/hr Q1H IV Last administered on 02/08/17 07:41; Start 02/08/17 at 07:18; Stop 02/08/17 at 08:17; Status DC Sodium Chloride (NS Flush) 2 ml UNSCH PRN IVF FLUSH AFTER USING IV ACCESS Last administered on 02/09/17 01:29; Start 02/08/17 at 07:30 Pantoprazole Sodium 80 mg/ Sodium Chloride 35 ml @ 420 mls/hr Q5M ONCE IV Last administered on 02/08/17 08:08; Start 02/08/17 at 07:18; Stop 02/08/17 at 07:22; Status DC Pantoprazole Sodium 80 mg/ Sodium Chloride 100 ml @ 10 mls/hr Q10H IV Last administered on 02/08/17 08:15; Start 02/08/17 at 07:18; Stop 02/09/17 at 02:08 ; Status DC Hydromorphone HCl (Dilaudid Pf Inj) 1 mg ONCE ONCE IV Last administered on 07:48; Start 02/08/17 at 07:30; Stop 02/08/17 at 07:31; Status DC Morphine Sulfate (Morphine Inj) 2 mg Q15M PRN IV PAIN SCALE 4 TO 10 Last administered on 02/09/17 10:59; Start 02/08/17 at 09:00; Stop 02/09/17 at 11:00; Status DC Sodium Chloride 1,000 ml @ 999 mls/hr BOLUS ONCE IV Last administered on 02/08 09:44; Start 02/08/17 at 09:45; Stop 02/08/17 at 10:45; Status DC Diatrizoate Meglum/ Diatrizoate Sod ( Gastroview Liq) 18 ml STK-MED ONCE .ROUTE Last administered on 02/08/17 10:10; Start 02/08/17 at 10:05; Stop at 10:06; Status DC Ceftriaxone Sodium 1000 mg/ Sodium Chloride 100 ml @ 200 mls/hr ONCE ONCE IV Last administered on 02/08/17 15:37; Start 02/08/17 at 14:15; Stop 02/08/17 at 14:44; Status DC Azithromycin 500 mg/Sodium Chloride 250 ml @ 250 mls/hr ONCE ONCE IV Last administered on 02/08/17 14:30; Start 02/08/17 at 14:15; Stop 02/08/17 at 15:14 ; Status DC Sodium Chloride 1,000 ml @ 999 mls/hr BOLUS ONCE IV Last administered on 02/08 14:31; Start 02/08/17 at 14:15; Stop 02/08/17 at 15:15; Status DC Pantoprazole Sodium 80 mg/ Sodium Chloride 100 ml @ 10 mls/hr CONTINUOUS IV Last administered on 02/11/17 00:25; Start 02/08/17 at 16:45 Sodium Chloride 1,000 ml @ 100 mls/hr Q10H IV Last administered on 02/09/17 02 :56; Start 02/08/17 at 16:56; Stop 02/09/17 at 08:37; Status DC Acetaminophen (Tylenol) 650 mg Q4H PRN PO TEMP > 100.4; Start 02/08/17 at 17:00 Ondansetron HCl (Zofran Inj) 4 mg Q6H PRN IVP NAUSEA OR VOMITING; Start at 17:00 Naloxone HCl (Narcan Inj) 0.4 mg UNSCH PRN IV SEE LABEL COMMENTS; Start at 17:00 Morphine Sulfate (Morphine Inj) 1 mg Q4H PRN IV PUSH pain 3-5 Last administered on 02/09/17 08:51; Start 02/08/17 at 17:00; Stop 02/09/17 at 16:41; Status DC Morphine Sulfate (Morphine Inj) 2 mg Q4H PRN IV PUSH pain 6-10; Start 02/08/17 at 17:00; Stop 02/09/17 at 16:41; Status DC Piperacillin Sod/ Tazobactam Sod 50 ml @ 100 mls/hr Q6H IV Last administered on 02/11/17 09:13; Start 02/08/17 at 20:00 Sodium Chloride 1,000 ml @ 84 mls/hr [id number] IV Last administered on 20:47; Start 02/08/17 at 17:15; Stop 02/09/17 at 08:38; Status DC Sodium Chloride 1,000 ml @ 100 mls/hr Q10H IV Last administered on 02/11/17 00 :25; Start 02/09/17 at 08:45 Azithromycin 500 mg/Sodium Chloride 250 ml @ 250 mls/hr Q24H IV Last administered on 02/10/17 13:22; Start 02/09/17 at 14:00 Midazolam HCl (Versed Inj) 2 mg STK-MED ONCE .ROUTE ; Start 02/09/17 at 13:22; Stop 02/09/17 at 13:23; Status DC Famotidine (Pepcid Inj) 20 mg STK-MED ONCE .ROUTE ; Start 02/09/17 at 13:22; Stop 02/09/17 at 13:23; Status DC Bupivacaine HCl/ Epinephrine Bitart (Sensorcaine-Epinephrine 0.25% Inj) 50 ml STK-MED ONCE .ROUTE Last administered on 02/09/17 14:04; Start 02/09/17 at 13:50 ; Stop 02/09/17 at 13:51; Status DC Cefazolin Sodium (Ancef Inj) 2,000 mg ONCE ONCE IV ; Start 02/09/17 at 14:03; Stop 02/09/17 at 14:04; Status UNV Cefazolin Sodium/ Dextrose 50 ml @ 100 mls/hr ONCE ONCE IV Last administered on 02/09/17 16:45; Start 02/09/17 at 16:00; Stop 02/09/17 at 16:29; Status DC Morphine Sulfate (*morphine INJ PERIprocedure ONLY) 8 mg STK-MED ONCE .ROUTE Last administered on 02/09/17 15:44; Start 02/09/17 at 15:44; Stop 02/09/17 at 15: 45; Status DC Fentanyl Citrate (fentaNYL INJ) 400 mcg STK-MED ONCE .ROUTE ; Start 02/09/17 at 15:48; Stop 02/09/17 at 15:49; Status DC Fentanyl Citrate (fentaNYL INJ) 100 mcg STK-MED ONCE .ROUTE ; Start 02/09/17 at 15:48; Stop 02/09/17 at 15:49; Status DC Morphine Sulfate (*morphine INJ PERIprocedure ONLY) 8 mg STK-MED ONCE .ROUTE Last administered on 02/09/17 15:56; Start 02/09/17 at 15:56; Stop 02/09/17 at 15: 57; Status DC Miscellaneous Information ALL NURSING DEPARTME... UNSCH PRN .XX SEE LABEL COMMENTS; Start 02/09/17 at 15:37; Stop 02/10/17 at 15:36; Status DC Hydromorphone HCl (*DILAUDID PF INJ PERIprocedural ONLY) 1 mg STK-MED ONCE .ROUTE Last administered on 02/09/17 16:13; Start 02/09/17 at 16:13; Stop at 16:14; Status DC Morphine Sulfate (Morphine 1 Mg/ ml JUMPBASTING FACING BASTER) 30 mg STK-MED ONCE .ROUTE ; Start at 16:26; Stop 02/09/17 at 16:27; Status DC Morphine Sulfate (Morphine 1 Mg/ ml JUMPBASTING FACING BASTER) 30 mg UNSCH IV Last administered on 16:56; Start 02/09/17 at 16:45 JUMPBASTING FACING BASTER Dosage Infused (Pha) 1 Q8HR .XX Last administered on 02/10/17 20:04; Start 02/09/17 at 22:00 Naloxone HCl (Narcan Inj) 0.4 mg UNSCH PRN IV RESPIRATORY RATE LESS THAN 10; Start 02/09/17 at 16:45 Potassium Bicarb/ Potassium Chloride (K-Lyte Cl Eff) 50 meq ONCE ONCE PO Last administered on 02/11/17 06:06; Start 02/11/17 at 06:00; Stop 02/11/17 at 06: 01; Status DC Potassium Chloride 100 ml @ 50 mls/hr ONCE ONCE IV Last administered on 06:05; Start 02/11/17 at 06:00; Stop 02/11/17 at 07:59; Status DC Urinary Catheter: No A/P Assessment and Plan 72 years old male with history of 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 came with Multiple episode of hematemesis 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 Partial SBO versus ileus GI bleed Leukocytosis Bilateral pneumonia possibly aspiration DVT prophylaxis with SCD Hypokalemia will need replacement Parkinsons restart home Sinemet ANXIETY RESTART HOME XANAX Plan: Status post exploratory laparotomy 02/09 showing generalized ileus, no adhesions no SBO, appreciate surgery follow up Iv Protonix Appreciate GI, oncology consult Zosyn and Zithromax Sent for blood culture and sputum culture if available Palliative care also seen the patient in the daughter, they refused to accept palliative care, plan is still for aggressive treatment DVT prophylaxis with SCD due to GI bleed Baldomero Arango DO Feb 11, 2017 10:38
[2017-02-11] MEDS ORDERED: POTASSIUM PHOSPHATE INJ 30 MMOL in SODIUM CHLOR 0.9% 250 ML INJ 250 ML IV ONE (10:45)
[2017-02-11] MEDS ORDERED: cloNIDine HCL 0.1 MG TAB PO PRN (10:45)
[2017-02-11] MEDS: POTASSIUM CHLORIDE INJ 40 MEQ in SODIUM CHLOR 0.45% 1000 ML INJ 1,000 ML IV SCH (11:39)
[2017-02-11] MEDS: ALPRAZolam 1 MG TAB PO PRN (11:40)
[2017-02-11] MEDS: CARBIDOPA/LEVODOPA 25 MG/100 MG TAB PO SCH ×4 (11:40→23:31)
[2017-02-11] MEDS: AZITHROMYCIN INJ 500 MG in SODIUM CHLOR 0.9% 250 ML INJ 250 ML IV SCH (13:28)
--- NOTE | 2017-02-11 14:32 | HHI.PR ---
Subjective Subjective Notes no acute issues, feels more weak today, tolerating fulls, g tube clamped Objective Vitals/I&O Vital Signs Date Time Temp Pulse Resp B/P (MAP) Pulse Ox O2 Delivery O2 Flow Rate FiO2 02/11/17 12:00 96.4 100 18 114/75 (88) 98 02/11/17 09:30 Nasal Cannula 2.00 02/10/17 18:01 21 Labs Laboratory Tests Test 02/11/17 05:00 White Blood Count 7.6 Red Blood Count 3.47 Hemoglobin 10.5 Hematocrit 32.2 Mean Corpuscular Volume 92.6 Mean Corpuscular Hemoglobin 30.3 Mean Corpuscular Hemoglobin Concent 32.7 Red Cell Distribution Width 20.7 Platelet Count 174 Mean Platelet Volume 7.3 Neutrophils (%) (Auto) 74.1 Lymphocytes (%) (Auto) 11.2 Monocytes (%) (Auto) 13.6 Eosinophils (%) (Auto) 0.6 Basophils (%) (Auto) 0.5 Neutrophils # (Auto) 5.7 Lymphocytes # (Auto) 0.9 Monocytes # (Auto) 1.0 Eosinophils # (Auto) 0.0 Basophils # (Auto) 0.0 CBC Comment DIFF FINAL Differential Comment Blood Urea Nitrogen 6 Creatinine 0.54 Random Glucose 103 Calcium Level 9.4 Sodium Level 141 Potassium Level 2.8 Chloride Level 108 Carbon Dioxide Level 27.2 Anion Gap 6 Estimat Glomerular Filtration Rate 150 Magnesium Level 1.8 Date/Time Source Procedure Growth Status 02/08/17 14:20 Blood Peripheral Aerobic Blood Culture - Preliminary NO GROWTH IN 3 DAYS Resulted 02/08/17 14:20 Blood Peripheral Anaerobic Blood Culture - Preliminary NO GROWTH IN 3 DAYS Resulted Radiology Last 48 hours Impressions Abdomen/Pelvis CT 02/08/17 0939 Signed Impressions: Service Date/Time: , February 08, 2017 13:23 - CONCLUSION: 1. New areas of consolidation in the left lower lobe most characteristic of pneumonia. 2. Worsening bowel gas pattern with increased dilatation of multiple loops of small bowel with air-fluid levels. Contrast is noted in the distal colon and this could indicate a partial small bowel obstruction. 3. Right adrenal mass again noted. Anam Agarwal MD Abdomen: Other (incisional tenderness g tube c/d/i) A/P Assessment and Plan s/p g tube placement pod 2 start TF at 10cc/hr nutrition consult to titrate will s/o reconsult if needed Michael Sullivan MD Feb 11, 2017 14:31
--- NOTE | 2017-02-11 14:47 | HHI.GIFU ---
Subjective Remarks Resting in bed. Daughter at bedside. Denies abdominal pain. No N/V. Patient is s /p G tube placement and diagnostic laparoscopy, POD 2 Objective Vitals I&O Vital Signs Date Time Temp Pulse Resp B/P (MAP) Pulse Ox O2 Delivery O2 Flow Rate FiO2 02/11/17 12:00 96.4 100 18 114/75 (88) 98 02/11/17 09:30 Nasal Cannula 2.00 02/11/17 08:00 97.8 88 18 142/78 (99) 95 02/11/17 04:00 96.4 78 20 131/72 (91) 95 02/11/17 00:08 96.5 80 20 117/71 (86) 97 02/10/17 20:08 84 02/10/17 20:07 18 02/10/17 20:04 18 02/10/17 20:00 98.6 70 19 103/61 (75) 94 02/10/17 18:01 98 21 02/10/17 16:00 97.0 92 18 100/57 (71) 98 I/O 02/10/17 02/10/17 02/10/17 02/11/17 02/11/17 02/11/17 07:00 15:00 23:00 07:00 15:00 23:00 Intake Total 1150 ml 1672 ml 320 ml Output Total 1150 ml 1100 ml 2350 ml Balance 0 ml 572 ml -2030 ml Intake Oral 0 ml 240 ml 120 ml IV Total 1150 ml 1432 ml 200 ml Output Urine Total 1100 ml 1100 ml 2350 ml Gastric Drainage Total 50 ml # Voids 0 # Bowel Movements 0 0 0 Laboratory Laboratory Tests Test 02/11/17 05:00 White Blood Count 7.6 Red Blood Count 3.47 Hemoglobin 10.5 Hematocrit 32.2 Mean Corpuscular Volume 92.6 Mean Corpuscular Hemoglobin 30.3 Mean Corpuscular Hemoglobin Concent 32.7 Red Cell Distribution Width 20.7 Platelet Count 174 Mean Platelet Volume 7.3 Neutrophils (%) (Auto) 74.1 Lymphocytes (%) (Auto) 11.2 Monocytes (%) (Auto) 13.6 Eosinophils (%) (Auto) 0.6 Basophils (%) (Auto) 0.5 Neutrophils # (Auto) 5.7 Lymphocytes # (Auto) 0.9 Monocytes # (Auto) 1.0 Eosinophils # (Auto) 0.0 Basophils # (Auto) 0.0 CBC Comment DIFF FINAL Differential Comment Blood Urea Nitrogen 6 Creatinine 0.54 Random Glucose 103 Calcium Level 9.4 Sodium Level 141 Potassium Level 2.8 Chloride Level 108 Carbon Dioxide Level 27.2 Anion Gap 6 Estimat Glomerular Filtration Rate 150 Magnesium Level 1.8 Date/Time Source Procedure Growth Status 02/08/17 14:20 Blood Peripheral Aerobic Blood Culture - Preliminary NO GROWTH IN 3 DAYS Resulted 02/08/17 14:20 Blood Peripheral Anaerobic Blood Culture - Preliminary NO GROWTH IN 3 DAYS Resulted Imaging Last Impressions Abdomen/Pelvis CT 02/08/17 0939 Signed Impressions: Service Date/Time: , February 08, 2017 13:23 - CONCLUSION: 1. New areas of consolidation in the left lower lobe most characteristic of pneumonia. 2. Worsening bowel gas pattern with increased dilatation of multiple loops of small bowel with air-fluid levels. Contrast is noted in the distal colon and this could indicate a partial small bowel obstruction. 3. Right adrenal mass again noted. Anam Agarwal MD Physical Exam HEENT: Normocephalic; atraumatic; no jaundice. CHEST: CTA CARDIAC: RRR ABDOMEN: Soft, distended, mild diffuse tenderness, no hepatosplenomegaly; bowel sounds are hypoactive. G tube, dressing C/D/I. Laparoscopy incision sites C/D/I EXTREMITIES: No clubbing, cyanosis, or edema. SKIN: Generalized pallor HEAD OF PRECISION TARGETING: No focal deficits; alert and oriented x 3 Assessment and Plan Plan ASSESSMENT: - PSBO. S/P diagnostic laparoscopy, laparoscopic G tube (18 F) (02/09/17)---> ileus pattern throughout entire small bowel, no adhesions, no evidence of carcinomatosis CT scan abdomen and pelvis without contrast (02/08/17) and this revealed new areas of consolidation in the left lower lobe most characteristic of pneumonia. Worsening bowel gas pattern with increased dilatation of multiple loops of small bowel with air-fluid levels. Contrast noted in the distal colon and this could indicate a partial small bowel obstruction. Right adrenal mass noted again. - GIB. One episode of black emesis after persistent n/v with brown emesis. Also has had black tarry stool since getting contrast for CT. Currently has rectal tube with some blood liquid stools s/ p surgery yesterday. EGD (01/30/17)----> 1. Large ulcer was found in the distal esophagus, 5 CM above GE junction; with minimal narrowing of the lumen, biopsies were taken 2. Normal stomach and duodenal mucosa. 3. Retroflexed views revealed a hiatal hernia. Pathology invasively poorly differentiated carcinoma with extensive ulceration, A GMS stain is negative for fungal organisms. Cont. Protonix Gtt. This would be difficult to control endoscopically. Supportive care/transfuse as necessary. HH stable at this time. - Leukocytosis. Improved. Zosyn. - Aspiration pneumonia. Zosyn. - Metastatic esophageal cancer. Dx April of 2014 and is s/p chemotherapy and radiation. He was recently found to have metastatic disease in his right upper extremity and states that he recently completed 3 months of chemotherapy and radiation with Dr. Stone. He was noted to have metastatic disease to liver, sclerotic lesions within the lumbar spine which are indeterminate. Pt sees Dr. Stone. has an appointment with Dr. Stone on Sunday and is scheduled for a PET scan on Sunday. 02/11/17--S/P G tube placement POD 2. Patient states he is doing well. Denies abdominal pain. No N/V. PLAN: - Agree with starting TF at 10 cc/hr - Nutrition consult to titrate - Protonix Gtt - Serial HH, transfuse as necessary - Zosyn - GS following - Oncology following - Supportive care - No Code per patient and daughter request - Further recommendations to follow based on results of above Patient seen and examined by Dr. Arroyo and myself and this note is written on his behalf Katlin Palma Feb 11, 2017 14:47
[2017-02-12] VITALS (9 sets, daily range): BP systolic 116–132; BP diastolic 68–76; PULSE 76–101; RESP 18–20; TEMP 96–98.1; O2SAT 93–99
[2017-02-12] MEDS: PIPERACIL-TAZO 3.375 GM PREMIX 50 ML IV SCH ×4 (01:20→19:56)
[2017-02-12] MEDS: PANTOPRAZOLE INJ 80 MG in SODIUM CHLORIDE 0.9% INJ 100 ML IV SCH (01:20)
[2017-02-12] MEDS: CARBIDOPA/LEVODOPA 25 MG/100 MG TAB PO SCH ×5 (04:00→19:57)
[2017-02-12 04:28] LABS: AUTOMATED NEUTROPHIL # 5.2 TH/MM3 (1.8-7.7); BASOPHIL # 0.1 TH/MM3 (0-0.2); EOSINOPHIL % 0.6 % (0.0-4.0); HEMATOCRIT 32.2 % (39.0-51.0); HEMO FLAGS DIFF FINAL; LYMPH % 12.9 % (9.0-44.0); LYMPHOCYTE # 0.9 TH/MM3 (1.0-4.8); MEAN CORPUSCULAR HEMOGLOBIN 31.3 PG (27.0-34.0); MEAN CORPUSCULAR HGB CONC 33.6 % (32.0-36.0); MONO % 13.7 % (0.0-8.0); NEUT % 71.8 % (16.0-70.0); PLATELET COUNT 171 TH/MM3 (150-450); RED BLOOD COUNT 3.46 MIL/MM3 (4.50-5.90); RED CELL DISTRIBUTION WIDTH 20.7 % (11.6-17.2); WHITE BLOOD COUNT 7.2 TH/MM3 (4.0-11.0)
[2017-02-12] MEDS: MORPHINE SULFATE 30 MG/30 ML PCA IV SCH ×2 (04:46→19:56)
[2017-02-12 04:47] LABS: ANION GAP 7 MEQ/L (5-15); AST (GOT) 15 U/L (15-37); BICARBONATE 27.1 MEQ/L (21.0-32.0); BLOOD UREA NITROGEN 6 MG/DL (7-18); CHLORIDE 105 MEQ/L (98-107); GLOMERULAR FILTRATION RATE 135 ML/MIN (>89); MAGNESIUM 1.7 MG/DL (1.5-2.5); SODIUM (NA) 139 MEQ/L (136-145)
[2017-02-12 04:48] LABS: ALT (GPT) LESS THAN 6 U/L (12-78)
[2017-02-12 04:56] LABS: ALKALINE PHOSPHATASE 75 U/L (45-117); FREE T4 1.52 NG/DL (0.76-1.46); TOTAL BILIRUBIN ADULT 0.8 MG/DL (0.2-1.0)
[2017-02-12] MEDS: PCA - TOTAL MG MORPHINE DELIVERED PER SHIFT SCH ×3 (06:00→19:57)
[2017-02-12] MEDS: SODIUM CHLOR 0.9% 1000 ML INJ 1,000 ML IV SCH ×2 (06:25→07:54)
[2017-02-12] MEDS: SODIUM CHLORIDE 0.9% FLUSH 10 ML FLUSH IVF PRN (09:00)
--- NOTE | 2017-02-12 09:16 | MP ---
cc: KAYLEY ONOFRE M.D. DATE OF SURGERY 02/09/2017 PREOPERATIVE DIAGNOSES 1. Metastatic recurrent esophageal cancer. 2. Possible small bowel obstruction versus ileus. POSTOPERATIVE DIAGNOSES 1. Metastatic recurrent esophageal cancer. 2. No evidence of mechanical small bowel obstruction. 3. No evidence of widespread intraabdominal metastatic disease 4. Small liver metastasis (see photo). PROCEDURE PERFORMED 1. Diagnostic laparoscopy. 2. Laparoscopic lysis of adhesions. 3. Laparoscopic gastrostomy tube (RUFUS 18-Mosotho). 4. Primary repair umbilical hernia. SURGEON Kayley Onofre MD GENETICS TEACHER Dr. Alfaro PG1. ANESTHESIA General endotracheal. COMPLICATIONS None. INDICATIONS FOR PROCEDURE Mr. Hairston is a very pleasant 72-year-old gentleman who unfortunately has metastatic recurrent esophageal cancer. He has been admitted twice in the last 10 days for nausea and vomiting. He has had a CT scan of the abdomen and pelvis which was concerning for ileus or possible mechanical bowel obstruction. Initially he was managed nonoperative and did well. He went home and returned yesterday with continued nausea and vomiting. Surgical consultation was requested. As the patient has a distal esophageal cancer. I also recommended placement of a gastrostomy tube for both palliative and therapeutic purposes. This was all discussed with him and his daughter at the bedside and they were agreeable. INTRAOPERATIVE FINDINGS Small bowel was run in a retrograde manner from the ileocecal valve to the ligament of Treitz. There was no evidence of mechanical bowel obstruction. There were some omental adhesions in the right lower quadrant from previous appendectomy and these were taken down with sharp dissection. The patient did have a single what appeared to be liver metastasis and this was photographed. There was no evidence of carcinomatosis or intraperitoneal spread of the malignancy. DETAILS The patient was identified, brought the operating room and placed supine on the operating table. After adequate general endotracheal anesthesia was achieved, the abdomen was prepped and draped in standard surgical fashion. The infraumbilical space was anesthetized with 0.25% Marcaine. Infraumbilical incision was made. The patient had a known umbilical hernia. The umbilical hernia was dissected circumferentially and then the hernia sac opened. A finger was then placed in the peritoneal cavity without difficulty. Blunt balloon trocar was inserted and the abdomen insufflated with 50 mmHg using CO2 gas. Next the 30-degrees laparoscope was inserted. A brief exploration of the abdomen revealed no obvious widespread metastatic disease. There was a single liver lesion noted and it was photographed. Attention was now directed to the small bowel. The patient's attention was directed to the right lower quadrant at the ileocecal valve. The patient did have an omental adhesion down in this area from a previous appendectomy and this was taken down with sharp dissection. Once that adhesion was freed up, we could easily visualize the small bowel at the terminal ileum. The small bowel was grasped and run in a retrograde fashion all the way to the ligament of Treitz. There was mild dilatation of the small bowel but there were no adhesions, no kinks, no twists and no other abnormalities noted. The small bowel was fairly dilated and fluid-filled but there was no mechanical obstruction that I could appreciate. We then ran the bowel second time to confirm our initial findings. Again we saw the ileocecal valve and I ran the small bowel in a retrograde fashion all the way to the left occiput transverse then the small bowel retrograde fashion all the way to the ligament of Treitz and there was no transition point, no adhesions and no abnormalities noted. The small bowel was then returned to the lower part of the abdominal cavity and omentum was placed over it. Attention was now directed to placement of the gastrostomy tube. The stomach was grasped in the left upper quadrant. A site was selected for the gastrostomy tube in the subcostal area. The stomach was held up and three T-fasteners were used to grasp the anterior wall of the stomach and pull it up to the abdominal wall. Once we did this, a 14-gauge angiocatheter was used to puncture the stomach and make an anterior gastrotomy. Guidewire was advanced and easily went into the stomach without any difficulty. The angiocatheter was then removed and a scalpel was used to enlarge the anterior abdominal wall incision and then we fed the dilator/introducer over the guidewire. It was again seen to go right into the stomach without any difficulty. The guidewire was then removed. An 18-Mosotho RUFUS gastrostomy tube was then inserted. We did test the balloon prior to insertion and there was no evidence of leak. The balloon was inserted into the introducer and into the stomach without any difficulty. The wound was then insufflated with 10 cc of saline. The gastrostomy tube was then pulled up to the abdominal wall and the balloon was clearly seen in the stomach pulling it up. The flange was then secured at approximately 3 cm and it was secured with a 0 silk at approximately 3 cm. The T-fasteners were then used to secure the flange to the abdominal wall. Gastrostomy tube was tested and saline was noted to flow in easily and we retrieved gastric contents. This was also confirmed by OG tube placement by anesthesia were we instilled saline into the stomach and then they were able to suction out with the orogastric tube. At this point I felt confident that the G-tube was in the appropriate location and the stomach was adherent to the abdominal wall with no gaps. The abdomen was carefully desufflated. All ports removed. The umbilical hernia sac was excised. The umbilical fascia was then closed with a 0 Vicryl interrupted x 2 as the patient had a fairly small hernia. The subcutaneous tissue was irrigated out and closed with a 4-0 Vicryl. Port sites were closed 4-0 Vicryl. The patient tolerated the procedure well, was awakened and brought to Recovery in stable condition. MD PAUL Lizama/ELMO /4:53 PM /8:47 AM
--- NOTE | 2017-02-12 10:30 | HHI.PR ---
Subjective Subjective Notes Resting in bed Daughter at bedside Objective Vitals/I&O Vital Signs Date Time Temp Pulse Resp B/P (MAP) Pulse Ox O2 Delivery O2 Flow Rate FiO2 02/12/17 08:24 Nasal Cannula 2.00 02/12/17 08:00 97.1 93 18 130/71 (90) 95 02/11/17 18:15 21 Labs Laboratory Tests Test 02/12/17 04:14 White Blood Count 7.2 Red Blood Count 3.46 Hemoglobin 10.8 Hematocrit 32.2 Mean Corpuscular Volume 93.0 Mean Corpuscular Hemoglobin 31.3 Mean Corpuscular Hemoglobin Concent 33.6 Red Cell Distribution Width 20.7 Platelet Count 171 Mean Platelet Volume 7.3 Neutrophils (%) (Auto) 71.8 Lymphocytes (%) (Auto) 12.9 Monocytes (%) (Auto) 13.7 Eosinophils (%) (Auto) 0.6 Basophils (%) (Auto) 1.0 Neutrophils # (Auto) 5.2 Lymphocytes # (Auto) 0.9 Monocytes # (Auto) 1.0 Eosinophils # (Auto) 0.0 Basophils # (Auto) 0.1 CBC Comment DIFF FINAL Differential Comment Blood Urea Nitrogen 6 Creatinine 0.59 Random Glucose 120 Total Protein 6.0 Albumin 2.4 Calcium Level 9.9 Phosphorus Level 1.6 Magnesium Level 1.7 Alkaline Phosphatase 75 Aspartate Amino Transf (AST/SGOT) 15 Alanine Aminotransferase (ALT/SGPT) LESS THAN 6 Total Bilirubin 0.8 Sodium Level 139 Potassium Level 3.0 Chloride Level 105 Carbon Dioxide Level 27.1 Anion Gap 7 Estimat Glomerular Filtration Rate 135 Free Thyroxine 1.52 Thyroid Stimulating Hormone 3rd Gen 0.696 Date/Time Source Procedure Growth Status 02/08/17 14:20 Blood Peripheral Aerobic Blood Culture - Preliminary NO GROWTH IN 3 DAYS Resulted 02/08/17 14:20 Blood Peripheral Anaerobic Blood Culture - Preliminary NO GROWTH IN 3 DAYS Resulted Radiology Last 48 hours Impressions Abdomen/Pelvis CT 02/08/17 0939 Signed Impressions: Service Date/Time: January 13:23 - CONCLUSION: 1. New areas of consolidation in the left lower lobe most characteristic of pneumonia. 2. Worsening bowel gas pattern with increased dilatation of multiple loops of small bowel with air-fluid levels. Contrast is noted in the distal colon and this could indicate a partial small bowel obstruction. 3. Right adrenal mass again noted. Anam Agarwal MD Cardiovascular: Regular Lungs: Clear Abdomen: Non-distended, Non-tender, Other (G tube in place without complications; lap sites c/d/i with steri strips in place ) Extremities: No edema A/P Assessment and Plan 72 year old male with esophagus cancer; metastatic disease to liver and bone -POD3 dx lap; lap G tube placement -Continue Full liquids; advance TF to 30 cc/hr -OOB and mobilize -Pain control Attending Note - Dr. Turner Feels like he needs to have a bowel movement G-tube site clean and dry Ramp up TF Once near goal, can start bolus feeds and go home The exam, history, and the medical decision-making described in the above note were completed with the assistance of the mid-level provider. I reviewed and agree with the findings presented. I attest that I had a [id number] encounter with the patient on the same day, and personally performed and documented my assessment and findings in the medical record. Antonia Hardy Feb 12, 2017 10:30 Anam Turner MD Feb 12, 2017 16:28
[2017-02-12 11:35] LABS: HEMOGLOBIN Ao 85.7 %; HEMOGLOBIN F 1.2 %; HEMOGLOBIN LA1C 2.1 %; HEMOGLOBIN P3 3.7 %
[2017-02-12] MEDS: POTASSIUM CHLORIDE INJ 40 MEQ in SODIUM CHLOR 0.45% 1000 ML INJ 1,000 ML IV SCH (12:29)
--- NOTE | 2017-02-12 12:56 | HHI.GIFU ---
Subjective Remarks Resting in bed. Daughter at bedside. Reports "gas pains" and states he has not had BM in several days. No N/V. Patient is s/p G tube placement and diagnostic laparoscopy, POD 3. Tolerating TF. Objective Vitals I&O Vital Signs Date Time Temp Pulse Resp B/P (MAP) Pulse Ox O2 Delivery O2 Flow Rate FiO2 02/12/17 12:00 96.3 101 18 132/71 (91) 99 02/12/17 11:04 98 Nasal Cannula 2.00 02/12/17 08:24 Nasal Cannula 2.00 02/12/17 08:00 97.1 93 18 130/71 (90) 95 02/12/17 06:00 18 02/12/17 04:51 18 02/12/17 04:46 17 02/12/17 04:00 98.1 83 20 131/76 (94) 93 02/12/17 00:00 97.1 88 20 122/68 (86) 95 02/11/17 22:00 18 02/11/17 20:14 87 02/11/17 20:00 98.4 87 20 104/60 (75) 91 02/11/17 19:50 Nasal Cannula 2.00 02/11/17 18:15 99 21 02/11/17 16:00 95.9 91 17 95/62 (73) 99 02/11/17 13:57 21 I/O 02/11/17 02/11/17 02/11/17 02/12/17 02/12/17 02/12/17 06:59 14:59 22:59 06:59 14:59 22:59 Intake Total 320 ml 300 ml 2640 ml 440 ml Output Total 2350 ml 2900 ml 600 ml 250 ml Balance -2030 ml 300 ml -260 ml -160 ml -250 ml Intake Oral 120 ml 1230 ml 240 ml IV Total 200 ml 300 ml 1410 ml 150 ml Tube Feeding 50 ml Output Urine Total 2350 ml 2900 ml 600 ml 250 ml # Bowel Movements 0 0 Laboratory Laboratory Tests Test 02/12/17 04:14 White Blood Count 7.2 Red Blood Count 3.46 Hemoglobin 10.8 Hematocrit 32.2 Mean Corpuscular Volume 93.0 Mean Corpuscular Hemoglobin 31.3 Mean Corpuscular Hemoglobin Concent 33.6 Red Cell Distribution Width 20.7 Platelet Count 171 Mean Platelet Volume 7.3 Neutrophils (%) (Auto) 71.8 Lymphocytes (%) (Auto) 12.9 Monocytes (%) (Auto) 13.7 Eosinophils (%) (Auto) 0.6 Basophils (%) (Auto) 1.0 Neutrophils # (Auto) 5.2 Lymphocytes # (Auto) 0.9 Monocytes # (Auto) 1.0 Eosinophils # (Auto) 0.0 Basophils # (Auto) 0.1 CBC Comment DIFF FINAL Differential Comment Blood Urea Nitrogen 6 Creatinine 0.59 Random Glucose 120 Total Protein 6.0 Albumin 2.4 Calcium Level 9.9 Phosphorus Level 1.6 Magnesium Level 1.7 Alkaline Phosphatase 75 Aspartate Amino Transf (AST/SGOT) 15 Alanine Aminotransferase (ALT/SGPT) LESS THAN 6 Total Bilirubin 0.8 Sodium Level 139 Potassium Level 3.0 Chloride Level 105 Carbon Dioxide Level 27.1 Anion Gap 7 Estimat Glomerular Filtration Rate 135 Hemoglobin A1c 5.0 Free Thyroxine 1.52 Thyroid Stimulating Hormone 3rd Gen 0.696 Date/Time Source Procedure Growth Status 02/08/17 14:20 Blood Peripheral Aerobic Blood Culture - Preliminary NO GROWTH IN 4 DAYS Resulted 02/08/17 14:20 Blood Peripheral Anaerobic Blood Culture - Preliminary NO GROWTH IN 4 DAYS Resulted Imaging Last Impressions Abdomen/Pelvis CT 02/08/17 0939 Signed Impressions: Service Date/Time: January 13:23 - CONCLUSION: 1. New areas of consolidation in the left lower lobe most characteristic of pneumonia. 2. Worsening bowel gas pattern with increased dilatation of multiple loops of small bowel with air-fluid levels. Contrast is noted in the distal colon and this could indicate a partial small bowel obstruction. 3. Right adrenal mass again noted. Anam Agarwal MD Physical Exam HEENT: Normocephalic; atraumatic; no jaundice. CHEST: CTA CARDIAC: RRR ABDOMEN: Soft, mildly distended, mild diffuse tenderness, no hepatosplenomegaly ; bowel sounds are hypoactive. G tube, dressing C/D/I. Laparoscopy incision sites C/D/I EXTREMITIES: No clubbing, cyanosis, or edema. SKIN: No rash. HEAD OF ICT: No focal deficits; alert and oriented x 3 Assessment and Plan Plan ASSESSMENT: - PSBO. S/P diagnostic laparoscopy, laparoscopic G tube (18 F) (02/09/17)---> ileus pattern throughout entire small bowel, no adhesions, no evidence of carcinomatosis CT scan abdomen and pelvis without contrast (02/08/17) and this revealed new areas of consolidation in the left lower lobe most characteristic of pneumonia. Worsening bowel gas pattern with increased dilatation of multiple loops of small bowel with air-fluid levels. Contrast noted in the distal colon and this could indicate a partial small bowel obstruction. Right adrenal mass noted again. - GIB. One episode of black emesis after persistent n/v with brown emesis. Also has had black tarry stool since getting contrast for CT. Currently has rectal tube with some blood liquid stools s/ p surgery yesterday. EGD (01/30/17)----> 1. Large ulcer was found in the distal esophagus, 5 CM above GE junction; with minimal narrowing of the lumen, biopsies were taken 2. Normal stomach and duodenal mucosa. 3. Retroflexed views revealed a hiatal hernia. Pathology invasively poorly differentiated carcinoma with extensive ulceration, A GMS stain is negative for fungal organisms. Cont. Protonix Gtt. This would be difficult to control endoscopically. Supportive care/transfuse as necessary. HH stable at this time. - Leukocytosis. Improved. Zosyn. - Aspiration pneumonia. Zosyn. - Metastatic esophageal cancer. Dx April of 2014 and is s/p chemotherapy and radiation. He was recently found to have metastatic disease in his right upper extremity and states that he recently completed 3 months of chemotherapy and radiation with Dr. Stone. He was noted to have metastatic disease to liver, sclerotic lesions within the lumbar spine which are indeterminate. Pt sees Dr. Stone. has an appointment with Dr. Stone on Sunday and is scheduled for a PET scan on Sunday. 02/11/17--S/P G tube placement POD 2. Patient states he is doing well. Denies abdominal pain. No N/V. 02/12/17--POD 3. Having "gas pains" and has not had a BM. Tolerating TF. HH stable 10.8/32.2. WBC normal. PLAN: - Okay to advance TF to 30cc/hr - Mobilize OOB - Start Miralax daily - Protonix Gtt - Monitor HH, transfuse as necessary - Zosyn - GS following - Oncology following - Supportive care - No Code per patient and daughter request - Further recommendations to follow based on results of above Patient seen and examined by Dr. Arroyo and myself and this note is written on his behalf Katlin Palma Feb 12, 2017 12:56
[2017-02-12] MEDS: POLYETHYLENE GLYCOL 17 GM PKG PO SCH ×2 (13:00→15:40)
[2017-02-12] MEDS: AZITHROMYCIN INJ 500 MG in SODIUM CHLOR 0.9% 250 ML INJ 250 ML IV SCH (14:20)
--- NOTE | 2017-02-12 14:55 | HHI.PR ---
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 OFTEN GI WANTS ON MIRALAX SO HE CAN HAVE BOWEL MOVEMENTS DW RN AND PT STILL ON TUBE FEEDS AT 10ML/HR ONLY AM LABS Objective Vitals Vital Signs Date Time Temp Pulse Resp B/P (MAP) Pulse Ox O2 Delivery O2 Flow Rate FiO2 02/12/17 12:00 96.3 101 18 132/71 (91) 99 02/12/17 11:04 98 Nasal Cannula 2.00 02/12/17 08:24 Nasal Cannula 2.00 02/12/17 08:00 97.1 93 18 130/71 (90) 95 02/12/17 06:00 18 02/12/17 04:51 18 02/12/17 04:46 17 02/12/17 04:00 98.1 83 20 131/76 (94) 93 02/12/17 00:00 97.1 88 20 122/68 (86) 95 02/11/17 22:00 18 02/11/17 20:14 87 02/11/17 20:00 98.4 87 20 104/60 (75) 91 02/11/17 19:50 Nasal Cannula 2.00 02/11/17 18:15 99 21 02/11/17 16:00 95.9 91 17 95/62 (73) 99 I/O 02/11/17 02/11/17 02/11/17 02/12/17 02/12/17 02/12/17 06:59 14:59 22:59 06:59 14:59 22:59 Intake Total 320 ml 300 ml 2640 ml 440 ml Output Total 2350 ml 2900 ml 600 ml 250 ml Balance -2030 ml 300 ml -260 ml -160 ml -250 ml Intake Oral 120 ml 1230 ml 240 ml IV Total 200 ml 300 ml 1410 ml 150 ml Tube Feeding 50 ml Output Urine Total 2350 ml 2900 ml 600 ml 250 ml # Bowel Movements 0 0 Result Diagram: 02/12/17 0414 02/12/17 0414 Other Results Laboratory Tests Test 02/09/17 18:39 02/10/17 04:45 02/11/17 05:00 02/12/17 04:14 Hemoglobin 10.6 GM/DL 9.7 GM/DL 10.5 GM/DL 10.8 GM/DL Hematocrit 31.9 % 29.2 % 32.2 % 32.2 % White Blood Count 8.7 TH/MM3 7.6 TH/MM3 7.2 TH/MM3 Red Blood Count 3.12 MIL/MM3 3.47 MIL/MM3 3.46 MIL/MM3 Mean Corpuscular Volume 93.4 FL 92.6 FL 93.0 FL Mean Corpuscular Hemoglobin 31.1 PG 30.3 PG 31.3 PG Mean Corpuscular Hemoglobin Concent 33.2 % 32.7 % 33.6 % Red Cell Distribution Width 20.9 % 20.7 % 20.7 % Platelet Count 164 TH/MM3 174 TH/MM3 171 TH/MM3 Mean Platelet Volume 7.5 FL 7.3 FL 7.3 FL Neutrophils (%) (Auto) 81.5 % 74.1 % 71.8 % Lymphocytes (%) (Auto) 8.7 % 11.2 % 12.9 % Monocytes (%) (Auto) 9.5 % 13.6 % 13.7 % Eosinophils (%) (Auto) 0.0 % 0.6 % 0.6 % Basophils (%) (Auto) 0.3 % 0.5 % 1.0 % Neutrophils # (Auto) 7.1 TH/MM3 5.7 TH/MM3 5.2 TH/MM3 Lymphocytes # (Auto) 0.8 TH/MM3 0.9 TH/MM3 0.9 TH/MM3 Monocytes # (Auto) 0.8 TH/MM3 1.0 TH/MM3 1.0 TH/MM3 Eosinophils # (Auto) 0.0 TH/MM3 0.0 TH/MM3 0.0 TH/MM3 Basophils # (Auto) 0.0 TH/MM3 0.0 TH/MM3 0.1 TH/MM3 CBC Comment DIFF FINAL DIFF FINAL DIFF FINAL Differential Comment Blood Urea Nitrogen 8 MG/DL 6 MG/DL 6 MG/DL Creatinine 0.60 MG/DL 0.54 MG/DL 0.59 MG/DL Random Glucose 102 MG/DL 103 MG/DL 120 MG/DL Calcium Level 9.2 MG/DL 9.4 MG/DL 9.9 MG/DL Sodium Level 140 MEQ/L 141 MEQ/L 139 MEQ/L Potassium Level 3.4 MEQ/L 2.8 MEQ/L 3.0 MEQ/L Chloride Level 107 MEQ/L 108 MEQ/L 105 MEQ/L Carbon Dioxide Level 25.0 MEQ/L 27.2 MEQ/L 27.1 MEQ/L Anion Gap 8 MEQ/L 6 MEQ/L 7 MEQ/L Estimat Glomerular Filtration Rate 133 ML/MIN 150 ML/MIN 135 ML/MIN Magnesium Level 1.8 MG/DL 1.7 MG/DL Total Protein 6.0 GM/DL Albumin 2.4 GM/DL Phosphorus Level 1.6 MG/DL Alkaline Phosphatase 75 U/L Aspartate Amino Transf (AST/SGOT) 15 U/L Alanine Aminotransferase (ALT/SGPT) LESS THAN 6 U/L Total Bilirubin 0.8 MG/DL Hemoglobin A1c 5.0 % Free Thyroxine 1.52 NG/DL Thyroid Stimulating Hormone 3rd Gen 0.696 uIU/ML Imaging Last Impressions Abdomen/Pelvis CT 02/08/17 0939 Signed Impressions: Service Date/Time: January 13:23 - CONCLUSION: 1. New areas of consolidation in the left lower lobe most characteristic of pneumonia. 2. Worsening bowel gas pattern with increased dilatation of multiple loops of small bowel with air-fluid levels. Contrast is noted in the distal colon and this could indicate a partial small bowel obstruction. 3. Right adrenal mass again noted. Anam Agarwal MD Objective Remarks - GENERAL: This is a well-nourished, well-developed patient, in no apparent distress. SKIN: No rashes, warm and dry HEAD: Atraumatic. Normocephalic. EYES: Pupils equal round and reactive. Extraocular motions intact. No scleral icterus. ENT: Nose without bleeding, or drainage, Airway patent. Tongue is midline oral mucosa is moist NECK: Trachea midline. Supple CARDIOVASCULAR: Regular rate and rhythm without murmurs, gallops, or rubs. S1- S2 no S3 or S4 no heave or thrill RESPIRATORY: Fair air entry bilaterally. No wheezes, rales, or rhonchi. GASTROINTESTINAL: Abdomen soft, non-tender, nondistended. HYPOACTIVE bowel sounds, G-tube in place --STILL ON MUSCULOSKELETAL: Extremities without clubbing, cyanosis, or edema. Pedal pulses appreciated NEUROLOGICAL: Awake and alert. Moves all extremity. Normal speech.no focal neurological deficit Insight and judgment is okay mood and behavior is somewhat appropriate Procedures Umbilical hernia repair and diagnostic laparoscopy and laparoscopic G-tube placement on 02/09/[address] Galen sawant Medications and IVs Current Medications Ondansetron HCl (Zofran Inj) 4 mg ONCE ONCE IVP Last administered on 07:48; Start 02/08/17 at 07:30; Stop 02/08/17 at 07:31; Status DC Sodium Chloride 1,000 ml @ 1,000 mls/hr Q1H IV Last administered on 02/08/17 07:41; Start 02/08/17 at 07:18; Stop 02/08/17 at 08:17; Status DC Sodium Chloride (NS Flush) 2 ml UNSCH PRN IVF FLUSH AFTER USING IV ACCESS Last administered on 02/12/17 09:00; Start 02/08/17 at 07:30 Pantoprazole Sodium 80 mg/ Sodium Chloride 35 ml @ 420 mls/hr Q5M ONCE IV Last administered on 02/08/17 08:08; Start 02/08/17 at 07:18; Stop 02/08/17 at 07:22; Status DC Pantoprazole Sodium 80 mg/ Sodium Chloride 100 ml @ 10 mls/hr Q10H IV Last administered on 02/08/17 08:15; Start 02/08/17 at 07:18; Stop 02/09/17 at 02:08 ; Status DC Hydromorphone HCl (Dilaudid Pf Inj) 1 mg ONCE ONCE IV Last administered on 07:48; Start 02/08/17 at 07:30; Stop 02/08/17 at 07:31; Status DC Morphine Sulfate (Morphine Inj) 2 mg Q15M PRN IV PAIN SCALE 4 TO 10 Last administered on 02/09/17 10:59; Start 02/08/17 at 09:00; Stop 02/09/17 at 11:00; Status DC Sodium Chloride 1,000 ml @ 999 mls/hr BOLUS ONCE IV Last administered on 02/08 09:44; Start 02/08/17 at 09:45; Stop 02/08/17 at 10:45; Status DC Diatrizoate Meglum/ Diatrizoate Sod (Md Gastroview Liq) 18 ml STK-MED ONCE .ROUTE Last administered on 02/08/17 10:10; Start 02/08/17 at 10:05; Stop at 10:06; Status DC Ceftriaxone Sodium 1000 mg/ Sodium Chloride 100 ml @ 200 mls/hr ONCE ONCE IV Last administered on 02/08/17 15:37; Start 02/08/17 at 14:15; Stop 02/08/17 at 14:44; Status DC Azithromycin 500 mg/Sodium Chloride 250 ml @ 250 mls/hr ONCE ONCE IV Last administered on 02/08/17 14:30; Start 02/08/17 at 14:15; Stop 02/08/17 at 15:14 ; Status DC Sodium Chloride 1,000 ml @ 999 mls/hr BOLUS ONCE IV Last administered on 02/08 14:31; Start 02/08/17 at 14:15; Stop 02/08/17 at 15:15; Status DC Pantoprazole Sodium 80 mg/ Sodium Chloride 100 ml @ 10 mls/hr CONTINUOUS IV Last administered on 02/12/17 01:20; Start 02/08/17 at 16:45; Stop 02/12/17 at 11 :52; Status DC Sodium Chloride 1,000 ml @ 100 mls/hr Q10H IV Last administered on 02/09/17 02 :56; Start 02/08/17 at 16:56; Stop 02/09/17 at 08:37; Status DC Acetaminophen (Tylenol) 650 mg Q4H PRN PO TEMP > 100.4; Start 02/08/17 at 17:00 Ondansetron HCl (Zofran Inj) 4 mg Q6H PRN IVP NAUSEA OR VOMITING; Start at 17:00 Naloxone HCl (Narcan Inj) 0.4 mg UNSCH PRN IV SEE LABEL COMMENTS; Start at 17:00 Morphine Sulfate (Morphine Inj) 1 mg Q4H PRN IV PUSH pain 3-5 Last administered on 02/09/17 08:51; Start 02/08/17 at 17:00; Stop 02/09/17 at 16:41; Status DC Morphine Sulfate (Morphine Inj) 2 mg Q4H PRN IV PUSH pain 6-10; Start 02/08/17 at 17:00; Stop 02/09/17 at 16:41; Status DC Piperacillin Sod/ Tazobactam Sod 50 ml @ 100 mls/hr Q6H IV Last administered on 02/12/17 14:20; Start 02/08/17 at 20:00 Sodium Chloride 1,000 ml @ 84 mls/hr [id number] IV Last administered on 20:47; Start 02/08/17 at 17:15; Stop 02/09/17 at 08:38; Status DC Sodium Chloride 1,000 ml @ 100 mls/hr Q10H IV Last administered on 02/11/17 00 :25; Start 02/09/17 at 08:45 Azithromycin 500 mg/Sodium Chloride 250 ml @ 250 mls/hr Q24H IV Last administered on 02/12/17 14:20; Start 02/09/17 at 14:00 Midazolam HCl (Versed Inj) 2 mg STK-MED ONCE .ROUTE ; Start 02/09/17 at 13:22; Stop 02/09/17 at 13:23; Status DC Famotidine (Pepcid Inj) 20 mg STK-MED ONCE .ROUTE ; Start 02/09/17 at 13:22; Stop 02/09/17 at 13:23; Status DC Bupivacaine HCl/ Epinephrine Bitart (Sensorcaine-Epinephrine 0.25% Inj) 50 ml STK-MED ONCE .ROUTE Last administered on 02/09/17 14:04; Start 02/09/17 at 13:50 ; Stop 02/09/17 at 13:51; Status DC Cefazolin Sodium (Ancef Inj) 2,000 mg ONCE ONCE IV ; Start 02/09/17 at 14:03; Stop 02/09/17 at 14:04; Status UNV Cefazolin Sodium/ Dextrose 50 ml @ 100 mls/hr ONCE ONCE IV Last administered on 02/09/17 16:45; Start 02/09/17 at 16:00; Stop 02/09/17 at 16:29; Status DC Morphine Sulfate (*morphine INJ PERIprocedure ONLY) 8 mg STK-MED ONCE .ROUTE Last administered on 02/09/17 15:44; Start 02/09/17 at 15:44; Stop 02/09/17 at 15: 45; Status DC Fentanyl Citrate (fentaNYL INJ) 400 mcg STK-MED ONCE .ROUTE ; Start 02/09/17 at 15:48; Stop 02/09/17 at 15:49; Status DC Fentanyl Citrate (fentaNYL INJ) 100 mcg STK-MED ONCE .ROUTE ; Start 02/09/17 at 15:48; Stop 02/09/17 at 15:49; Status DC Morphine Sulfate (*morphine INJ PERIprocedure ONLY) 8 mg STK-MED ONCE .ROUTE Last administered on 02/09/17 15:56; Start 02/09/17 at 15:56; Stop 02/09/17 at 15: 57; Status DC Miscellaneous Information ALL NURSING DEPARTME... UNSCH PRN .XX SEE LABEL COMMENTS; Start 02/09/17 at 15:37; Stop 02/10/17 at 15:36; Status DC Hydromorphone HCl (*DILAUDID PF INJ PERIprocedural ONLY) 1 mg STK-MED ONCE .ROUTE Last administered on 02/09/17 16:13; Start 02/09/17 at 16:13; Stop at 16:14; Status DC Morphine Sulfate (Morphine 1 Mg/ ml INSURANCE AGENCY MANAGER) 30 mg STK-MED ONCE .ROUTE ; Start at 16:26; Stop 02/09/17 at 16:27; Status DC Morphine Sulfate (Morphine 1 Mg/ ml INSURANCE AGENCY MANAGER) 30 mg UNSCH IV Last administered on 04:46; Start 02/09/17 at 16:45 INSURANCE AGENCY MANAGER Dosage Infused (Pha) 1 Q8HR .XX Last administered on 02/12/17 14:00; Start 02/09/17 at 22:00 Naloxone HCl (Narcan Inj) 0.4 mg UNSCH PRN IV RESPIRATORY RATE LESS THAN 10; Start 02/09/17 at 16:45 Potassium Bicarb/ Potassium Chloride (K-Lyte Cl Eff) 50 meq ONCE ONCE PO Last administered on 02/11/17 06:06; Start 02/11/17 at 06:00; Stop 02/11/17 at 06: 01; Status DC Potassium Chloride 100 ml @ 50 mls/hr ONCE ONCE IV Last administered on 06:05; Start 02/11/17 at 06:00; Stop 02/11/17 at 07:59; Status DC Alprazolam (Xanax) 1 mg TID PRN PO ANXIETY Last administered on 02/11/17 11:40 ; Start 02/11/17 at 13:00 Carbidopa/Levodopa (Sinemet 25-100 Mg) 1 tab Q4HR PO Last administered on 11:36; Start 02/11/17 at 12:00 Potassium Phosphate 30 mmol/ Sodium Chloride 260 ml @ 43.333 mls/ hr ONCE ONCE IV Last administered on 02/11/17 11:39; Start 02/11/17 at 10:45; Stop at 16:44; Status DC Potassium Chloride 40 meq/ Sodium Chloride 1,020 ml @ 42 mls/hr Q24H IV Last administered on 02/12/17 12:29; Start 02/11/17 at 11:00 Clonidine (Catapres) 0.1 mg Q4H PRN PO SBP>160, DBP>90; Start 02/11/17 at 10:45 Pantoprazole Sodium (Protonix) 40 mg BIDAC PO ; Start 02/12/17 at 16:00 Polyethylene Glycol (Miralax) 17 gm DAILY PO ; Start 02/12/17 at 13:00 Urinary Catheter: No Vascular Central Line Catheter: No A/P Assessment and Plan 72 years old male with history of 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 came with Multiple episode of hematemesis 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 Partial SBO versus ileus GI bleed Leukocytosis Bilateral pneumonia possibly aspiration DVT prophylaxis with SCD Hypokalemia will need replacement Parkinsons restart home Sinemet ANXIETY RESTART HOME XANAX HYPOACTIVE BOWEL SOUNDS- 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 labs Baldomero Gutierrez DO Feb 12, 2017 14:55
[2017-02-12] MEDS: PANTOPRAZOLE SOD 40 MG DELAYED RELEASE TAB PO SCH (15:24)
[2017-02-13] VITALS (9 sets, daily range): BP systolic 99–119; BP diastolic 60–72; PULSE 89–101; RESP 18–20; TEMP 96.2–99; O2SAT 94–96
[2017-02-13] MEDS: SODIUM CHLOR 0.9% 1000 ML INJ 1,000 ML IV SCH ×3 (03:07→22:06)
[2017-02-13] MEDS: PIPERACIL-TAZO 3.375 GM PREMIX 50 ML IV SCH ×4 (03:07→22:05)
[2017-02-13] MEDS: CARBIDOPA/LEVODOPA 25 MG/100 MG TAB PO SCH ×7 (03:07→23:38)
[2017-02-13] MEDS: PCA - TOTAL MG MORPHINE DELIVERED PER SHIFT SCH ×3 (04:42→19:58)
[2017-02-13] MEDS: PANTOPRAZOLE SOD 40 MG DELAYED RELEASE TAB PO SCH ×2 (04:42→16:48)
[2017-02-13] MEDS: MORPHINE SULFATE 30 MG/30 ML PCA IV SCH ×2 (04:50→19:56)
[2017-02-13] MEDS: ALPRAZolam 1 MG TAB PO PRN ×2 (05:41→22:04)
[2017-02-13 06:01] LABS: AUTOMATED NEUTROPHIL # 4.8 TH/MM3 (1.8-7.7); BASOPHIL % 0.4 % (0.0-2.0); EOSINOPHIL # 0.1 TH/MM3 (0-0.4); HEMATOCRIT 31.3 % (39.0-51.0); HEMO FLAGS DIFF FINAL; LYMPH % 15.3 % (9.0-44.0); LYMPHOCYTE # 1.1 TH/MM3 (1.0-4.8); MEAN CELL VOLUME 93.4 FL (80.0-100.0); MEAN CORPUSCULAR HEMOGLOBIN 30.7 PG (27.0-34.0); MEAN CORPUSCULAR HGB CONC 32.9 % (32.0-36.0); MONO % 14.4 % (0.0-8.0); NEUT % 68.9 % (16.0-70.0); PLATELET COUNT 163 TH/MM3 (150-450); RED BLOOD COUNT 3.35 MIL/MM3 (4.50-5.90); RED CELL DISTRIBUTION WIDTH 20.4 % (11.6-17.2)
[2017-02-13 06:23] LABS: ANION GAP 9 MEQ/L (5-15); AST (GOT) 14 U/L (15-37); BICARBONATE 27.3 MEQ/L (21.0-32.0); BLOOD UREA NITROGEN 7 MG/DL (7-18); CHLORIDE 102 MEQ/L (98-107); GLOMERULAR FILTRATION RATE 121 ML/MIN (>89); MAGNESIUM 1.7 MG/DL (1.5-2.5); POTASSIUM 3.1 MEQ/L (3.5-5.1); SODIUM (NA) 138 MEQ/L (136-145)
[2017-02-13 06:32] LABS: ALKALINE PHOSPHATASE 75 U/L (45-117); ALT (GPT) 7 U/L (12-78); TOTAL BILIRUBIN ADULT 0.6 MG/DL (0.2-1.0)
--- NOTE | 2017-02-13 09:07 | HHI.PR ---
Subjective Subjective Notes Resting in bed C/o LEFT wrist and forearm pain similar to the pain he had when he found out he had metastatic disease in RIGHT arm Daughter at bedside Objective Vitals/I&O Vital Signs Date Time Temp Pulse Resp B/P (MAP) Pulse Ox O2 Delivery O2 Flow Rate FiO2 02/13/17 08:00 98.6 100 20 99/65 (76) 94 02/12/17 23:47 Nasal Cannula 2.00 02/11/17 18:15 21 Labs Laboratory Tests Test 02/13/17 05:00 White Blood Count 7.0 Red Blood Count 3.35 Hemoglobin 10.3 Hematocrit 31.3 Mean Corpuscular Volume 93.4 Mean Corpuscular Hemoglobin 30.7 Mean Corpuscular Hemoglobin Concent 32.9 Red Cell Distribution Width 20.4 Platelet Count 163 Mean Platelet Volume 7.8 Neutrophils (%) (Auto) 68.9 Lymphocytes (%) (Auto) 15.3 Monocytes (%) (Auto) 14.4 Eosinophils (%) (Auto) 1.0 Basophils (%) (Auto) 0.4 Neutrophils # (Auto) 4.8 Lymphocytes # (Auto) 1.1 Monocytes # (Auto) 1.0 Eosinophils # (Auto) 0.1 Basophils # (Auto) 0.0 CBC Comment DIFF FINAL Differential Comment Blood Urea Nitrogen 7 Creatinine 0.65 Random Glucose 113 Total Protein 5.9 Albumin 2.3 Calcium Level 9.5 Phosphorus Level 2.2 Magnesium Level 1.7 Alkaline Phosphatase 75 Aspartate Amino Transf (AST/SGOT) 14 Alanine Aminotransferase (ALT/SGPT) 7 Total Bilirubin 0.6 Sodium Level 138 Potassium Level 3.1 Chloride Level 102 Carbon Dioxide Level 27.3 Anion Gap 9 Estimat Glomerular Filtration Rate 121 Date/Time Source Procedure Growth Status 02/08/17 14:20 Blood Peripheral Aerobic Blood Culture - Preliminary NO GROWTH IN 4 DAYS Resulted 02/08/17 14:20 Blood Peripheral Anaerobic Blood Culture - Preliminary NO GROWTH IN 4 DAYS Resulted Radiology Last 48 hours Impressions Abdomen/Pelvis CT 02/08/17 0939 Signed Impressions: Service Date/Time: January 13:23 - CONCLUSION: 1. New areas of consolidation in the left lower lobe most characteristic of pneumonia. 2. Worsening bowel gas pattern with increased dilatation of multiple loops of small bowel with air-fluid levels. Contrast is noted in the distal colon and this could indicate a partial small bowel obstruction. 3. Right adrenal mass again noted. Anam Agarwal MD Cardiovascular: Regular Lungs: Clear Abdomen: Other (lap sites c/d/i; G tube in place without complications and TF infusing ) Extremities: Other Narrative Exam RIGHT wrist brace on LEFT wrist and forearm pain --no visible signs of trauma A/P Assessment and Plan 72 year old male with esophagus cancer; metastatic disease to liver and bone -POD4 dx lap; lap G tube placement -Advance to soft diet; increase TF to goal of 60 cc today -May transition to nocturnal feedings vs bolus feedings over the next few days -OOB and mobilize -Pain control Antonia Hardy Feb 13, 2017 09:06
[2017-02-13] MEDS ORDERED: POTASSIUM PHOSPHATE INJ 30 MMOL in SODIUM CHLOR 0.9% 250 ML INJ 250 ML IV ONE (10:00)
[2017-02-13] MEDS: POLYETHYLENE GLYCOL 17 GM PKG PO SCH (10:25)
[2017-02-13] MEDS: MAGNESIUM SULFATE 1 GM PREMIX 100 ML IV SCH ×2 (10:26→10:30)
[2017-02-13] MEDS ORDERED: SODIUM PHOSPHATE INJ 30 MMOL in SODIUM CHLOR 0.9% 250 ML INJ 250 ML IV ONE (10:30)
--- NOTE | 2017-02-13 12:10 | RADRPT ---
EXAM DATE/TIME: 02/13/2017 11:30 [facility] COMPARISON: No previous studies available for comparison. INDICATIONS : Left wrist pain & tender with no known injury. MEDICAL HISTORY : Parkinson's disease. chemical pneumonia. esophageal cancer. chemotherapy. SURGICAL HISTORY : Tonsillectomy. Cholecystectomy. Appendectomy. Orthopedic surgery, back. ENCOUNTER: Initial ACUITY: 3 days PAIN SCORE: 7/10 LOCATION: Left wrist FINDINGS: Bones of the left wrist are intact and normally aligned. There is mild radiocarpal and moderate trisc aphe as well as first carpometacarpal osteoarthritis. Radiographic appearance of the soft tissues wit hin normal limits. CONCLUSION: Intact left wrist. 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 Robbin Cheney MD on February 13, 2017 at 12:08 Board Certified Radiologist. This report was verified electronically.
--- NOTE | 2017-02-13 12:12 | RADRPT ---
EXAM DATE/TIME: 02/13/2017 11:34 [facility] COMPARISON: No previous studies available for comparison. INDICATIONS : Patient states left forearm very sore & tender with no known injury. MEDICAL HISTORY : Parkinson's disease. chemical pneumonia. esophageal cancer. chemotherapy. SURGICAL HISTORY : Tonsillectomy. Cholecystectomy. Appendectomy. Orthopedic surgery, back. ENCOUNTER: Subsequent ACUITY: 3 days PAIN SCORE: 7/10 LOCATION: Left forearm FINDINGS: Left radius and ulna are intact. No evidence of bony destruction or periosteal reaction. Radiographic appearance of the soft tissues within normal limits. No radiopaque foreign body demonstrated. CONCLUSION: Radiographic appearance of the left forearm is within normal limits. Robbin Cheney MD on February 13, 2017 at 12:09 Board Certified Radiologist. This report was verified electronically.
[2017-02-13] MEDS: POTASSIUM CHLORIDE INJ 40 MEQ in SODIUM CHLOR 0.45% 1000 ML INJ 1,000 ML IV SCH (12:22)
--- NOTE | 2017-02-13 14:54 | HHI.GIFU ---
Subjective Remarks Resting in bed. C/O left upper extremity pain. Taking full liquids. No GI bleeding. Objective Vitals I&O Vital Signs Date Time Temp Pulse Resp B/P (MAP) Pulse Ox O2 Delivery O2 Flow Rate FiO2 02/13/17 13:52 95 Nasal Cannula 2.00 02/13/17 12:00 96.9 101 20 109/60 (76) 95 02/13/17 10:30 Nasal Cannula 2.00 21 02/13/17 08:00 98.6 100 20 99/65 (76) 94 02/13/17 04:50 18 02/13/17 04:42 18 02/13/17 00:00 99.0 89 19 116/69 (85) 96 02/12/17 23:47 Nasal Cannula 2.00 02/12/17 20:03 18 02/12/17 20:00 99 02/12/17 20:00 97.7 76 19 123/68 (86) 96 02/12/17 19:57 17 02/12/17 19:56 18 02/12/17 17:38 98 Nasal Cannula 2.00 02/12/17 16:00 96.0 96 18 116/69 (85) 98 I/O 02/12/17 02/12/17 02/12/17 02/13/17 02/13/17 02/13/17 06:59 14:59 22:59 06:59 14:59 22:59 Intake Total 440 ml 856 ml 455 ml Output Total 600 ml 250 ml 975 ml 750 ml Balance -160 ml -250 ml -119 ml -295 ml Intake Oral 240 ml 600 ml 240 ml IV Total 150 ml 50 ml Tube Feeding 50 ml 146 ml 215 ml Tube Irrigant 60 ml Output Urine Total 600 ml 250 ml 975 ml 750 ml # Bowel Movements 1 Laboratory Laboratory Tests Test 02/13/17 05:00 White Blood Count 7.0 Red Blood Count 3.35 Hemoglobin 10.3 Hematocrit 31.3 Mean Corpuscular Volume 93.4 Mean Corpuscular Hemoglobin 30.7 Mean Corpuscular Hemoglobin Concent 32.9 Red Cell Distribution Width 20.4 Platelet Count 163 Mean Platelet Volume 7.8 Neutrophils (%) (Auto) 68.9 Lymphocytes (%) (Auto) 15.3 Monocytes (%) (Auto) 14.4 Eosinophils (%) (Auto) 1.0 Basophils (%) (Auto) 0.4 Neutrophils # (Auto) 4.8 Lymphocytes # (Auto) 1.1 Monocytes # (Auto) 1.0 Eosinophils # (Auto) 0.1 Basophils # (Auto) 0.0 CBC Comment DIFF FINAL Differential Comment Blood Urea Nitrogen 7 Creatinine 0.65 Random Glucose 113 Total Protein 5.9 Albumin 2.3 Calcium Level 9.5 Phosphorus Level 2.2 Magnesium Level 1.7 Alkaline Phosphatase 75 Aspartate Amino Transf (AST/SGOT) 14 Alanine Aminotransferase (ALT/SGPT) 7 Total Bilirubin 0.6 Sodium Level 138 Potassium Level 3.1 Chloride Level 102 Carbon Dioxide Level 27.3 Anion Gap 9 Estimat Glomerular Filtration Rate 121 Date/Time Source Procedure Growth Status 02/08/17 14:20 Blood Peripheral Aerobic Blood Culture - Final NO GROWTH IN 5 DAYS Complete 02/08/17 14:20 Blood Peripheral Anaerobic Blood Culture - Final NO GROWTH IN 5 DAYS Complete Imaging Last Impressions Wrist X-Ray 02/13/17 0000 Signed Impressions: Service Date/Time: Monday, February 13, 2017 11:30 - CONCLUSION: Intact left wrist. 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 Robbin Cheney MD Radius/Ulna X-Ray 02/13/17 0000 Signed Impressions: Service Date/Time: Monday, February 13, 2017 11:34 - CONCLUSION: Radiographic appearance of the left forearm is within normal limits. Robbin Cheney MD Abdomen/Pelvis CT 02/08/17 0939 Signed Impressions: Service Date/Time: January 13:23 - CONCLUSION: 1. New areas of consolidation in the left lower lobe most characteristic of pneumonia. 2. Worsening bowel gas pattern with increased dilatation of multiple loops of small bowel with air-fluid levels. Contrast is noted in the distal colon and this could indicate a partial small bowel obstruction. 3. Right adrenal mass again noted. Anam Agarwal MD Physical Exam HEENT: Normocephalic; atraumatic; no jaundice. CHEST: CTA CARDIAC: RRR ABDOMEN: Soft, nondistended, nontender, no hepatosplenomegaly; bowel sounds are hypoactive. G tube, dressing C/D/I. Laparoscopy incision sites C/D/I EXTREMITIES: No clubbing, cyanosis, or edema. SKIN: No rash. TAKE OUT WAITRESS: No focal deficits; alert and oriented x 3 Assessment and Plan Plan ASSESSMENT: - PSBO. S/P diagnostic laparoscopy, laparoscopic G tube (18 F) (02/09/17)---> ileus pattern throughout entire small bowel, no adhesions, no evidence of carcinomatosis. CT scan abdomen and pelvis without contrast (02/08/17) and this revealed new areas of consolidation in the left lower lobe most characteristic of pneumonia. Worsening bowel gas pattern with increased dilatation of multiple loops of small bowel with air-fluid levels. Contrast noted in the distal colon and this could indicate a partial small bowel obstruction. Right adrenal mass noted again. Clinically much improved. Tolerating TF. Taking ensure by mouth. - GIB. One episode of black emesis after persistent n/v with brown emesis and black tarry stool on admission. EGD (01/30/17)----> 1. Large ulcer was found in the distal esophagus, 5 CM above GE junction; with minimal narrowing of the lumen, biopsies were taken 2. Normal stomach and duodenal mucosa. 3. Retroflexed views revealed a hiatal hernia. Pathology invasively poorly differentiated carcinoma with extensive ulceration, A GMS stain is negative for fungal organisms. Cont. Protonix Gtt. This would be difficult to control endoscopically. Supportive care/transfuse as necessary. HH stable at this time. - Anemia. 10.3.3. PPI - Leukocytosis. Improved. WBC 7.0. Zosyn, Azithromycin - Aspiration pneumonia. Azithromycin, Zosyn. - Metastatic esophageal cancer. Dx April of 2014 and is s/p chemotherapy and radiation. He was recently found to have metastatic disease in his right upper extremity and states that he recently completed 3 months of chemotherapy and radiation with Dr. Stone. He was noted to have metastatic disease to liver, sclerotic lesions within the lumbar spine which are indeterminate. Pt sees Dr. Stone. has an appointment with Dr. Stone on Sunday and is scheduled for a PET scan on Sunday. - Left upper extremity pain. S/P Xray (02/13/17) intact left wrist, mild intact left wrist. 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 Radiographic appearance of the left forearm is within normal limits. Per attending. PLAN: - Soft diet as tolerated - TF via G tube - Miralax daily - Protonix with po BID - Monitor HH, transfuse as necessary - Zosyn - GS following - Oncology following - Supportive care - Further recommendations to follow based on results of above - Patient seen and examined by Dr. Arroyo and myself and this note is written on his behalf Janice Bajwa Feb 13, 2017 14:54
[2017-02-13] MEDS: AZITHROMYCIN INJ 500 MG in SODIUM CHLOR 0.9% 250 ML INJ 250 ML IV SCH (15:16)
--- NOTE | 2017-02-13 17:21 | HHI.PR ---
Subjective Remarks 9-3 Discussed with patient and daughter Status post laparoscopy and exploratory 2 days ago Has G-tube to suction Family wanting to know when he can eat we'll defer that to surgery and GI Many questions answered Restart Xanax and Sinemet Discussed with patient and RN and daughter 9-4 NOT HAVING BMS YET COMPLAINS OF GAS STILL USING AURICULAR DETOXIFICATION SPECIALIST PUMP QUITE OFTEN GI WANTS ON MIRALAX SO HE CAN HAVE BOWEL MOVEMENTS DW RN AND PT STILL ON TUBE FEEDS AT 10ML/HR ONLY 9-5 TOLERATING TUBE FEEDS DW RN AND PT HAD BMS STILL USING AURICULAR DETOXIFICATION SPECIALIST PUMP ON TUBE FEEDS AT 30ML/HR Objective Vitals Vital Signs Date Time Temp Pulse Resp B/P (MAP) Pulse Ox O2 Delivery O2 Flow Rate FiO2 02/13/17 15:20 18 02/13/17 14:00 18 02/13/17 13:52 95 Nasal Cannula 2.00 02/13/17 12:00 96.9 101 20 109/60 (76) 95 02/13/17 10:30 Nasal Cannula 2.00 21 02/13/17 08:00 98.6 100 20 99/65 (76) 94 02/13/17 04:50 18 02/13/17 04:42 18 02/13/17 00:00 99.0 89 19 116/69 (85) 96 02/12/17 23:47 Nasal Cannula 2.00 02/12/17 20:03 18 02/12/17 20:00 99 02/12/17 20:00 97.7 76 19 123/68 (86) 96 02/12/17 19:57 17 02/12/17 19:56 18 02/12/17 17:38 98 Nasal Cannula 2.00 I/O 02/12/17 02/12/17 02/12/17 02/13/17 02/13/17 02/13/17 06:59 14:59 22:59 06:59 14:59 22:59 Intake Total 440 ml 856 ml 455 ml 292 ml Output Total 600 ml 250 ml 975 ml 750 ml Balance -160 ml -250 ml -119 ml -295 ml 292 ml Intake Oral 240 ml 600 ml 240 ml IV Total 150 ml 50 ml 292 ml Tube Feeding 50 ml 146 ml 215 ml Tube Irrigant 60 ml Output Urine Total 600 ml 250 ml 975 ml 750 ml # Bowel Movements 1 Result Diagram: 02/13/17 0500 02/13/17 0500 Other Results Laboratory Tests Test 02/11/17 05:00 02/12/17 04:14 02/13/17 05:00 White Blood Count 7.6 TH/MM3 7.2 TH/MM3 7.0 TH/MM3 Red Blood Count 3.47 MIL/MM3 3.46 MIL/MM3 3.35 MIL/MM3 Hemoglobin 10.5 GM/DL 10.8 GM/DL 10.3 GM/DL Hematocrit 32.2 % 32.2 % 31.3 % Mean Corpuscular Volume 92.6 FL 93.0 FL 93.4 FL Mean Corpuscular Hemoglobin 30.3 PG 31.3 PG 30.7 PG Mean Corpuscular Hemoglobin Concent 32.7 % 33.6 % 32.9 % Red Cell Distribution Width 20.7 % 20.7 % 20.4 % Platelet Count 174 TH/MM3 171 TH/MM3 163 TH/MM3 Mean Platelet Volume 7.3 FL 7.3 FL 7.8 FL Neutrophils (%) (Auto) 74.1 % 71.8 % 68.9 % Lymphocytes (%) (Auto) 11.2 % 12.9 % 15.3 % Monocytes (%) (Auto) 13.6 % 13.7 % 14.4 % Eosinophils (%) (Auto) 0.6 % 0.6 % 1.0 % Basophils (%) (Auto) 0.5 % 1.0 % 0.4 % Neutrophils # (Auto) 5.7 TH/MM3 5.2 TH/MM3 4.8 TH/MM3 Lymphocytes # (Auto) 0.9 TH/MM3 0.9 TH/MM3 1.1 TH/MM3 Monocytes # (Auto) 1.0 TH/MM3 1.0 TH/MM3 1.0 TH/MM3 Eosinophils # (Auto) 0.0 TH/MM3 0.0 TH/MM3 0.1 TH/MM3 Basophils # (Auto) 0.0 TH/MM3 0.1 TH/MM3 0.0 TH/MM3 CBC Comment DIFF FINAL DIFF FINAL DIFF FINAL Differential Comment Blood Urea Nitrogen 6 MG/DL 6 MG/DL 7 MG/DL Creatinine 0.54 MG/DL 0.59 MG/DL 0.65 MG/DL Random Glucose 103 MG/DL 120 MG/DL 113 MG/DL Calcium Level 9.4 MG/DL 9.9 MG/DL 9.5 MG/DL Sodium Level 141 MEQ/L 139 MEQ/L 138 MEQ/L Potassium Level 2.8 MEQ/L 3.0 MEQ/L 3.1 MEQ/L Chloride Level 108 MEQ/L 105 MEQ/L 102 MEQ/L Carbon Dioxide Level 27.2 MEQ/L 27.1 MEQ/L 27.3 MEQ/L Anion Gap 6 MEQ/L 7 MEQ/L 9 MEQ/L Estimat Glomerular Filtration Rate 150 ML/MIN 135 ML/MIN 121 ML/MIN Magnesium Level 1.8 MG/DL 1.7 MG/DL 1.7 MG/DL Total Protein 6.0 GM/DL 5.9 GM/DL Albumin 2.4 GM/DL 2.3 GM/DL Phosphorus Level 1.6 MG/DL 2.2 MG/DL Alkaline Phosphatase 75 U/L 75 U/L Aspartate Amino Transf (AST/SGOT) 15 U/L 14 U/L Alanine Aminotransferase (ALT/SGPT) LESS THAN 6 U/L 7 U/L Total Bilirubin 0.8 MG/DL 0.6 MG/DL Hemoglobin A1c 5.0 % Free Thyroxine 1.52 NG/DL Thyroid Stimulating Hormone 3rd Gen 0.696 uIU/ML Imaging Last Impressions Wrist X-Ray 02/13/17 0000 Signed Impressions: Service Date/Time: Monday, February 13, 2017 11:30 - CONCLUSION: Intact left wrist. 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 Robbin Cheney MD Radius/Ulna X-Ray 02/13/17 0000 Signed Impressions: Service Date/Time: Monday, February 13, 2017 11:34 - CONCLUSION: Radiographic appearance of the left forearm is within normal limits. Robbin Cheney MD Abdomen/Pelvis CT 02/08/17 0939 Signed Impressions: Service Date/Time: January 13:23 - CONCLUSION: 1. New areas of consolidation in the left lower lobe most characteristic of pneumonia. 2. Worsening bowel gas pattern with increased dilatation of multiple loops of small bowel with air-fluid levels. Contrast is noted in the distal colon and this could indicate a partial small bowel obstruction. 3. Right adrenal mass again noted. Anam Agarwal MD Objective Remarks - GENERAL: This is a well-nourished, well-developed patient, in no apparent distress. SKIN: No rashes, warm and dry HEAD: Atraumatic. Normocephalic. EYES: Pupils equal round and reactive. Extraocular motions intact. No scleral icterus. ENT: Nose without bleeding, or drainage, Airway patent. Tongue is midline oral mucosa is moist NECK: Trachea midline. Supple CARDIOVASCULAR: Regular rate and rhythm without murmurs, gallops, or rubs. S1- S2 no S3 or S4 no heave or thrill RESPIRATORY: Fair air entry bilaterally. No wheezes, rales, or rhonchi. GASTROINTESTINAL: Abdomen soft, non-tender, nondistended. POSITIVE bowel sounds , G-tube in place --STILL ON MUSCULOSKELETAL: Extremities without clubbing, cyanosis, or edema. Pedal pulses appreciated NEUROLOGICAL: Awake and alert. Moves all extremity. Normal speech.no focal neurological deficit Insight and judgment is okay mood and behavior is somewhat appropriate Procedures Umbilical hernia repair and diagnostic laparoscopy and laparoscopic G-tube placement on 02/09/[address] Galen sawant Medications and IVs Current Medications Ondansetron HCl (Zofran Inj) 4 mg ONCE ONCE IVP Last administered on 07:48; Start 02/08/17 at 07:30; Stop 02/08/17 at 07:31; Status DC Sodium Chloride 1,000 ml @ 1,000 mls/hr Q1H IV Last administered on 02/08/17 07:41; Start 02/08/17 at 07:18; Stop 02/08/17 at 08:17; Status DC Sodium Chloride (NS Flush) 2 ml UNSCH PRN IVF FLUSH AFTER USING IV ACCESS Last administered on 02/12/17 09:00; Start 02/08/17 at 07:30 Pantoprazole Sodium 80 mg/ Sodium Chloride 35 ml @ 420 mls/hr Q5M ONCE IV Last administered on 02/08/17 08:08; Start 02/08/17 at 07:18; Stop 02/08/17 at 07:22; Status DC Pantoprazole Sodium 80 mg/ Sodium Chloride 100 ml @ 10 mls/hr Q10H IV Last administered on 02/08/17 08:15; Start 02/08/17 at 07:18; Stop 02/09/17 at 02:08 ; Status DC Hydromorphone HCl (Dilaudid Pf Inj) 1 mg ONCE ONCE IV Last administered on 07:48; Start 02/08/17 at 07:30; Stop 02/08/17 at 07:31; Status DC Morphine Sulfate (Morphine Inj) 2 mg Q15M PRN IV PAIN SCALE 4 TO 10 Last administered on 02/09/17 10:59; Start 02/08/17 at 09:00; Stop 02/09/17 at 11:00; Status DC Sodium Chloride 1,000 ml @ 999 mls/hr BOLUS ONCE IV Last administered on 02/08 09:44; Start 02/08/17 at 09:45; Stop 02/08/17 at 10:45; Status DC Diatrizoate Meglum/ Diatrizoate Sod ( Gastrosandra Liq) 18 ml STK-MED ONCE .ROUTE Last administered on 02/08/17 10:10; Start 02/08/17 at 10:05; Stop at 10:06; Status DC Ceftriaxone Sodium 1000 mg/ Sodium Chloride 100 ml @ 200 mls/hr ONCE ONCE IV Last administered on 02/08/17 15:37; Start 02/08/17 at 14:15; Stop 02/08/17 at 14:44; Status DC Azithromycin 500 mg/Sodium Chloride 250 ml @ 250 mls/hr ONCE ONCE IV Last administered on 02/08/17 14:30; Start 02/08/17 at 14:15; Stop 02/08/17 at 15:14 ; Status DC Sodium Chloride 1,000 ml @ 999 mls/hr BOLUS ONCE IV Last administered on 02/08 14:31; Start 02/08/17 at 14:15; Stop 02/08/17 at 15:15; Status DC Pantoprazole Sodium 80 mg/ Sodium Chloride 100 ml @ 10 mls/hr CONTINUOUS IV Last administered on 02/12/17 01:20; Start 02/08/17 at 16:45; Stop 02/12/17 at 11 :52; Status DC Sodium Chloride 1,000 ml @ 100 mls/hr Q10H IV Last administered on 02/09/17 02 :56; Start 02/08/17 at 16:56; Stop 02/09/17 at 08:37; Status DC Acetaminophen (Tylenol) 650 mg Q4H PRN PO TEMP > 100.4; Start 02/08/17 at 17:00 Ondansetron HCl (Zofran Inj) 4 mg Q6H PRN IVP NAUSEA OR VOMITING; Start at 17:00 Naloxone HCl (Narcan Inj) 0.4 mg UNSCH PRN IV SEE LABEL COMMENTS; Start at 17:00 Morphine Sulfate (Morphine Inj) 1 mg Q4H PRN IV PUSH pain 3-5 Last administered on 02/09/17 08:51; Start 02/08/17 at 17:00; Stop 02/09/17 at 16:41; Status DC Morphine Sulfate (Morphine Inj) 2 mg Q4H PRN IV PUSH pain 6-10; Start 02/08/17 at 17:00; Stop 02/09/17 at 16:41; Status DC Piperacillin Sod/ Tazobactam Sod 50 ml @ 100 mls/hr Q6H IV Last administered on 02/13/17 15:17; Start 02/08/17 at 20:00 Sodium Chloride 1,000 ml @ 84 mls/hr [id number] IV Last administered on 20:47; Start 02/08/17 at 17:15; Stop 02/09/17 at 08:38; Status DC Sodium Chloride 1,000 ml @ 100 mls/hr Q10H IV Last administered on 02/13/17 03 :07; Start 02/09/17 at 08:45 Azithromycin 500 mg/Sodium Chloride 250 ml @ 250 mls/hr Q24H IV Last administered on 02/13/17 15:16; Start 02/09/17 at 14:00 Midazolam HCl (Versed Inj) 2 mg STK-MED ONCE .ROUTE ; Start 02/09/17 at 13:22; Stop 02/09/17 at 13:23; Status DC Famotidine (Pepcid Inj) 20 mg STK-MED ONCE .ROUTE ; Start 02/09/17 at 13:22; Stop 02/09/17 at 13:23; Status DC Bupivacaine HCl/ Epinephrine Bitart (Sensorcaine-Epinephrine 0.25% Inj) 50 ml STK-MED ONCE .ROUTE Last administered on 02/09/17 14:04; Start 02/09/17 at 13:50 ; Stop 02/09/17 at 13:51; Status DC Cefazolin Sodium (Ancef Inj) 2,000 mg ONCE ONCE IV ; Start 02/09/17 at 14:03; Stop 02/09/17 at 14:04; Status UNV Cefazolin Sodium/ Dextrose 50 ml @ 100 mls/hr ONCE ONCE IV Last administered on 02/09/17 16:45; Start 02/09/17 at 16:00; Stop 02/09/17 at 16:29; Status DC Morphine Sulfate (*morphine INJ PERIprocedure ONLY) 8 mg STK-MED ONCE .ROUTE Last administered on 02/09/17 15:44; Start 02/09/17 at 15:44; Stop 02/09/17 at 15: 45; Status DC Fentanyl Citrate (fentaNYL INJ) 400 mcg STK-MED ONCE .ROUTE ; Start 02/09/17 at 15:48; Stop 02/09/17 at 15:49; Status DC Fentanyl Citrate (fentaNYL INJ) 100 mcg STK-MED ONCE .ROUTE ; Start 02/09/17 at 15:48; Stop 02/09/17 at 15:49; Status DC Morphine Sulfate (*morphine INJ PERIprocedure ONLY) 8 mg STK-MED ONCE .ROUTE Last administered on 02/09/17 15:56; Start 02/09/17 at 15:56; Stop 02/09/17 at 15: 57; Status DC Miscellaneous Information ALL NURSING DEPARTME... UNSCH PRN .XX SEE LABEL COMMENTS; Start 02/09/17 at 15:37; Stop 02/10/17 at 15:36; Status DC Hydromorphone HCl (*DILAUDID PF INJ PERIprocedural ONLY) 1 mg STK-MED ONCE .ROUTE Last administered on 02/09/17 16:13; Start 02/09/17 at 16:13; Stop at 16:14; Status DC Morphine Sulfate (Morphine 1 Mg/ ml AURICULAR DETOXIFICATION SPECIALIST) 30 mg STK-MED ONCE .ROUTE ; Start at 16:26; Stop 02/09/17 at 16:27; Status DC Morphine Sulfate (Morphine 1 Mg/ ml AURICULAR DETOXIFICATION SPECIALIST) 30 mg UNSCH IV Last administered on 04:50; Start 02/09/17 at 16:45 AURICULAR DETOXIFICATION SPECIALIST Dosage Infused (Pha) 1 Q8HR .XX Last administered on 02/13/17 14:00; Start 02/09/17 at 22:00 Naloxone HCl (Narcan Inj) 0.4 mg UNSCH PRN IV RESPIRATORY RATE LESS THAN 10; Start 02/09/17 at 16:45 Potassium Bicarb/ Potassium Chloride (K-Lyte Cl Eff) 50 meq ONCE ONCE PO Last administered on 02/11/17 06:06; Start 02/11/17 at 06:00; Stop 02/11/17 at 06: 01; Status DC Potassium Chloride 100 ml @ 50 mls/hr ONCE ONCE IV Last administered on 06:05; Start 02/11/17 at 06:00; Stop 02/11/17 at 07:59; Status DC Alprazolam (Xanax) 1 mg TID PRN PO ANXIETY Last administered on 02/13/17 05:41 ; Start 02/11/17 at 13:00 Carbidopa/Levodopa (Sinemet 25-100 Mg) 1 tab Q4HR PO Last administered on 16:48; Start 02/11/17 at 12:00 Potassium Phosphate 30 mmol/ Sodium Chloride 260 ml @ 43.333 mls/ hr ONCE ONCE IV Last administered on 02/11/17 11:39; Start 02/11/17 at 10:45; Stop at 16:44; Status DC Potassium Chloride 40 meq/ Sodium Chloride 1,020 ml @ 42 mls/hr Q24H IV Last administered on 02/13/17 12:22; Start 02/11/17 at 11:00 Clonidine (Catapres) 0.1 mg Q4H PRN PO SBP>160, DBP>90; Start 02/11/17 at 10:45 Pantoprazole Sodium (Protonix) 40 mg BIDAC PO Last administered on 02/13/17 16: 48; Start 02/12/17 at 16:00 Polyethylene Glycol (Miralax) 17 gm DAILY PO Last administered on 02/13/17 10: 25; Start 02/12/17 at 13:00 Potassium Phosphate 30 mmol/ Sodium Chloride 260 ml @ 43.333 mls/ hr ONCE ONCE IV Last administered on 02/13/17 10:00; Start 02/13/17 at 10:00; Stop at 15:59; Status DC Sodium Phosphate 30 mmol/Sodium Chloride 260 ml @ 43.333 mls/ hr ONCE ONCE IV Last administered on 02/13/17t 10:30; Start 02/13/17 at 10:30; Stop 02/13/17 at 16:29; Status DC Magnesium Sulfate/ Dextrose 100 ml @ 100 mls/hr Q1H IV Last administered on t 10:30; Start 02/13/17 at 09:30; Stop 02/13/17 at 11:29; Status DC Urinary Catheter: No A/P Assessment and Plan 72 years old male with history of 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 came with Multiple episode of hematemesis 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 Partial SBO versus ileus GI bleed Leukocytosis Bilateral pneumonia possibly aspiration DVT prophylaxis with SCD Hypokalemia will need replacement Parkinsons restart home Sinemet ANXIETY RESTART HOME XANAX HYPOKALEMIA REPLACE SOME BOWEL SOUNDS- STILL USING AURICULAR DETOXIFICATION SPECIALIST OFTEN POSITIVE BM Plan: Status post exploratory laparotomy 02/09 showing generalized ileus, no adhesions no SBO, appreciate surgery follow up Iv Protonix Appreciate GI, oncology consult Zosyn and Zithromax Sent for blood culture and sputum culture if available Palliative care also seen the patient in the daughter, they refused to accept palliative care, plan is still for aggressive treatment DVT prophylaxis with SCD due to GI bleed Baldomero Arango DO Feb 13, 2017 17:21
[2017-02-14] VITALS (7 sets, daily range): BP systolic 103–135; BP diastolic 60–73; PULSE 101–104; RESP 17–18; TEMP 96.2–98.7; O2SAT 95–98
[2017-02-14] MEDS: CARBIDOPA/LEVODOPA 25 MG/100 MG TAB PO SCH ×5 (03:23→20:21)
[2017-02-14] MEDS: PIPERACIL-TAZO 3.375 GM PREMIX 50 ML IV SCH ×4 (03:23→20:21)
[2017-02-14] MEDS: PCA - TOTAL MG MORPHINE DELIVERED PER SHIFT SCH ×3 (06:00→20:26)
[2017-02-14] MEDS: PANTOPRAZOLE SOD 40 MG DELAYED RELEASE TAB PO SCH ×2 (06:01→17:06)
[2017-02-14 06:31] LABS: AUTOMATED NEUTROPHIL # 6.8 TH/MM3 (1.8-7.7); BASOPHIL % 0.2 % (0.0-2.0); EOSINOPHIL % 0.5 % (0.0-4.0); HEMATOCRIT 31.7 % (39.0-51.0); HEMO FLAGS DIFF FINAL; LYMPH % 11.5 % (9.0-44.0); MEAN CELL VOLUME 93.9 FL (80.0-100.0); MEAN CORPUSCULAR HEMOGLOBIN 31.1 PG (27.0-34.0); MEAN CORPUSCULAR HGB CONC 33.2 % (32.0-36.0); MONO % 10.8 % (0.0-8.0); PLATELET COUNT 159 TH/MM3 (150-450); RED BLOOD COUNT 3.38 MIL/MM3 (4.50-5.90); RED CELL DISTRIBUTION WIDTH 20.3 % (11.6-17.2); WHITE BLOOD COUNT 8.8 TH/MM3 (4.0-11.0)
[2017-02-14 06:54] LABS: ANION GAP 8 MEQ/L (5-15); AST (GOT) 18 U/L (15-37); BICARBONATE 27.8 MEQ/L (21.0-32.0); BLOOD UREA NITROGEN 8 MG/DL (7-18); CHLORIDE 102 MEQ/L (98-107); GLOMERULAR FILTRATION RATE 115 ML/MIN (>89); MAGNESIUM 2.1 MG/DL (1.5-2.5); POTASSIUM 3.5 MEQ/L (3.5-5.1); SODIUM (NA) 138 MEQ/L (136-145)
[2017-02-14 06:58] LABS: ALKALINE PHOSPHATASE 83 U/L (45-117); ALT (GPT) 7 U/L (12-78); TOTAL BILIRUBIN ADULT 0.7 MG/DL (0.2-1.0)
[2017-02-14] MEDS: POLYETHYLENE GLYCOL 17 GM PKG PO SCH (08:27)
[2017-02-14] MEDS: SODIUM CHLOR 0.9% 1000 ML INJ 1,000 ML IV SCH ×2 (08:45→17:07)
--- NOTE | 2017-02-14 09:05 | PD.ONC.PN ---
Subjective Subjective Remarks patient miserable with pain in left arm most intense in mid humerus. tolerating tube feedings at low flow rate. Objective Data Date Time Temp Pulse Resp B/P (MAP) Pulse Ox O2 Delivery O2 Flow Rate FiO2 02/14/17 06:00 16 02/14/17 04:00 98.3 104 18 120/64 (82) 97 02/14/17 00:00 96.2 102 18 131/73 (92) 98 02/13/17 23:00 96 02/13/17 22:00 18 02/13/17 20:01 16 02/13/17 20:00 96.2 95 18 118/66 (83) 96 02/13/17 19:58 16 02/13/17 19:56 16 02/13/17 19:00 98 Nasal Cannula 2.00 02/13/17 16:00 97.6 99 20 119/72 (88) 96 02/13/17 15:20 18 02/13/17 14:00 18 02/13/17 13:52 95 Nasal Cannula 2.00 02/13/17 12:00 96.9 101 20 109/60 (76) 95 02/13/17 10:30 Nasal Cannula 2.00 21 02/14/17 02/14/17 02/14/17 07:00 15:00 23:00 Intake Total 50 ml Output Total 500 ml Balance -500 ml 50 ml Result Diagram: 02/14/17 0600 02/14/17 0600 Laboratory Results Laboratory Tests Test 02/14/17 06:00 White Blood Count 8.8 TH/MM3 Red Blood Count 3.38 MIL/MM3 Hemoglobin 10.5 GM/DL Hematocrit 31.7 % Mean Corpuscular Volume 93.9 FL Mean Corpuscular Hemoglobin 31.1 PG Mean Corpuscular Hemoglobin Concent 33.2 % Red Cell Distribution Width 20.3 % Platelet Count 159 TH/MM3 Mean Platelet Volume 8.0 FL Neutrophils (%) (Auto) 77.0 % Lymphocytes (%) (Auto) 11.5 % Monocytes (%) (Auto) 10.8 % Eosinophils (%) (Auto) 0.5 % Basophils (%) (Auto) 0.2 % Neutrophils # (Auto) 6.8 TH/MM3 Lymphocytes # (Auto) 1.0 TH/MM3 Monocytes # (Auto) 0.9 TH/MM3 Eosinophils # (Auto) 0.0 TH/MM3 Basophils # (Auto) 0.0 TH/MM3 CBC Comment DIFF FINAL Differential Comment Blood Urea Nitrogen 8 MG/DL Creatinine 0.68 MG/DL Random Glucose 160 MG/DL Total Protein 6.0 GM/DL Albumin 2.4 GM/DL Calcium Level 10.1 MG/DL Phosphorus Level 1.9 MG/DL Magnesium Level 2.1 MG/DL Alkaline Phosphatase 83 U/L Aspartate Amino Transf (AST/SGOT) 18 U/L Alanine Aminotransferase (ALT/SGPT) 7 U/L Total Bilirubin 0.7 MG/DL Sodium Level 138 MEQ/L Potassium Level 3.5 MEQ/L Chloride Level 102 MEQ/L Carbon Dioxide Level 27.8 MEQ/L Anion Gap 8 MEQ/L Estimat Glomerular Filtration Rate 115 ML/MIN Imaging Studies Last 48 hours Impressions Wrist X-Ray 02/13/17 0000 Signed Impressions: Service Date/Time: Monday, February 13, 2017 11:30 - CONCLUSION: Intact left wrist. 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 Robbin Cheney MD Radius/Ulna X-Ray 02/13/17 0000 Signed Impressions: Service Date/Time: Monday, February 13, 2017 11:34 - CONCLUSION: Radiographic appearance of the left forearm is within normal limits. Robbin Cheney MD Administered Medications Medications (Trade) Dose Ordered Sig/Sisi Route PRN Reason Start Time Stop Time Status Last Admin Dose Admin Sodium Chloride (NS Flush) 2 ml UNSCH PRN IVF FLUSH AFTER USING IV ACCESS 02/08/17 07:30 02/12/17 09:00 Piperacillin Sod/ Tazobactam Sod 50 ml @ 100 mls/hr Q6H IV 02/08/17 20:00 02/14/17 08:27 Sodium Chloride 1,000 ml @ 100 mls/hr Q10H IV 02/09/17 08:45 02/13/17 03:07 Azithromycin 500 mg/Sodium Chloride 250 ml @ 250 mls/hr Q24H IV 02/09/17 14:00 02/13/17 15:16 Morphine Sulfate (Morphine 1 Mg/ ml DIRECTOR DECISION SUPPORT) 30 mg UNSCH IV 02/09/17 16:45 02/13/17 19:56 DIRECTOR DECISION SUPPORT Dosage Infused (Pha) 1 Q8HR .XX 02/09/17 22:00 02/14/17 06:00 Alprazolam (Xanax) 1 mg TID PRN PO ANXIETY 02/11/17 13:00 02/13/17 22:04 Carbidopa/Levodopa (Sinemet 25-100 Mg) 1 tab Q4HR PO 02/11/17 12:00 02/14/17 08:27 Potassium Chloride 40 meq/ Sodium Chloride 1,020 ml @ 42 mls/hr Q24H IV 02/11/17 11:00 02/13/17 12:22 Pantoprazole Sodium (Protonix) 40 mg BIDAC PO 02/12/17 16:00 02/14/17 06:01 Polyethylene Glycol (Miralax) 17 gm DAILY PO 02/12/17 13:00 02/14/17 08:27 Objective Remarks GENERAL: chronically ill SKIN: Warm and dry. HEAD: Normocephalic. EYES: No scleral icterus. No injection or drainage. NECK: Supple, trachea midline. No JVD or lymphadenopathy. LYMPHATIC: No adenopathy. CARDIOVASCULAR: Regular rate and rhythm without murmurs. RESPIRATORY: Breath sounds equal bilaterally. No accessory muscle use. GASTROINTESTINAL: mild distention but not painful G tube functioning well. EXTREMITIES: No cyanosis, or edema. MUSCULOSKELETAL: severe pain and tenderness in the left mid humerus with ? fullness NEUROLOGICAL: No obvious focal deficit. Awake, alert, and oriented x3. PSYCHIATRIC: sad Assessment/Plan Assessment 1: suspect metastatic lesion to left humerus causing his pain. will do ct without contrast as it will be much more sensitive then plain film. If metastatic lesion and no pathologic fx would recommend SHORT COURSE XRT. can do single tx which could be accomplished in hospital 2: continue to advance feedings 3: I spoke with Dr. Stone his oncologist several days ago and reviewed with him the findings on the laparoscopy. I doubt Mr. Hairston will receive additional systemic treatment but this will be deferred to Dr. Stone who he has known for years. Ricci Johns MD Feb 14, 2017 09:05
[2017-02-14] MEDS ORDERED: fentaNYL 25 MCG/HR PATCH T-DERMAL ONE (10:15)
[2017-02-14] MEDS: fentaNYL 25 MCG/HR PATCH T-DERMAL SCH (12:11)
--- NOTE | 2017-02-14 14:10 | HHI.PR ---
Subjective Remarks 9-3 Discussed with patient and daughter Status post laparoscopy and exploratory 2 days ago Has G-tube to suction Family wanting to know when he can eat we'll defer that to surgery and GI Many questions answered Restart Xanax and Sinemet Discussed with patient and RN and daughter 9-4 NOT HAVING BMS YET COMPLAINS OF GAS STILL USING SCHOLASTIC APTITUDE TEST GRADER PUMP QUITE OFTEN GI WANTS ON MIRALAX SO HE CAN HAVE BOWEL MOVEMENTS DW RN AND PT STILL ON TUBE FEEDS AT 10ML/HR ONLY 9-5 TOLERATING TUBE FEEDS DW RN AND PT HAD BMS STILL USING SCHOLASTIC APTITUDE TEST GRADER PUMP ON TUBE FEEDS AT 30ML/HR 9-6 COMPLAINING OF PAIN OF LEFT HUMERUS AREA DW RN AND PT AND FAMILY NOT TOLERATING TUBE FEEDS TUBE FEEDS ON HOLD AM LABS STILL USING SCHOLASTIC APTITUDE TEST GRADER Objective Vitals Vital Signs Date Time Temp Pulse Resp B/P (MAP) Pulse Ox O2 Delivery O2 Flow Rate FiO2 02/14/17 12:00 98.7 104 17 135/63 (87) 97 02/14/17 11:00 95 02/14/17 11:00 95 Nasal Cannula 2.00 02/14/17 08:00 98.0 101 18 128/60 (82) 97 02/14/17 06:00 16 02/14/17 04:00 98.3 104 18 120/64 (82) 97 02/14/17 00:00 96.2 102 18 131/73 (92) 98 02/13/17 23:00 96 02/13/17 22:00 18 02/13/17 20:01 16 02/13/17 20:00 96.2 95 18 118/66 (83) 96 02/13/17 19:58 16 02/13/17 19:56 16 02/13/17 19:00 98 Nasal Cannula 2.00 02/13/17 16:00 97.6 99 20 119/72 (88) 96 02/13/17 15:20 18 02/13/17 14:00 18 02/13/17 13:52 95 Nasal Cannula 2.00 I/O 02/13/17 02/13/17 02/13/17 02/14/17 02/14/17 02/14/17 07:00 15:00 23:00 07:00 15:00 23:00 Intake Total 455 ml 292 ml 1822 ml 50 ml Output Total 750 ml 700 ml 500 ml Balance -295 ml 292 ml 1122 ml -500 ml 50 ml Intake Oral 240 ml 480 ml IV Total 292 ml 842 ml 50 ml Tube Feeding 215 ml 300 ml Other 200 ml Output Urine Total 750 ml 700 ml 500 ml # Bowel Movements 2 2 Result Diagram: 02/14/17 0600 02/14/17 0600 Other Results Laboratory Tests Test 02/12/17 04:14 02/13/17 05:00 02/14/17 06:00 White Blood Count 7.2 TH/MM3 7.0 TH/MM3 8.8 TH/MM3 Red Blood Count 3.46 MIL/MM3 3.35 MIL/MM3 3.38 MIL/MM3 Hemoglobin 10.8 GM/DL 10.3 GM/DL 10.5 GM/DL Hematocrit 32.2 % 31.3 % 31.7 % Mean Corpuscular Volume 93.0 FL 93.4 FL 93.9 FL Mean Corpuscular Hemoglobin 31.3 PG 30.7 PG 31.1 PG Mean Corpuscular Hemoglobin Concent 33.6 % 32.9 % 33.2 % Red Cell Distribution Width 20.7 % 20.4 % 20.3 % Platelet Count 171 TH/MM3 163 TH/MM3 159 TH/MM3 Mean Platelet Volume 7.3 FL 7.8 FL 8.0 FL Neutrophils (%) (Auto) 71.8 % 68.9 % 77.0 % Lymphocytes (%) (Auto) 12.9 % 15.3 % 11.5 % Monocytes (%) (Auto) 13.7 % 14.4 % 10.8 % Eosinophils (%) (Auto) 0.6 % 1.0 % 0.5 % Basophils (%) (Auto) 1.0 % 0.4 % 0.2 % Neutrophils # (Auto) 5.2 TH/MM3 4.8 TH/MM3 6.8 TH/MM3 Lymphocytes # (Auto) 0.9 TH/MM3 1.1 TH/MM3 1.0 TH/MM3 Monocytes # (Auto) 1.0 TH/MM3 1.0 TH/MM3 0.9 TH/MM3 Eosinophils # (Auto) 0.0 TH/MM3 0.1 TH/MM3 0.0 TH/MM3 Basophils # (Auto) 0.1 TH/MM3 0.0 TH/MM3 0.0 TH/MM3 CBC Comment DIFF FINAL DIFF FINAL DIFF FINAL Differential Comment Blood Urea Nitrogen 6 MG/DL 7 MG/DL 8 MG/DL Creatinine 0.59 MG/DL 0.65 MG/DL 0.68 MG/DL Random Glucose 120 MG/DL 113 MG/DL 160 MG/DL Total Protein 6.0 GM/DL 5.9 GM/DL 6.0 GM/DL Albumin 2.4 GM/DL 2.3 GM/DL 2.4 GM/DL Calcium Level 9.9 MG/DL 9.5 MG/DL 10.1 MG/DL Phosphorus Level 1.6 MG/DL 2.2 MG/DL 1.9 MG/DL Magnesium Level 1.7 MG/DL 1.7 MG/DL 2.1 MG/DL Alkaline Phosphatase 75 U/L 75 U/L 83 U/L Aspartate Amino Transf (AST/SGOT) 15 U/L 14 U/L 18 U/L Alanine Aminotransferase (ALT/SGPT) LESS THAN 6 U/L 7 U/L 7 U/L Total Bilirubin 0.8 MG/DL 0.6 MG/DL 0.7 MG/DL Sodium Level 139 MEQ/L 138 MEQ/L 138 MEQ/L Potassium Level 3.0 MEQ/L 3.1 MEQ/L 3.5 MEQ/L Chloride Level 105 MEQ/L 102 MEQ/L 102 MEQ/L Carbon Dioxide Level 27.1 MEQ/L 27.3 MEQ/L 27.8 MEQ/L Anion Gap 7 MEQ/L 9 MEQ/L 8 MEQ/L Estimat Glomerular Filtration Rate 135 ML/MIN 121 ML/MIN 115 ML/MIN Hemoglobin A1c 5.0 % Free Thyroxine 1.52 NG/DL Thyroid Stimulating Hormone 3rd Gen 0.696 uIU/ML Imaging Last Impressions Wrist X-Ray 02/13/17 0000 Signed Impressions: Service Date/Time: Monday, February 13, 2017 11:30 - CONCLUSION: Intact left wrist. 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 Robbin Cheney MD Radius/Ulna X-Ray 02/13/17 0000 Signed Impressions: Service Date/Time: Monday, February 13, 2017 11:34 - CONCLUSION: Radiographic appearance of the left forearm is within normal limits. Robbin Cheney MD Abdomen/Pelvis CT 02/08/17 0939 Signed Impressions: Service Date/Time: January 13:23 - CONCLUSION: 1. New areas of consolidation in the left lower lobe most characteristic of pneumonia. 2. Worsening bowel gas pattern with increased dilatation of multiple loops of small bowel with air-fluid levels. Contrast is noted in the distal colon and this could indicate a partial small bowel obstruction. 3. Right adrenal mass again noted. Anam Agarwal MD Objective Remarks - GENERAL: This is a well-nourished, well-developed patient, in no apparent distress. SKIN: No rashes, warm and dry HEAD: Atraumatic. Normocephalic. EYES: Pupils equal round and reactive. Extraocular motions intact. No scleral icterus. ENT: Nose without bleeding, or drainage, Airway patent. Tongue is midline oral mucosa is moist NECK: Trachea midline. Supple CARDIOVASCULAR: Regular rate and rhythm without murmurs, gallops, or rubs. S1- S2 no S3 or S4 no heave or thrill RESPIRATORY: Fair air entry bilaterally. No wheezes, rales, or rhonchi. GASTROINTESTINAL: Abdomen soft, non-tender, nondistended. POSITIVE bowel sounds , G-tube in place --STILL ON MUSCULOSKELETAL: Extremities without clubbing, cyanosis, or edema. Pedal pulses appreciated NEUROLOGICAL: Awake and alert. Moves all extremity. Normal speech.no focal neurological deficit Insight and judgment is okay mood and behavior is somewhat appropriate Procedures Umbilical hernia repair and diagnostic laparoscopy and laparoscopic G-tube placement on 02/09/[address] Galen sawant Medications and IVs Current Medications Ondansetron HCl (Zofran Inj) 4 mg ONCE ONCE IVP Last administered on 07:48; Start 02/08/17 at 07:30; Stop 02/08/17 at 07:31; Status DC Sodium Chloride 1,000 ml @ 1,000 mls/hr Q1H IV Last administered on 02/08/17 07:41; Start 02/08/17 at 07:18; Stop 02/08/17 at 08:17; Status DC Sodium Chloride (NS Flush) 2 ml UNSCH PRN IVF FLUSH AFTER USING IV ACCESS Last administered on 02/12/17 09:00; Start 02/08/17 at 07:30 Pantoprazole Sodium 80 mg/ Sodium Chloride 35 ml @ 420 mls/hr Q5M ONCE IV Last administered on 02/08/17 08:08; Start 02/08/17 at 07:18; Stop 02/08/17 at 07:22; Status DC Pantoprazole Sodium 80 mg/ Sodium Chloride 100 ml @ 10 mls/hr Q10H IV Last administered on 02/08/17 08:15; Start 02/08/17 at 07:18; Stop 02/09/17 at 02:08 ; Status DC Hydromorphone HCl (Dilaudid Pf Inj) 1 mg ONCE ONCE IV Last administered on 07:48; Start 02/08/17 at 07:30; Stop 02/08/17 at 07:31; Status DC Morphine Sulfate (Morphine Inj) 2 mg Q15M PRN IV PAIN SCALE 4 TO 10 Last administered on 02/09/17 10:59; Start 02/08/17 at 09:00; Stop 02/09/17 at 11:00; Status DC Sodium Chloride 1,000 ml @ 999 mls/hr BOLUS ONCE IV Last administered on 02/08 09:44; Start 02/08/17 at 09:45; Stop 02/08/17 at 10:45; Status DC Diatrizoate Meglum/ Diatrizoate Sod ( Gastroview Liq) 18 ml STK-MED ONCE .ROUTE Last administered on 02/08/17 10:10; Start 02/08/17 at 10:05; Stop at 10:06; Status DC Ceftriaxone Sodium 1000 mg/ Sodium Chloride 100 ml @ 200 mls/hr ONCE ONCE IV Last administered on 02/08/17 15:37; Start 02/08/17 at 14:15; Stop 02/08/17 at 14:44; Status DC Azithromycin 500 mg/Sodium Chloride 250 ml @ 250 mls/hr ONCE ONCE IV Last administered on 02/08/17 14:30; Start 02/08/17 at 14:15; Stop 02/08/17 at 15:14 ; Status DC Sodium Chloride 1,000 ml @ 999 mls/hr BOLUS ONCE IV Last administered on 02/08 14:31; Start 02/08/17 at 14:15; Stop 02/08/17 at 15:15; Status DC Pantoprazole Sodium 80 mg/ Sodium Chloride 100 ml @ 10 mls/hr CONTINUOUS IV Last administered on 02/12/17 01:20; Start 02/08/17 at 16:45; Stop 02/12/17 at 11 :52; Status DC Sodium Chloride 1,000 ml @ 100 mls/hr Q10H IV Last administered on 02/09/17 02 :56; Start 02/08/17 at 16:56; Stop 02/09/17 at 08:37; Status DC Acetaminophen (Tylenol) 650 mg Q4H PRN PO TEMP > 100.4; Start 02/08/17 at 17:00 Ondansetron HCl (Zofran Inj) 4 mg Q6H PRN IVP NAUSEA OR VOMITING; Start at 17:00 Naloxone HCl (Narcan Inj) 0.4 mg UNSCH PRN IV SEE LABEL COMMENTS; Start at 17:00; Stop 02/14/17 at 12:07; Status DC Morphine Sulfate (Morphine Inj) 1 mg Q4H PRN IV PUSH pain 3-5 Last administered on 02/09/17 08:51; Start 02/08/17 at 17:00; Stop 02/09/17 at 16:41; Status DC Morphine Sulfate (Morphine Inj) 2 mg Q4H PRN IV PUSH pain 6-10; Start 02/08/17 at 17:00; Stop 02/09/17 at 16:41; Status DC Piperacillin Sod/ Tazobactam Sod 50 ml @ 100 mls/hr Q6H IV Last administered on 02/14/17 08:27; Start 02/08/17 at 20:00 Sodium Chloride 1,000 ml @ 84 mls/hr [id number] IV Last administered on 20:47; Start 02/08/17 at 17:15; Stop 02/09/17 at 08:38; Status DC Sodium Chloride 1,000 ml @ 100 mls/hr Q10H IV Last administered on 02/13/17 03 :07; Start 02/09/17 at 08:45 Azithromycin 500 mg/Sodium Chloride 250 ml @ 250 mls/hr Q24H IV Last administered on 02/13/17 15:16; Start 02/09/17 at 14:00 Midazolam HCl (Versed Inj) 2 mg STK-MED ONCE .ROUTE ; Start 02/09/17 at 13:22; Stop 02/09/17 at 13:23; Status DC Famotidine (Pepcid Inj) 20 mg STK-MED ONCE .ROUTE ; Start 02/09/17 at 13:22; Stop 02/09/17 at 13:23; Status DC Bupivacaine HCl/ Epinephrine Bitart (Sensorcaine-Epinephrine 0.25% Inj) 50 ml STK-MED ONCE .ROUTE Last administered on 02/09/17 14:04; Start 02/09/17 at 13:50 ; Stop 02/09/17 at 13:51; Status DC Cefazolin Sodium (Ancef Inj) 2,000 mg ONCE ONCE IV ; Start 02/09/17 at 14:03; Stop 02/09/17 at 14:04; Status UNV Cefazolin Sodium/ Dextrose 50 ml @ 100 mls/hr ONCE ONCE IV Last administered on 02/09/17 16:45; Start 02/09/17 at 16:00; Stop 02/09/17 at 16:29; Status DC Morphine Sulfate (*morphine INJ PERIprocedure ONLY) 8 mg STK-MED ONCE .ROUTE Last administered on 02/09/17 15:44; Start 02/09/17 at 15:44; Stop 02/09/17 at 15: 45; Status DC Fentanyl Citrate (fentaNYL INJ) 400 mcg STK-MED ONCE .ROUTE ; Start 02/09/17 at 15:48; Stop 02/09/17 at 15:49; Status DC Fentanyl Citrate (fentaNYL INJ) 100 mcg STK-MED ONCE .ROUTE ; Start 02/09/17 at 15:48; Stop 02/09/17 at 15:49; Status DC Morphine Sulfate (*morphine INJ PERIprocedure ONLY) 8 mg STK-MED ONCE .ROUTE Last administered on 02/09/17 15:56; Start 02/09/17 at 15:56; Stop 02/09/17 at 15: 57; Status DC Miscellaneous Information ALL NURSING DEPARTME... UNSCH PRN .XX SEE LABEL COMMENTS; Start 02/09/17 at 15:37; Stop 02/10/17 at 15:36; Status DC Hydromorphone HCl (*DILAUDID PF INJ PERIprocedural ONLY) 1 mg STK-MED ONCE .ROUTE Last administered on 02/09/17 16:13; Start 02/09/17 at 16:13; Stop at 16:14; Status DC Morphine Sulfate (Morphine 1 Mg/ ml SCHOLASTIC APTITUDE TEST GRADER) 30 mg STK-MED ONCE .ROUTE ; Start at 16:26; Stop 02/09/17 at 16:27; Status DC Morphine Sulfate (Morphine 1 Mg/ ml SCHOLASTIC APTITUDE TEST GRADER) 30 mg UNSCH IV Last administered on 19:56; Start 02/09/17 at 16:45 SCHOLASTIC APTITUDE TEST GRADER Dosage Infused (Pha) 1 Q8HR .XX Last administered on 02/14/17 06:00; Start 02/09/17 at 22:00 Naloxone HCl (Narcan Inj) 0.4 mg UNSCH PRN IV RESPIRATORY RATE LESS THAN 10; Start 02/09/17 at 16:45 Potassium Bicarb/ Potassium Chloride (K-Lyte Cl Eff) 50 meq ONCE ONCE PO Last administered on 02/11/17 06:06; Start 02/11/17 at 06:00; Stop 02/11/17 at 06: 01; Status DC Potassium Chloride 100 ml @ 50 mls/hr ONCE ONCE IV Last administered on 06:05; Start 02/11/17 at 06:00; Stop 02/11/17 at 07:59; Status DC Alprazolam (Xanax) 1 mg TID PRN PO ANXIETY Last administered on 02/13/17 22:04 ; Start 02/11/17 at 13:00 Carbidopa/Levodopa (Sinemet 25-100 Mg) 1 tab Q4HR PO Last administered on 12:08; Start 02/11/17 at 12:00 Potassium Phosphate 30 mmol/ Sodium Chloride 260 ml @ 43.333 mls/ hr ONCE ONCE IV Last administered on 02/11/17 11:39; Start 02/11/17 at 10:45; Stop at 16:44; Status DC Potassium Chloride 40 meq/ Sodium Chloride 1,020 ml @ 42 mls/hr Q24H IV Last administered on 02/13/17 12:22; Start 02/11/17 at 11:00 Clonidine (Catapres) 0.1 mg Q4H PRN PO SBP>160, DBP>90; Start 02/11/17 at 10:45 Pantoprazole Sodium (Protonix) 40 mg BIDAC PO Last administered on 02/14/17 06: 01; Start 02/12/17 at 16:00 Polyethylene Glycol (Miralax) 17 gm DAILY PO Last administered on 02/14/17 08: 27; Start 02/12/17 at 13:00 Potassium Phosphate 30 mmol/ Sodium Chloride 260 ml @ 43.333 mls/ hr ONCE ONCE IV Last administered on 02/13/17 10:00; Start 02/13/17 at 10:00; Stop at 15:59; Status DC Sodium Phosphate 30 mmol/Sodium Chloride 260 ml @ 43.333 mls/ hr ONCE ONCE IV Last administered on 02/13/17 10:30; Start 02/13/17 at 10:30; Stop 02/13/17 at 16:29; Status DC Magnesium Sulfate/ Dextrose 100 ml @ 100 mls/hr Q1H IV Last administered on 10:30; Start 02/13/17 at 09:30; Stop 02/13/17 at 11:29; Status DC Fentanyl (Duragesic 25 Mcg Patch.72 Hr) 1 patch ONCE ONCE T-DERMAL ; Start at 10:15; Stop 02/14/17 at 10:16; Status UNV Fentanyl (Duragesic 25 Mcg Patch.72 Hr) 1 patch Q3D T-DERMAL Last administered on 02/14/17 12:11; Start 02/14/17 at 13:00 Miscellaneous Information 1 Q3D T-DERMAL ; Start 02/17/17 at 13:00 Assessment to: Continue A/P Assessment and Plan 72 years old male with history of 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 came with Multiple episode of hematemesis 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 Partial SBO versus ileus GI bleed Leukocytosis Bilateral pneumonia possibly aspiration DVT prophylaxis with SCD Hypokalemia will need replacement Parkinsons restart home Sinemet ANXIETY RESTART HOME XANAX HYPOKALEMIA REPLACE SOME BOWEL SOUNDS- STILL USING SCHOLASTIC APTITUDE TEST GRADER OFTEN POSITIVE BM SUSPECT METS TO LEFT HUMERUS Plan: Status post exploratory laparotomy 02/09 showing generalized ileus, no adhesions no SBO, appreciate surgery follow up Iv Protonix Appreciate GI, oncology consult Zosyn and Zithromax Sent for blood culture and sputum culture if available Palliative care also seen the patient in the daughter, they refused to accept palliative care, plan is still for aggressive treatment DVT prophylaxis with SCD due to GI bleed A.m. labs DW RN AND PT AND FAMILY Baldomero Gutierrez DO Feb 14, 2017 14:10
--- NOTE | 2017-02-14 14:31 | HHI.PR ---
Subjective Subjective Notes Resting in bed C/o LEFT arm pain Objective Vitals/I&O Vital Signs Date Time Temp Pulse Resp B/P (MAP) Pulse Ox O2 Delivery O2 Flow Rate FiO2 02/14/17 12:00 98.7 104 17 135/63 (87) 97 02/14/17 11:00 Nasal Cannula 2.00 02/13/17 10:30 21 Labs Laboratory Tests Test 02/14/17 06:00 White Blood Count 8.8 Red Blood Count 3.38 Hemoglobin 10.5 Hematocrit 31.7 Mean Corpuscular Volume 93.9 Mean Corpuscular Hemoglobin 31.1 Mean Corpuscular Hemoglobin Concent 33.2 Red Cell Distribution Width 20.3 Platelet Count 159 Mean Platelet Volume 8.0 Neutrophils (%) (Auto) 77.0 Lymphocytes (%) (Auto) 11.5 Monocytes (%) (Auto) 10.8 Eosinophils (%) (Auto) 0.5 Basophils (%) (Auto) 0.2 Neutrophils # (Auto) 6.8 Lymphocytes # (Auto) 1.0 Monocytes # (Auto) 0.9 Eosinophils # (Auto) 0.0 Basophils # (Auto) 0.0 CBC Comment DIFF FINAL Differential Comment Blood Urea Nitrogen 8 Creatinine 0.68 Random Glucose 160 Total Protein 6.0 Albumin 2.4 Calcium Level 10.1 Phosphorus Level 1.9 Magnesium Level 2.1 Alkaline Phosphatase 83 Aspartate Amino Transf (AST/SGOT) 18 Alanine Aminotransferase (ALT/SGPT) 7 Total Bilirubin 0.7 Sodium Level 138 Potassium Level 3.5 Chloride Level 102 Carbon Dioxide Level 27.8 Anion Gap 8 Estimat Glomerular Filtration Rate 115 Date/Time Source Procedure Growth Status 02/08/17 14:20 Blood Peripheral Aerobic Blood Culture - Final NO GROWTH IN 5 DAYS Complete 02/08/17 14:20 Blood Peripheral Anaerobic Blood Culture - Final NO GROWTH IN 5 DAYS Complete Radiology Last 48 hours Impressions Abdomen/Pelvis CT 02/08/17 0939 Signed Impressions: Service Date/Time: January 13:23 - CONCLUSION: 1. New areas of consolidation in the left lower lobe most characteristic of pneumonia. 2. Worsening bowel gas pattern with increased dilatation of multiple loops of small bowel with air-fluid levels. Contrast is noted in the distal colon and this could indicate a partial small bowel obstruction. 3. Right adrenal mass again noted. Anam Agarwal MD Cardiovascular: Regular Lungs: Clear Abdomen: Other (lap sites c/d/i; G tube in place without complications ) Extremities: Other (see below ) Narrative Exam RIGHT wrist brace on LEFT wrist and forearm pain --no visible signs of trauma A/P Assessment and Plan 72 year old male with esophagus cancer; metastatic disease to liver and bone -POD5 dx lap; lap G tube placement -Continue soft diet; increase TF to goal of 60 cc today -May transition to nocturnal feedings vs bolus feedings over the next few days -Added Fentanyl patch -OOB and mobilize -Pain control Antonia Hardy Feb 14, 2017 14:31
[2017-02-14] MEDS: AZITHROMYCIN INJ 500 MG in SODIUM CHLOR 0.9% 250 ML INJ 250 ML IV SCH (15:18)
[2017-02-14] MEDS ORDERED: SENNOSIDES 8.6 MG TAB PO PRN (15:30)
--- NOTE | 2017-02-14 15:38 | HHI.HCPN ---
Reason for visit a. To assist with evaluation and management of symptoms including: Pain, nausea/vomiting, debility, constipation b. To assist medical decision maker(s) with: better understanding of current medical conditions; weighing benefits/burdens of medical treatment options; making medical treatment decisions. . Subjective/Interval History Mr. Hairston was seen and assessed in room 1730. Also present were his sister and nephew. Patient states he is drinking approximately 3 ensures daily. Having some residuals with tube feedings Patient reporting increased abdominal distention and discomfort. Bowel sounds active 4 quadrants. Patient had 2 soft bowel movements this morning. Discussed with patient's nurse Paulina/ Afua; tube feeding temporarily on hold status post 180 mL residual. May want to consider transitioning to nocturnal feedings versus bolus feedings in the upcoming days. Complaining of severe pain in his left arm that he cannot describe but states "it's the pain on its own, kind of like a blood pressure cuff." Patient remains on NIPPLE THREADER pump, but he states he is using it less and does not want to use it anymore. He was started on a fentanyl patch 25 g every 72 hours today 2016. He is very concerned about getting constipated. Plan to initiate a bowel protocol. Oncology suspicious that patient's severe pain in the left humerus is secondary to metastatic lesions. Plan for CT without contrast. If CT reveals metastatic lesions without pathological fracture, Dr. Johns recommends a short course of radiation. Patient will likely not be a candidate for further systemic treatment, although that decision will be deferred to Dr. Stone who has been caring for the patient for years. Patient becomes appropriately tearful when discussing the likelihood of disease progression stating he still has so much to do like rock climbing and racing. He expresses frustration that he cannot do these things because in his head he feels young. Spoke with patient's sister, Roseann, privately. She indicates that both she and the patient's daughter ( Fe) recognize how much the patient has declined and agree that he is likely ready for hospice at this time, however the patient expresses ongoing aggressive goals. Palliative care will provide ongoing support and education to assist with symptom management and clarification of medical treatment goals. . Advance Directives Living Will: Copy in medical record (Per patient's living will, he would not want a feeding tube for or then 12 weeks. He would not want it permanently. He feels similar about being on a ventilator or tracheostomy.) Health Care Surrogate: Copy in medical record Durable Power of Research Biologist: Copy in medical record Advance Directive Specifics Date completed: 01/29/17 . Health Care Surrogate(s): Patient has designated his sister, Roseann, as the healthcare surrogate decision maker. His daughter, Alexandria, is designated as the alternate health care surrogate. . Documented care wishes: Accessible in the EMR. . Objective Vital Signs Date Time Temp Pulse Resp B/P (MAP) Pulse Ox O2 Delivery O2 Flow Rate FiO2 02/14/17 12:00 98.7 104 17 135/63 (87) 97 02/14/17 11:00 95 02/14/17 11:00 95 Nasal Cannula 2.00 02/14/17 08:00 98.0 101 18 128/60 (82) 97 02/14/17 06:00 16 02/14/17 04:00 98.3 104 18 120/64 (82) 97 02/14/17 00:00 96.2 102 18 131/73 (92) 98 02/13/17 23:00 96 02/13/17 22:00 18 02/13/17 20:01 16 02/13/17 20:00 96.2 95 18 118/66 (83) 96 02/13/17 19:58 16 02/13/17 19:56 16 02/13/17 19:00 98 Nasal Cannula 2.00 02/13/17 16:00 97.6 99 20 119/72 (88) 96 02/13/17 15:20 18 Intake & Output 02/14/17 02/14/17 07:00 19:00 Intake Total 50 ml Output Total 500 ml Balance -500 ml 50 ml IV Total 50 ml Output Urine Total 500 ml # Bowel Movements 2 . Physical Exam CONSTITUTIONAL/GENERAL: This is a frail elderly male patient in no acute distress. TUBES/LINES/DRAINS: PEG tube, VAD SKIN: Skin temperature appropriate. Not diaphoretic. Generalized pallor. Process beside without redness. HEAD: Atraumatic. Normocephalic. EYES: Pupils equal and round and reactive. No scleral icterus. No injection or drainage. Fundi not examined. ENT: Hearing grossly normal. Nose without bleeding or purulent drainage. Mucous membranes moist and pink NECK: Trachea midline. Neck supple. CARDIOVASCULAR: Regular rate and rhythm without murmurs, gallops, or rubs. RESPIRATORY/CHEST: Symmetric, unlabored respirations. Clear to auscultation. Breath sounds diminished bilaterally. GASTROINTESTINAL: Abdomen distended and firm. Bowel sounds present x 4. LBM: , loose x 2. GENITOURINARY: Without palpable bladder distension. MUSCULOSKELETAL: Extremities without clubbing, cyanosis, or edema. No mottling or clubbing. Left wrist and forearm pain without noted deformities. Right wrist brace in place. LYMPHATICS: No palpable cervical or supraclavicular adenopathy. NEUROLOGICAL: Alert and oriented to person, place and time. Able to answer questions; able to make needs known. PSYCHIATRIC: No obvious anxiety/depression. no apparent hallucinations or other psychotic thought process. . Diagnostic Tests Laboratory Laboratory Tests Test 02/12/17 04:14 02/13/17 05:00 02/14/17 06:00 White Blood Count 7.2 TH/MM3 (4.0-11.0) 7.0 TH/MM3 (4.0-11.0) 8.8 TH/MM3 (4.0-11.0) Red Blood Count 3.46 MIL/MM3 (4.50-5.90) 3.35 MIL/MM3 (4.50-5.90) 3.38 MIL/MM3 (4.50-5.90) Hemoglobin 10.8 GM/DL (13.0-17.0) 10.3 GM/DL (13.0-17.0) 10.5 GM/DL (13.0-17.0) Hematocrit 32.2 % (39.0-51.0) 31.3 % (39.0-51.0) 31.7 % (39.0-51.0) Mean Corpuscular Volume 93.0 FL (80.0-100.0) 93.4 FL (80.0-100.0) 93.9 FL (80.0-100.0) Mean Corpuscular Hemoglobin 31.3 PG (27.0-34.0) 30.7 PG (27.0-34.0) 31.1 PG (27.0-34.0) Mean Corpuscular Hemoglobin Concent 33.6 % (32.0-36.0) 32.9 % (32.0-36.0) 33.2 % (32.0-36.0) Red Cell Distribution Width 20.7 % (11.6-17.2) 20.4 % (11.6-17.2) 20.3 % (11.6-17.2) Platelet Count 171 TH/MM3 (150-450) 163 TH/MM3 (150-450) 159 TH/MM3 (150-450) Mean Platelet Volume 7.3 FL (7.0-11.0) 7.8 FL (7.0-11.0) 8.0 FL (7.0-11.0) Neutrophils (%) (Auto) 71.8 % (16.0-70.0) 68.9 % (16.0-70.0) 77.0 % (16.0-70.0) Lymphocytes (%) (Auto) 12.9 % (9.0-44.0) 15.3 % (9.0-44.0) 11.5 % (9.0-44.0) Monocytes (%) (Auto) 13.7 % (0.0-8.0) 14.4 % (0.0-8.0) 10.8 % (0.0-8.0) Eosinophils (%) (Auto) 0.6 % (0.0-4.0) 1.0 % (0.0-4.0) 0.5 % (0.0-4.0) Basophils (%) (Auto) 1.0 % (0.0-2.0) 0.4 % (0.0-2.0) 0.2 % (0.0-2.0) Neutrophils # (Auto) 5.2 TH/MM3 (1.8-7.7) 4.8 TH/MM3 (1.8-7.7) 6.8 TH/MM3 (1.8-7.7) Lymphocytes # (Auto) 0.9 TH/MM3 (1.0-4.8) 1.1 TH/MM3 (1.0-4.8) 1.0 TH/MM3 (1.0-4.8) Monocytes # (Auto) 1.0 TH/MM3 (0-0.9) 1.0 TH/MM3 (0-0.9) 0.9 TH/MM3 (0-0.9) Eosinophils # (Auto) 0.0 TH/MM3 (0-0.4) 0.1 TH/MM3 (0-0.4) 0.0 TH/MM3 (0-0.4) Basophils # (Auto) 0.1 TH/MM3 (0-0.2) 0.0 TH/MM3 (0-0.2) 0.0 TH/MM3 (0-0.2) CBC Comment DIFF FINAL DIFF FINAL DIFF FINAL Differential Comment Blood Urea Nitrogen 6 MG/DL (7-18) 7 MG/DL (7-18) 8 MG/DL (7-18) Creatinine 0.59 MG/DL (0.60-1.30) 0.65 MG/DL (0.60-1.30) 0.68 MG/DL (0.60-1.30) Random Glucose 120 MG/DL (74-106) 113 MG/DL (74-106) 160 MG/DL (74-106) Total Protein 6.0 GM/DL (6.4-8.2) 5.9 GM/DL (6.4-8.2) 6.0 GM/DL (6.4-8.2) Albumin 2.4 GM/DL (3.4-5.0) 2.3 GM/DL (3.4-5.0) 2.4 GM/DL (3.4-5.0) Calcium Level 9.9 MG/DL (8.5-10.1) 9.5 MG/DL (8.5-10.1) 10.1 MG/DL (8.5-10.1) Phosphorus Level 1.6 MG/DL (2.5-4.9) 2.2 MG/DL (2.5-4.9) 1.9 MG/DL (2.5-4.9) Magnesium Level 1.7 MG/DL (1.5-2.5) 1.7 MG/DL (1.5-2.5) 2.1 MG/DL (1.5-2.5) Alkaline Phosphatase 75 U/L (45-117) 75 U/L (45-117) 83 U/L (45-117) Aspartate Amino Transf (AST/SGOT) 15 U/L (15-37) 14 U/L (15-37) 18 U/L (15-37) Alanine Aminotransferase (ALT/SGPT) LESS THAN 6 U/L (12-78) 7 U/L (12-78) 7 U/L (12-78) Total Bilirubin 0.8 MG/DL (0.2-1.0) 0.6 MG/DL (0.2-1.0) 0.7 MG/DL (0.2-1.0) Sodium Level 139 MEQ/L (136-145) 138 MEQ/L (136-145) 138 MEQ/L (136-145) Potassium Level 3.0 MEQ/L (3.5-5.1) 3.1 MEQ/L (3.5-5.1) 3.5 MEQ/L (3.5-5.1) Chloride Level 105 MEQ/L (98-107) 102 MEQ/L (98-107) 102 MEQ/L (98-107) Carbon Dioxide Level 27.1 MEQ/L (21.0-32.0) 27.3 MEQ/L (21.0-32.0) 27.8 MEQ/L (21.0-32.0) Anion Gap 7 MEQ/L (5-15) 9 MEQ/L (5-15) 8 MEQ/L (5-15) Estimat Glomerular Filtration Rate 135 ML/MIN (>89) 121 ML/MIN (>89) 115 ML/MIN (>89) Hemoglobin A1c 5.0 % (4.3-6.0) Free Thyroxine 1.52 NG/DL (0.76-1.46) Thyroid Stimulating Hormone 3rd Gen 0.696 uIU/ML (0.358-3.740) . Result Diagram: 02/14/17 0600 02/14/17 0600 Imaging Last 72 hours Impressions Wrist X-Ray 02/13/17 Signed Impressions: Service Date/Time: Monday, February 13, 2017 11:30 - CONCLUSION: Intact left wrist. 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 Robbin Cheney MD Radius/Ulna X-Ray 02/13/17 Signed Impressions: Service Date/Time: Monday, February 13, 2017 11:34 - CONCLUSION: Radiographic appearance of the left forearm is within normal limits. Robbin Cheney MD . Procedures Assessment and Plan Disease Oriented Problem List: (1) Esophageal cancer (2) Bowel obstruction (3) DVT of lower extremity, bilateral (4) Parkinsons disease Symptom Scale: (1) Nausea & vomiting (2) Pain (3) Debility (4) Constipation Pertinent Non-Medical Issues Psychosocial: Patient is originally from [place], [place]. The patient was 3 times; his third (Gurpreet) from a drug overdose in August,. He has 1 adult daughter, Tiffany Celeste, who still resides in [place]. One sister, Roseann here from [place]. He worked as a [employer] until he retired at the age of 56. Patient states he sailed his yacht from [place] to [place] approximately 12 years ago, and has been living here ever since. 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 Served in [place]. Spiritual: Refusing hand painter visits Legal:Patient has designated his sister, Roseann, as the healthcare surrogate decision maker. His daughter, Alexandria, is designated as the alternate health care surrogate. Ethical issues impacting care: No known ethical issues impacting care at this time. . Important Contacts Gurpreet Hairston, : [phone] or [phone] Fe Hernandez, daughter: [phone] . Prognosis Patient is a 72 year old male with stage IV metastatic esophageal cancer, currently receiving palliative chemotherapy with Dr. Stone. Patient reports an overall decline in past year as evidenced by weight loss, decreased appetite, fatigue and increased difficulty with ADLs/weakness. Suspected disease progression to left humerus, if CT reveals lesions without pathological fracture patient may receive short-term radiation. However, he will like we not be a candidate for further systemic treatment. His overall prognosis is poor. Patient is hospice appropriate if/when his medical treatment goals become comfort focus. . Code Status: No Code Plan * NO CODE-DNR/DNI * Decision making: Patient has designated his sister, Roseann, as the healthcare surrogate decision maker. His daughter, Alexandria, is designated as the alternate health care surrogate. * Living will completed 01/29/2017. Accessible in the EMR. * GOALS: Aggressive up to the point of cardiopulmonary resuscitation * Symptom management-constipation: LBM: 02/14/2017-soft 2. Patient is very concerned about getting constipated and does not want to utilize pain medication for this reason. PRN Senokot ordered BID. * Symptom management-nausea/vomiting: Currently resolved per patient. Zofran 4mg IV q6 hours PRN * Symptom management-pain: Patient reporting severe pain in his left arm that he cannot describe but states "it's the pain on its own, kind of like a blood pressure cuff." Patient remains on NIPPLE THREADER pump. but he states he is using it less and does not want to use it anymore. He was started on a fentanyl patch 25 g every 72 hours today 02/14/2017. He is very concerned about getting constipated. * Patient states he is drinking approximately 3 ensures daily. Having residuals with tube feedings. Patient reporting increased abdominal distention and discomfort. Bowel sounds active 4 quadrants. Patient had 2 soft bowel movements this morning. Discussed with patient's nurse Paulina/Afua; tube feeding temporarily on hold status post 180 mL residual. May want to consider transitioning to nocturnal feedings versus bolus feedings in the upcoming days. * Oncology suspicious that patient's severe pain in the left humerus is secondary to metastatic lesions. Plan for CT without contrast. If CT reveals metastatic lesions without pathological fracture, Dr. Johns recommends a short course of radiation. Patient will likely not be a candidate for further systemic treatment, although that decision will be deferred to Dr. Stone who has been caring for the patient for years. * Patient becomes appropriately tearful when discussing the likelihood of disease progression stating he still has so much to do like rock climbing and racing. He expresses for [place] and that he cannot do these things because in his head he feels young. Spoke with patient's sister, Roseann, privately. She indicates that both she and the patient's daughter (Fe) recognize how much the patient has declined and agree that he is likely ready for hospice at this time, however patient expresses ongoing aggressive goals. Palliative care will provide ongoing support and education to assist with symptom management and clarification of medical treatment goals. Attestation To help prompt me to consider important information that might be impacting today's encounter and assessment, information from prior notes written by myself or my colleagues may have been "brought forward" into today's note. My signature on this note, however, is an attestation that I personally performed the exam, history, and/or decision-making noted today, and, unless otherwise indicated, the interactions with patient, family, and staff as well as the review of records all occurred today. I also attest that the listed assessment and stated plan reflect my best clinical judgment today based on the combination of historical information, prior notes, and today's exam/ interactions. When time spent is documented, it refers only to time spent today by the signer, or if indicated, combined time spent today by collaborating physician/nurse practitioner. . Stephanie Melgar Feb 14, 2017 15:38
--- NOTE | 2017-02-14 16:27 | HHI.GIFU ---
Subjective Remarks Resting in bed. Feeling bloated today. No n/v. TF off secondary to bloating. He is drinking 2 ensure per day, but no soft foods yet. Continues to have LUE pain, states he is going for further imaging of LUE today. Objective Vitals I&O Vital Signs Date Time Temp Pulse Resp B/P (MAP) Pulse Ox O2 Delivery O2 Flow Rate FiO2 02/14/17 14:00 17 02/14/17 12:00 98.7 104 17 135/63 (87) 97 02/14/17 11:00 95 02/14/17 11:00 95 Nasal Cannula 2.00 02/14/17 08:00 98.0 101 18 128/60 (82) 97 02/14/17 06:00 16 02/14/17 04:00 98.3 104 18 120/64 (82) 97 02/14/17 00:00 96.2 102 18 131/73 (92) 98 02/13/17 23:00 96 02/13/17 22:00 18 02/13/17 20:01 16 02/13/17 20:00 96.2 95 18 118/66 (83) 96 02/13/17 19:58 16 02/13/17 19:56 16 02/13/17 19:00 98 Nasal Cannula 2.00 I/O 02/13/17 02/13/17 02/13/17 02/14/17 02/14/17 02/14/17 06:59 14:59 22:59 06:59 14:59 22:59 Intake Total 455 ml 292 ml 1822 ml 100 ml Output Total 750 ml 700 ml 500 ml Balance -295 ml 292 ml 1122 ml -500 ml 100 ml Intake Oral 240 ml 480 ml IV Total 292 ml 842 ml 100 ml Tube Feeding 215 ml 300 ml Other 200 ml Output Urine Total 750 ml 700 ml 500 ml # Bowel Movements 2 2 Laboratory Laboratory Tests Test 02/14/17 06:00 White Blood Count 8.8 Red Blood Count 3.38 Hemoglobin 10.5 Hematocrit 31.7 Mean Corpuscular Volume 93.9 Mean Corpuscular Hemoglobin 31.1 Mean Corpuscular Hemoglobin Concent 33.2 Red Cell Distribution Width 20.3 Platelet Count 159 Mean Platelet Volume 8.0 Neutrophils (%) (Auto) 77.0 Lymphocytes (%) (Auto) 11.5 Monocytes (%) (Auto) 10.8 Eosinophils (%) (Auto) 0.5 Basophils (%) (Auto) 0.2 Neutrophils # (Auto) 6.8 Lymphocytes # (Auto) 1.0 Monocytes # (Auto) 0.9 Eosinophils # (Auto) 0.0 Basophils # (Auto) 0.0 CBC Comment DIFF FINAL Differential Comment Blood Urea Nitrogen 8 Creatinine 0.68 Random Glucose 160 Total Protein 6.0 Albumin 2.4 Calcium Level 10.1 Phosphorus Level 1.9 Magnesium Level 2.1 Alkaline Phosphatase 83 Aspartate Amino Transf (AST/SGOT) 18 Alanine Aminotransferase (ALT/SGPT) 7 Total Bilirubin 0.7 Sodium Level 138 Potassium Level 3.5 Chloride Level 102 Carbon Dioxide Level 27.8 Anion Gap 8 Estimat Glomerular Filtration Rate 115 Date/Time Source Procedure Growth Status 02/08/17 14:20 Blood Peripheral Aerobic Blood Culture - Final NO GROWTH IN 5 DAYS Complete 02/08/17 14:20 Blood Peripheral Anaerobic Blood Culture - Final NO GROWTH IN 5 DAYS Complete Imaging Last Impressions Wrist X-Ray 02/13/17 0000 Signed Impressions: Service Date/Time: Monday, February 13, 2017 11:30 - CONCLUSION: Intact left wrist. 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 Robbin Cheney MD Radius/Ulna X-Ray 02/13/17 0000 Signed Impressions: Service Date/Time: Monday, February 13, 2017 11:34 - CONCLUSION: Radiographic appearance of the left forearm is within normal limits. Robbin Cheney MD Abdomen/Pelvis CT 02/08/17 0939 Signed Impressions: Service Date/Time: January 13:23 - CONCLUSION: 1. New areas of consolidation in the left lower lobe most characteristic of pneumonia. 2. Worsening bowel gas pattern with increased dilatation of multiple loops of small bowel with air-fluid levels. Contrast is noted in the distal colon and this could indicate a partial small bowel obstruction. 3. Right adrenal mass again noted. Anam Agarwal MD Physical Exam HEENT: Normocephalic; atraumatic; no jaundice. CHEST: CTA CARDIAC: RRR ABDOMEN: Soft, nondistended, nontender, no hepatosplenomegaly; bowel sounds are hypoactive. G tube, dressing C/D/I. Laparoscopy incision sites C/D/I EXTREMITIES: No clubbing, cyanosis, or edema. SKIN: No rash. COORDINATOR OF PLACEMENT: No focal deficits; alert and oriented x 3 Assessment and Plan Plan ASSESSMENT: - PSBO. S/P diagnostic laparoscopy, laparoscopic G tube (18 F) (02/09/17)---> ileus pattern throughout entire small bowel, no adhesions, no evidence of carcinomatosis. CT scan abdomen and pelvis without contrast (02/08/17) and this revealed new areas of consolidation in the left lower lobe most characteristic of pneumonia. Worsening bowel gas pattern with increased dilatation of multiple loops of small bowel with air-fluid levels. Contrast noted in the distal colon and this could indicate a partial small bowel obstruction. Right adrenal mass noted again. Boating with TF today. States he had the nurses turn it off to take a break. Taking 2 ensure per day, but not wanting to take po. - GIB. One episode of black emesis after persistent n/v with brown emesis and black tarry stool on admission. EGD (01/30/17)----> 1. Large ulcer was found in the distal esophagus, 5 CM above GE junction; with minimal narrowing of the lumen, biopsies were taken 2. Normal stomach and duodenal mucosa. 3. Retroflexed views revealed a hiatal hernia. Pathology invasively poorly differentiated carcinoma with extensive ulceration, A GMS stain is negative for fungal organisms. Cont. Protonix Gtt. This would be difficult to control endoscopically. Supportive care/transfuse as necessary. HH stable at this time. - Anemia. 10.11/08.7. PPI - Leukocytosis. Improved. WBC 8.8. Zosyn, Azithromycin - Aspiration pneumonia. Azithromycin, Zosyn. - Metastatic esophageal cancer. Dx April of 2014 and is s/p chemotherapy and radiation. He was recently found to have metastatic disease in his right upper extremity and states that he recently completed 3 months of chemotherapy and radiation with Dr. Stone. He was noted to have metastatic disease to liver, sclerotic lesions within the lumbar spine which are indeterminate. Pt sees Dr. Stone. has an appointment with Dr. Stone on Sunday and is scheduled for a PET scan on Sunday. - Left upper extremity pain. S/P Xray (02/13/17) intact left wrist, mild intact left wrist. 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 Radiographic appearance of the left forearm is within normal limits. Per attending. PLAN: - Soft diet as tolerated- pt does not want to try soft diet, wants to continue liquids/ensure - TF via G tube - Miralax daily - Protonix with po BID - Monitor HH, transfuse as necessary - Zosyn - GS following - Oncology following - CT humerus pending - Supportive care - Further recommendations to follow based on results of above - Patient seen and examined by Dr. Arroyo and myself and this note is written on his behalf Janice Bajwa Feb 14, 2017 16:27
[2017-02-14] MEDS: MORPHINE SULFATE 30 MG/30 ML PCA IV SCH (17:06)
--- NOTE | 2017-02-14 20:57 | RADRPT ---
EXAM DATE/TIME: 02/14/2017 19:53 [facility] COMPARISON: No previous studies available for comparison. INDICATIONS : Pain in left mid humerus, metastatic lung cancer. RADIATION DOSE: 44.87 CTDIvol (mGy) MEDICAL HISTORY : Carcinoma, lung. SURGICAL HISTORY : Cholecystectomy. Appendectomy. Tonsillectomy. ENCOUNTER: Initial ACUITY: 2 days PAIN SCALE: 7/10 LOCATION: mid humerus. TECHNIQUE: Volumetric scanning of the humerus was performed. Using automated exposure control and adjustment of the mA and/or kV according to patient size, radiation dose was kept as low as reasonably achievable to obtain optimal diagnostic quality images. DICOM format image data is available electronically for review and comparison. FINDINGS: The endosteal surface of the mid left humeral shaft has a moth-eaten appearance extending over at vik st 5 cm most characteristic of metastatic bone disease. There is no associated pathologic fracture. G lenohumeral joint is intact. No other metastatic lesions identified. CONCLUSION: 1. Moth-eaten appearance of mid humeral shaft on the endosteal surface extending over more than 5 cm most characteristic of metastatic bone disease given history of lung cancer. No pathologic fracture. Selvin Whittington MD on February 14, 2017 at 20:50 Board Certified Radiologist. This report was verified electronically.
[2017-02-15] VITALS (7 sets, daily range): BP systolic 117–153; BP diastolic 56–71; PULSE 94–98; RESP 16–24; TEMP 97.2–98.6; O2SAT 97–98
[2017-02-15] MEDS: CARBIDOPA/LEVODOPA 25 MG/100 MG TAB PO SCH ×6 (00:25→20:45)
[2017-02-15] MEDS: POTASSIUM CHLORIDE INJ 40 MEQ in SODIUM CHLOR 0.45% 1000 ML INJ 1,000 ML IV SCH (00:28)
[2017-02-15] MEDS: SODIUM CHLOR 0.9% 1000 ML INJ 1,000 ML IV SCH ×3 (00:43→20:48)
[2017-02-15] MEDS: PIPERACIL-TAZO 3.375 GM PREMIX 50 ML IV SCH ×4 (00:43→20:46)
[2017-02-15] MEDS: PANTOPRAZOLE SOD 40 MG DELAYED RELEASE TAB PO SCH ×2 (04:49→08:55)
[2017-02-15] MEDS: PCA - TOTAL MG MORPHINE DELIVERED PER SHIFT SCH ×3 (04:59→20:46)
[2017-02-15 07:13] LABS: BASOPHIL % 0.3 % (0.0-2.0); EOSINOPHIL # 0.1 TH/MM3 (0-0.4); EOSINOPHIL % 0.8 % (0.0-4.0); HEMATOCRIT 31.8 % (39.0-51.0); HEMO FLAGS DIFF FINAL; LYMPH % 10.3 % (9.0-44.0); LYMPHOCYTE # 0.9 TH/MM3 (1.0-4.8); MEAN CELL VOLUME 93.6 FL (80.0-100.0); MEAN CORPUSCULAR HEMOGLOBIN 31.6 PG (27.0-34.0); MEAN CORPUSCULAR HGB CONC 33.7 % (32.0-36.0); MONO % 9.2 % (0.0-8.0); NEUT % 79.4 % (16.0-70.0); PLATELET COUNT 161 TH/MM3 (150-450); RED CELL DISTRIBUTION WIDTH 19.9 % (11.6-17.2); WHITE BLOOD COUNT 8.8 TH/MM3 (4.0-11.0)
[2017-02-15 07:48] LABS: ANION GAP 8 MEQ/L (5-15); AST (GOT) 17 U/L (15-37); BICARBONATE 26.5 MEQ/L (21.0-32.0); BLOOD UREA NITROGEN 10 MG/DL (7-18); CHLORIDE 103 MEQ/L (98-107); GLOMERULAR FILTRATION RATE 104 ML/MIN (>89); POTASSIUM 3.6 MEQ/L (3.5-5.1); SODIUM (NA) 137 MEQ/L (136-145)
[2017-02-15 08:01] LABS: ALKALINE PHOSPHATASE 79 U/L (45-117); ALT (GPT) 6 U/L (12-78); TOTAL BILIRUBIN ADULT 0.7 MG/DL (0.2-1.0)
--- NOTE | 2017-02-15 08:45 | PD.ONC.PN ---
Subjective Subjective Remarks complains of continued pain in the left arm Objective Data Date Time Temp Pulse Resp B/P (MAP) Pulse Ox O2 Delivery O2 Flow Rate FiO2 02/15/17 04:59 17 02/15/17 04:00 97.5 97 18 120/56 (77) 97 02/15/17 00:00 98.6 96 18 135/63 (87) 97 02/14/17 20:26 18 02/14/17 18:11 95 Nasal Cannula 2.00 02/14/17 17:06 17 02/14/17 16:00 97.0 104 17 103/60 (74) 95 02/14/17 14:00 17 02/14/17 12:00 98.7 104 17 135/63 (87) 97 02/14/17 11:00 95 02/14/17 11:00 95 Nasal Cannula 2.00 02/15/17 02/15/17 02/15/17 07:00 15:00 23:00 Output Total 800 ml Balance -800 ml Result Diagram: 02/15/17 0630 02/15/17 0530 Laboratory Results Laboratory Tests Test 02/15/17 05:30 02/15/17 06:30 Blood Urea Nitrogen 10 MG/DL Creatinine 0.74 MG/DL Random Glucose 143 MG/DL Total Protein 6.6 GM/DL Albumin 2.4 GM/DL Calcium Level 10.0 MG/DL Phosphorus Level 2.0 MG/DL Magnesium Level 2.0 MG/DL Alkaline Phosphatase 79 U/L Aspartate Amino Transf (AST/SGOT) 17 U/L Alanine Aminotransferase (ALT/SGPT) 6 U/L Total Bilirubin 0.7 MG/DL Sodium Level 137 MEQ/L Potassium Level 3.6 MEQ/L Chloride Level 103 MEQ/L Carbon Dioxide Level 26.5 MEQ/L Anion Gap 8 MEQ/L Estimat Glomerular Filtration Rate 104 ML/MIN White Blood Count 8.8 TH/MM3 Red Blood Count 3.40 MIL/MM3 Hemoglobin 10.7 GM/DL Hematocrit 31.8 % Mean Corpuscular Volume 93.6 FL Mean Corpuscular Hemoglobin 31.6 PG Mean Corpuscular Hemoglobin Concent 33.7 % Red Cell Distribution Width 19.9 % Platelet Count 161 TH/MM3 Mean Platelet Volume 7.9 FL Neutrophils (%) (Auto) 79.4 % Lymphocytes (%) (Auto) 10.3 % Monocytes (%) (Auto) 9.2 % Eosinophils (%) (Auto) 0.8 % Basophils (%) (Auto) 0.3 % Neutrophils # (Auto) 7.0 TH/MM3 Lymphocytes # (Auto) 0.9 TH/MM3 Monocytes # (Auto) 0.8 TH/MM3 Eosinophils # (Auto) 0.1 TH/MM3 Basophils # (Auto) 0.0 TH/MM3 CBC Comment DIFF FINAL Differential Comment Imaging Studies Last 48 hours Impressions Upper Extremity CT 02/14/17 0000 Signed Impressions: Service Date/Time: Tuesday, February 14, 2017 19:53 - CONCLUSION: 1. Moth-eaten appearance of mid humeral shaft on the endosteal surface extending over more than 5 cm most characteristic of metastatic bone disease given history of lung cancer. No pathologic fracture. Selvin Whittington MD Administered Medications Medications (Trade) Dose Ordered Sig/Sisi Route PRN Reason Start Time Stop Time Status Last Admin Dose Admin Sodium Chloride (NS Flush) 2 ml UNSCH PRN IVF FLUSH AFTER USING IV ACCESS 02/08/17 07:30 02/12/17 09:00 Piperacillin Sod/ Tazobactam Sod 50 ml @ 100 mls/hr Q6H IV 02/08/17 20:00 02/15/17 00:43 Sodium Chloride 1,000 ml @ 100 mls/hr Q10H IV 02/09/17 08:45 02/13/17 03:07 Azithromycin 500 mg/Sodium Chloride 250 ml @ 250 mls/hr Q24H IV 02/09/17 14:00 02/14/17 15:18 Morphine Sulfate (Morphine 1 Mg/ ml SCREW MACHINE OPERATOR SINGLE SPINDLE) 30 mg UNSCH IV 02/09/17 16:45 02/14/17 17:06 SCREW MACHINE OPERATOR SINGLE SPINDLE Dosage Infused (Pha) 1 Q8HR .XX 02/09/17 22:00 02/15/17 04:59 Alprazolam (Xanax) 1 mg TID PRN PO ANXIETY 02/11/17 13:00 02/13/17 22:04 Carbidopa/Levodopa (Sinemet 25-100 Mg) 1 tab Q4HR PO 02/11/17 12:00 02/15/17 04:49 Potassium Chloride 40 meq/ Sodium Chloride 1,020 ml @ 42 mls/hr Q24H IV 02/11/17 11:00 02/15/17 00:28 Pantoprazole Sodium (Protonix) 40 mg BIDAC PO 02/12/17 16:00 02/15/17 04:49 Polyethylene Glycol (Miralax) 17 gm DAILY PO 02/12/17 13:00 02/14/17 08:27 Fentanyl (Duragesic 25 Mcg Patch.72 Hr) 1 patch Q3D T-DERMAL 02/14/17 13:00 02/14/17 12:11 Objective Remarks GENERAL: frail and chronically ill SKIN: Warm and dry. HEAD: Normocephalic. EYES: No scleral icterus. No injection or drainage. NECK: Supple, trachea midline. No JVD or lymphadenopathy. LYMPHATIC: No adenopathy. CARDIOVASCULAR: Regular rate and rhythm without murmurs. RESPIRATORY: Breath sounds equal bilaterally. No accessory muscle use. GASTROINTESTINAL: Abdomen soft, non-tender, nondistended. EXTREMITIES: No cyanosis, or edema. MUSCULOSKELETAL: pain and tenderness in left mid humerus. NEUROLOGICAL: No obvious focal deficit. Awake, alert, and oriented x3. PSYCHIATRIC: sad and worried. understands the situation. Assessment/Plan Assessment 1: pain in left arm well explained by ct scan findings. I spoke with Dr. Fink- radiation oncology and patient will receive palliative XRT to the left humerus possibly with a single fraction which would be practical as it can be done in one day and will relieve pain and hopefully prevent pathologic fracture in future. 2: continue to advance feedings 3: I spoke with Dr. Stone his oncologist several days ago and reviewed with him the findings on the laparoscopy. I doubt Mr. Hairston will receive additional systemic treatment but this will be deferred to Dr. Stone who he has known for years. patient would be appropriate for hospice given current events and next time I meet with family will revisit this. Ricci Johns MD Feb 15, 2017 08:45
[2017-02-15] MEDS: POLYETHYLENE GLYCOL 17 GM PKG PO SCH ×2 (08:55→09:00)
--- NOTE | 2017-02-15 11:12 | HHI.PR ---
Subjective Subjective Notes Up to chair Walked in hallways with PT this morning Objective Vitals/I&O Vital Signs Date Time Temp Pulse Resp B/P (MAP) Pulse Ox O2 Delivery O2 Flow Rate FiO2 02/15/17 09:17 98 Nasal Cannula 2.00 02/15/17 09:00 98.3 98 16 153/71 (98) 02/13/17 10:30 21 Labs Laboratory Tests Test 02/15/17 05:30 02/15/17 06:30 Blood Urea Nitrogen 10 Creatinine 0.74 Random Glucose 143 Total Protein 6.6 Albumin 2.4 Calcium Level 10.0 Phosphorus Level 2.0 Magnesium Level 2.0 Alkaline Phosphatase 79 Aspartate Amino Transf (AST/SGOT) 17 Alanine Aminotransferase (ALT/SGPT) 6 Total Bilirubin 0.7 Sodium Level 137 Potassium Level 3.6 Chloride Level 103 Carbon Dioxide Level 26.5 Anion Gap 8 Estimat Glomerular Filtration Rate 104 White Blood Count 8.8 Red Blood Count 3.40 Hemoglobin 10.7 Hematocrit 31.8 Mean Corpuscular Volume 93.6 Mean Corpuscular Hemoglobin 31.6 Mean Corpuscular Hemoglobin Concent 33.7 Red Cell Distribution Width 19.9 Platelet Count 161 Mean Platelet Volume 7.9 Neutrophils (%) (Auto) 79.4 Lymphocytes (%) (Auto) 10.3 Monocytes (%) (Auto) 9.2 Eosinophils (%) (Auto) 0.8 Basophils (%) (Auto) 0.3 Neutrophils # (Auto) 7.0 Lymphocytes # (Auto) 0.9 Monocytes # (Auto) 0.8 Eosinophils # (Auto) 0.1 Basophils # (Auto) 0.0 CBC Comment DIFF FINAL Differential Comment Date/Time Source Procedure Growth Status 02/08/17 14:20 Blood Peripheral Aerobic Blood Culture - Final NO GROWTH IN 5 DAYS Complete 02/08/17 14:20 Blood Peripheral Anaerobic Blood Culture - Final NO GROWTH IN 5 DAYS Complete Radiology Last 48 hours Impressions Abdomen/Pelvis CT 02/08/17 0939 Signed Impressions: Service Date/Time: January 13:23 - CONCLUSION: 1. New areas of consolidation in the left lower lobe most characteristic of pneumonia. 2. Worsening bowel gas pattern with increased dilatation of multiple loops of small bowel with air-fluid levels. Contrast is noted in the distal colon and this could indicate a partial small bowel obstruction. 3. Right adrenal mass again noted. Anam Agarwal MD Cardiovascular: Regular Lungs: Clear Abdomen: Other (minimally tender around G tube site; G tube clean and dry. Soft ) Extremities: Other (see below ) Narrative Exam RIGHT wrist brace on LEFT wrist and forearm pain --no visible signs of trauma A/P Assessment and Plan 72 year old male with esophagus cancer; metastatic disease to liver and bone -POD6 dx lap; lap G tube placement -Continue soft diet; Continue TF at 40 cc/hr (nocturnal) -Fentanyl patch -OOB and mobilize -Pain control -Going to the [facility] for LEFT arm radiation Antonia Hardy Feb 15, 2017 11:12
--- NOTE | 2017-02-15 11:20 | HHI.PR ---
Subjective Remarks 9-3 Discussed with patient and daughter Status post laparoscopy and exploratory 2 days ago Has G-tube to suction Family wanting to know when he can eat we'll defer that to surgery and GI Many questions answered Restart Xanax and Sinemet Discussed with patient and RN and daughter 9-4 NOT HAVING BMS YET COMPLAINS OF GAS STILL USING MANUAL QA TESTER PUMP QUITE OFTEN GI WANTS ON MIRALAX SO HE CAN HAVE BOWEL MOVEMENTS DW RN AND PT STILL ON TUBE FEEDS AT 10ML/HR ONLY 9-5 TOLERATING TUBE FEEDS DW RN AND PT HAD BMS STILL USING MANUAL QA TESTER PUMP ON TUBE FEEDS AT 30ML/HR 9-6 COMPLAINING OF PAIN OF LEFT HUMERUS AREA DW RN AND PT AND FAMILY NOT TOLERATING TUBE FEEDS TUBE FEEDS ON HOLD AM LABS STILL USING MANUAL QA TESTER 9-7 radiation therapy regarding the left humerus starting today Going to the [facility] for radiation today Still using MANUAL QA TESTER on occasion Lots of uncontrolled pain Objective Vitals Vital Signs Date Time Temp Pulse Resp B/P (MAP) Pulse Ox O2 Delivery O2 Flow Rate FiO2 02/15/17 09:17 98 Nasal Cannula 2.00 02/15/17 09:00 98.3 98 16 153/71 (98) 98 02/15/17 04:59 17 02/15/17 04:00 97.5 97 18 120/56 (77) 97 02/15/17 00:00 98.6 96 18 135/63 (87) 97 02/14/17 20:26 18 02/14/17 18:11 95 Nasal Cannula 2.00 02/14/17 17:06 17 02/14/17 16:00 97.0 104 17 103/60 (74) 95 02/14/17 14:00 17 02/14/17 12:00 98.7 104 17 135/63 (87) 97 I/O 02/14/17 02/14/17 02/14/17 02/15/17 02/15/17 02/15/17 07:00 15:00 23:00 07:00 15:00 23:00 Intake Total 100 ml 960 ml Output Total 500 ml 1450 ml 800 ml Balance -500 ml 100 ml -490 ml -800 ml Intake Oral 960 ml IV Total 100 ml Output Urine Total 500 ml 1450 ml 800 ml # Bowel Movements 2 3 Result Diagram: 02/15/17 0630 02/15/17 0530 Other Results Laboratory Tests Test 02/13/17 05:00 02/14/17 06:00 02/15/17 05:30 02/15/17 06:30 White Blood Count 7.0 TH/MM3 8.8 TH/MM3 8.8 TH/MM3 Red Blood Count 3.35 MIL/MM3 3.38 MIL/MM3 3.40 MIL/MM3 Hemoglobin 10.3 GM/DL 10.5 GM/DL 10.7 GM/DL Hematocrit 31.3 % 31.7 % 31.8 % Mean Corpuscular Volume 93.4 FL 93.9 FL 93.6 FL Mean Corpuscular Hemoglobin 30.7 PG 31.1 PG 31.6 PG Mean Corpuscular Hemoglobin Concent 32.9 % 33.2 % 33.7 % Red Cell Distribution Width 20.4 % 20.3 % 19.9 % Platelet Count 163 TH/MM3 159 TH/MM3 161 TH/MM3 Mean Platelet Volume 7.8 FL 8.0 FL 7.9 FL Neutrophils (%) (Auto) 68.9 % 77.0 % 79.4 % Lymphocytes (%) (Auto) 15.3 % 11.5 % 10.3 % Monocytes (%) (Auto) 14.4 % 10.8 % 9.2 % Eosinophils (%) (Auto) 1.0 % 0.5 % 0.8 % Basophils (%) (Auto) 0.4 % 0.2 % 0.3 % Neutrophils # (Auto) 4.8 TH/MM3 6.8 TH/MM3 7.0 TH/MM3 Lymphocytes # (Auto) 1.1 TH/MM3 1.0 TH/MM3 0.9 TH/MM3 Monocytes # (Auto) 1.0 TH/MM3 0.9 TH/MM3 0.8 TH/MM3 Eosinophils # (Auto) 0.1 TH/MM3 0.0 TH/MM3 0.1 TH/MM3 Basophils # (Auto) 0.0 TH/MM3 0.0 TH/MM3 0.0 TH/MM3 CBC Comment DIFF FINAL DIFF FINAL DIFF FINAL Differential Comment Blood Urea Nitrogen 7 MG/DL 8 MG/DL 10 MG/DL Creatinine 0.65 MG/DL 0.68 MG/DL 0.74 MG/DL Random Glucose 113 MG/DL 160 MG/DL 143 MG/DL Total Protein 5.9 GM/DL 6.0 GM/DL 6.6 GM/DL Albumin 2.3 GM/DL 2.4 GM/DL 2.4 GM/DL Calcium Level 9.5 MG/DL 10.1 MG/DL 10.0 MG/DL Phosphorus Level 2.2 MG/DL 1.9 MG/DL 2.0 MG/DL Magnesium Level 1.7 MG/DL 2.1 MG/DL 2.0 MG/DL Alkaline Phosphatase 75 U/L 83 U/L 79 U/L Aspartate Amino Transf (AST/SGOT) 14 U/L 18 U/L 17 U/L Alanine Aminotransferase (ALT/SGPT) 7 U/L 7 U/L 6 U/L Total Bilirubin 0.6 MG/DL 0.7 MG/DL 0.7 MG/DL Sodium Level 138 MEQ/L 138 MEQ/L 137 MEQ/L Potassium Level 3.1 MEQ/L 3.5 MEQ/L 3.6 MEQ/L Chloride Level 102 MEQ/L 102 MEQ/L 103 MEQ/L Carbon Dioxide Level 27.3 MEQ/L 27.8 MEQ/L 26.5 MEQ/L Anion Gap 9 MEQ/L 8 MEQ/L 8 MEQ/L Estimat Glomerular Filtration Rate 121 ML/MIN 115 ML/MIN 104 ML/MIN Imaging Last Impressions Upper Extremity CT 02/14/17 0000 Signed Impressions: Service Date/Time: Tuesday, February 14, 2017 19:53 - CONCLUSION: 1. Moth-eaten appearance of mid humeral shaft on the endosteal surface extending over more than 5 cm most characteristic of metastatic bone disease given history of lung cancer. No pathologic fracture. Selvin Whittington MD Wrist X-Ray 02/13/17 0000 Signed Impressions: Service Date/Time: Monday, February 13, 2017 11:30 - CONCLUSION: Intact left wrist. 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 Robbin Cheney MD Radius/Ulna X-Ray 02/13/17 0000 Signed Impressions: Service Date/Time: Monday, February 13, 2017 11:34 - CONCLUSION: Radiographic appearance of the left forearm is within normal limits. Robbin Cheney MD Abdomen/Pelvis CT 02/08/17 0939 Signed Impressions: Service Date/Time: January 13:23 - CONCLUSION: 1. New areas of consolidation in the left lower lobe most characteristic of pneumonia. 2. Worsening bowel gas pattern with increased dilatation of multiple loops of small bowel with air-fluid levels. Contrast is noted in the distal colon and this could indicate a partial small bowel obstruction. 3. Right adrenal mass again noted. Anam Agarwal MD Objective Remarks - GENERAL: This is a well-nourished, well-developed patient, in moderate distress. SKIN: No rashes, warm and dry HEAD: Atraumatic. Normocephalic. EYES: Pupils equal round and reactive. Extraocular motions intact. No scleral icterus. ENT: Nose without bleeding, or drainage, Airway patent. Tongue is midline oral mucosa is moist NECK: Trachea midline. Supple CARDIOVASCULAR: Regular rate and rhythm without murmurs, gallops, or rubs. S1- S2 no S3 or S4 no heave or thrill RESPIRATORY: Fair air entry bilaterally. No wheezes, rales, or rhonchi. GASTROINTESTINAL: Abdomen soft, non-tender, nondistended. POSITIVE bowel sounds , G-tube in place --STILL ON tube feeds at night MUSCULOSKELETAL: Extremities without clubbing, cyanosis, or edema. Pedal pulses appreciated NEUROLOGICAL: Awake and alert. Moves all extremity. Normal speech.no focal neurological deficit Insight and judgment is okay mood and behavior is somewhat appropriate Procedures Umbilical hernia repair and diagnostic laparoscopy and laparoscopic G-tube placement on 02/09/[address] Galen sawant Medications and IVs Current Medications Ondansetron HCl (Zofran Inj) 4 mg ONCE ONCE IVP Last administered on 07:48; Start 02/08/17 at 07:30; Stop 02/08/17 at 07:31; Status DC Sodium Chloride 1,000 ml @ 1,000 mls/hr Q1H IV Last administered on 02/08/17 07:41; Start 02/08/17 at 07:18; Stop 02/08/17 at 08:17; Status DC Sodium Chloride (NS Flush) 2 ml UNSCH PRN IVF FLUSH AFTER USING IV ACCESS Last administered on 02/12/17 09:00; Start 02/08/17 at 07:30 Pantoprazole Sodium 80 mg/ Sodium Chloride 35 ml @ 420 mls/hr Q5M ONCE IV Last administered on 02/08/17 08:08; Start 02/08/17 at 07:18; Stop 02/08/17 at 07:22; Status DC Pantoprazole Sodium 80 mg/ Sodium Chloride 100 ml @ 10 mls/hr Q10H IV Last administered on 02/08/17 08:15; Start 02/08/17 at 07:18; Stop 02/09/17 at 02:08 ; Status DC Hydromorphone HCl (Dilaudid Pf Inj) 1 mg ONCE ONCE IV Last administered on 07:48; Start 02/08/17 at 07:30; Stop 02/08/17 at 07:31; Status DC Morphine Sulfate (Morphine Inj) 2 mg Q15M PRN IV PAIN SCALE 4 TO 10 Last administered on 02/09/17 10:59; Start 02/08/17 at 09:00; Stop 02/09/17 at 11:00; Status DC Sodium Chloride 1,000 ml @ 999 mls/hr BOLUS ONCE IV Last administered on 02/08 09:44; Start 02/08/17 at 09:45; Stop 02/08/17 at 10:45; Status DC Diatrizoate Meglum/ Diatrizoate Sod ( Gastroview Liq) 18 ml STK-MED ONCE .ROUTE Last administered on 02/08/17 10:10; Start 02/08/17 at 10:05; Stop at 10:06; Status DC Ceftriaxone Sodium 1000 mg/ Sodium Chloride 100 ml @ 200 mls/hr ONCE ONCE IV Last administered on 02/08/17 15:37; Start 02/08/17 at 14:15; Stop 02/08/17 at 14:44; Status DC Azithromycin 500 mg/Sodium Chloride 250 ml @ 250 mls/hr ONCE ONCE IV Last administered on 02/08/17 14:30; Start 02/08/17 at 14:15; Stop 02/08/17 at 15:14 ; Status DC Sodium Chloride 1,000 ml @ 999 mls/hr BOLUS ONCE IV Last administered on 02/08 14:31; Start 02/08/17 at 14:15; Stop 02/08/17 at 15:15; Status DC Pantoprazole Sodium 80 mg/ Sodium Chloride 100 ml @ 10 mls/hr CONTINUOUS IV Last administered on 02/12/17 01:20; Start 02/08/17 at 16:45; Stop 02/12/17 at 11 :52; Status DC Sodium Chloride 1,000 ml @ 100 mls/hr Q10H IV Last administered on 02/09/17 02 :56; Start 02/08/17 at 16:56; Stop 02/09/17 at 08:37; Status DC Acetaminophen (Tylenol) 650 mg Q4H PRN PO TEMP > 100.4; Start 02/08/17 at 17:00 Ondansetron HCl (Zofran Inj) 4 mg Q6H PRN IVP NAUSEA OR VOMITING; Start at 17:00 Naloxone HCl (Narcan Inj) 0.4 mg UNSCH PRN IV SEE LABEL COMMENTS; Start at 17:00; Stop 02/14/17 at 12:07; Status DC Morphine Sulfate (Morphine Inj) 1 mg Q4H PRN IV PUSH pain 3-5 Last administered on 02/09/17 08:51; Start 02/08/17 at 17:00; Stop 02/09/17 at 16:41; Status DC Morphine Sulfate (Morphine Inj) 2 mg Q4H PRN IV PUSH pain 6-10; Start 02/08/17 at 17:00; Stop 02/09/17 at 16:41; Status DC Piperacillin Sod/ Tazobactam Sod 50 ml @ 100 mls/hr Q6H IV Last administered on 02/15/17 08:54; Start 02/08/17 at 20:00 Sodium Chloride 1,000 ml @ 84 mls/hr [id number] IV Last administered on 20:47; Start 02/08/17 at 17:15; Stop 02/09/17 at 08:38; Status DC Sodium Chloride 1,000 ml @ 100 mls/hr Q10H IV Last administered on 02/13/17 03 :07; Start 02/09/17 at 08:45 Azithromycin 500 mg/Sodium Chloride 250 ml @ 250 mls/hr Q24H IV Last administered on 02/14/17 15:18; Start 02/09/17 at 14:00 Midazolam HCl (Versed Inj) 2 mg STK-MED ONCE .ROUTE ; Start 02/09/17 at 13:22; Stop 02/09/17 at 13:23; Status DC Famotidine (Pepcid Inj) 20 mg STK-MED ONCE .ROUTE ; Start 02/09/17 at 13:22; Stop 02/09/17 at 13:23; Status DC Bupivacaine HCl/ Epinephrine Bitart (Sensorcaine-Epinephrine 0.25% Inj) 50 ml STK-MED ONCE .ROUTE Last administered on 02/09/17 14:04; Start 02/09/17 at 13:50 ; Stop 02/09/17 at 13:51; Status DC Cefazolin Sodium (Ancef Inj) 2,000 mg ONCE ONCE IV ; Start 02/09/17 at 14:03; Stop 02/09/17 at 14:04; Status UNV Cefazolin Sodium/ Dextrose 50 ml @ 100 mls/hr ONCE ONCE IV Last administered on 02/09/17 16:45; Start 02/09/17 at 16:00; Stop 02/09/17 at 16:29; Status DC Morphine Sulfate (*morphine INJ PERIprocedure ONLY) 8 mg STK-MED ONCE .ROUTE Last administered on 02/09/17 15:44; Start 02/09/17 at 15:44; Stop 02/09/17 at 15: 45; Status DC Fentanyl Citrate (fentaNYL INJ) 400 mcg STK-MED ONCE .ROUTE ; Start 02/09/17 at 15:48; Stop 02/09/17 at 15:49; Status DC Fentanyl Citrate (fentaNYL INJ) 100 mcg STK-MED ONCE .ROUTE ; Start 02/09/17 at 15:48; Stop 02/09/17 at 15:49; Status DC Morphine Sulfate (*morphine INJ PERIprocedure ONLY) 8 mg STK-MED ONCE .ROUTE Last administered on 02/09/17 15:56; Start 02/09/17 at 15:56; Stop 02/09/17 at 15: 57; Status DC Miscellaneous Information ALL NURSING DEPARTME... UNSCH PRN .XX SEE LABEL COMMENTS; Start 02/09/17 at 15:37; Stop 02/10/17 at 15:36; Status DC Hydromorphone HCl (*DILAUDID PF INJ PERIprocedural ONLY) 1 mg STK-MED ONCE .ROUTE Last administered on 02/09/17 16:13; Start 02/09/17 at 16:13; Stop at 16:14; Status DC Morphine Sulfate (Morphine 1 Mg/ ml MANUAL QA TESTER) 30 mg STK-MED ONCE .ROUTE ; Start at 16:26; Stop 02/09/17 at 16:27; Status DC Morphine Sulfate (Morphine 1 Mg/ ml MANUAL QA TESTER) 30 mg UNSCH IV Last administered on 17:06; Start 02/09/17 at 16:45 MANUAL QA TESTER Dosage Infused (Pha) 1 Q8HR .XX Last administered on 02/15/17 04:59; Start 02/09/17 at 22:00 Naloxone HCl (Narcan Inj) 0.4 mg UNSCH PRN IV RESPIRATORY RATE LESS THAN 10; Start 02/09/17 at 16:45 Potassium Bicarb/ Potassium Chloride (K-Lyte Cl Eff) 50 meq ONCE ONCE PO Last administered on 02/11/17 06:06; Start 02/11/17 at 06:00; Stop 02/11/17 at 06: 01; Status DC Potassium Chloride 100 ml @ 50 mls/hr ONCE ONCE IV Last administered on 06:05; Start 02/11/17 at 06:00; Stop 02/11/17 at 07:59; Status DC Alprazolam (Xanax) 1 mg TID PRN PO ANXIETY Last administered on 02/13/17 22:04 ; Start 02/11/17 at 13:00 Carbidopa/Levodopa (Sinemet 25-100 Mg) 1 tab Q4HR PO Last administered on 08:55; Start 02/11/17 at 12:00 Potassium Phosphate 30 mmol/ Sodium Chloride 260 ml @ 43.333 mls/ hr ONCE ONCE IV Last administered on 02/11/17 11:39; Start 02/11/17 at 10:45; Stop at 16:44; Status DC Potassium Chloride 40 meq/ Sodium Chloride 1,020 ml @ 42 mls/hr Q24H IV Last administered on 02/15/17 00:28; Start 02/11/17 at 11:00 Clonidine (Catapres) 0.1 mg Q4H PRN PO SBP>160, DBP>90; Start 02/11/17 at 10:45 Pantoprazole Sodium (Protonix) 40 mg BIDAC PO Last administered on 02/15/17 08: 55; Start 02/12/17 at 16:00 Polyethylene Glycol (Miralax) 17 gm DAILY PO Last administered on 02/14/17 08: 27; Start 02/12/17 at 13:00 Potassium Phosphate 30 mmol/ Sodium Chloride 260 ml @ 43.333 mls/ hr ONCE ONCE IV Last administered on 02/13/17 10:00; Start 02/13/17 at 10:00; Stop at 15:59; Status DC Sodium Phosphate 30 mmol/Sodium Chloride 260 ml @ 43.333 mls/ hr ONCE ONCE IV Last administered on 02/13/17 10:30; Start 02/13/17 at 10:30; Stop 02/13/17 at 16:29; Status DC Magnesium Sulfate/ Dextrose 100 ml @ 100 mls/hr Q1H IV Last administered on 10:30; Start 02/13/17 at 09:30; Stop 02/13/17 at 11:29; Status DC Fentanyl (Duragesic 25 Mcg Patch.72 Hr) 1 patch ONCE ONCE T-DERMAL ; Start at 10:15; Stop 02/14/17 at 10:16; Status UNV Fentanyl (Duragesic 25 Mcg Patch.72 Hr) 1 patch Q3D T-DERMAL Last administered on 02/14/17 12:11; Start 02/14/17 at 13:00 Miscellaneous Information 1 Q3D T-DERMAL ; Start 02/17/17 at 13:00 Sennosides (Senokot) 8.6 mg BID PRN PO CONSTIPATION; Start 02/14/17 at 15:30 A/P Assessment and Plan 72 years old male with history of 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 came with Multiple episode of hematemesis 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 Partial SBO versus ileus GI bleed Leukocytosis Bilateral pneumonia possibly aspiration DVT prophylaxis with SCD Hypokalemia will need replacement Parkinsons restart home Sinemet ANXIETY RESTART HOME XANAX HYPOKALEMIA REPLACE SOME BOWEL SOUNDS- STILL USING MANUAL QA TESTER OFTEN POSITIVE BM SUSPECT METS TO LEFT HUMERUS undergo radiation therapy at the [facility] today for improvement of symptoms Plan: Status post exploratory laparotomy 02/09 showing generalized ileus, no adhesions no SBO, appreciate surgery follow up Iv Protonix Appreciate GI, oncology consult Zosyn and Zithromax Sent for blood culture and sputum culture if available Palliative care also seen the patient in the daughter, the patient refused to accept palliative care, plan is still for aggressive treatment DVT prophylaxis with SCD due to GI bleed Radiation today Glenda LOCKETT RN AND PT AND FAMILY Baldomero Gutierrez DO Feb 15, 2017 11:20
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
[2017-02-15] MEDS ORDERED: SIMETHICONE 80 MG CHEWABLE TAB CHEW PRN (15:00)
--- NOTE | 2017-02-15 15:18 | HHI.GIFU ---
Subjective Remarks Resting in bed. Getting nighttime feedings. Tolerating ensure. No bm today, but feels that he could once everything settles down. States he went down for markings for radiation (to be started tomorrow) (Janice Bajwa) Objective Vitals I&O Vital Signs Date Time Temp Pulse Resp B/P (MAP) Pulse Ox O2 Delivery O2 Flow Rate FiO2 02/15/17 13:52 98.0 98 24 117/65 (82) 97 02/15/17 09:17 98 Nasal Cannula 2.00 02/15/17 09:00 98.3 98 16 153/71 (98) 98 02/15/17 04:59 17 02/15/17 04:00 97.5 97 18 120/56 (77) 97 02/15/17 00:00 98.6 96 18 135/63 (87) 97 02/14/17 20:26 18 02/14/17 18:11 95 Nasal Cannula 2.00 02/14/17 17:06 17 02/14/17 16:00 97.0 104 17 103/60 (74) 95 I/O 02/14/17 02/14/17 02/14/17 02/15/17 02/15/17 02/15/17 07:00 15:00 23:00 07:00 15:00 23:00 Intake Total 100 ml 960 ml 1298 ml Output Total 500 ml 1450 ml 800 ml 400 ml Balance -500 ml 100 ml -490 ml -800 ml 898 ml Intake Oral 960 ml 300 ml IV Total 100 ml 610 ml Tube Feeding 388 ml Output Urine Total 500 ml 1450 ml 800 ml 400 ml # Voids 3 # Bowel Movements 2 3 1 Laboratory Laboratory Tests Test 02/15/17 05:30 02/15/17 06:30 Blood Urea Nitrogen 10 Creatinine 0.74 Random Glucose 143 Total Protein 6.6 Albumin 2.4 Calcium Level 10.0 Phosphorus Level 2.0 Magnesium Level 2.0 Alkaline Phosphatase 79 Aspartate Amino Transf (AST/SGOT) 17 Alanine Aminotransferase (ALT/SGPT) 6 Total Bilirubin 0.7 Sodium Level 137 Potassium Level 3.6 Chloride Level 103 Carbon Dioxide Level 26.5 Anion Gap 8 Estimat Glomerular Filtration Rate 104 White Blood Count 8.8 Red Blood Count 3.40 Hemoglobin 10.7 Hematocrit 31.8 Mean Corpuscular Volume 93.6 Mean Corpuscular Hemoglobin 31.6 Mean Corpuscular Hemoglobin Concent 33.7 Red Cell Distribution Width 19.9 Platelet Count 161 Mean Platelet Volume 7.9 Neutrophils (%) (Auto) 79.4 Lymphocytes (%) (Auto) 10.3 Monocytes (%) (Auto) 9.2 Eosinophils (%) (Auto) 0.8 Basophils (%) (Auto) 0.3 Neutrophils # (Auto) 7.0 Lymphocytes # (Auto) 0.9 Monocytes # (Auto) 0.8 Eosinophils # (Auto) 0.1 Basophils # (Auto) 0.0 CBC Comment DIFF FINAL Differential Comment Date/Time Source Procedure Growth Status 02/08/17 14:20 Blood Peripheral Aerobic Blood Culture - Final NO GROWTH IN 5 DAYS Complete 02/08/17 14:20 Blood Peripheral Anaerobic Blood Culture - Final NO GROWTH IN 5 DAYS Complete Imaging Last Impressions Upper Extremity CT 02/14/17 0000 Signed Impressions: Service Date/Time: Tuesday, February 14, 2017 19:53 - CONCLUSION: 1. Moth-eaten appearance of mid humeral shaft on the endosteal surface extending over more than 5 cm most characteristic of metastatic bone disease given history of lung cancer. No pathologic fracture. Selvin Whittington MD Wrist X-Ray 02/13/17 0000 Signed Impressions: Service Date/Time: Monday, February 13, 2017 11:30 - CONCLUSION: Intact left wrist. 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 Robbin Cheney MD Radius/Ulna X-Ray 02/13/17 0000 Signed Impressions: Service Date/Time: Monday, February 13, 2017 11:34 - CONCLUSION: Radiographic appearance of the left forearm is within normal limits. Robbin Cheney MD Abdomen/Pelvis CT 02/08/17 0939 Signed Impressions: Service Date/Time: January 13:23 - CONCLUSION: 1. New areas of consolidation in the left lower lobe most characteristic of pneumonia. 2. Worsening bowel gas pattern with increased dilatation of multiple loops of small bowel with air-fluid levels. Contrast is noted in the distal colon and this could indicate a partial small bowel obstruction. 3. Right adrenal mass again noted. Anam Agarwal MD Physical Exam HEENT: Normocephalic; atraumatic; no jaundice. CHEST: CTA CARDIAC: RRR ABDOMEN: Soft, nondistended, nontender, no hepatosplenomegaly; bowel sounds are hypoactive. G tube, dressing C/D/I. Laparoscopy incision sites C/D/I EXTREMITIES: No clubbing, cyanosis, or edema. SKIN: No rash. TECHNICAL STENOGRAPHER: No focal deficits; alert and oriented x 3 (Janice Bajwa RICK) Assessment and Plan Plan ASSESSMENT: - PSBO. CT scan abdomen and pelvis without contrast (02/08/17) and this revealed new areas of consolidation in the left lower lobe most characteristic of pneumonia. Worsening bowel gas pattern with increased dilatation of multiple loops of small bowel with air-fluid levels. Contrast noted in the distal colon and this could indicate a partial small bowel obstruction. Right adrenal mass noted again. S/P diagnostic laparoscopy, laparoscopic G tube (18 F) (02/09/17)---> ileus pattern throughout entire small bowel, no adhesions, no evidence of carcinomatosis. Improved. TF at night, ensure/luis during day. - GIB. One episode of black emesis after persistent n/v with brown emesis and black tarry stool on admission. EGD (01/30/17)----> 1. Large ulcer was found in the distal esophagus, 5 CM above GE junction; with minimal narrowing of the lumen, biopsies were taken 2. Normal stomach and duodenal mucosa. 3. Retroflexed views revealed a hiatal hernia. Pathology invasively poorly differentiated carcinoma with extensive ulceration, A GMS stain is negative for fungal organisms. No active bleeding. HH stable- 10.7/31.8.. - Anemia. 10.7/31.8. PPI - Leukocytosis. Improved. WBC 8.8. Zosyn, Azithromycin - Aspiration pneumonia. Azithromycin, Zosyn. - Metastatic esophageal cancer. Dx April of 2014 and is s/p chemotherapy and radiation. He was recently found to have metastatic disease in his right upper extremity and states that he recently completed 3 months of chemotherapy and radiation with Dr. Stone. He was noted to have metastatic disease to liver, sclerotic lesions within the lumbar spine which are indeterminate. Pt sees Dr. Stone. To start radiation left humerus tomorrow - Bony metastatic dz/Left upper extremity pain. S/P Xray (02/13/17) intact left wrist, mild intact left wrist. 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 Radiographic appearance of the left forearm is within normal limits. CT (02/14)---> Moth eaten appearance of mid humeral shaft on the endosteal surgace extending over more than 5 cm most characteristic of metastatic bone disease given history of lung cancer. No pathologic fracture. Pt seen by radiation oncology and the plan is to start radiation tomorrow. Oncology following. PLAN: - Soft diet as tolerated- pt does not want to try soft diet, wants to continue liquids/ensure - TF via G tube - Miralax daily - Protonix with po BID - Monitor HH, transfuse as necessary - Zosyn - GS following - Oncology following - Supportive care - Further recommendations to follow based on results of above - Patient seen and examined by Dr. Mahmood and myself and this note is written on his behalf (Janice Bajwa) Plan Patient was seen and examined, agree with the above note, patient stated that she is tolerating the tube feeding at 45 now and the plan to try to increase it slowly. She is being followed by oncology and general surgery. Continue current care and call us if needed we'll see the patient on as needed basis (Pamela Mahmood MD) Janice Bajwa Feb 15, 2017 15:18 Pamela Mahmood MD Feb 15, 2017 22:12
[2017-02-15] MEDS: AZITHROMYCIN INJ 500 MG in SODIUM CHLOR 0.9% 250 ML INJ 250 ML IV SCH (15:51)
[2017-02-15] MEDS: MORPHINE SULFATE 30 MG/30 ML PCA IV SCH (21:03)
--- NOTE | 2017-02-15 21:57 | RF ---
cc: OSVALDO MAYFIELD MD, BRAD F o l l o w u p R e p o r t DATE OF SERVICE 02/15/17 AGE: 72 SEX: M Mr. Hairston is a 72 year-old male with invasive poorly differentiated carcinoma. Esophageal biopsy obtained 01/28/2017. Bone metastases. Recent imaging left upper extremity CT demonstrates mid humeral shaft mass. Dr. Mayfield contacted me about his circumstance while I reviewed CT images as well. He comes in today to our clinic. He is inpatient. We discussed a single fraction radiation to the left arm. We discussed potential pain after radiation therapy. We discussed a multiple fraction course. Risk of fracture less than 5%, risk of pain flare 1 in 5. He comes in today. We will plan urgent treatment. Dr. Mayfield contacted me about him. Initially presented GI bleed periumbilical pain, pathology again demonstrates cancer. He had chemoradiation for esophageal cancer in 2012. He has been receiving palliative chemotherapy through Dr. Stone. PAST MEDICAL AND SURGICAL HISTORY 1. Prior radiation therapy to the esophagus 2. Metastatic esophageal cancer 3. Parkinson's 5. Diarrhea, 6. Appendectomy, 7. Tonsillectomy 8. EGD/colonoscopy MEDICATIONS 1. Morphine 2. Xarelto 3. Omeprazole 4. Gabapentin 5. Carbidopa 6. Xanax ALLERGIES MEPERIDINE REVIEW OF SYSTEMS Reports fever, fatigue, pain left arm. HEENT: Denies double vision. Does report decreased hearing. RESPIRATORY: Does have shortness of breath, no cough or wheezing. CARDIOVASCULAR: Denies chest pain or shortness of breath. GASTROINTESTINAL: Reports abdominal discomfort. SKIN: Denies rash. Reports bruising. Reports some discomfort. PHYSICAL EXAMINATION GENERAL: Pleasant male comfortable. EXTREMITIES: No cyanosis, clubbing or edema. Pain left arm noted, mass noted left humerus. IMPRESSION Mr. Hairston with metastatic esophageal cancer. We discussed palliative radiation therapy left arm. He is agreeable to this approach. Consent obtained. We will schedule CT simulation. Did review CT images. Does have prior radiation therapy in the past. This is not a previously radiated site. We discussed options including longer course of radiation therapy. He is interested in palliative single fraction radiation therapy, single fraction. We will plan that today or tomorrow. 7-8 Gy. Al Fink MD Radiation Oncologist [facility]/ /11:35 AM /9:42 PM DONAVAN
[2017-02-16] VITALS (10 sets, daily range): BP systolic 90–121; BP diastolic 56–67; PULSE 93–102; RESP 17–20; TEMP 96.9–98.7; O2SAT 95–98
[2017-02-16] MEDS: CARBIDOPA/LEVODOPA 25 MG/100 MG TAB PO SCH ×6 (01:33→20:10)
[2017-02-16] MEDS: PIPERACIL-TAZO 3.375 GM PREMIX 50 ML IV SCH ×4 (01:35→20:10)
[2017-02-16] MEDS: PANTOPRAZOLE SOD 40 MG DELAYED RELEASE TAB PO SCH ×2 (05:35→15:45)
[2017-02-16] MEDS: PCA - TOTAL MG MORPHINE DELIVERED PER SHIFT SCH ×3 (05:44→22:00)
[2017-02-16 06:13] LABS: AUTOMATED NEUTROPHIL # 5.5 TH/MM3 (1.8-7.7); BASOPHIL % 0.2 % (0.0-2.0); EOSINOPHIL # 0.1 TH/MM3 (0-0.4); HEMATOCRIT 31.9 % (39.0-51.0); HEMO FLAGS DIFF FINAL; LYMPH % 15.5 % (9.0-44.0); LYMPHOCYTE # 1.2 TH/MM3 (1.0-4.8); MEAN CORPUSCULAR HEMOGLOBIN 30.4 PG (27.0-34.0); MEAN CORPUSCULAR HGB CONC 32.4 % (32.0-36.0); MONO % 11.9 % (0.0-8.0); NEUT % 71.4 % (16.0-70.0); PLATELET COUNT 183 TH/MM3 (150-450); RED BLOOD COUNT 3.39 MIL/MM3 (4.50-5.90); RED CELL DISTRIBUTION WIDTH 20.2 % (11.6-17.2); WHITE BLOOD COUNT 7.7 TH/MM3 (4.0-11.0)
[2017-02-16 06:44] LABS: ANION GAP 6 MEQ/L (5-15); AST (GOT) 15 U/L (15-37); BICARBONATE 28.2 MEQ/L (21.0-32.0); BLOOD UREA NITROGEN 11 MG/DL (7-18); CHLORIDE 103 MEQ/L (98-107); GLOMERULAR FILTRATION RATE 106 ML/MIN (>89); MAGNESIUM 2.2 MG/DL (1.5-2.5); SODIUM (NA) 137 MEQ/L (136-145)
[2017-02-16 06:47] LABS: ALKALINE PHOSPHATASE 79 U/L (45-117); ALT (GPT) LESS THAN 6 U/L (12-78); TOTAL BILIRUBIN ADULT 0.7 MG/DL (0.2-1.0)
[2017-02-16] MEDS: POLYETHYLENE GLYCOL 17 GM PKG PO SCH ×2 (08:20→08:22)
[2017-02-16] MEDS: POTASSIUM CHLORIDE INJ 40 MEQ in SODIUM CHLOR 0.45% 1000 ML INJ 1,000 ML IV SCH ×2 (09:43→11:00)
[2017-02-16] MEDS: SODIUM CHLOR 0.9% 1000 ML INJ 1,000 ML IV SCH ×2 (10:45→20:45)
--- NOTE | 2017-02-16 11:26 | HHI.PR ---
Subjective Subjective Notes Resting in bed Tolerated TF at 40 cc/hr overnight Daughter at bedside Objective Vitals/I&O Vital Signs Date Time Temp Pulse Resp B/P (MAP) Pulse Ox O2 Delivery O2 Flow Rate FiO2 02/16/17 08:38 18 02/16/17 08:00 98.3 96 121/62 (81) 96 02/15/17 22:54 Nasal Cannula 2.00 02/13/17 10:30 21 Labs Laboratory Tests Test 02/16/17 05:45 White Blood Count 7.7 Red Blood Count 3.39 Hemoglobin 10.3 Hematocrit 31.9 Mean Corpuscular Volume 94.0 Mean Corpuscular Hemoglobin 30.4 Mean Corpuscular Hemoglobin Concent 32.4 Red Cell Distribution Width 20.2 Platelet Count 183 Mean Platelet Volume 8.1 Neutrophils (%) (Auto) 71.4 Lymphocytes (%) (Auto) 15.5 Monocytes (%) (Auto) 11.9 Eosinophils (%) (Auto) 1.0 Basophils (%) (Auto) 0.2 Neutrophils # (Auto) 5.5 Lymphocytes # (Auto) 1.2 Monocytes # (Auto) 0.9 Eosinophils # (Auto) 0.1 Basophils # (Auto) 0.0 CBC Comment DIFF FINAL Differential Comment Blood Urea Nitrogen 11 Creatinine 0.73 Random Glucose 143 Total Protein 6.5 Albumin 2.3 Calcium Level 10.4 Phosphorus Level 2.1 Magnesium Level 2.2 Alkaline Phosphatase 79 Aspartate Amino Transf (AST/SGOT) 15 Alanine Aminotransferase (ALT/SGPT) LESS THAN 6 Total Bilirubin 0.7 Sodium Level 137 Potassium Level 4.0 Chloride Level 103 Carbon Dioxide Level 28.2 Anion Gap 6 Estimat Glomerular Filtration Rate 106 Date/Time Source Procedure Growth Status 02/08/17 14:20 Blood Peripheral Aerobic Blood Culture - Final NO GROWTH IN 5 DAYS Complete 02/08/17 14:20 Blood Peripheral Anaerobic Blood Culture - Final NO GROWTH IN 5 DAYS Complete Radiology Last 48 hours Impressions Abdomen/Pelvis CT 02/08/17 0939 Signed Impressions: Service Date/Time: January 13:23 - CONCLUSION: 1. New areas of consolidation in the left lower lobe most characteristic of pneumonia. 2. Worsening bowel gas pattern with increased dilatation of multiple loops of small bowel with air-fluid levels. Contrast is noted in the distal colon and this could indicate a partial small bowel obstruction. 3. Right adrenal mass again noted. Anam Agarwal MD Cardiovascular: Regular Lungs: Clear Abdomen: Other (minimally tender; lap sites c/d/i; G tube in place--- sutures removed ) Extremities: Other (see below ) Narrative Exam RIGHT wrist brace on LEFT wrist and forearm pain --no visible signs of trauma A/P Assessment and Plan 72 year old male with esophagus cancer; metastatic disease to liver and bone -POD7 dx lap; lap G tube placement -Continue soft diet; Continue TF at 40 cc/hr (nocturnal) -Fentanyl patch -OOB and mobilize -Pain control -Going to the [facility] for LEFT arm radiation Doing well from surgical standpoint. Continue TF as tolerated via G tube. Consider Hospice Consult to assist with Home Health Care. Will see PRN, please call with any questions or concerns. Please schedule FU in office after discharge. [phone]. Thanks. KAYLEY ONOFRE MD FACS Antonia Hardy Feb 16, 2017 11:26 Kayley Onofre MD Feb 16, 2017 20:29
[2017-02-16] MEDS ORDERED: ALUMINUM/MAGNESIUM/SIMETH 30 ML CUP PO PRN (11:30)
--- NOTE | 2017-02-16 11:41 | HHI.PR ---
Subjective Remarks 9-3 Discussed with patient and daughter Status post laparoscopy and exploratory 2 days ago Has G-tube to suction Family wanting to know when he can eat we'll defer that to surgery and GI Many questions answered Restart Xanax and Sinemet Discussed with patient and RN and daughter 9-4 NOT HAVING BMS YET COMPLAINS OF GAS STILL USING RAG CUTTING MACHINE TENDER PUMP QUITE OFTEN GI WANTS ON MIRALAX SO HE CAN HAVE BOWEL MOVEMENTS DW RN AND PT STILL ON TUBE FEEDS AT 10ML/HR ONLY 9-5 TOLERATING TUBE FEEDS DW RN AND PT HAD BMS STILL USING RAG CUTTING MACHINE TENDER PUMP ON TUBE FEEDS AT 30ML/HR 9-6 COMPLAINING OF PAIN OF LEFT HUMERUS AREA DW RN AND PT AND FAMILY NOT TOLERATING TUBE FEEDS TUBE FEEDS ON HOLD AM LABS STILL USING RAG CUTTING MACHINE TENDER 9-7 radiation therapy regarding the left humerus starting today Going to the [facility] for radiation today Still using RAG CUTTING MACHINE TENDER on occasion lots of UNCONTROLLED PAIN 9-8HAD RADIATION TODAY OF LEFT HUMERUS STILL COMPLAINING OF PAIN ONLY WANTS TO TRY TUBE FEEDS AT 40ML/HR MAX AT THIS TIME DW RN AND PATIENT AND FAMILY Objective Vitals Vital Signs Date Time Temp Pulse Resp B/P (MAP) Pulse Ox O2 Delivery O2 Flow Rate FiO2 02/16/17 08:38 18 02/16/17 08:00 98.3 96 17 121/62 (81) 96 02/16/17 05:44 17 02/16/17 04:00 97.0 94 18 118/62 (80) 96 02/16/17 02:37 93 02/16/17 00:00 96.9 97 20 106/56 (73) 95 02/15/17 22:54 Nasal Cannula 2.00 02/15/17 21:03 17 02/15/17 20:46 16 02/15/17 20:00 98.6 94 18 131/68 (89) 97 02/15/17 18:10 97.2 97 18 128/67 (87) 97 02/15/17 13:52 98.0 98 24 117/65 (82) 97 I/O 02/15/17 02/15/17 02/15/17 02/16/17 02/16/17 02/16/17 07:00 15:00 23:00 07:00 15:00 23:00 Intake Total 1298 ml 698 ml Output Total 800 ml 400 ml 275 ml 15.0 ml Balance -800 ml 898 ml 423 ml -15.0 ml Intake Oral 300 ml 360 ml IV Total 610 ml Tube Feeding 388 ml 338 ml Output Urine Total 800 ml 400 ml 275 ml Tube Feeding Residual Discard 15.0 ml # Voids 3 3 # Bowel Movements 1 0 Result Diagram: 02/16/17 0545 02/16/17 0545 Other Results Laboratory Tests Test 02/14/17 06:00 02/15/17 05:30 02/15/17 06:30 02/16/17 05:45 White Blood Count 8.8 TH/MM3 8.8 TH/MM3 7.7 TH/MM3 Red Blood Count 3.38 MIL/MM3 3.40 MIL/MM3 3.39 MIL/MM3 Hemoglobin 10.5 GM/DL 10.7 GM/DL 10.3 GM/DL Hematocrit 31.7 % 31.8 % 31.9 % Mean Corpuscular Volume 93.9 FL 93.6 FL 94.0 FL Mean Corpuscular Hemoglobin 31.1 PG 31.6 PG 30.4 PG Mean Corpuscular Hemoglobin Concent 33.2 % 33.7 % 32.4 % Red Cell Distribution Width 20.3 % 19.9 % 20.2 % Platelet Count 159 TH/MM3 161 TH/MM3 183 TH/MM3 Mean Platelet Volume 8.0 FL 7.9 FL 8.1 FL Neutrophils (%) (Auto) 77.0 % 79.4 % 71.4 % Lymphocytes (%) (Auto) 11.5 % 10.3 % 15.5 % Monocytes (%) (Auto) 10.8 % 9.2 % 11.9 % Eosinophils (%) (Auto) 0.5 % 0.8 % 1.0 % Basophils (%) (Auto) 0.2 % 0.3 % 0.2 % Neutrophils # (Auto) 6.8 TH/MM3 7.0 TH/MM3 5.5 TH/MM3 Lymphocytes # (Auto) 1.0 TH/MM3 0.9 TH/MM3 1.2 TH/MM3 Monocytes # (Auto) 0.9 TH/MM3 0.8 TH/MM3 0.9 TH/MM3 Eosinophils # (Auto) 0.0 TH/MM3 0.1 TH/MM3 0.1 TH/MM3 Basophils # (Auto) 0.0 TH/MM3 0.0 TH/MM3 0.0 TH/MM3 CBC Comment DIFF FINAL DIFF FINAL DIFF FINAL Differential Comment Blood Urea Nitrogen 8 MG/DL 10 MG/DL 11 MG/DL Creatinine 0.68 MG/DL 0.74 MG/DL 0.73 MG/DL Random Glucose 160 MG/DL 143 MG/DL 143 MG/DL Total Protein 6.0 GM/DL 6.6 GM/DL 6.5 GM/DL Albumin 2.4 GM/DL 2.4 GM/DL 2.3 GM/DL Calcium Level 10.1 MG/DL 10.0 MG/DL 10.4 MG/DL Phosphorus Level 1.9 MG/DL 2.0 MG/DL 2.1 MG/DL Magnesium Level 2.1 MG/DL 2.0 MG/DL 2.2 MG/DL Alkaline Phosphatase 83 U/L 79 U/L 79 U/L Aspartate Amino Transf (AST/SGOT) 18 U/L 17 U/L 15 U/L Alanine Aminotransferase (ALT/SGPT) 7 U/L 6 U/L LESS THAN 6 U/L Total Bilirubin 0.7 MG/DL 0.7 MG/DL 0.7 MG/DL Sodium Level 138 MEQ/L 137 MEQ/L 137 MEQ/L Potassium Level 3.5 MEQ/L 3.6 MEQ/L 4.0 MEQ/L Chloride Level 102 MEQ/L 103 MEQ/L 103 MEQ/L Carbon Dioxide Level 27.8 MEQ/L 26.5 MEQ/L 28.2 MEQ/L Anion Gap 8 MEQ/L 8 MEQ/L 6 MEQ/L Estimat Glomerular Filtration Rate 115 ML/MIN 104 ML/MIN 106 ML/MIN Imaging Last Impressions Upper Extremity CT 02/14/17 0000 Signed Impressions: Service Date/Time: Tuesday, February 14, 2017 19:53 - CONCLUSION: 1. Moth-eaten appearance of mid humeral shaft on the endosteal surface extending over more than 5 cm most characteristic of metastatic bone disease given history of lung cancer. No pathologic fracture. Selvin Whittington MD Wrist X-Ray 02/13/17 0000 Signed Impressions: Service Date/Time: Monday, February 13, 2017 11:30 - CONCLUSION: Intact left wrist. 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 Robbin Cheney MD Radius/Ulna X-Ray 02/13/17 0000 Signed Impressions: Service Date/Time: Monday, February 13, 2017 11:34 - CONCLUSION: Radiographic appearance of the left forearm is within normal limits. Robbin Cheney MD Abdomen/Pelvis CT 02/08/17 0939 Signed Impressions: Service Date/Time: January 13:23 - CONCLUSION: 1. New areas of consolidation in the left lower lobe most characteristic of pneumonia. 2. Worsening bowel gas pattern with increased dilatation of multiple loops of small bowel with air-fluid levels. Contrast is noted in the distal colon and this could indicate a partial small bowel obstruction. 3. Right adrenal mass again noted. Anam Agarwal MD Objective Remarks - GENERAL: This is a well-nourished, well-developed patient, in moderate distress. SKIN: No rashes, warm and dry HEAD: Atraumatic. Normocephalic. EYES: Pupils equal round and reactive. Extraocular motions intact. No scleral icterus. ENT: Nose without bleeding, or drainage, Airway patent. Tongue is midline oral mucosa is moist NECK: Trachea midline. Supple CARDIOVASCULAR: Regular rate and rhythm without murmurs, gallops, or rubs. S1- S2 no S3 or S4 no heave or thrill RESPIRATORY: Fair air entry bilaterally. No wheezes, rales, or rhonchi. GASTROINTESTINAL: Abdomen soft, non-tender, nondistended. POSITIVE bowel sounds , G-tube in place --STILL ON tube feeds at night MUSCULOSKELETAL: Extremities without clubbing, cyanosis, or edema. Pedal pulses appreciated NEUROLOGICAL: Awake and alert. Moves all extremity. Normal speech.no focal neurological deficit Insight and judgment is okay mood and behavior is somewhat appropriate Procedures Umbilical hernia repair and diagnostic laparoscopy and laparoscopic G-tube placement on 02/09/[address] Galen sawant Medications and IVs Current Medications Ondansetron HCl (Zofran Inj) 4 mg ONCE ONCE IVP Last administered on 07:48; Start 02/08/17 at 07:30; Stop 02/08/17 at 07:31; Status DC Sodium Chloride 1,000 ml @ 1,000 mls/hr Q1H IV Last administered on 02/08/17 07:41; Start 02/08/17 at 07:18; Stop 02/08/17 at 08:17; Status DC Sodium Chloride (NS Flush) 2 ml UNSCH PRN IVF FLUSH AFTER USING IV ACCESS Last administered on 02/12/17 09:00; Start 02/08/17 at 07:30 Pantoprazole Sodium 80 mg/ Sodium Chloride 35 ml @ 420 mls/hr Q5M ONCE IV Last administered on 02/08/17 08:08; Start 02/08/17 at 07:18; Stop 02/08/17 at 07:22; Status DC Pantoprazole Sodium 80 mg/ Sodium Chloride 100 ml @ 10 mls/hr Q10H IV Last administered on 02/08/17 08:15; Start 02/08/17 at 07:18; Stop 02/09/17 at 02:08 ; Status DC Hydromorphone HCl (Dilaudid Pf Inj) 1 mg ONCE ONCE IV Last administered on 07:48; Start 02/08/17 at 07:30; Stop 02/08/17 at 07:31; Status DC Morphine Sulfate (Morphine Inj) 2 mg Q15M PRN IV PAIN SCALE 4 TO 10 Last administered on 02/09/17 10:59; Start 02/08/17 at 09:00; Stop 02/09/17 at 11:00; Status DC Sodium Chloride 1,000 ml @ 999 mls/hr BOLUS ONCE IV Last administered on 02/08 09:44; Start 02/08/17 at 09:45; Stop 02/08/17 at 10:45; Status DC Diatrizoate Meglum/ Diatrizoate Sod ( Gastroview Liq) 18 ml STK-MED ONCE .ROUTE Last administered on 02/08/17 10:10; Start 02/08/17 at 10:05; Stop at 10:06; Status DC Ceftriaxone Sodium 1000 mg/ Sodium Chloride 100 ml @ 200 mls/hr ONCE ONCE IV Last administered on 02/08/17 15:37; Start 02/08/17 at 14:15; Stop 02/08/17 at 14:44; Status DC Azithromycin 500 mg/Sodium Chloride 250 ml @ 250 mls/hr ONCE ONCE IV Last administered on 02/08/17 14:30; Start 02/08/17 at 14:15; Stop 02/08/17 at 15:14 ; Status DC Sodium Chloride 1,000 ml @ 999 mls/hr BOLUS ONCE IV Last administered on 02/08 14:31; Start 02/08/17 at 14:15; Stop 02/08/17 at 15:15; Status DC Pantoprazole Sodium 80 mg/ Sodium Chloride 100 ml @ 10 mls/hr CONTINUOUS IV Last administered on 02/12/17 01:20; Start 02/08/17 at 16:45; Stop 02/12/17 at 11 :52; Status DC Sodium Chloride 1,000 ml @ 100 mls/hr Q10H IV Last administered on 02/09/17 02 :56; Start 02/08/17 at 16:56; Stop 02/09/17 at 08:37; Status DC Acetaminophen (Tylenol) 650 mg Q4H PRN PO TEMP > 100.4; Start 02/08/17 at 17:00 Ondansetron HCl (Zofran Inj) 4 mg Q6H PRN IVP NAUSEA OR VOMITING; Start at 17:00 Naloxone HCl (Narcan Inj) 0.4 mg UNSCH PRN IV SEE LABEL COMMENTS; Start at 17:00; Stop 02/14/17 at 12:07; Status DC Morphine Sulfate (Morphine Inj) 1 mg Q4H PRN IV PUSH pain 3-5 Last administered on 02/09/17 08:51; Start 02/08/17 at 17:00; Stop 02/09/17 at 16:41; Status DC Morphine Sulfate (Morphine Inj) 2 mg Q4H PRN IV PUSH pain 6-10; Start 02/08/17 at 17:00; Stop 02/09/17 at 16:41; Status DC Piperacillin Sod/ Tazobactam Sod 50 ml @ 100 mls/hr Q6H IV Last administered on 02/16/17 05:35; Start 02/08/17 at 20:00 Sodium Chloride 1,000 ml @ 84 mls/hr [id number] IV Last administered on 20:47; Start 02/08/17 at 17:15; Stop 02/09/17 at 08:38; Status DC Sodium Chloride 1,000 ml @ 100 mls/hr Q10H IV Last administered on 02/13/17 03 :07; Start 02/09/17 at 08:45 Azithromycin 500 mg/Sodium Chloride 250 ml @ 250 mls/hr Q24H IV Last administered on 02/15/17 15:51; Start 02/09/17 at 14:00 Midazolam HCl (Versed Inj) 2 mg STK-MED ONCE .ROUTE ; Start 02/09/17 at 13:22; Stop 02/09/17 at 13:23; Status DC Famotidine (Pepcid Inj) 20 mg STK-MED ONCE .ROUTE ; Start 02/09/17 at 13:22; Stop 02/09/17 at 13:23; Status DC Bupivacaine HCl/ Epinephrine Bitart (Sensorcaine-Epinephrine 0.25% Inj) 50 ml STK-MED ONCE .ROUTE Last administered on 02/09/17 14:04; Start 02/09/17 at 13:50 ; Stop 02/09/17 at 13:51; Status DC Cefazolin Sodium (Ancef Inj) 2,000 mg ONCE ONCE IV ; Start 02/09/17 at 14:03; Stop 02/09/17 at 14:04; Status UNV Cefazolin Sodium/ Dextrose 50 ml @ 100 mls/hr ONCE ONCE IV Last administered on 02/09/17 16:45; Start 02/09/17 at 16:00; Stop 02/09/17 at 16:29; Status DC Morphine Sulfate (*morphine INJ PERIprocedure ONLY) 8 mg STK-MED ONCE .ROUTE Last administered on 02/09/17 15:44; Start 02/09/17 at 15:44; Stop 02/09/17 at 15: 45; Status DC Fentanyl Citrate (fentaNYL INJ) 400 mcg STK-MED ONCE .ROUTE ; Start 02/09/17 at 15:48; Stop 02/09/17 at 15:49; Status DC Fentanyl Citrate (fentaNYL INJ) 100 mcg STK-MED ONCE .ROUTE ; Start 02/09/17 at 15:48; Stop 02/09/17 at 15:49; Status DC Morphine Sulfate (*morphine INJ PERIprocedure ONLY) 8 mg STK-MED ONCE .ROUTE Last administered on 02/09/17 15:56; Start 02/09/17 at 15:56; Stop 02/09/17 at 15: 57; Status DC Miscellaneous Information ALL NURSING DEPARTME... UNSCH PRN .XX SEE LABEL COMMENTS; Start 02/09/17 at 15:37; Stop 02/10/17 at 15:36; Status DC Hydromorphone HCl (*DILAUDID PF INJ PERIprocedural ONLY) 1 mg STK-MED ONCE .ROUTE Last administered on 02/09/17 16:13; Start 02/09/17 at 16:13; Stop at 16:14; Status DC Morphine Sulfate (Morphine 1 Mg/ ml RAG CUTTING MACHINE TENDER) 30 mg STK-MED ONCE .ROUTE ; Start at 16:26; Stop 02/09/17 at 16:27; Status DC Morphine Sulfate (Morphine 1 Mg/ ml RAG CUTTING MACHINE TENDER) 30 mg UNSCH IV Last administered on 21:03; Start 02/09/17 at 16:45 RAG CUTTING MACHINE TENDER Dosage Infused (Pha) 1 Q8HR .XX Last administered on 02/16/17 05:44; Start 02/09/17 at 22:00 Naloxone HCl (Narcan Inj) 0.4 mg UNSCH PRN IV RESPIRATORY RATE LESS THAN 10; Start 02/09/17 at 16:45 Potassium Bicarb/ Potassium Chloride (K-Lyte Cl Eff) 50 meq ONCE ONCE PO Last administered on 02/11/17 06:06; Start 02/11/17 at 06:00; Stop 02/11/17 at 06: 01; Status DC Potassium Chloride 100 ml @ 50 mls/hr ONCE ONCE IV Last administered on 06:05; Start 02/11/17 at 06:00; Stop 02/11/17 at 07:59; Status DC Alprazolam (Xanax) 1 mg TID PRN PO ANXIETY Last administered on 02/13/17 22:04 ; Start 02/11/17 at 13:00 Carbidopa/Levodopa (Sinemet 25-100 Mg) 1 tab Q4HR PO Last administered on 12:55; Start 02/11/17 at 12:00 Potassium Phosphate 30 mmol/ Sodium Chloride 260 ml @ 43.333 mls/ hr ONCE ONCE IV Last administered on 02/11/17 11:39; Start 02/11/17 at 10:45; Stop at 16:44; Status DC Potassium Chloride 40 meq/ Sodium Chloride 1,020 ml @ 42 mls/hr Q24H IV Last administered on 02/16/17 09:43; Start 02/11/17 at 11:00 Clonidine (Catapres) 0.1 mg Q4H PRN PO SBP>160, DBP>90; Start 02/11/17 at 10:45 Pantoprazole Sodium (Protonix) 40 mg BIDAC PO Last administered on 02/16/17 05: 35; Start 02/12/17 at 16:00 Polyethylene Glycol (Miralax) 17 gm DAILY PO Last administered on 02/14/17 08: 27; Start 02/12/17 at 13:00 Potassium Phosphate 30 mmol/ Sodium Chloride 260 ml @ 43.333 mls/ hr ONCE ONCE IV Last administered on 02/13/17 10:00; Start 02/13/17 at 10:00; Stop at 15:59; Status DC Sodium Phosphate 30 mmol/Sodium Chloride 260 ml @ 43.333 mls/ hr ONCE ONCE IV Last administered on 02/13/17 10:30; Start 02/13/17 at 10:30; Stop 02/13/17 at 16:29; Status DC Magnesium Sulfate/ Dextrose 100 ml @ 100 mls/hr Q1H IV Last administered on 10:30; Start 02/13/17 at 09:30; Stop 02/13/17 at 11:29; Status DC Fentanyl (Duragesic 25 Mcg Patch.72 Hr) 1 patch ONCE ONCE T-DERMAL ; Start at 10:15; Stop 02/14/17 at 10:16; Status UNV Fentanyl (Duragesic 25 Mcg Patch.72 Hr) 1 patch Q3D T-DERMAL Last administered on 02/14/17 12:11; Start 02/14/17 at 13:00 Miscellaneous Information 1 Q3D T-DERMAL ; Start 02/17/17 at 13:00 Sennosides (Senokot) 8.6 mg BID PRN PO CONSTIPATION; Start 02/14/17 at 15:30 Simethicone (Mylicon Chew) 80 mg PCHS PRN CHEW FLATULENCE; Start 02/15/17 at 15: 00 Al Hydrox/Mg Hydrox/Simethicone (Mag-Al Plus Susp Liq) 30 ml Q6H PRN PO DYSPEPSIA; Start 02/16/17 at 11:30 A/P Assessment and Plan 72 years old male with history of 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 came with Multiple episode of hematemesis 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 Partial SBO versus ileus GI bleed Leukocytosis Bilateral pneumonia possibly aspiration DVT prophylaxis with SCD Hypokalemia will need replacement Parkinsons restart home Sinemet ANXIETY RESTART HOME XANAX HYPOKALEMIA REPLACE SOME BOWEL SOUNDS- STILL USING RAG CUTTING MACHINE TENDER OFTEN POSITIVE BM SUSPECT METS TO LEFT HUMERUS undergo radiation therapy at the [facility] today for improvement of symptoms HAD RADIATION ON 02-16 Plan: Status post exploratory laparotomy 02/09 showing generalized ileus, no adhesions no SBO, appreciate surgery follow up Iv Protonix Appreciate GI, oncology consult Zosyn and Zithromax Sent for blood culture and sputum culture if available Palliative care also seen the patient in the daughter, the patient refused to accept palliative care, plan is still for aggressive treatment DVT prophylaxis with SCD due to GI bleed Radiation today Glenda LOCKETT RN AND PT AND FAMILY Baldomero Gutierrez DO Feb 16, 2017 11:41
--- NOTE | 2017-02-16 12:15 | PD.ONC.PN ---
Subjective Subjective Remarks left arm painful. patient overwhelmed and sad. Objective Data Date Time Temp Pulse Resp B/P (MAP) Pulse Ox O2 Delivery O2 Flow Rate FiO2 02/16/17 08:38 18 02/16/17 08:00 98.3 96 17 121/62 (81) 96 02/16/17 05:44 17 02/16/17 04:00 97.0 94 18 118/62 (80) 96 02/16/17 02:37 93 02/16/17 00:00 96.9 97 20 106/56 (73) 95 02/15/17 22:54 Nasal Cannula 2.00 02/15/17 21:03 17 02/15/17 20:46 16 02/15/17 20:00 98.6 94 18 131/68 (89) 97 02/15/17 18:10 97.2 97 18 128/67 (87) 97 02/15/17 13:52 98.0 98 24 117/65 (82) 97 02/16/17 02/16/17 02/16/17 07:00 15:00 23:00 Output Total 15.0 ml Balance -15.0 ml Result Diagram: 02/16/17 0545 02/16/17 0545 Laboratory Results Laboratory Tests Test 02/16/17 05:45 White Blood Count 7.7 TH/MM3 Red Blood Count 3.39 MIL/MM3 Hemoglobin 10.3 GM/DL Hematocrit 31.9 % Mean Corpuscular Volume 94.0 FL Mean Corpuscular Hemoglobin 30.4 PG Mean Corpuscular Hemoglobin Concent 32.4 % Red Cell Distribution Width 20.2 % Platelet Count 183 TH/MM3 Mean Platelet Volume 8.1 FL Neutrophils (%) (Auto) 71.4 % Lymphocytes (%) (Auto) 15.5 % Monocytes (%) (Auto) 11.9 % Eosinophils (%) (Auto) 1.0 % Basophils (%) (Auto) 0.2 % Neutrophils # (Auto) 5.5 TH/MM3 Lymphocytes # (Auto) 1.2 TH/MM3 Monocytes # (Auto) 0.9 TH/MM3 Eosinophils # (Auto) 0.1 TH/MM3 Basophils # (Auto) 0.0 TH/MM3 CBC Comment DIFF FINAL Differential Comment Blood Urea Nitrogen 11 MG/DL Creatinine 0.73 MG/DL Random Glucose 143 MG/DL Total Protein 6.5 GM/DL Albumin 2.3 GM/DL Calcium Level 10.4 MG/DL Phosphorus Level 2.1 MG/DL Magnesium Level 2.2 MG/DL Alkaline Phosphatase 79 U/L Aspartate Amino Transf (AST/SGOT) 15 U/L Alanine Aminotransferase (ALT/SGPT) LESS THAN 6 U/L Total Bilirubin 0.7 MG/DL Sodium Level 137 MEQ/L Potassium Level 4.0 MEQ/L Chloride Level 103 MEQ/L Carbon Dioxide Level 28.2 MEQ/L Anion Gap 6 MEQ/L Estimat Glomerular Filtration Rate 106 ML/MIN Administered Medications Medications (Trade) Dose Ordered Sig/Sisi Route PRN Reason Start Time Stop Time Status Last Admin Dose Admin Sodium Chloride (NS Flush) 2 ml UNSCH PRN IVF FLUSH AFTER USING IV ACCESS 02/08/17 07:30 02/12/17 09:00 Piperacillin Sod/ Tazobactam Sod 50 ml @ 100 mls/hr Q6H IV 02/08/17 20:00 02/16/17 05:35 Sodium Chloride 1,000 ml @ 100 mls/hr Q10H IV 02/09/17 08:45 02/13/17 03:07 Azithromycin 500 mg/Sodium Chloride 250 ml @ 250 mls/hr Q24H IV 02/09/17 14:00 02/15/17 15:51 Morphine Sulfate (Morphine 1 Mg/ ml [employer]CR[employer]E [employer]ICATING SUPERVISOR) 30 mg UNSCH IV 02/09/17 16:45 02/15/17 21:03 CONCRETE ST[employer] FAB[employer]ICATING SUPERVISOR Dosage Infused (Pha) 1 Q8HR .XX 02/09/17 22:00 02/16/17 05:44 Alprazolam (Xanax) 1 mg TID PRN PO ANXIETY 02/11/17 13:00 02/13/17 22:04 Carbidopa/Levodopa (Sinemet 25-100 Mg) 1 tab Q4HR PO 02/11/17 12:00 02/16/17 08:20 Potassium Chloride 40 meq/ Sodium Chloride 1,020 ml @ 42 mls/hr Q24H IV 02/11/17 11:00 02/16/17 09:43 Pantoprazole Sodium (Protonix) 40 mg BIDAC PO 02/12/17 16:00 02/16/17 05:35 Polyethylene Glycol (Miralax) 17 gm DAILY PO 02/12/17 13:00 02/14/17 08:27 Fentanyl (Duragesic 25 Mcg Patch.72 Hr) 1 patch Q3D T-DERMAL 02/14/17 13:00 02/14/17 12:11 Objective Remarks GENERAL: frail and gaunt. SKIN: Warm and dry. HEAD: Normocephalic. EYES: No scleral icterus. No injection or drainage. NECK: Supple, trachea midline. No JVD or lymphadenopathy. LYMPHATIC: No adenopathy. CARDIOVASCULAR: Regular rate and rhythm without murmurs. RESPIRATORY: Breath sounds equal bilaterally. No accessory muscle use. GASTROINTESTINAL: Abdomen soft, non-tender, nondistended. has G tube. EXTREMITIES: trace edema MUSCULOSKELETAL: tenderness left mid arm. NEUROLOGICAL: generalized weakness. PSYCHIATRIC: depressed and tearful. Assessment/Plan Assessment 1: pain in left arm well explained by ct scan findings and patient to receive radiation today. 2: spoke with daughter and patient today about ct findings and evidence of progressive disease and the failure of current tx to control disease. I spoke to them about hospice and and it is hard for Mr. Hairston as he equates hospice with giving up. They are agreeable with hospice and the consult has been place. Ricci Johns MD Feb 16, 2017 12:15
[2017-02-16] MEDS: AZITHROMYCIN INJ 500 MG in SODIUM CHLOR 0.9% 250 ML INJ 250 ML IV SCH (15:11)
[2017-02-16] MEDS: MORPHINE SULFATE 30 MG/30 ML PCA IV SCH (15:49)
[2017-02-17] VITALS (7 sets, daily range): BP systolic 88–129; BP diastolic 56–74; PULSE 90–101; RESP 16–20; TEMP 96.9–99.2; O2SAT 90–97
[2017-02-17] MEDS: CARBIDOPA/LEVODOPA 25 MG/100 MG TAB PO SCH ×7 (00:37→23:27)
[2017-02-17] MEDS: PIPERACIL-TAZO 3.375 GM PREMIX 50 ML IV SCH ×4 (00:37→20:00)
[2017-02-17] MEDS: MORPHINE SULFATE 30 MG/30 ML PCA IV SCH ×2 (04:47→21:16)
[2017-02-17] MEDS: PANTOPRAZOLE SOD 40 MG DELAYED RELEASE TAB PO SCH ×2 (05:00→16:40)
[2017-02-17] MEDS: PCA - TOTAL MG MORPHINE DELIVERED PER SHIFT SCH ×3 (05:08→20:00)
[2017-02-17] MEDS: SODIUM CHLOR 0.9% 1000 ML INJ 1,000 ML IV SCH ×2 (05:09→16:40)
[2017-02-17 07:58] LABS: AUTOMATED NEUTROPHIL # 5.2 TH/MM3 (1.8-7.7); BASOPHIL % 0.3 % (0.0-2.0); EOSINOPHIL # 0.1 TH/MM3 (0-0.4); EOSINOPHIL % 1.2 % (0.0-4.0); HEMATOCRIT 30.5 % (39.0-51.0); HEMO FLAGS DIFF FINAL; LYMPH % 17.6 % (9.0-44.0); LYMPHOCYTE # 1.3 TH/MM3 (1.0-4.8); MEAN CELL VOLUME 92.8 FL (80.0-100.0); MEAN CORPUSCULAR HEMOGLOBIN 31.1 PG (27.0-34.0); MEAN CORPUSCULAR HGB CONC 33.5 % (32.0-36.0); MONO % 10.9 % (0.0-8.0); PLATELET COUNT 187 TH/MM3 (150-450); RED BLOOD COUNT 3.29 MIL/MM3 (4.50-5.90); RED CELL DISTRIBUTION WIDTH 19.3 % (11.6-17.2); WHITE BLOOD COUNT 7.4 TH/MM3 (4.0-11.0)
[2017-02-17 08:21] LABS: ANION GAP 7 MEQ/L (5-15); AST (GOT) 14 U/L (15-37); BICARBONATE 26.2 MEQ/L (21.0-32.0); BLOOD UREA NITROGEN 12 MG/DL (7-18); CHLORIDE 99 MEQ/L (98-107); GLOMERULAR FILTRATION RATE 103 ML/MIN (>89); POTASSIUM 3.9 MEQ/L (3.5-5.1); SODIUM (NA) 132 MEQ/L (136-145)
[2017-02-17 08:22] LABS: ALT (GPT) LESS THAN 6 U/L (12-78)
[2017-02-17 08:24] LABS: ALKALINE PHOSPHATASE 88 U/L (45-117); TOTAL BILIRUBIN ADULT 0.6 MG/DL (0.2-1.0)
[2017-02-17] MEDS: POLYETHYLENE GLYCOL 17 GM PKG PO SCH (08:25)
[2017-02-17] MEDS ORDERED: ALPRAZolam 1 MG TAB PO PRN (09:00)
[2017-02-17] MEDS: MORPHINE SULFATE 30 MG CONTROLLED RELEASE TAB PO SCH ×2 (09:35→16:40)
--- NOTE | 2017-02-17 10:50 | HHI.PR ---
Subjective Remarks 9-3 Discussed with patient and daughter Status post laparoscopy and exploratory 2 days ago Has G-tube to suction Family wanting to know when he can eat we'll defer that to surgery and GI Many questions answered Restart Xanax and Sinemet Discussed with patient and RN and daughter 9-4 NOT HAVING BMS YET COMPLAINS OF GAS STILL USING FISH AND WILDLIFE BIOLOGIST PUMP QUITE OFTEN GI WANTS ON MIRALAX SO HE CAN HAVE BOWEL MOVEMENTS DW RN AND PT STILL ON TUBE FEEDS AT 10ML/HR ONLY 9-5 TOLERATING TUBE FEEDS DW RN AND PT HAD BMS STILL USING FISH AND WILDLIFE BIOLOGIST PUMP ON TUBE FEEDS AT 30ML/HR 9-6 COMPLAINING OF PAIN OF LEFT HUMERUS AREA DW RN AND PT AND FAMILY NOT TOLERATING TUBE FEEDS TUBE FEEDS ON HOLD AM LABS STILL USING FISH AND WILDLIFE BIOLOGIST 9-7 radiation therapy regarding the left humerus starting today Going to the [facility] for radiation today Still using FISH AND WILDLIFE BIOLOGIST on occasion lots of UNCONTROLLED PAIN 9-8HAD RADIATION TODAY OF LEFT HUMERUS STILL COMPLAINING OF PAIN ONLY WANTS TO TRY TUBE FEEDS AT 40ML/HR MAX AT THIS TIME DW RN AND PATIENT AND FAMILY 9-9 ADJUST HOME PAIN MEDICATIONS AND ANXIETY MEDICATIONS HOSPICE HAS BEEN CONSULTED BY ONCOLOGY STATES PAIN A LITTLE BETTER TODAY Objective Vitals Vital Signs Date Time Temp Pulse Resp B/P (MAP) Pulse Ox O2 Delivery O2 Flow Rate FiO2 02/17/17 10:35 18 02/17/17 08:00 96.9 96 19 119/56 (77) 95 02/17/17 05:08 18 02/17/17 04:47 18 02/17/17 04:00 98.9 99 18 88/60 (69) 96 02/17/17 00:00 98.0 90 20 129/63 (85) 97 02/16/17 22:00 16 02/16/17 20:00 98.7 102 20 99/62 (74) 97 02/16/17 16:00 97.7 100 17 120/67 (84) 96 02/16/17 15:54 20 02/16/17 15:49 20 02/16/17 12:44 96 21 02/16/17 12:00 97.5 99 17 90/61 (71) 98 I/O 02/16/17 02/16/17 02/16/17 02/17/17 02/17/17 02/17/17 06:59 14:59 22:59 06:59 14:59 22:59 Intake Total 780 ml 844 ml Output Total 15.0 ml Balance -15.0 ml 780 ml 844 ml Intake Oral 480 ml IV Total 300 ml 480 ml Tube Feeding 364 ml Tube Feeding Residual Discard 15.0 ml # Voids 3 3 1 # Bowel Movements 0 Result Diagram: 02/17/17 0731 02/17/17 0731 Other Results Laboratory Tests Test 02/15/17 05:30 02/15/17 06:30 02/16/17 05:45 02/17/17 07:31 Blood Urea Nitrogen 10 MG/DL 11 MG/DL 12 MG/DL Creatinine 0.74 MG/DL 0.73 MG/DL 0.75 MG/DL Random Glucose 143 MG/DL 143 MG/DL 127 MG/DL Total Protein 6.6 GM/DL 6.5 GM/DL 6.5 GM/DL Albumin 2.4 GM/DL 2.3 GM/DL 2.3 GM/DL Calcium Level 10.0 MG/DL 10.4 MG/DL 10.4 MG/DL Phosphorus Level 2.0 MG/DL 2.1 MG/DL 2.0 MG/DL Magnesium Level 2.0 MG/DL 2.2 MG/DL 2.0 MG/DL Alkaline Phosphatase 79 U/L 79 U/L 88 U/L Aspartate Amino Transf (AST/SGOT) 17 U/L 15 U/L 14 U/L Alanine Aminotransferase (ALT/SGPT) 6 U/L LESS THAN 6 U/L LESS THAN 6 U/L Total Bilirubin 0.7 MG/DL 0.7 MG/DL 0.6 MG/DL Sodium Level 137 MEQ/L 137 MEQ/L 132 MEQ/L Potassium Level 3.6 MEQ/L 4.0 MEQ/L 3.9 MEQ/L Chloride Level 103 MEQ/L 103 MEQ/L 99 MEQ/L Carbon Dioxide Level 26.5 MEQ/L 28.2 MEQ/L 26.2 MEQ/L Anion Gap 8 MEQ/L 6 MEQ/L 7 MEQ/L Estimat Glomerular Filtration Rate 104 ML/MIN 106 ML/MIN 103 ML/MIN White Blood Count 8.8 TH/MM3 7.7 TH/MM3 7.4 TH/MM3 Red Blood Count 3.40 MIL/MM3 3.39 MIL/MM3 3.29 MIL/MM3 Hemoglobin 10.7 GM/DL 10.3 GM/DL 10.2 GM/DL Hematocrit 31.8 % 31.9 % 30.5 % Mean Corpuscular Volume 93.6 FL 94.0 FL 92.8 FL Mean Corpuscular Hemoglobin 31.6 PG 30.4 PG 31.1 PG Mean Corpuscular Hemoglobin Concent 33.7 % 32.4 % 33.5 % Red Cell Distribution Width 19.9 % 20.2 % 19.3 % Platelet Count 161 TH/MM3 183 TH/MM3 187 TH/MM3 Mean Platelet Volume 7.9 FL 8.1 FL 7.9 FL Neutrophils (%) (Auto) 79.4 % 71.4 % 70.0 % Lymphocytes (%) (Auto) 10.3 % 15.5 % 17.6 % Monocytes (%) (Auto) 9.2 % 11.9 % 10.9 % Eosinophils (%) (Auto) 0.8 % 1.0 % 1.2 % Basophils (%) (Auto) 0.3 % 0.2 % 0.3 % Neutrophils # (Auto) 7.0 TH/MM3 5.5 TH/MM3 5.2 TH/MM3 Lymphocytes # (Auto) 0.9 TH/MM3 1.2 TH/MM3 1.3 TH/MM3 Monocytes # (Auto) 0.8 TH/MM3 0.9 TH/MM3 0.8 TH/MM3 Eosinophils # (Auto) 0.1 TH/MM3 0.1 TH/MM3 0.1 TH/MM3 Basophils # (Auto) 0.0 TH/MM3 0.0 TH/MM3 0.0 TH/MM3 CBC Comment DIFF FINAL DIFF FINAL DIFF FINAL Differential Comment Imaging Last Impressions Upper Extremity CT 02/14/17 0000 Signed Impressions: Service Date/Time: Tuesday, February 14, 2017 19:53 - CONCLUSION: 1. Moth-eaten appearance of mid humeral shaft on the endosteal surface extending over more than 5 cm most characteristic of metastatic bone disease given history of lung cancer. No pathologic fracture. Selvin Whittington MD Wrist X-Ray 02/13/17 0000 Signed Impressions: Service Date/Time: Monday, February 13, 2017 11:30 - CONCLUSION: Intact left wrist. 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 Robbin Cheney MD Radius/Ulna X-Ray 02/13/17 0000 Signed Impressions: Service Date/Time: Monday, February 13, 2017 11:34 - CONCLUSION: Radiographic appearance of the left forearm is within normal limits. Robbin Cheney MD Abdomen/Pelvis CT 02/08/17 0939 Signed Impressions: Service Date/Time: January 13:23 - CONCLUSION: 1. New areas of consolidation in the left lower lobe most characteristic of pneumonia. 2. Worsening bowel gas pattern with increased dilatation of multiple loops of small bowel with air-fluid levels. Contrast is noted in the distal colon and this could indicate a partial small bowel obstruction. 3. Right adrenal mass again noted. Anam Agarwal MD Objective Remarks - GENERAL: This is a well-nourished, well-developed patient, in moderate distress. SKIN: No rashes, warm and dry HEAD: Atraumatic. Normocephalic. EYES: Pupils equal round and reactive. Extraocular motions intact. No scleral icterus. ENT: Nose without bleeding, or drainage, Airway patent. Tongue is midline oral mucosa is moist NECK: Trachea midline. Supple CARDIOVASCULAR: Regular rate and rhythm without murmurs, gallops, or rubs. S1- S2 no S3 or S4 no heave or thrill RESPIRATORY: Fair air entry bilaterally. No wheezes, rales, or rhonchi. GASTROINTESTINAL: Abdomen soft, non-tender, nondistended. POSITIVE bowel sounds , G-tube in place --STILL ON tube feeds at night MUSCULOSKELETAL: Extremities without clubbing, cyanosis, or edema. Pedal pulses appreciated NEUROLOGICAL: Awake and alert. Moves all extremity. Normal speech.no focal neurological deficit Insight and judgment is okay mood and behavior is somewhat appropriate Procedures Umbilical hernia repair and diagnostic laparoscopy and laparoscopic G-tube placement on 02/09/[address] Galen sawant Medications and IVs Current Medications Ondansetron HCl (Zofran Inj) 4 mg ONCE ONCE IVP Last administered on 07:48; Start 02/08/17 at 07:30; Stop 02/08/17 at 07:31; Status DC Sodium Chloride 1,000 ml @ 1,000 mls/hr Q1H IV Last administered on 02/08/17 07:41; Start 02/08/17 at 07:18; Stop 02/08/17 at 08:17; Status DC Sodium Chloride (NS Flush) 2 ml UNSCH PRN IVF FLUSH AFTER USING IV ACCESS Last administered on 02/12/17 09:00; Start 02/08/17 at 07:30 Pantoprazole Sodium 80 mg/ Sodium Chloride 35 ml @ 420 mls/hr Q5M ONCE IV Last administered on 02/08/17 08:08; Start 02/08/17 at 07:18; Stop 02/08/17 at 07:22; Status DC Pantoprazole Sodium 80 mg/ Sodium Chloride 100 ml @ 10 mls/hr Q10H IV Last administered on 02/08/17 08:15; Start 02/08/17 at 07:18; Stop 02/09/17 at 02:08 ; Status DC Hydromorphone HCl (Dilaudid Pf Inj) 1 mg ONCE ONCE IV Last administered on 07:48; Start 02/08/17 at 07:30; Stop 02/08/17 at 07:31; Status DC Morphine Sulfate (Morphine Inj) 2 mg Q15M PRN IV PAIN SCALE 4 TO 10 Last administered on 02/09/17 10:59; Start 02/08/17 at 09:00; Stop 02/09/17 at 11:00; Status DC Sodium Chloride 1,000 ml @ 999 mls/hr BOLUS ONCE IV Last administered on 02/08 09:44; Start 02/08/17 at 09:45; Stop 02/08/17 at 10:45; Status DC Diatrizoate Meglum/ Diatrizoate Sod ( Gastrosandra [place]) 18 ml STK-MED ONCE .ROUTE Last administered on 02/08/17 10:10; Start 02/08/17 at 10:05; Stop at 10:06; Status DC Ceftriaxone Sodium 1000 mg/ Sodium Chloride 100 ml @ 200 mls/hr ONCE ONCE IV Last administered on 02/08/17 15:37; Start 02/08/17 at 14:15; Stop 02/08/17 at 14:44; Status DC Azithromycin 500 mg/Sodium Chloride 250 ml @ 250 mls/hr ONCE ONCE IV Last administered on 02/08/17 14:30; Start 02/08/17 at 14:15; Stop 02/08/17 at 15:14 ; Status DC Sodium Chloride 1,000 ml @ 999 mls/hr BOLUS ONCE IV Last administered on 02/08 14:31; Start 02/08/17 at 14:15; Stop 02/08/17 at 15:15; Status DC Pantoprazole Sodium 80 mg/ Sodium Chloride 100 ml @ 10 mls/hr CONTINUOUS IV Last administered on 02/12/17 01:20; Start 02/08/17 at 16:45; Stop 02/12/17 at 11 :52; Status DC Sodium Chloride 1,000 ml @ 100 mls/hr Q10H IV Last administered on 02/09/17 02 :56; Start 02/08/17 at 16:56; Stop 02/09/17 at 08:37; Status DC Acetaminophen (Tylenol) 650 mg Q4H PRN PO TEMP > 100.4; Start 02/08/17 at 17:00 Ondansetron HCl (Zofran Inj) 4 mg Q6H PRN IVP NAUSEA OR VOMITING; Start at 17:00 Naloxone HCl (Narcan Inj) 0.4 mg UNSCH PRN IV SEE LABEL COMMENTS; Start at 17:00; Stop 02/14/17 at 12:07; Status DC Morphine Sulfate (Morphine Inj) 1 mg Q4H PRN IV PUSH pain 3-5 Last administered on 02/09/17 08:51; Start 02/08/17 at 17:00; Stop 02/09/17 at 16:41; Status DC Morphine Sulfate (Morphine Inj) 2 mg Q4H PRN IV PUSH pain 6-10; Start 02/08/17 at 17:00; Stop 02/09/17 at 16:41; Status DC Piperacillin Sod/ Tazobactam Sod 50 ml @ 100 mls/hr Q6H IV Last administered on 02/17/17 08:25; Start 02/08/17 at 20:00 Sodium Chloride 1,000 ml @ 84 mls/hr [id number] IV Last administered on 20:47; Start 02/08/17 at 17:15; Stop 02/09/17 at 08:38; Status DC Sodium Chloride 1,000 ml @ 100 mls/hr Q10H IV Last administered on 02/13/17 03 :07; Start 02/09/17 at 08:45 Azithromycin 500 mg/Sodium Chloride 250 ml @ 250 mls/hr Q24H IV Last administered on 02/16/17 15:11; Start 02/09/17 at 14:00 Midazolam HCl (Versed Inj) 2 mg STK-MED ONCE .ROUTE ; Start 02/09/17 at 13:22; Stop 02/09/17 at 13:23; Status DC Famotidine (Pepcid Inj) 20 mg STK-MED ONCE .ROUTE ; Start 02/09/17 at 13:22; Stop 02/09/17 at 13:23; Status DC Bupivacaine HCl/ Epinephrine Bitart (Sensorcaine-Epinephrine 0.25% Inj) 50 ml STK-MED ONCE .ROUTE Last administered on 02/09/17 14:04; Start 02/09/17 at 13:50 ; Stop 02/09/17 at 13:51; Status DC Cefazolin Sodium (Ancef Inj) 2,000 mg ONCE ONCE IV ; Start 02/09/17 at 14:03; Stop 02/09/17 at 14:04; Status UNV Cefazolin Sodium/ Dextrose 50 ml @ 100 mls/hr ONCE ONCE IV Last administered on 02/09/17 16:45; Start 02/09/17 at 16:00; Stop 02/09/17 at 16:29; Status DC Morphine Sulfate (*morphine INJ PERIprocedure ONLY) 8 mg STK-MED ONCE .ROUTE Last administered on 02/09/17 15:44; Start 02/09/17 at 15:44; Stop 02/09/17 at 15: 45; Status DC Fentanyl Citrate (fentaNYL INJ) 400 mcg STK-MED ONCE .ROUTE ; Start 02/09/17 at 15:48; Stop 02/09/17 at 15:49; Status DC Fentanyl Citrate (fentaNYL INJ) 100 mcg STK-MED ONCE .ROUTE ; Start 02/09/17 at 15:48; Stop 02/09/17 at 15:49; Status DC Morphine Sulfate (*morphine INJ PERIprocedure ONLY) 8 mg STK-MED ONCE .ROUTE Last administered on 02/09/17 15:56; Start 02/09/17 at 15:56; Stop 02/09/17 at 15: 57; Status DC Miscellaneous Information ALL NURSING DEPARTME... UNSCH PRN .XX SEE LABEL COMMENTS; Start 02/09/17 at 15:37; Stop 02/10/17 at 15:36; Status DC Hydromorphone HCl (*DILAUDID PF INJ PERIprocedural ONLY) 1 mg STK-MED ONCE .ROUTE Last administered on 02/09/17 16:13; Start 02/09/17 at 16:13; Stop at 16:14; Status DC Morphine Sulfate (Morphine 1 Mg/ ml FISH AND WILDLIFE BIOLOGIST) 30 mg STK-MED ONCE .ROUTE ; Start at 16:26; Stop 02/09/17 at 16:27; Status DC Morphine Sulfate (Morphine 1 Mg/ ml FISH AND WILDLIFE BIOLOGIST) 30 mg UNSCH IV Last administered on 04:47; Start 02/09/17 at 16:45 FISH AND WILDLIFE BIOLOGIST Dosage Infused (Pha) 1 Q8HR .XX Last administered on 02/17/17 05:08; Start 02/09/17 at 22:00 Naloxone HCl (Narcan Inj) 0.4 mg UNSCH PRN IV RESPIRATORY RATE LESS THAN 10; Start 02/09/17 at 16:45 Potassium Bicarb/ Potassium Chloride (K-Lyte Cl Eff) 50 meq ONCE ONCE PO Last administered on 02/11/17 06:06; Start 02/11/17 at 06:00; Stop 02/11/17 at 06: 01; Status DC Potassium Chloride 100 ml @ 50 mls/hr ONCE ONCE IV Last administered on 06:05; Start 02/11/17 at 06:00; Stop 02/11/17 at 07:59; Status DC Alprazolam (Xanax) 1 mg TID PRN PO ANXIETY Last administered on 02/13/17 22:04 ; Start 02/11/17 at 13:00; Stop 02/17/17 at 08:34; Status DC Carbidopa/Levodopa (Sinemet 25-100 Mg) 1 tab Q4HR PO Last administered on 08:25; Start 02/11/17 at 12:00 Potassium Phosphate 30 mmol/ Sodium Chloride 260 ml @ 43.333 mls/ hr ONCE ONCE IV Last administered on 02/11/17 11:39; Start 02/11/17 at 10:45; Stop at 16:44; Status DC Potassium Chloride 40 meq/ Sodium Chloride 1,020 ml @ 42 mls/hr Q24H IV Last administered on 02/16/17 09:43; Start 02/11/17 at 11:00 Clonidine (Catapres) 0.1 mg Q4H PRN PO SBP>160, DBP>90; Start 02/11/17 at 10:45 Pantoprazole Sodium (Protonix) 40 mg BIDAC PO Last administered on 02/17/17 05: 00; Start 02/12/17 at 16:00 Polyethylene Glycol (Miralax) 17 gm DAILY PO Last administered on 02/14/17 08: 27; Start 02/12/17 at 13:00 Potassium Phosphate 30 mmol/ Sodium Chloride 260 ml @ 43.333 mls/ hr ONCE ONCE IV Last administered on 02/13/17 10:00; Start 02/13/17 at 10:00; Stop at 15:59; Status DC Sodium Phosphate 30 mmol/Sodium Chloride 260 ml @ 43.333 mls/ hr ONCE ONCE IV Last administered on 02/13/17 10:30; Start 02/13/17 at 10:30; Stop 02/13/17 at 16:29; Status DC Magnesium Sulfate/ Dextrose 100 ml @ 100 mls/hr Q1H IV Last administered on 10:30; Start 02/13/17 at 09:30; Stop 02/13/17 at 11:29; Status DC Fentanyl (Duragesic 25 Mcg Patch.72 Hr) 1 patch ONCE ONCE T-DERMAL ; Start at 10:15; Stop 02/14/17 at 10:16; Status UNV Fentanyl (Duragesic 25 Mcg Patch.72 Hr) 1 patch Q3D T-DERMAL Last administered on 02/14/17 12:11; Start 02/14/17 at 13:00 Miscellaneous Information 1 Q3D T-DERMAL ; Start 02/17/17 at 13:00 Sennosides (Senokot) 8.6 mg BID PRN PO CONSTIPATION; Start 02/14/17 at 15:30 Simethicone (Mylicon Chew) 80 mg PCHS PRN CHEW FLATULENCE; Start 02/15/17 at 15: 00 Al Hydrox/Mg Hydrox/Simethicone (Mag-Al Plus Susp Liq) 30 ml Q6H PRN PO DYSPEPSIA; Start 02/16/17 at 11:30 Morphine Sulfate (Oramorph Sr) 30 mg Q8H PO Last administered on 02/17/17t 09:35 ; Start 02/17/17 at 09:00 Alprazolam (Xanax) 0.5 mg TID PRN PO ANXIETY; Start 02/17/17 at 09:00 A/P Assessment and Plan 72 years old male with history of 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 came with Multiple episode of hematemesis 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 LEFT HUMERUS METASTASIS- SP RADIATION TO LEFT ARM Partial SBO versus ileus GI bleed Leukocytosis Bilateral pneumonia possibly aspiration DVT prophylaxis with SCD Hypokalemia will need replacement Parkinsons restart home Sinemet ANXIETY RESTART HOME XANAX HYPOKALEMIA REPLACE SOME BOWEL SOUNDS- STILL USING FISH AND WILDLIFE BIOLOGIST OFTEN POSITIVE BM SUSPECT METS TO LEFT HUMERUS undergo radiation therapy at the [facility] today for improvement of symptoms HAD RADIATION ON 02-16 Plan: Status post exploratory laparotomy 02/09 showing generalized ileus, no adhesions no SBO, appreciate surgery follow up Iv Protonix Appreciate GI, oncology consult Zosyn and Zithromax Sent for blood culture and sputum culture if available Palliative care also seen the patient in the daughter, the patient refused to accept palliative care, plan is still for aggressive treatment DVT prophylaxis with SCD due to GI bleed Radiation today A.mJean labs LEVY RN AND PT AND FAMILY ADJUST PAIN MEDS Baldomero Gutierrez DO Feb 17, 2017 10:50
[2017-02-17] MEDS: POTASSIUM CHLORIDE INJ 40 MEQ in SODIUM CHLOR 0.45% 1000 ML INJ 1,000 ML IV SCH (11:48)
[2017-02-17] MEDS: fentaNYL 25 MCG/HR PATCH T-DERMAL SCH (12:52)
[2017-02-17] MEDS ORDERED: REMOVE OLD DURAGESIC (FENTANYL) PATCH T-DERMAL SCH (13:00)
[2017-02-17] MEDS: AZITHROMYCIN INJ 500 MG in SODIUM CHLOR 0.9% 250 ML INJ 250 ML IV SCH (14:01)
[2017-02-18] VITALS (7 sets, daily range): BP systolic 104–125; BP diastolic 54–66; PULSE 95–100; RESP 18; TEMP 98.5–99.2; O2SAT 94–95
[2017-02-18] MEDS: PIPERACIL-TAZO 3.375 GM PREMIX 50 ML IV SCH ×4 (01:11→21:44)
[2017-02-18] MEDS: MORPHINE SULFATE 30 MG CONTROLLED RELEASE TAB PO SCH ×3 (01:12→18:23)
[2017-02-18] MEDS: SODIUM CHLOR 0.9% 1000 ML INJ 1,000 ML IV SCH ×3 (01:12→22:45)
[2017-02-18] MEDS: CARBIDOPA/LEVODOPA 25 MG/100 MG TAB PO SCH ×6 (04:09→23:49)
[2017-02-18] MEDS: PCA - TOTAL MG MORPHINE DELIVERED PER SHIFT SCH ×3 (05:52→21:47)
[2017-02-18] MEDS: PANTOPRAZOLE SOD 40 MG DELAYED RELEASE TAB PO SCH ×2 (05:52→16:56)
[2017-02-18 08:07] LABS: AUTOMATED NEUTROPHIL # 4.3 TH/MM3 (1.8-7.7); BASOPHIL % 0.3 % (0.0-2.0); EOSINOPHIL # 0.1 TH/MM3 (0-0.4); EOSINOPHIL % 1.3 % (0.0-4.0); HEMATOCRIT 29.5 % (39.0-51.0); HEMO FLAGS DIFF FINAL; LYMPH % 17.1 % (9.0-44.0); LYMPHOCYTE # 1.1 TH/MM3 (1.0-4.8); MEAN CELL VOLUME 92.3 FL (80.0-100.0); MEAN CORPUSCULAR HGB CONC 33.5 % (32.0-36.0); MONO % 13.3 % (0.0-8.0); PLATELET COUNT 183 TH/MM3 (150-450); RED CELL DISTRIBUTION WIDTH 19.4 % (11.6-17.2); WHITE BLOOD COUNT 6.3 TH/MM3 (4.0-11.0)
[2017-02-18 08:40] LABS: ALT (GPT) 6 U/L (12-78); ANION GAP 6 MEQ/L (5-15); AST (GOT) 19 U/L (15-37); BICARBONATE 27.6 MEQ/L (21.0-32.0); BLOOD UREA NITROGEN 12 MG/DL (7-18); CHLORIDE 100 MEQ/L (98-107); GLOMERULAR FILTRATION RATE 106 ML/MIN (>89); POTASSIUM 4.2 MEQ/L (3.5-5.1); SODIUM (NA) 134 MEQ/L (136-145)
[2017-02-18 08:43] LABS: ALKALINE PHOSPHATASE 81 U/L (45-117); TOTAL BILIRUBIN ADULT 0.5 MG/DL (0.2-1.0)
[2017-02-18] MEDS: POLYETHYLENE GLYCOL 17 GM PKG PO SCH (09:00)
[2017-02-18] MEDS: SODIUM CHLORIDE 0.9% FLUSH 10 ML FLUSH IVF PRN (10:53)
[2017-02-18] MEDS: ONDANSETRON HCL 4 MG/2 ML VIAL IVP PRN (10:53)
[2017-02-18] MEDS: POTASSIUM CHLORIDE INJ 40 MEQ in SODIUM CHLOR 0.45% 1000 ML INJ 1,000 ML IV SCH (11:11)
[2017-02-18] MEDS ORDERED: SODIUM PHOSPHATE INJ 30 MMOL in SODIUM CHLOR 0.9% 250 ML INJ 250 ML IV ONE (11:30)
--- NOTE | 2017-02-18 11:31 | HHI.PR ---
Subjective Remarks 9-3 Discussed with patient and daughter Status post laparoscopy and exploratory 2 days ago Has G-tube to suction Family wanting to know when he can eat we'll defer that to surgery and GI Many questions answered Restart Xanax and Sinemet Discussed with patient and RN and daughter 9-4 NOT HAVING BMS YET COMPLAINS OF GAS STILL USING [place] [facility] PUMP QUITE OFTEN GI WANTS ON MIRALAX SO HE CAN HAVE BOWEL MOVEMENTS DW RN AND PT STILL ON TUBE FEEDS AT 10ML/HR ONLY 9-5 TOLERATING TUBE FEEDS DW RN AND PT HAD BMS STILL USING [place] [employer] PUMP ON TUBE FEEDS AT 30ML/HR 9-6 COMPLAINING OF PAIN OF LEFT HUMERUS AREA DW RN AND PT AND FAMILY NOT TOLERATING TUBE FEEDS TUBE FEEDS ON HOLD AM LABS STILL USING [facility] 9-7 radiation therapy regarding the left humerus starting today Going to the [facility] for radiation today Still using [place] [facility] on occasion lots of UNCONTROLLED PAIN 9-8HAD RADIATION TODAY OF LEFT HUMERUS STILL COMPLAINING OF PAIN ONLY WANTS TO TRY TUBE FEEDS AT 40ML/HR MAX AT THIS TIME DW RN AND PATIENT AND FAMILY 9-9 ADJUST HOME PAIN MEDICATIONS AND ANXIETY MEDICATIONS HOSPICE HAS BEEN CONSULTED BY ONCOLOGY STATES PAIN A LITTLE BETTER TODAY 9-10 FAMILY WANTS PAIN MEDS ADJUSTED AGAIN HAS CHRONIC PAIN RESTART SCHEDULED DILAUDID 4MG PO Q4HR INCREASE MIRALAX TO 17GRAMS BID VIA J-TUBE DW RN AND PT AND FAMILY CONSTIPATED Objective Vitals Vital Signs Date Time Temp Pulse Resp B/P (MAP) Pulse Ox O2 Delivery O2 Flow Rate FiO2 02/18/17 08:00 98.8 97 18 108/63 (78) 95 02/18/17 05:52 14 02/18/17 04:00 99.0 95 18 104/66 (79) 94 02/18/17 00:00 98.8 100 18 104/54 (71) 95 02/17/17 21:16 14 02/17/17 20:09 98 02/17/17 20:00 99.2 100 16 107/70 (82) 95 02/17/17 20:00 16 02/17/17 20:00 16 02/17/17 17:40 18 02/17/17 16:00 98.2 101 20 126/74 (91) 96 02/17/17 14:00 18 02/17/17 13:40 18 02/17/17 12:00 97.0 97 20 120/68 (85) 90 I/O 02/17/17 02/17/17 02/17/17 02/18/17 02/18/17 02/18/17 06:59 14:59 22:59 06:59 14:59 22:59 Intake Total 844 ml 120 ml 2071 ml 1115 ml 120 ml Output Total 1700 ml 300 ml Balance 844 ml 120 ml 371 ml 815 ml 120 ml Intake Oral 120 ml 1080 ml 120 ml IV Total 480 ml 911 ml 583 ml Tube Feeding 364 ml 80 ml 532 ml Output Urine Total 1000 ml 300 ml Stool Total 700 ml # Voids 1 Result Diagram: 02/18/17 0745 02/18/17 0745 Other Results Laboratory Tests Test 02/16/17 05:45 02/17/17 07:31 02/18/17 07:45 White Blood Count 7.7 TH/MM3 7.4 TH/MM3 6.3 TH/MM3 Red Blood Count 3.39 MIL/MM3 3.29 MIL/MM3 3.20 MIL/MM3 Hemoglobin 10.3 GM/DL 10.2 GM/DL 9.9 GM/DL Hematocrit 31.9 % 30.5 % 29.5 % Mean Corpuscular Volume 94.0 FL 92.8 FL 92.3 FL Mean Corpuscular Hemoglobin 30.4 PG 31.1 PG 31.0 PG Mean Corpuscular Hemoglobin Concent 32.4 % 33.5 % 33.5 % Red Cell Distribution Width 20.2 % 19.3 % 19.4 % Platelet Count 183 TH/MM3 187 TH/MM3 183 TH/MM3 Mean Platelet Volume 8.1 FL 7.9 FL 8.4 FL Neutrophils (%) (Auto) 71.4 % 70.0 % 68.0 % Lymphocytes (%) (Auto) 15.5 % 17.6 % 17.1 % Monocytes (%) (Auto) 11.9 % 10.9 % 13.3 % Eosinophils (%) (Auto) 1.0 % 1.2 % 1.3 % Basophils (%) (Auto) 0.2 % 0.3 % 0.3 % Neutrophils # (Auto) 5.5 TH/MM3 5.2 TH/MM3 4.3 TH/MM3 Lymphocytes # (Auto) 1.2 TH/MM3 1.3 TH/MM3 1.1 TH/MM3 Monocytes # (Auto) 0.9 TH/MM3 0.8 TH/MM3 0.8 TH/MM3 Eosinophils # (Auto) 0.1 TH/MM3 0.1 TH/MM3 0.1 TH/MM3 Basophils # (Auto) 0.0 TH/MM3 0.0 TH/MM3 0.0 TH/MM3 CBC Comment DIFF FINAL DIFF FINAL DIFF FINAL Differential Comment Blood Urea Nitrogen 11 MG/DL 12 MG/DL 12 MG/DL Creatinine 0.73 MG/DL 0.75 MG/DL 0.73 MG/DL Random Glucose 143 MG/DL 127 MG/DL 132 MG/DL Total Protein 6.5 GM/DL 6.5 GM/DL 6.6 GM/DL Albumin 2.3 GM/DL 2.3 GM/DL 2.3 GM/DL Calcium Level 10.4 MG/DL 10.4 MG/DL 10.2 MG/DL Phosphorus Level 2.1 MG/DL 2.0 MG/DL 2.2 MG/DL Magnesium Level 2.2 MG/DL 2.0 MG/DL 2.0 MG/DL Alkaline Phosphatase 79 U/L 88 U/L 81 U/L Aspartate Amino Transf (AST/SGOT) 15 U/L 14 U/L 19 U/L Alanine Aminotransferase (ALT/SGPT) LESS THAN 6 U/L LESS THAN 6 U/L 6 U/L Total Bilirubin 0.7 MG/DL 0.6 MG/DL 0.5 MG/DL Sodium Level 137 MEQ/L 132 MEQ/L 134 MEQ/L Potassium Level 4.0 MEQ/L 3.9 MEQ/L 4.2 MEQ/L Chloride Level 103 MEQ/L 99 MEQ/L 100 MEQ/L Carbon Dioxide Level 28.2 MEQ/L 26.2 MEQ/L 27.6 MEQ/L Anion Gap 6 MEQ/L 7 MEQ/L 6 MEQ/L Estimat Glomerular Filtration Rate 106 ML/MIN 103 ML/MIN 106 ML/MIN Imaging Last Impressions Upper Extremity CT 02/14/17 0000 Signed Impressions: Service Date/Time: Tuesday, February 14, 2017 19:53 - CONCLUSION: 1. Moth-eaten appearance of mid humeral shaft on the endosteal surface extending over more than 5 cm most characteristic of metastatic bone disease given history of lung cancer. No pathologic fracture. Selvin Whittington MD Wrist X-Ray 02/13/17 0000 Signed Impressions: Service Date/Time: Monday, February 13, 2017 11:30 - CONCLUSION: Intact left wrist. 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 Robbin Cheney MD Radius/Ulna X-Ray 02/13/17 0000 Signed Impressions: Service Date/Time: Monday, February 13, 2017 11:34 - CONCLUSION: Radiographic appearance of the left forearm is within normal limits. Robbin Cheney MD Abdomen/Pelvis CT 02/08/17 0939 Signed Impressions: Service Date/Time: January 13:23 - CONCLUSION: 1. New areas of consolidation in the left lower lobe most characteristic of pneumonia. 2. Worsening bowel gas pattern with increased dilatation of multiple loops of small bowel with air-fluid levels. Contrast is noted in the distal colon and this could indicate a partial small bowel obstruction. 3. Right adrenal mass again noted. Anam Agarwal MD Objective Remarks - GENERAL: This is a well-nourished, well-developed patient, in moderate distress.- HAS CHRONIC PAIN SKIN: No rashes, warm and dry HEAD: Atraumatic. Normocephalic. EYES: Pupils equal round and reactive. Extraocular motions intact. No scleral icterus. ENT: Nose without bleeding, or drainage, Airway patent. Tongue is midline oral mucosa is moist NECK: Trachea midline. Supple CARDIOVASCULAR: Regular rate and rhythm without murmurs, gallops, or rubs. S1- S2 no S3 or S4 no heave or thrill RESPIRATORY: Fair air entry bilaterally. No wheezes, rales, or rhonchi. GASTROINTESTINAL: Abdomen soft, non-tender, nondistended. POSITIVE bowel sounds , G-tube in place --STILL ON tube feeds at night MUSCULOSKELETAL: Extremities without clubbing, cyanosis, or edema. Pedal pulses appreciated NEUROLOGICAL: Awake and alert. Moves all extremity. Normal speech.no focal neurological deficit Insight and judgment is okay mood and behavior is somewhat appropriate Procedures Umbilical hernia repair and diagnostic laparoscopy and laparoscopic G-tube placement on 02/09/[address] Galen sawant Medications and IVs Current Medications Ondansetron HCl (Zofran Inj) 4 mg ONCE ONCE IVP Last administered on t 07:48; Start 02/08/17 at 07:30; Stop 02/08/17 at 07:31; Status DC Sodium Chloride 1,000 ml @ 1,000 mls/hr Q1H IV Last administered on 02/08/17 07:41; Start 02/08/17 at 07:18; Stop 02/08/17 at 08:17; Status DC Sodium Chloride (NS Flush) 2 ml UNSCH PRN IVF FLUSH AFTER USING IV ACCESS Last administered on 02/18/17 10:53; Start 02/08/17 at 07:30 Pantoprazole Sodium 80 mg/ Sodium Chloride 35 ml @ 420 mls/hr Q5M ONCE IV Last administered on 02/08/17 08:08; Start 02/08/17 at 07:18; Stop 02/08/17 at 07:22; Status DC Pantoprazole Sodium 80 mg/ Sodium Chloride 100 ml @ 10 mls/hr Q10H IV Last administered on 02/08/17 08:15; Start 02/08/17 at 07:18; Stop 02/09/17 at 02:08 ; Status DC Hydromorphone HCl (Dilaudid Pf Inj) 1 mg ONCE ONCE IV Last administered on 07:48; Start 02/08/17 at 07:30; Stop 02/08/17 at 07:31; Status DC Morphine Sulfate (Morphine Inj) 2 mg Q15M PRN IV PAIN SCALE 4 TO 10 Last administered on 02/09/17 10:59; Start 02/08/17 at 09:00; Stop 02/09/17 at 11:00; Status DC Sodium Chloride 1,000 ml @ 999 mls/hr BOLUS ONCE IV Last administered on 02/08 09:44; Start 02/08/17 at 09:45; Stop 02/08/17 at 10:45; Status DC Diatrizoate Meglum/ Diatrizoate Sod ( Gastroview Liq) 18 ml STK-MED ONCE .ROUTE Last administered on 02/08/17 10:10; Start 02/08/17 at 10:05; Stop at 10:06; Status DC Ceftriaxone Sodium 1000 mg/ Sodium Chloride 100 ml @ 200 mls/hr ONCE ONCE IV Last administered on 02/08/17 15:37; Start 02/08/17 at 14:15; Stop 02/08/17 at 14:44; Status DC Azithromycin 500 mg/Sodium Chloride 250 ml @ 250 mls/hr ONCE ONCE IV Last administered on 02/08/17 14:30; Start 02/08/17 at 14:15; Stop 02/08/17 at 15:14 ; Status DC Sodium Chloride 1,000 ml @ 999 mls/hr BOLUS ONCE IV Last administered on 02/08 14:31; Start 02/08/17 at 14:15; Stop 02/08/17 at 15:15; Status DC Pantoprazole Sodium 80 mg/ Sodium Chloride 100 ml @ 10 mls/hr CONTINUOUS IV Last administered on 02/12/17 01:20; Start 02/08/17 at 16:45; Stop 02/12/17 at 11 :52; Status DC Sodium Chloride 1,000 ml @ 100 mls/hr Q10H IV Last administered on 02/09/17 02 :56; Start 02/08/17 at 16:56; Stop 02/09/17 at 08:37; Status DC Acetaminophen (Tylenol) 650 mg Q4H PRN PO TEMP > 100.4; Start 02/08/17 at 17:00 Ondansetron HCl (Zofran Inj) 4 mg Q6H PRN IVP NAUSEA OR VOMITING Last administered on 02/18/17 10:53; Start 02/08/17 at 17:00 Naloxone HCl (Narcan Inj) 0.4 mg UNSCH PRN IV SEE LABEL COMMENTS; Start at 17:00; Stop 02/14/17 at 12:07; Status DC Morphine Sulfate (Morphine Inj) 1 mg Q4H PRN IV PUSH pain 3-5 Last administered on 02/09/17 08:51; Start 02/08/17 at 17:00; Stop 02/09/17 at 16:41; Status DC Morphine Sulfate (Morphine Inj) 2 mg Q4H PRN IV PUSH pain 6-10; Start 02/08/17 at 17:00; Stop 02/09/17 at 16:41; Status DC Piperacillin Sod/ Tazobactam Sod 50 ml @ 100 mls/hr Q6H IV Last administered on 02/18/17 11:11; Start 02/08/17 at 20:00 Sodium Chloride 1,000 ml @ 84 mls/hr [id number] IV Last administered on 20:47; Start 02/08/17 at 17:15; Stop 02/09/17 at 08:38; Status DC Sodium Chloride 1,000 ml @ 100 mls/hr Q10H IV Last administered on 02/13/17 03 :07; Start 02/09/17 at 08:45 Azithromycin 500 mg/Sodium Chloride 250 ml @ 250 mls/hr Q24H IV Last administered on 02/17/17 14:01; Start 02/09/17 at 14:00 Midazolam HCl (Versed Inj) 2 mg STK-MED ONCE .ROUTE ; Start 02/09/17 at 13:22; Stop 02/09/17 at 13:23; Status DC Famotidine (Pepcid Inj) 20 mg STK-MED ONCE .ROUTE ; Start 02/09/17 at 13:22; Stop 02/09/17 at 13:23; Status DC Bupivacaine HCl/ Epinephrine Bitart (Sensorcaine-Epinephrine 0.25% Inj) 50 ml STK-MED ONCE .ROUTE Last administered on 02/09/17 14:04; Start 02/09/17 at 13:50 ; Stop 02/09/17 at 13:51; Status DC Cefazolin Sodium (Ancef Inj) 2,000 mg ONCE ONCE IV ; Start 02/09/17 at 14:03; Stop 02/09/17 at 14:04; Status UNV Cefazolin Sodium/ Dextrose 50 ml @ 100 mls/hr ONCE ONCE IV Last administered on 02/09/17 16:45; Start 02/09/17 at 16:00; Stop 02/09/17 at 16:29; Status DC Morphine Sulfate (*morphine INJ PERIprocedure ONLY) 8 mg STK-MED ONCE .ROUTE Last administered on 02/09/17 15:44; Start 02/09/17 at 15:44; Stop 02/09/17 at 15: 45; Status DC Fentanyl Citrate (fentaNYL INJ) 400 mcg STK-MED ONCE .ROUTE ; Start 02/09/17 at 15:48; Stop 02/09/17 at 15:49; Status DC Fentanyl Citrate (fentaNYL INJ) 100 mcg STK-MED ONCE .ROUTE ; Start 02/09/17 at 15:48; Stop 02/09/17 at 15:49; Status DC Morphine Sulfate (*morphine INJ PERIprocedure ONLY) 8 mg STK-MED ONCE .ROUTE Last administered on 02/09/17 15:56; Start 02/09/17 at 15:56; Stop 02/09/17 at 15: 57; Status DC Miscellaneous Information ALL NURSING DEPARTME... UNSCH PRN .XX SEE LABEL COMMENTS; Start 02/09/17 at 15:37; Stop 02/10/17 at 15:36; Status DC Hydromorphone HCl (*DILAUDID PF INJ PERIprocedural ONLY) 1 mg STK-MED ONCE .ROUTE Last administered on 02/09/17 16:13; Start 02/09/17 at 16:13; Stop at 16:14; Status DC Morphine Sulfate (Morphine 1 Mg/ ml [place] [facility]) 30 mg STK-MED ONCE .ROUTE ; Start at 16:26; Stop 02/09/17 at 16:27; Status DC Morphine Sulfate (Morphine 1 Mg/ ml [place] [employer]) 30 mg UNSCH IV Last administered on 21:16; Start 02/09/17 at 16:45 [place] [employer] Dosage Infused (Pha) 1 Q8HR .XX Last administered on 02/18/17 05:52; Start 02/09/17 at 22:00 Naloxone HCl (Narcan Inj) 0.4 mg UNSCH PRN IV RESPIRATORY RATE LESS THAN 10; Start 02/09/17 at 16:45 Potassium Bicarb/ Potassium Chloride (K-Lyte Cl Eff) 50 meq ONCE ONCE PO Last administered on 02/11/17 06:06; Start 02/11/17 at 06:00; Stop 02/11/17 at 06: 01; Status DC Potassium Chloride 100 ml @ 50 mls/hr ONCE ONCE IV Last administered on 06:05; Start 02/11/17 at 06:00; Stop 02/11/17 at 07:59; Status DC Alprazolam (Xanax) 1 mg TID PRN PO ANXIETY Last administered on 02/13/17 22:04 ; Start 02/11/17 at 13:00; Stop 02/17/17 at 08:34; Status DC Carbidopa/Levodopa (Sinemet 25-100 Mg) 1 tab Q4HR PO Last administered on 11:11; Start 02/11/17 at 12:00 Potassium Phosphate 30 mmol/ Sodium Chloride 260 ml @ 43.333 mls/ hr ONCE ONCE IV Last administered on 02/11/17 11:39; Start 02/11/17 at 10:45; Stop at 16:44; Status DC Potassium Chloride 40 meq/ Sodium Chloride 1,020 ml @ 42 mls/hr Q24H IV Last administered on 02/18/17 11:11; Start 02/11/17 at 11:00 Clonidine (Catapres) 0.1 mg Q4H PRN PO SBP>160, DBP>90; Start 02/11/17 at 10:45 Pantoprazole Sodium (Protonix) 40 mg BIDAC PO Last administered on 02/18/17 05 :52; Start 02/12/17 at 16:00 Polyethylene Glycol (Miralax) 17 gm DAILY PO Last administered on 02/14/17 08: 27; Start 02/12/17 at 13:00 Potassium Phosphate 30 mmol/ Sodium Chloride 260 ml @ 43.333 mls/ hr ONCE ONCE IV Last administered on 02/13/17 10:00; Start 02/13/17 at 10:00; Stop at 15:59; Status DC Sodium Phosphate 30 mmol/Sodium Chloride 260 ml @ 43.333 mls/ hr ONCE ONCE IV Last administered on 02/13/17 10:30; Start 02/13/17 at 10:30; Stop 02/13/17 at 16:29; Status DC Magnesium Sulfate/ Dextrose 100 ml @ 100 mls/hr Q1H IV Last administered on 10:30; Start 02/13/17 at 09:30; Stop 02/13/17 at 11:29; Status DC Fentanyl (Duragesic 25 Mcg Patch.72 Hr) 1 patch ONCE ONCE T-DERMAL ; Start at 10:15; Stop 02/14/17 at 10:16; Status UNV Fentanyl (Duragesic 25 Mcg Patch.72 Hr) 1 patch Q3D T-DERMAL Last administered on 02/17/17 12:52; Start 02/14/17 at 13:00 Miscellaneous Information 1 Q3D T-DERMAL Last administered on 02/17/17 12:52; Start 02/17/17 at 13:00 Sennosides (Senokot) 8.6 mg BID PRN PO CONSTIPATION; Start 02/14/17 at 15:30 Simethicone (Mylicon Chew) 80 mg PCHS PRN CHEW FLATULENCE; Start 02/15/17 at 15: 00 Al Hydrox/Mg Hydrox/Simethicone (Mag-Al Plus Susp Liq) 30 ml Q6H PRN PO DYSPEPSIA; Start 02/16/17 at 11:30 Morphine Sulfate (Oramorph Sr) 30 mg Q8H PO Last administered on 02/18/17t 10: 53; Start 02/17/17 at 09:00 Alprazolam (Xanax) 0.5 mg TID PRN PO ANXIETY; Start 02/17/17 at 09:00 A/P Assessment and Plan 72 years old male with history of 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 came with Multiple episode of hematemesis 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 LEFT HUMERUS METASTASIS- SP RADIATION TO LEFT ARM Partial SBO versus ileus GI bleed Leukocytosis Bilateral pneumonia possibly aspiration DVT prophylaxis with SCD Hypokalemia will need replacement Parkinsons restart home Sinemet ANXIETY RESTART HOME XANAX HYPOKALEMIA REPLACE HYPOPHOSPHATEMIA- REPLACE SOME BOWEL SOUNDS- STILL USING [place] [facility] OFTEN POSITIVE BM SUSPECT METS TO LEFT HUMERUS undergo radiation therapy at the [facility] today for improvement of symptoms HAD RADIATION ON 02-16 CONSTIPATION ON MIRALAX VIA J TUBE BID Plan: Status post exploratory laparotomy 02/09 showing generalized ileus, no adhesions no SBO, appreciate surgery follow up Iv Protonix Appreciate GI, oncology consult Zosyn and Zithromax Sent for blood culture and sputum culture if available Palliative care also seen the patient in the daughter, the patient refused to accept palliative care, plan is still for aggressive treatment DVT prophylaxis with SCD due to GI bleed Radiation today A.m. labs DW RN AND PT AND FAMILY ADJUST PAIN MEDS Baldomero Gutierrez DO Feb 18, 2017 11:31
[2017-02-18] MEDS: HYDROmorphone HCL 4 MG TAB PO SCH ×3 (13:00→21:46)
[2017-02-18] MEDS: POLYETHYLENE GLYCOL 17 GM PKG J-TUBE SCH ×2 (13:01→21:00)
[2017-02-18] MEDS: AZITHROMYCIN INJ 500 MG in SODIUM CHLOR 0.9% 250 ML INJ 250 ML IV SCH (13:01)
[2017-02-19] VITALS (7 sets, daily range): BP systolic 88–180; BP diastolic 49–96; PULSE 95–100; RESP 17–19; TEMP 96.9–99.5; O2SAT 95–100
[2017-02-19] MEDS: MORPHINE SULFATE 30 MG CONTROLLED RELEASE TAB PO SCH ×3 (01:25→17:57)
[2017-02-19] MEDS: HYDROmorphone HCL 4 MG TAB PO SCH ×4 (01:26→21:00)
[2017-02-19] MEDS: PIPERACIL-TAZO 3.375 GM PREMIX 50 ML IV SCH ×4 (01:26→21:09)
[2017-02-19] MEDS: CARBIDOPA/LEVODOPA 25 MG/100 MG TAB PO SCH ×5 (04:05→21:10)
[2017-02-19] MEDS: PCA - TOTAL MG MORPHINE DELIVERED PER SHIFT SCH ×3 (06:00→21:10)
[2017-02-19 06:18] LABS: AUTOMATED NEUTROPHIL # 4.5 TH/MM3 (1.8-7.7); BASOPHIL % 0.4 % (0.0-2.0); EOSINOPHIL # 0.1 TH/MM3 (0-0.4); EOSINOPHIL % 1.4 % (0.0-4.0); HEMATOCRIT 28.9 % (39.0-51.0); HEMO FLAGS DIFF FINAL; LYMPH % 13.3 % (9.0-44.0); LYMPHOCYTE # 0.8 TH/MM3 (1.0-4.8); MEAN CELL VOLUME 93.3 FL (80.0-100.0); MEAN CORPUSCULAR HGB CONC 33.2 % (32.0-36.0); NEUT % 71.9 % (16.0-70.0); PLATELET COUNT 188 TH/MM3 (150-450); RED CELL DISTRIBUTION WIDTH 19.4 % (11.6-17.2); WHITE BLOOD COUNT 6.3 TH/MM3 (4.0-11.0)
[2017-02-19 06:29] LABS: ALT (GPT) 9 U/L (12-78); ANION GAP 9 MEQ/L (5-15); AST (GOT) 16 U/L (15-37); BICARBONATE 27.1 MEQ/L (21.0-32.0); BLOOD UREA NITROGEN 10 MG/DL (7-18); CHLORIDE 101 MEQ/L (98-107); GLOMERULAR FILTRATION RATE 91 ML/MIN (>89); MAGNESIUM 2.1 MG/DL (1.5-2.5); SODIUM (NA) 137 MEQ/L (136-145)
[2017-02-19 06:31] LABS: ALKALINE PHOSPHATASE 84 U/L (45-117); TOTAL BILIRUBIN ADULT 0.6 MG/DL (0.2-1.0)
[2017-02-19] MEDS: POLYETHYLENE GLYCOL 17 GM PKG J-TUBE SCH ×2 (08:54→21:00)
[2017-02-19] MEDS: PANTOPRAZOLE SOD 40 MG DELAYED RELEASE TAB PO SCH ×2 (08:54→17:57)
--- NOTE | 2017-02-19 10:35 | HHI.PR ---
Subjective Remarks 9-3 Discussed with patient and daughter Status post laparoscopy and exploratory 2 days ago Has G-tube to suction Family wanting to know when he can eat we'll defer that to surgery and GI Many questions answered Restart Xanax and Sinemet Discussed with patient and RN and daughter 9-4 NOT HAVING BMS YET COMPLAINS OF GAS STILL USING SHIPPING AND RECEIVING ASSISTANT PUMP QUITE OFTEN GI WANTS ON MIRALAX SO HE CAN HAVE BOWEL MOVEMENTS DW RN AND PT STILL ON TUBE FEEDS AT 10ML/HR ONLY 9-5 TOLERATING TUBE FEEDS DW RN AND PT HAD BMS STILL USING SHIPPING AND RECEIVING ASSISTANT PUMP ON TUBE FEEDS AT 30ML/HR 9-6 COMPLAINING OF PAIN OF LEFT HUMERUS AREA DW RN AND PT AND FAMILY NOT TOLERATING TUBE FEEDS TUBE FEEDS ON HOLD AM LABS STILL USING SHIPPING AND RECEIVING ASSISTANT 9-7 radiation therapy regarding the left humerus starting today Going to the [facility] for radiation today Still using SHIPPING AND RECEIVING ASSISTANT on occasion lots of UNCONTROLLED PAIN 9-8HAD RADIATION TODAY OF LEFT HUMERUS STILL COMPLAINING OF PAIN ONLY WANTS TO TRY TUBE FEEDS AT 40ML/HR MAX AT THIS TIME DW RN AND PATIENT AND FAMILY 9-9 ADJUST HOME PAIN MEDICATIONS AND ANXIETY MEDICATIONS HOSPICE HAS BEEN CONSULTED BY ONCOLOGY STATES PAIN A LITTLE BETTER TODAY 9-10 FAMILY WANTS PAIN MEDS ADJUSTED AGAIN HAS CHRONIC PAIN RESTART SCHEDULED DILAUDID 4MG PO Q4HR INCREASE MIRALAX TO 17GRAMS BID VIA J-TUBE DW RN AND PT AND FAMILY CONSTIPATED 9-11 HAD BOWEL MOVEMENTS YESTERDAY DOING BETTER WITH HIS PAIN NEEDS TO TRANSITION OFF OF SHIPPING AND RECEIVING ASSISTANT DW PT AND RN Objective Vitals Vital Signs Date Time Temp Pulse Resp B/P (MAP) Pulse Ox O2 Delivery O2 Flow Rate FiO2 02/19/17 08:00 99.1 97 18 140/69 (92) 95 02/19/17 04:00 98.7 95 18 107/49 (68) 100 02/19/17 00:00 99.5 96 18 88/57 (67) 100 02/18/17 21:47 18 02/18/17 20:00 99.2 98 18 124/62 (82) 95 02/18/17 18:25 18 02/18/17 16:00 98.8 97 18 110/66 (81) 95 02/18/17 14:00 18 02/18/17 12:35 98.5 99 18 125/55 (78) 95 I/O 9/10/17 9/10/02/18/17 02/19/17 02/19/17 02/19/17 07:00 15:00 23:00 07:00 15:00 23:00 Intake Total 1115 ml 360 ml 2316 ml Output Total 300 ml 850 ml Balance 815 ml 360 ml 1466 ml Intake Oral 360 ml 960 ml IV Total 583 ml 956 ml Tube Feeding 532 ml 400 ml Output Urine Total 300 ml 850 ml # Voids 3 # Bowel Movements 0 Result Diagram: 02/19/17 0600 02/19/17 06 Other Results Laboratory Tests Test 02/17/17 07:31 02/18/17 07:45 02/19/17 06:00 White Blood Count 7.4 TH/MM3 6.3 TH/MM3 6.3 TH/MM3 Red Blood Count 3.29 MIL/MM3 3.20 MIL/MM3 3.10 MIL/MM3 Hemoglobin 10.2 GM/DL 9.9 GM/DL 9.6 GM/DL Hematocrit 30.5 % 29.5 % 28.9 % Mean Corpuscular Volume 92.8 FL 92.3 FL 93.3 FL Mean Corpuscular Hemoglobin 31.1 PG 31.0 PG 31.0 PG Mean Corpuscular Hemoglobin Concent 33.5 % 33.5 % 33.2 % Red Cell Distribution Width 19.3 % 19.4 % 19.4 % Platelet Count 187 TH/MM3 183 TH/MM3 188 TH/MM3 Mean Platelet Volume 7.9 FL 8.4 FL 8.3 FL Neutrophils (%) (Auto) 70.0 % 68.0 % 71.9 % Lymphocytes (%) (Auto) 17.6 % 17.1 % 13.3 % Monocytes (%) (Auto) 10.9 % 13.3 % 13.0 % Eosinophils (%) (Auto) 1.2 % 1.3 % 1.4 % Basophils (%) (Auto) 0.3 % 0.3 % 0.4 % Neutrophils # (Auto) 5.2 TH/MM3 4.3 TH/MM3 4.5 TH/MM3 Lymphocytes # (Auto) 1.3 TH/MM3 1.1 TH/MM3 0.8 TH/MM3 Monocytes # (Auto) 0.8 TH/MM3 0.8 TH/MM3 0.8 TH/MM3 Eosinophils # (Auto) 0.1 TH/MM3 0.1 TH/MM3 0.1 TH/MM3 Basophils # (Auto) 0.0 TH/MM3 0.0 TH/MM3 0.0 TH/MM3 CBC Comment DIFF FINAL DIFF FINAL DIFF FINAL Differential Comment Blood Urea Nitrogen 12 MG/DL 12 MG/DL 10 MG/DL Creatinine 0.75 MG/DL 0.73 MG/DL 0.83 MG/DL Random Glucose 127 MG/DL 132 MG/DL 139 MG/DL Total Protein 6.5 GM/DL 6.6 GM/DL 6.5 GM/DL Albumin 2.3 GM/DL 2.3 GM/DL 2.3 GM/DL Calcium Level 10.4 MG/DL 10.2 MG/DL 9.8 MG/DL Phosphorus Level 2.0 MG/DL 2.2 MG/DL 2.1 MG/DL Magnesium Level 2.0 MG/DL 2.0 MG/DL 2.1 MG/DL Alkaline Phosphatase 88 U/L 81 U/L 84 U/L Aspartate Amino Transf (AST/SGOT) 14 U/L 19 U/L 16 U/L Alanine Aminotransferase (ALT/SGPT) LESS THAN 6 U/L 6 U/L 9 U/L Total Bilirubin 0.6 MG/DL 0.5 MG/DL 0.6 MG/DL Sodium Level 132 MEQ/L 134 MEQ/L 137 MEQ/L Potassium Level 3.9 MEQ/L 4.2 MEQ/L 4.0 MEQ/L Chloride Level 99 MEQ/L 100 MEQ/L 101 MEQ/L Carbon Dioxide Level 26.2 MEQ/L 27.6 MEQ/L 27.1 MEQ/L Anion Gap 7 MEQ/L 6 MEQ/L 9 MEQ/L Estimat Glomerular Filtration Rate 103 ML/MIN 106 ML/MIN 91 ML/MIN Imaging Last Impressions Upper Extremity CT 02/14/17 0000 Signed Impressions: Service Date/Time: Tuesday, February 14, 2017 19:53 - CONCLUSION: 1. Moth-eaten appearance of mid humeral shaft on the endosteal surface extending over more than 5 cm most characteristic of metastatic bone disease given history of lung cancer. No pathologic fracture. Selvin Whittington MD Wrist X-Ray 02/13/17 0000 Signed Impressions: Service Date/Time: Monday, February 13, 2017 11:30 - CONCLUSION: Intact left wrist. 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 Robbin Cheney MD Radius/Ulna X-Ray 02/13/17 0000 Signed Impressions: Service Date/Time: Monday, February 13, 2017 11:34 - CONCLUSION: Radiographic appearance of the left forearm is within normal limits. Robbin Cheeny MD Abdomen/Pelvis CT 02/08/17 0939 Signed Impressions: Service Date/Time: January 13:23 - CONCLUSION: 1. New areas of consolidation in the left lower lobe most characteristic of pneumonia. 2. Worsening bowel gas pattern with increased dilatation of multiple loops of small bowel with air-fluid levels. Contrast is noted in the distal colon and this could indicate a partial small bowel obstruction. 3. Right adrenal mass again noted. Anam Agarwal MD Objective Remarks - GENERAL: This is a well-nourished, well-developed patient, in moderate distress.- HAS CHRONIC PAIN SKIN: No rashes, warm and dry HEAD: Atraumatic. Normocephalic. EYES: Pupils equal round and reactive. Extraocular motions intact. No scleral icterus. ENT: Nose without bleeding, or drainage, Airway patent. Tongue is midline oral mucosa is moist NECK: Trachea midline. Supple CARDIOVASCULAR: Regular rate and rhythm without murmurs, gallops, or rubs. S1- S2 no S3 or S4 no heave or thrill RESPIRATORY: Fair air entry bilaterally. No wheezes, rales, or rhonchi. GASTROINTESTINAL: Abdomen soft, non-tender, nondistended. POSITIVE bowel sounds , G-tube in place --STILL ON tube feeds at night MUSCULOSKELETAL: Extremities without clubbing, cyanosis, or edema. Pedal pulses appreciated NEUROLOGICAL: Awake and alert. Moves all extremity. Normal speech.no focal neurological deficit Insight and judgment is okay mood and behavior is somewhat appropriate Procedures Umbilical hernia repair and diagnostic laparoscopy and laparoscopic G-tube placement on 02/09/[address] Galen sawant Medications and IVs Current Medications Ondansetron HCl (Zofran Inj) 4 mg ONCE ONCE IVP Last administered on 07:48; Start 02/08/17 at 07:30; Stop 02/08/17 at 07:31; Status DC Sodium Chloride 1,000 ml @ 1,000 mls/hr Q1H IV Last administered on 02/08/17 07:41; Start 02/08/17 at 07:18; Stop 02/08/17 at 08:17; Status DC Sodium Chloride (NS Flush) 2 ml UNSCH PRN IVF FLUSH AFTER USING IV ACCESS Last administered on 02/18/17 10:53; Start 02/08/17 at 07:30 Pantoprazole Sodium 80 mg/ Sodium Chloride 35 ml @ 420 mls/hr Q5M ONCE IV Last administered on 02/08/17 08:08; Start 02/08/17 at 07:18; Stop 02/08/17 at 07:22; Status DC Pantoprazole Sodium 80 mg/ Sodium Chloride 100 ml @ 10 mls/hr Q10H IV Last administered on 02/08/17 08:15; Start 02/08/17 at 07:18; Stop 02/09/17 at 02:08 ; Status DC Hydromorphone HCl (Dilaudid Pf Inj) 1 mg ONCE ONCE IV Last administered on 07:48; Start 02/08/17 at 07:30; Stop 02/08/17 at 07:31; Status DC Morphine Sulfate (Morphine Inj) 2 mg Q15M PRN IV PAIN SCALE 4 TO 10 Last administered on 02/09/17 10:59; Start 02/08/17 at 09:00; Stop 02/09/17 at 11:00; Status DC Sodium Chloride 1,000 ml @ 999 mls/hr BOLUS ONCE IV Last administered on 02/08 09:44; Start 02/08/17 at 09:45; Stop 02/08/17 at 10:45; Status DC Diatrizoate Meglum/ Diatrizoate Sod ( Gastrosandra Liq) 18 ml STK-MED ONCE .ROUTE Last administered on 02/08/17 10:10; Start 02/08/17 at 10:05; Stop at 10:06; Status DC Ceftriaxone Sodium 1000 mg/ Sodium Chloride 100 ml @ 200 mls/hr ONCE ONCE IV Last administered on 02/08/17 15:37; Start 02/08/17 at 14:15; Stop 02/08/17 at 14:44; Status DC Azithromycin 500 mg/Sodium Chloride 250 ml @ 250 mls/hr ONCE ONCE IV Last administered on 02/08/17 14:30; Start 02/08/17 at 14:15; Stop 02/08/17 at 15:14 ; Status DC Sodium Chloride 1,000 ml @ 999 mls/hr BOLUS ONCE IV Last administered on 02/08 14:31; Start 02/08/17 at 14:15; Stop 02/08/17 at 15:15; Status DC Pantoprazole Sodium 80 mg/ Sodium Chloride 100 ml @ 10 mls/hr CONTINUOUS IV Last administered on 02/12/17 01:20; Start 02/08/17 at 16:45; Stop 02/12/17 at 11 :52; Status DC Sodium Chloride 1,000 ml @ 100 mls/hr Q10H IV Last administered on 02/09/17 02 :56; Start 02/08/17 at 16:56; Stop 02/09/17 at 08:37; Status DC Acetaminophen (Tylenol) 650 mg Q4H PRN PO TEMP > 100.4; Start 02/08/17 at 17:00 Ondansetron HCl (Zofran Inj) 4 mg Q6H PRN IVP NAUSEA OR VOMITING Last administered on 02/18/17 10:53; Start 02/08/17 at 17:00 Naloxone HCl (Narcan Inj) 0.4 mg UNSCH PRN IV SEE LABEL COMMENTS; Start at 17:00; Stop 02/14/17 at 12:07; Status DC Morphine Sulfate (Morphine Inj) 1 mg Q4H PRN IV PUSH pain 3-5 Last administered on 02/09/17 08:51; Start 02/08/17 at 17:00; Stop 02/09/17 at 16:41; Status DC Morphine Sulfate (Morphine Inj) 2 mg Q4H PRN IV PUSH pain 6-10; Start 02/08/17 at 17:00; Stop 02/09/17 at 16:41; Status DC Piperacillin Sod/ Tazobactam Sod 50 ml @ 100 mls/hr Q6H IV Last administered on 02/19/17 08:53; Start 02/08/17 at 20:00 Sodium Chloride 1,000 ml @ 84 mls/hr [id number] IV Last administered on 20:47; Start 02/08/17 at 17:15; Stop 02/09/17 at 08:38; Status DC Sodium Chloride 1,000 ml @ 100 mls/hr Q10H IV Last administered on 02/13/17 03 :07; Start 02/09/17 at 08:45 Azithromycin 500 mg/Sodium Chloride 250 ml @ 250 mls/hr Q24H IV Last administered on 02/18/17 13:01; Start 02/09/17 at 14:00 Midazolam HCl (Versed Inj) 2 mg STK-MED ONCE .ROUTE ; Start 02/09/17 at 13:22; Stop 02/09/17 at 13:23; Status DC Famotidine (Pepcid Inj) 20 mg STK-MED ONCE .ROUTE ; Start 02/09/17 at 13:22; Stop 02/09/17 at 13:23; Status DC Bupivacaine HCl/ Epinephrine Bitart (Sensorcaine-Epinephrine 0.25% Inj) 50 ml STK-MED ONCE .ROUTE Last administered on 02/09/17 14:04; Start 02/09/17 at 13:50 ; Stop 02/09/17 at 13:51; Status DC Cefazolin Sodium (Ancef Inj) 2,000 mg ONCE ONCE IV ; Start 02/09/17 at 14:03; Stop 02/09/17 at 14:04; Status UNV Cefazolin Sodium/ Dextrose 50 ml @ 100 mls/hr ONCE ONCE IV Last administered on 02/09/17 16:45; Start 02/09/17 at 16:00; Stop 02/09/17 at 16:29; Status DC Morphine Sulfate (*morphine INJ PERIprocedure ONLY) 8 mg STK-MED ONCE .ROUTE Last administered on 02/09/17 15:44; Start 02/09/17 at 15:44; Stop 02/09/17 at 15: 45; Status DC Fentanyl Citrate (fentaNYL INJ) 400 mcg STK-MED ONCE .ROUTE ; Start 02/09/17 at 15:48; Stop 02/09/17 at 15:49; Status DC Fentanyl Citrate (fentaNYL INJ) 100 mcg STK-MED ONCE .ROUTE ; Start 02/09/17 at 15:48; Stop 02/09/17 at 15:49; Status DC Morphine Sulfate (*morphine INJ PERIprocedure ONLY) 8 mg STK-MED ONCE .ROUTE Last administered on 02/09/17 15:56; Start 02/09/17 at 15:56; Stop 02/09/17 at 15: 57; Status DC Miscellaneous Information ALL NURSING DEPARTME... UNSCH PRN .XX SEE LABEL COMMENTS; Start 02/09/17 at 15:37; Stop 02/10/17 at 15:36; Status DC Hydromorphone HCl (*DILAUDID PF INJ PERIprocedural ONLY) 1 mg STK-MED ONCE .ROUTE Last administered on 02/09/17 16:13; Start 02/09/17 at 16:13; Stop at 16:14; Status DC Morphine Sulfate (Morphine 1 Mg/ ml SHIPPING AND RECEIVING ASSISTANT) 30 mg STK-MED ONCE .ROUTE ; Start at 16:26; Stop 02/09/17 at 16:27; Status DC Morphine Sulfate (Morphine 1 Mg/ ml SHIPPING AND RECEIVING ASSISTANT) 30 mg UNSCH IV Last administered on 21:16; Start 02/09/17 at 16:45 SHIPPING AND RECEIVING ASSISTANT Dosage Infused (Pha) 1 Q8HR .XX Last administered on 02/18/17 21:47; Start 02/09/17 at 22:00 Naloxone HCl (Narcan Inj) 0.4 mg UNSCH PRN IV RESPIRATORY RATE LESS THAN 10; Start 02/09/17 at 16:45 Potassium Bicarb/ Potassium Chloride (K-Lyte Cl Eff) 50 meq ONCE ONCE PO Last administered on 02/11/17 06:06; Start 02/11/17 at 06:00; Stop 02/11/17 at 06: 01; Status DC Potassium Chloride 100 ml @ 50 mls/hr ONCE ONCE IV Last administered on 06:05; Start 02/11/17 at 06:00; Stop 02/11/17 at 07:59; Status DC Alprazolam (Xanax) 1 mg TID PRN PO ANXIETY Last administered on 02/13/17 22:04 ; Start 02/11/17 at 13:00; Stop 02/17/17 at 08:34; Status DC Carbidopa/Levodopa (Sinemet 25-100 Mg) 1 tab Q4HR PO Last administered on 08:53; Start 02/11/17 at 12:00 Potassium Phosphate 30 mmol/ Sodium Chloride 260 ml @ 43.333 mls/ hr ONCE ONCE IV Last administered on 02/11/17 11:39; Start 02/11/17 at 10:45; Stop at 16:44; Status DC Potassium Chloride 40 meq/ Sodium Chloride 1,020 ml @ 42 mls/hr Q24H IV Last administered on 02/18/17 11:11; Start 02/11/17 at 11:00 Clonidine (Catapres) 0.1 mg Q4H PRN PO SBP>160, DBP>90; Start 02/11/17 at 10:45 Pantoprazole Sodium (Protonix) 40 mg BIDAC PO Last administered on 02/19/17 08 :54; Start 02/12/17 at 16:00 Polyethylene Glycol (Miralax) 17 gm DAILY PO Last administered on 02/14/17 08: 27; Start 02/12/17 at 13:00; Stop 02/18/17 at 11:27; Status DC Potassium Phosphate 30 mmol/ Sodium Chloride 260 ml @ 43.333 mls/ hr ONCE ONCE IV Last administered on 02/13/17 10:00; Start 02/13/17 at 10:00; Stop at 15:59; Status DC Sodium Phosphate 30 mmol/Sodium Chloride 260 ml @ 43.333 mls/ hr ONCE ONCE IV Last administered on 02/13/17 10:30; Start 02/13/17 at 10:30; Stop 02/13/17 at 16:29; Status DC Magnesium Sulfate/ Dextrose 100 ml @ 100 mls/hr Q1H IV Last administered on 10:30; Start 02/13/17 at 09:30; Stop 02/13/17 at 11:29; Status DC Fentanyl (Duragesic 25 Mcg Patch.72 Hr) 1 patch ONCE ONCE T-DERMAL ; Start at 10:15; Stop 02/14/17 at 10:16; Status UNV Fentanyl (Duragesic 25 Mcg Patch.72 Hr) 1 patch Q3D T-DERMAL Last administered on 02/17/17 12:52; Start 02/14/17 at 13:00 Miscellaneous Information 1 Q3D T-DERMAL Last administered on 02/17/17 12:52; Start 02/17/17 at 13:00 Sennosides (Senokot) 8.6 mg BID PRN PO CONSTIPATION; Start 02/14/17 at 15:30 Simethicone (Mylicon Chew) 80 mg PCHS PRN CHEW FLATULENCE; Start 02/15/17 at 15: 00 Al Hydrox/Mg Hydrox/Simethicone (Mag-Al Plus Susp Liq) 30 ml Q6H PRN PO DYSPEPSIA; Start 02/16/17 at 11:30 Morphine Sulfate (Oramorph Sr) 30 mg Q8H PO Last administered on 02/19/17 08: 53; Start 02/17/17 at 09:00 Alprazolam (Xanax) 0.5 mg TID PRN PO ANXIETY Last administered on 02/18/17 23: 49; Start 02/17/17 at 09:00 Polyethylene Glycol (Miralax) 17 gm BID J-TUBE Last administered on 02/19/17 08:54; Start 02/18/17 at 13:00 Hydromorphone HCl (Dilaudid) 4 mg Q4H PO Last administered on 02/19/17 04:05; Start 02/18/17 at 13:00 Sodium Phosphate 30 mmol/Sodium Chloride 260 ml @ 43.333 mls/ hr ONCE ONCE IV Last administered on 02/18/17 12:52; Start 02/18/17 at 11:30; Stop 02/18/17 at 17:29; Status DC Urinary Catheter: No A/P Assessment and Plan 72 years old male with history of 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 came with Multiple episode of hematemesis 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 LEFT HUMERUS METASTASIS- SP RADIATION TO LEFT ARM Partial SBO versus ileus GI bleed Leukocytosis Bilateral pneumonia possibly aspiration DVT prophylaxis with SCD Hypokalemia will need replacement Parkinsons restart home Sinemet ANXIETY RESTART HOME XANAX HYPOKALEMIA REPLACE HYPOPHOSPHATEMIA- REPLACE SOME BOWEL SOUNDS- STILL USING SHIPPING AND RECEIVING ASSISTANT OFTEN POSITIVE BM SUSPECT METS TO LEFT HUMERUS undergo radiation therapy at the [facility] today for improvement of symptoms HAD RADIATION ON 02-16 CONSTIPATION ON MIRALAX VIA J TUBE BID Plan: Status post exploratory laparotomy 02/09 showing generalized ileus, no adhesions no SBO, appreciate surgery follow up Iv Protonix Appreciate GI, oncology consult Zosyn and Zithromax Sent for blood culture and sputum culture if available Palliative care also seen the patient in the daughter, the patient refused to accept palliative care, plan is still for aggressive treatment DVT prophylaxis with SCD due to GI bleed Radiation today Gl[facility] labs LEVY RN AND PT AND FAMILY ADJUST PAIN MEDS TRANSITION OFF OF SHIPPING AND RECEIVING ASSISTANT Baldomero Gutierrez DO Feb 19, 2017 10:34
[2017-02-19] MEDS ORDERED: POTASSIUM PHOSPHATE INJ 30 MMOL in SODIUM CHLOR 0.9% 250 ML INJ 250 ML IV ONE (13:00)
[2017-02-19] MEDS: POTASSIUM CHLORIDE INJ 40 MEQ in SODIUM CHLOR 0.45% 1000 ML INJ 1,000 ML IV SCH (13:17)
[2017-02-19] MEDS: AZITHROMYCIN INJ 500 MG in SODIUM CHLOR 0.9% 250 ML INJ 250 ML IV SCH (13:26)
--- NOTE | 2017-02-19 14:42 | PD.ONC.PN ---
Subjective Subjective Remarks miserable with pain and lesser extent anxiety. afraid of dying and talking about anything that revolves around this subject. Objective Data Date Time Temp Pulse Resp B/P (MAP) Pulse Ox O2 Delivery O2 Flow Rate FiO2 02/19/17 12:00 97 18 121/68 (85) 95 02/19/17 08:00 99.1 97 18 140/69 (92) 95 02/19/17 04:00 98.7 95 18 107/49 (68) 100 02/19/17 00:00 99.5 96 18 88/57 (67) 100 02/18/17 21:47 18 02/18/17 20:00 99.2 98 18 124/62 (82) 95 02/18/17 18:25 18 02/18/17 16:00 98.8 97 18 110/66 (81) 95 02/19/17 02/19/17 02/19/17 06:59 14:59 22:59 Intake Total 240 ml Balance 240 ml Result Diagram: 02/19/17 0602/19/17 0600 Laboratory Results Laboratory Tests Test 02/19/17 06:00 White Blood Count 6.3 TH/MM3 Red Blood Count 3.10 MIL/MM3 Hemoglobin 9.6 GM/DL Hematocrit 28.9 % Mean Corpuscular Volume 93.3 FL Mean Corpuscular Hemoglobin 31.0 PG Mean Corpuscular Hemoglobin Concent 33.2 % Red Cell Distribution Width 19.4 % Platelet Count 188 TH/MM3 Mean Platelet Volume 8.3 FL Neutrophils (%) (Auto) 71.9 % Lymphocytes (%) (Auto) 13.3 % Monocytes (%) (Auto) 13.0 % Eosinophils (%) (Auto) 1.4 % Basophils (%) (Auto) 0.4 % Neutrophils # (Auto) 4.5 TH/MM3 Lymphocytes # (Auto) 0.8 TH/MM3 Monocytes # (Auto) 0.8 TH/MM3 Eosinophils # (Auto) 0.1 TH/MM3 Basophils # (Auto) 0.0 TH/MM3 CBC Comment DIFF FINAL Differential Comment Blood Urea Nitrogen 10 MG/DL Creatinine 0.83 MG/DL Random Glucose 139 MG/DL Total Protein 6.5 GM/DL Albumin 2.3 GM/DL Calcium Level 9.8 MG/DL Phosphorus Level 2.1 MG/DL Magnesium Level 2.1 MG/DL Alkaline Phosphatase 84 U/L Aspartate Amino Transf (AST/SGOT) 16 U/L Alanine Aminotransferase (ALT/SGPT) 9 U/L Total Bilirubin 0.6 MG/DL Sodium Level 137 MEQ/L Potassium Level 4.0 MEQ/L Chloride Level 101 MEQ/L Carbon Dioxide Level 27.1 MEQ/L Anion Gap 9 MEQ/L Estimat Glomerular Filtration Rate 91 ML/MIN Administered Medications Medications (Trade) Dose Ordered Sig/Sisi Route PRN Reason Start Time Stop Time Status Last Admin Dose Admin Sodium Chloride (NS Flush) 2 ml UNSCH PRN IVF FLUSH AFTER USING IV ACCESS 02/08/17 07:30 02/18/17 10:53 Ondansetron HCl (Zofran Inj) 4 mg Q6H PRN IVP NAUSEA OR VOMITING 02/08/17 17:00 02/18/17 10:53 Piperacillin Sod/ Tazobactam Sod 50 ml @ 100 mls/hr Q6H IV 02/08/17 20:00 02/19/17 08:53 Sodium Chloride 1,000 ml @ 100 mls/hr Q10H IV 02/09/17 08:45 02/13/17 03:07 Azithromycin 500 mg/Sodium Chloride 250 ml @ 250 mls/hr Q24H IV 02/09/17 14:00 02/19/17 13:26 MOTORIZED SQUAD SERGEANT Dosage Infused (Pha) 1 Q8HR .XX 02/09/17 22:00 02/18/17 21:47 Carbidopa/Levodopa (Sinemet 25-100 Mg) 1 tab Q4HR PO 02/11/17 12:00 02/19/17 13:26 Potassium Chloride 40 meq/ Sodium Chloride 1,020 ml @ 42 mls/hr Q24H IV 02/11/17 11:00 02/19/17 13:17 Pantoprazole Sodium (Protonix) 40 mg BIDAC PO 02/12/17 16:00 02/19/17 08:54 Fentanyl (Duragesic 25 Mcg Patch.72 Hr) 1 patch Q3D T-DERMAL 02/14/17 13:00 02/17/17 12:52 Miscellaneous Information 1 Q3D T-DERMAL 02/17/17 13:00 02/17/17 12:52 Alprazolam (Xanax) 0.5 mg TID PRN PO ANXIETY 02/17/17 09:00 02/18/17 23:49 Polyethylene Glycol (Miralax) 17 gm BID J-TUBE 02/18/17 13:00 02/19/17 08:54 Hydromorphone HCl (Dilaudid) 4 mg Q4H PO 02/18/17 13:00 02/19/17 13:17 Objective Remarks GENERAL: gaunt and approaching end of life. SKIN: Warm and dry. HEAD: Normocephalic. EYES: No scleral icterus. No injection or drainage. NECK: Supple, trachea midline. No JVD or lymphadenopathy. LYMPHATIC: No adenopathy. CARDIOVASCULAR: Regular rate and rhythm without murmurs. RESPIRATORY: Breath sounds decreased at bases. s GASTROINTESTINAL: abdomen bloated and soft. EXTREMITIES: +1 edema lower extremities MUSCULOSKELETAL: muscle wasting NEUROLOGICAL: generalized weakness. PSYCHIATRIC: depressed and horrified that he is dying Assessment/Plan Assessment 1: pain difficult to control. will use one long acting narcotic and stop fentanyl and increase oramorph to 45 every 8 hours. he did not like the xanax. will try ativan .5 mg po q 6 hours prn. I have reconsulted hospice as this is the only direction that seems reasonable with obtainable goals . 2: At this point one could consider stopping antibiotics. I have discontinued finger sticks for glucose. Ricci Johns MD Feb 19, 2017 14:42
[2017-02-19] MEDS ORDERED: LORazepam 0.5 MG TAB PO PRN (14:45)
[2017-02-19] MEDS ORDERED: MORPHINE SULFATE 30 MG CONTROLLED RELEASE TAB PO SCH ×2 (17:00→22:00)
[2017-02-19] MEDS: MORPHINE SULFATE 15 MG CONTROLLED RELEASE TAB PO SCH (17:56)
[2017-02-19] MEDS: ONDANSETRON HCL 4 MG/2 ML VIAL IVP PRN (17:56)
--- NOTE | 2017-02-19 19:57 | HHI.PR ---
Subjective Subjective Notes no new c/o tolerating diet Objective Vitals/I&O Vital Signs Date Time Temp Pulse Resp B/P (MAP) Pulse Ox O2 Delivery O2 Flow Rate FiO2 02/19/17 18:38 96.9 100 19 156/71 (99) 96 02/16/17 12:44 21 02/15/17 22:54 Nasal Cannula 2.00 Labs Laboratory Tests Test 02/19/17 06:00 White Blood Count 6.3 Red Blood Count 3.10 Hemoglobin 9.6 Hematocrit 28.9 Mean Corpuscular Volume 93.3 Mean Corpuscular Hemoglobin 31.0 Mean Corpuscular Hemoglobin Concent 33.2 Red Cell Distribution Width 19.4 Platelet Count 188 Mean Platelet Volume 8.3 Neutrophils (%) (Auto) 71.9 Lymphocytes (%) (Auto) 13.3 Monocytes (%) (Auto) 13.0 Eosinophils (%) (Auto) 1.4 Basophils (%) (Auto) 0.4 Neutrophils # (Auto) 4.5 Lymphocytes # (Auto) 0.8 Monocytes # (Auto) 0.8 Eosinophils # (Auto) 0.1 Basophils # (Auto) 0.0 CBC Comment DIFF FINAL Differential Comment Blood Urea Nitrogen 10 Creatinine 0.83 Random Glucose 139 Total Protein 6.5 Albumin 2.3 Calcium Level 9.8 Phosphorus Level 2.1 Magnesium Level 2.1 Alkaline Phosphatase 84 Aspartate Amino Transf (AST/SGOT) 16 Alanine Aminotransferase (ALT/SGPT) 9 Total Bilirubin 0.6 Sodium Level 137 Potassium Level 4.0 Chloride Level 101 Carbon Dioxide Level 27.1 Anion Gap 9 Estimat Glomerular Filtration Rate 91 Date/Time Source Procedure Growth Status 02/08/17 14:20 Blood Peripheral Aerobic Blood Culture - Final NO GROWTH IN 5 DAYS Complete 02/08/17 14:20 Blood Peripheral Anaerobic Blood Culture - Final NO GROWTH IN 5 DAYS Complete Radiology Last 48 hours Impressions Abdomen/Pelvis CT 02/08/17 0939 Signed Impressions: Service Date/Time: January 13:23 - CONCLUSION: 1. New areas of consolidation in the left lower lobe most characteristic of pneumonia. 2. Worsening bowel gas pattern with increased dilatation of multiple loops of small bowel with air-fluid levels. Contrast is noted in the distal colon and this could indicate a partial small bowel obstruction. 3. Right adrenal mass again noted. Anam Agarwal MD Abdomen: Non-distended, Non-tender A/P Assessment and Plan 72yo male s/p Gtube, stable. no new c/o ok to use tube Terrance Boucher MD Feb 19, 2017 19:57
[2017-02-19] MEDS ORDERED: MORPHINE SULFATE 15 MG CONTROLLED RELEASE TAB PO SCH (22:00)
[2017-02-20] VITALS: BP 112/62; PULSE 96; RESP 18; TEMP 95; O2SAT 95
[2017-02-20] MEDS: CARBIDOPA/LEVODOPA 25 MG/100 MG TAB PO SCH ×5 (00:37→16:03)
[2017-02-20] MEDS: HYDROmorphone HCL 4 MG TAB PO SCH ×5 (00:39→16:00)
[2017-02-20] MEDS: PIPERACIL-TAZO 3.375 GM PREMIX 50 ML IV SCH ×2 (00:43→08:36)
[2017-02-20] MEDS: MORPHINE SULFATE 30 MG CONTROLLED RELEASE TAB PO SCH ×3 (00:43→16:01)
[2017-02-20] MEDS: MORPHINE SULFATE 15 MG CONTROLLED RELEASE TAB PO SCH ×3 (00:43→16:01)
[2017-02-20 04:00] VITALS: BP 104/56; PULSE 93; RESP 18; O2SAT 95
[2017-02-20] MEDS: SODIUM CHLOR 0.9% 1000 ML INJ 1,000 ML IV SCH ×2 (04:45→14:45)
[2017-02-20] MEDS: PCA - TOTAL MG MORPHINE DELIVERED PER SHIFT SCH (05:34)
[2017-02-20] MEDS: PANTOPRAZOLE SOD 40 MG DELAYED RELEASE TAB PO SCH ×2 (05:34→16:00)
[2017-02-20 06:45] LABS: BASOPHIL % 0.3 % (0.0-2.0); EOSINOPHIL # 0.1 TH/MM3 (0-0.4); EOSINOPHIL % 1.8 % (0.0-4.0); HEMATOCRIT 28.8 % (39.0-51.0); HEMO FLAGS DIFF FINAL; LYMPH % 17.9 % (9.0-44.0); LYMPHOCYTE # 1.1 TH/MM3 (1.0-4.8); MEAN CELL VOLUME 91.9 FL (80.0-100.0); MEAN CORPUSCULAR HEMOGLOBIN 31.2 PG (27.0-34.0); MEAN CORPUSCULAR HGB CONC 33.9 % (32.0-36.0); MONO % 12.6 % (0.0-8.0); NEUT % 67.4 % (16.0-70.0); PLATELET COUNT 224 TH/MM3 (150-450); RED BLOOD COUNT 3.13 MIL/MM3 (4.50-5.90); RED CELL DISTRIBUTION WIDTH 19.1 % (11.6-17.2)
[2017-02-20 07:05] LABS: ANION GAP 5 MEQ/L (5-15); AST (GOT) 19 U/L (15-37); BICARBONATE 27.8 MEQ/L (21.0-32.0); BLOOD UREA NITROGEN 9 MG/DL (7-18); CHLORIDE 103 MEQ/L (98-107); GLOMERULAR FILTRATION RATE 104 ML/MIN (>89); MAGNESIUM 1.9 MG/DL (1.5-2.5); POTASSIUM 4.1 MEQ/L (3.5-5.1); SODIUM (NA) 136 MEQ/L (136-145)
[2017-02-20 07:09] LABS: ALKALINE PHOSPHATASE 91 U/L (45-117); ALT (GPT) LESS THAN 6 U/L (12-78); TOTAL BILIRUBIN ADULT 0.5 MG/DL (0.2-1.0)
[2017-02-20 08:00] VITALS: BP 111/58; PULSE 96; RESP 17; TEMP 99.3; O2SAT 96
[2017-02-20 08:20] VITALS: PULSE 83
[2017-02-20] MEDS: SODIUM CHLORIDE 0.9% FLUSH 10 ML FLUSH IVF PRN (08:36)
[2017-02-20] MEDS: POLYETHYLENE GLYCOL 17 GM PKG J-TUBE SCH (08:39)
--- NOTE | 2017-02-20 10:28 | HHI.PR ---
Subjective Remarks 9-3 Discussed with patient and daughter Status post laparoscopy and exploratory 2 days ago Has G-tube to suction Family wanting to know when he can eat we'll defer that to surgery and GI Many questions answered Restart Xanax and Sinemet Discussed with patient and RN and daughter 9-4 NOT HAVING BMS YET COMPLAINS OF GAS STILL USING ENERGY BROKER PUMP QUITE OFTEN GI WANTS ON MIRALAX SO HE CAN HAVE BOWEL MOVEMENTS DW RN AND PT STILL ON TUBE FEEDS AT 10ML/HR ONLY 9-5 TOLERATING TUBE FEEDS DW RN AND PT HAD BMS STILL USING ENERGY BROKER PUMP ON TUBE FEEDS AT 30ML/HR 9-6 COMPLAINING OF PAIN OF LEFT HUMERUS AREA DW RN AND PT AND FAMILY NOT TOLERATING TUBE FEEDS TUBE FEEDS ON HOLD AM LABS STILL USING ENERGY BROKER 9-7 radiation therapy regarding the left humerus starting today Going to the [facility] for radiation today Still using ENERGY BROKER on occasion lots of UNCONTROLLED PAIN 9-8HAD RADIATION TODAY OF LEFT HUMERUS STILL COMPLAINING OF PAIN ONLY WANTS TO TRY TUBE FEEDS AT 40ML/HR MAX AT THIS TIME DW RN AND PATIENT AND FAMILY 9- ADJUST HOME PAIN MEDICATIONS AND ANXIETY MEDICATIONS HOSPICE HAS BEEN CONSULTED BY ONCOLOGY STATES PAIN A LITTLE BETTER TODAY 9- FAMILY WANTS PAIN MEDS ADJUSTED AGAIN HAS CHRONIC PAIN RESTART SCHEDULED DILAUDID 4MG PO Q4HR INCREASE MIRALAX TO 17GRAMS BID VIA J-TUBE DW RN AND PT AND FAMILY CONSTIPATED 02-19 HAD BOWEL MOVEMENTS YESTERDAY DOING BETTER WITH HIS PAIN NEEDS TO TRANSITION OFF OF ENERGY BROKER DW PT AND RN 02-20 NOW STATES HE WANTS HOSPICE AND TO GO THERE TOMORROW WILL RECONSULT THEM HAD [facility] YESTERDAY, HE AGREED AND SUGGESTED HOSPICE TO THE PATIENT DC ANTIBIOTICS HOPEFULLY TO HOSPICE ON 02-21 Objective Vitals Vital Signs Date Time Temp Pulse Resp B/P (MAP) Pulse Ox O2 Delivery O2 Flow Rate FiO2 02/20/17 09:38 18 02/20/17 09:38 18 02/20/17 09:38 18 02/20/17 08:00 99.3 96 17 111/58 (75) 96 02/20/17 04:00 93 18 104/56 (72) 95 02/20/17 00:00 95.0 96 18 112/62 (79) 95 02/19/17 20:00 98.9 99 18 110/68 (82) 95 02/19/17 18:38 96.9 100 19 156/71 (99) 96 02/19/17 16:00 96.9 97 17 180/96 (124) 96 02/19/17 14:00 18 02/19/17 12:00 97 18 121/68 (85) 95 I/O 02/19/17 02/19/17 02/19/17 02/20/17 02/20/17 02/20/17 07:00 15:00 23:00 07:00 15:00 23:00 Intake Total 240 ml 1150 ml Output Total 1000 ml 300 ml Balance 240 ml 150 ml -300 ml Intake Oral 240 ml 850 ml IV Total 300 ml Output Urine Total 1000 ml 300 ml # Voids 3 4 # Bowel Movements 1 2 Result Diagram: 02/20/17 0620 02/20/17 0620 Other Results Laboratory Tests Test 02/18/17 07:45 02/19/17 06:00 02/20/17 06:20 White Blood Count 6.3 TH/MM3 6.3 TH/MM3 6.0 TH/MM3 Red Blood Count 3.20 MIL/MM3 3.10 MIL/MM3 3.13 MIL/MM3 Hemoglobin 9.9 GM/DL 9.6 GM/DL 9.8 GM/DL Hematocrit 29.5 % 28.9 % 28.8 % Mean Corpuscular Volume 92.3 FL 93.3 FL 91.9 FL Mean Corpuscular Hemoglobin 31.0 PG 31.0 PG 31.2 PG Mean Corpuscular Hemoglobin Concent 33.5 % 33.2 % 33.9 % Red Cell Distribution Width 19.4 % 19.4 % 19.1 % Platelet Count 183 TH/MM3 188 TH/MM3 224 TH/MM3 Mean Platelet Volume 8.4 FL 8.3 FL 8.2 FL Neutrophils (%) (Auto) 68.0 % 71.9 % 67.4 % Lymphocytes (%) (Auto) 17.1 % 13.3 % 17.9 % Monocytes (%) (Auto) 13.3 % 13.0 % 12.6 % Eosinophils (%) (Auto) 1.3 % 1.4 % 1.8 % Basophils (%) (Auto) 0.3 % 0.4 % 0.3 % Neutrophils # (Auto) 4.3 TH/MM3 4.5 TH/MM3 4.0 TH/MM3 Lymphocytes # (Auto) 1.1 TH/MM3 0.8 TH/MM3 1.1 TH/MM3 Monocytes # (Auto) 0.8 TH/MM3 0.8 TH/MM3 0.8 TH/MM3 Eosinophils # (Auto) 0.1 TH/MM3 0.1 TH/MM3 0.1 TH/MM3 Basophils # (Auto) 0.0 TH/MM3 0.0 TH/MM3 0.0 TH/MM3 CBC Comment DIFF FINAL DIFF FINAL DIFF FINAL Differential Comment Blood Urea Nitrogen 12 MG/DL 10 MG/DL 9 MG/DL Creatinine 0.73 MG/DL 0.83 MG/DL 0.74 MG/DL Random Glucose 132 MG/DL 139 MG/DL 130 MG/DL Total Protein 6.6 GM/DL 6.5 GM/DL 6.6 GM/DL Albumin 2.3 GM/DL 2.3 GM/DL 2.3 GM/DL Calcium Level 10.2 MG/DL 9.8 MG/DL 10.2 MG/DL Phosphorus Level 2.2 MG/DL 2.1 MG/DL 2.2 MG/DL Magnesium Level 2.0 MG/DL 2.1 MG/DL 1.9 MG/DL Alkaline Phosphatase 81 U/L 84 U/L 91 U/L Aspartate Amino Transf (AST/SGOT) 19 U/L 16 U/L 19 U/L Alanine Aminotransferase (ALT/SGPT) 6 U/L 9 U/L LESS THAN 6 U/L Total Bilirubin 0.5 MG/DL 0.6 MG/DL 0.5 MG/DL Sodium Level 134 MEQ/L 137 MEQ/L 136 MEQ/L Potassium Level 4.2 MEQ/L 4.0 MEQ/L 4.1 MEQ/L Chloride Level 100 MEQ/L 101 MEQ/L 103 MEQ/L Carbon Dioxide Level 27.6 MEQ/L 27.1 MEQ/L 27.8 MEQ/L Anion Gap 6 MEQ/L 9 MEQ/L 5 MEQ/L Estimat Glomerular Filtration Rate 106 ML/MIN 91 ML/MIN 104 ML/MIN Imaging Last Impressions Upper Extremity CT 02/14/17 0000 Signed Impressions: Service Date/Time: Tuesday, February 14, 2017 19:53 - CONCLUSION: 1. Moth-eaten appearance of mid humeral shaft on the endosteal surface extending over more than 5 cm most characteristic of metastatic bone disease given history of lung cancer. No pathologic fracture. Selvin Whittington MD Wrist X-Ray 02/13/17 0000 Signed Impressions: Service Date/Time: Monday, February 13, 2017 11:30 - CONCLUSION: Intact left wrist. 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 Robbin Cheney MD Radius/Ulna X-Ray 02/13/17 0000 Signed Impressions: Service Date/Time: Monday, February 13, 2017 11:34 - CONCLUSION: Radiographic appearance of the left forearm is within normal limits. Robbin Cheney MD Abdomen/Pelvis CT 02/08/17 0939 Signed Impressions: Service Date/Time: January 13:23 - CONCLUSION: 1. New areas of consolidation in the left lower lobe most characteristic of pneumonia. 2. Worsening bowel gas pattern with increased dilatation of multiple loops of small bowel with air-fluid levels. Contrast is noted in the distal colon and this could indicate a partial small bowel obstruction. 3. Right adrenal mass again noted. Anam Agarwal MD Objective Remarks - GENERAL: This is a well-nourished, well-developed patient, in moderate distress.- HAS CHRONIC PAIN SKIN: No rashes, warm and dry HEAD: Atraumatic. Normocephalic. EYES: Pupils equal round and reactive. Extraocular motions intact. No scleral icterus. ENT: Nose without bleeding, or drainage, Airway patent. Tongue is midline oral mucosa is moist NECK: Trachea midline. Supple CARDIOVASCULAR: Regular rate and rhythm without murmurs, gallops, or rubs. S1- S2 no S3 or S4 no heave or thrill RESPIRATORY: Fair air entry bilaterally. No wheezes, rales, or rhonchi. GASTROINTESTINAL: Abdomen soft, non-tender, nondistended. POSITIVE bowel sounds , G-tube in place --STILL ON tube feeds at night MUSCULOSKELETAL: Extremities without clubbing, cyanosis, or edema. Pedal pulses appreciated NEUROLOGICAL: Awake and alert. Moves all extremity. Normal speech.no focal neurological deficit Insight and judgment is okay mood and behavior is somewhat appropriate Procedures Umbilical hernia repair and diagnostic laparoscopy and laparoscopic G-tube placement on 02/09/[address] Galen sawant Medications and IVs Current Medications Ondansetron HCl (Zofran Inj) 4 mg ONCE ONCE IVP Last administered on t 07:48; Start 02/08/17 at 07:30; Stop 02/08/17 at 07:31; Status DC Sodium Chloride 1,000 ml @ 1,000 mls/hr Q1H IV Last administered on 02/08/17 07:41; Start 02/08/17 at 07:18; Stop 02/08/17 at 08:17; Status DC Sodium Chloride (NS Flush) 2 ml UNSCH PRN IVF FLUSH AFTER USING IV ACCESS Last administered on 02/20/17 08:36; Start 02/08/17 at 07:30 Pantoprazole Sodium 80 mg/ Sodium Chloride 35 ml @ 420 mls/hr Q5M ONCE IV Last administered on 02/08/17 08:08; Start 02/08/17 at 07:18; Stop 02/08/17 at 07:22; Status DC Pantoprazole Sodium 80 mg/ Sodium Chloride 100 ml @ 10 mls/hr Q10H IV Last administered on 02/08/17 08:15; Start 02/08/17 at 07:18; Stop 02/09/17 at 02:08 ; Status DC Hydromorphone HCl (Dilaudid Pf Inj) 1 mg ONCE ONCE IV Last administered on 07:48; Start 02/08/17 at 07:30; Stop 02/08/17 at 07:31; Status DC Morphine Sulfate (Morphine Inj) 2 mg Q15M PRN IV PAIN SCALE 4 TO 10 Last administered on 02/09/17 10:59; Start 02/08/17 at 09:00; Stop 02/09/17 at 11:00; Status DC Sodium Chloride 1,000 ml @ 999 mls/hr BOLUS ONCE IV Last administered on 02/08 09:44; Start 02/08/17 at 09:45; Stop 02/08/17 at 10:45; Status DC Diatrizoate Meglum/ Diatrizoate Sod ( Gastroview Liq) 18 ml STK-MED ONCE .ROUTE Last administered on 02/08/17 10:10; Start 02/08/17 at 10:05; Stop at 10:06; Status DC Ceftriaxone Sodium 1000 mg/ Sodium Chloride 100 ml @ 200 mls/hr ONCE ONCE IV Last administered on 02/08/17 15:37; Start 02/08/17 at 14:15; Stop 02/08/17 at 14:44; Status DC Azithromycin 500 mg/Sodium Chloride 250 ml @ 250 mls/hr ONCE ONCE IV Last administered on 02/08/17 14:30; Start 02/08/17 at 14:15; Stop 02/08/17 at 15:14 ; Status DC Sodium Chloride 1,000 ml @ 999 mls/hr BOLUS ONCE IV Last administered on 02/08 14:31; Start 02/08/17 at 14:15; Stop 02/08/17 at 15:15; Status DC Pantoprazole Sodium 80 mg/ Sodium Chloride 100 ml @ 10 mls/hr CONTINUOUS IV Last administered on 02/12/17 01:20; Start 02/08/17 at 16:45; Stop 02/12/17 at 11 :52; Status DC Sodium Chloride 1,000 ml @ 100 mls/hr Q10H IV Last administered on 02/09/17 02 :56; Start 02/08/17 at 16:56; Stop 02/09/17 at 08:37; Status DC Acetaminophen (Tylenol) 650 mg Q4H PRN PO TEMP > 100.4; Start 02/08/17 at 17:00 Ondansetron HCl (Zofran Inj) 4 mg Q6H PRN IVP NAUSEA OR VOMITING Last administered on 02/19/17 17:56; Start 02/08/17 at 17:00 Naloxone HCl (Narcan Inj) 0.4 mg UNSCH PRN IV SEE LABEL COMMENTS; Start at 17:00; Stop 02/14/17 at 12:07; Status DC Morphine Sulfate (Morphine Inj) 1 mg Q4H PRN IV PUSH pain 3-5 Last administered on 02/09/17 08:51; Start 02/08/17 at 17:00; Stop 02/09/17 at 16:41; Status DC Morphine Sulfate (Morphine Inj) 2 mg Q4H PRN IV PUSH pain 6-10; Start 02/08/17 at 17:00; Stop 02/09/17 at 16:41; Status DC Piperacillin Sod/ Tazobactam Sod 50 ml @ 100 mls/hr Q6H IV Last administered on 02/20/17 08:36; Start 02/08/17 at 20:00 Sodium Chloride 1,000 ml @ 84 mls/hr [id number] IV Last administered on 20:47; Start 02/08/17 at 17:15; Stop 02/09/17 at 08:38; Status DC Sodium Chloride 1,000 ml @ 100 mls/hr Q10H IV Last administered on 02/13/17 03 :07; Start 02/09/17 at 08:45 Azithromycin 500 mg/Sodium Chloride 250 ml @ 250 mls/hr Q24H IV Last administered on 02/19/17 13:26; Start 02/09/17 at 14:00 Midazolam HCl (Versed Inj) 2 mg STK-MED ONCE .ROUTE ; Start 02/09/17 at 13:22; Stop 02/09/17 at 13:23; Status DC Famotidine (Pepcid Inj) 20 mg STK-MED ONCE .ROUTE ; Start 02/09/17 at 13:22; Stop 02/09/17 at 13:23; Status DC Bupivacaine HCl/ Epinephrine Bitart (Sensorcaine-Epinephrine 0.25% Inj) 50 ml STK-MED ONCE .ROUTE Last administered on 02/09/17 14:04; Start 02/09/17 at 13:50 ; Stop 02/09/17 at 13:51; Status DC Cefazolin Sodium (Ancef Inj) 2,000 mg ONCE ONCE IV ; Start 02/09/17 at 14:03; Stop 02/09/17 at 14:04; Status UNV Cefazolin Sodium/ Dextrose 50 ml @ 100 mls/hr ONCE ONCE IV Last administered on 02/09/17 16:45; Start 02/09/17 at 16:00; Stop 02/09/17 at 16:29; Status DC Morphine Sulfate (*morphine INJ PERIprocedure ONLY) 8 mg STK-MED ONCE .ROUTE Last administered on 02/09/17 15:44; Start 02/09/17 at 15:44; Stop 02/09/17 at 15: 45; Status DC Fentanyl Citrate (fentaNYL INJ) 400 mcg STK-MED ONCE .ROUTE ; Start 02/09/17 at 15:48; Stop 02/09/17 at 15:49; Status DC Fentanyl Citrate (fentaNYL INJ) 100 mcg STK-MED ONCE .ROUTE ; Start 02/09/17 at 15:48; Stop 02/09/17 at 15:49; Status DC Morphine Sulfate (*morphine INJ PERIprocedure ONLY) 8 mg STK-MED ONCE .ROUTE Last administered on 02/09/17 15:56; Start 02/09/17 at 15:56; Stop 02/09/17 at 15: 57; Status DC Miscellaneous Information ALL NURSING DEPARTME... UNSCH PRN .XX SEE LABEL COMMENTS; Start 02/09/17 at 15:37; Stop 02/10/17 at 15:36; Status DC Hydromorphone HCl (*DILAUDID PF INJ PERIprocedural ONLY) 1 mg STK-MED ONCE .ROUTE Last administered on 02/09/17 16:13; Start 02/09/17 at 16:13; Stop at 16:14; Status DC Morphine Sulfate (Morphine 1 Mg/ ml ENERGY BROKER) 30 mg STK-MED ONCE .ROUTE ; Start at 16:26; Stop 02/09/17 at 16:27; Status DC Morphine Sulfate (Morphine 1 Mg/ ml ENERGY BROKER) 30 mg UNSCH IV Last administered on 21:16; Start 02/09/17 at 16:45; Stop 02/19/17 at 10:34; Status DC ENERGY BROKER Dosage Infused (Pha) 1 Q8HR .XX Last administered on 02/18/17 21:47; Start 02/09/17 at 22:00 Naloxone HCl (Narcan Inj) 0.4 mg UNSCH PRN IV RESPIRATORY RATE LESS THAN 10; Start 02/09/17 at 16:45 Potassium Bicarb/ Potassium Chloride (K-Lyte Cl Eff) 50 meq ONCE ONCE PO Last administered on 02/11/17 06:06; Start 02/11/17 at 06:00; Stop 02/11/17 at 06: 01; Status DC Potassium Chloride 100 ml @ 50 mls/hr ONCE ONCE IV Last administered on 06:05; Start 02/11/17 at 06:00; Stop 02/11/17 at 07:59; Status DC Alprazolam (Xanax) 1 mg TID PRN PO ANXIETY Last administered on 02/13/17 22:04 ; Start 02/11/17 at 13:00; Stop 02/17/17 at 08:34; Status DC Carbidopa/Levodopa (Sinemet 25-100 Mg) 1 tab Q4HR PO Last administered on 08:38; Start 02/11/17 at 12:00 Potassium Phosphate 30 mmol/ Sodium Chloride 260 ml @ 43.333 mls/ hr ONCE ONCE IV Last administered on 02/11/17 11:39; Start 02/11/17 at 10:45; Stop at 16:44; Status DC Potassium Chloride 40 meq/ Sodium Chloride 1,020 ml @ 42 mls/hr Q24H IV Last administered on 02/19/17 13:17; Start 02/11/17 at 11:00 Clonidine (Catapres) 0.1 mg Q4H PRN PO SBP>160, DBP>90 Last administered on 18:40; Start 02/11/17 at 10:45 Pantoprazole Sodium (Protonix) 40 mg BIDAC PO Last administered on 02/20/17 05 :34; Start 02/12/17 at 16:00 Polyethylene Glycol (Miralax) 17 gm DAILY PO Last administered on 02/14/17 08: 27; Start 02/12/17 at 13:00; Stop 02/18/17 at 11:27; Status DC Potassium Phosphate 30 mmol/ Sodium Chloride 260 ml @ 43.333 mls/ hr ONCE ONCE IV Last administered on 02/13/17 10:00; Start 02/13/17 at 10:00; Stop at 15:59; Status DC Sodium Phosphate 30 mmol/Sodium Chloride 260 ml @ 43.333 mls/ hr ONCE ONCE IV Last administered on 02/13/17 10:30; Start 02/13/17 at 10:30; Stop 02/13/17 at 16:29; Status DC Magnesium Sulfate/ Dextrose 100 ml @ 100 mls/hr Q1H IV Last administered on 10:30; Start 02/13/17 at 09:30; Stop 02/13/17 at 11:29; Status DC Fentanyl (Duragesic 25 Mcg Patch.72 Hr) 1 patch ONCE ONCE T-DERMAL ; Start at 10:15; Stop 02/14/17 at 10:16; Status UNV Fentanyl (Duragesic 25 Mcg Patch.72 Hr) 1 patch Q3D T-DERMAL Last administered on 02/17/17 12:52; Start 02/14/17 at 13:00 Miscellaneous Information 1 Q3D T-DERMAL Last administered on 02/17/17 12:52; Start 02/17/17 at 13:00 Sennosides (Senokot) 8.6 mg BID PRN PO CONSTIPATION; Start 02/14/17 at 15:30 Simethicone (Mylicon Chew) 80 mg PCHS PRN CHEW FLATULENCE Last administered on 02/19/17 18:40; Start 02/15/17 at 15:00 Al Hydrox/Mg Hydrox/Simethicone (Mag-Al Plus Susp Liq) 30 ml Q6H PRN PO DYSPEPSIA; Start 02/16/17 at 11:30 Morphine Sulfate (Oramorph Sr) 30 mg Q8H PO Last administered on 02/19/17 08: 53; Start 02/17/17 at 09:00; Stop 02/19/17 at 14:28; Status DC Alprazolam (Xanax) 0.5 mg TID PRN PO ANXIETY Last administered on 02/18/17 23: 49; Start 02/17/17 at 09:00; Stop 02/19/17 at 14:36; Status DC Polyethylene Glycol (Miralax) 17 gm BID J-TUBE Last administered on 02/19/17 08:54; Start 02/18/17 at 13:00 Hydromorphone HCl (Dilaudid) 4 mg Q4H PO Last administered on 02/20/17 08:38; Start 02/18/17 at 13:00 Sodium Phosphate 30 mmol/Sodium Chloride 260 ml @ 43.333 mls/ hr ONCE ONCE IV Last administered on 02/18/17 12:52; Start 02/18/17 at 11:30; Stop 02/18/17 at 17:29; Status DC Potassium Phosphate 30 mmol/ Sodium Chloride 260 ml @ 43.333 mls/ hr ONCE ONCE IV Last administered on 02/19/17 14:51; Start 02/19/17 at 13:00; Stop 04/27 at 18:59; Status DC Morphine Sulfate (Oramorph Sr) 30 mg Q8HR PO ; Start 02/19/17 at 22:00; Stop 9/ 11/17 at 22:00; Status DC Morphine Sulfate (Oramorph Sr) 15 mg Q8HR PO ; Start 02/19/17 at 22:00; Stop 04/27 at 22:00; Status DC Lorazepam (Ativan) 0.5 mg Q6HR PRN PO ANXIETY; Start 02/19/17 at 14:45 Morphine Sulfate (Oramorph Sr) 30 mg Q8HR PO ; Start 02/19/17 at 17:00; Stop 04/27 at 17:29; Status DC Morphine Sulfate (Oramorph Sr) 15 mg Q8H PO Last administered on 02/20/17 08: 38; Start 02/19/17 at 17:00 Morphine Sulfate (Oramorph Sr) 30 mg Q8H PO Last administered on 02/20/17 08: 38; Start 02/19/17 at 17:00 Urinary Catheter: No A/P Assessment and Plan 72 years old male with history of 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 came with Multiple episode of hematemesis 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 LEFT HUMERUS METASTASIS- SP RADIATION TO LEFT ARM Partial SBO versus ileus GI bleed Leukocytosis Bilateral pneumonia possibly aspiration DVT prophylaxis with SCD Hypokalemia will need replacement Parkinsons restart home Sinemet ANXIETY RESTART HOME XANAX HYPOKALEMIA REPLACE HYPOPHOSPHATEMIA- REPLACE SOME BOWEL SOUNDS- STILL USING ENERGY BROKER OFTEN POSITIVE BM SUSPECT METS TO LEFT HUMERUS undergo radiation therapy at the [facility] today for improvement of symptoms HAD RADIATION ON 02-16 CONSTIPATION ON MIRALAX VIA J TUBE BID STILL UNCONTROLLED PAIN AND ANXIETY Plan: Status post exploratory laparotomy 02/09 showing generalized ileus, no adhesions no SBO, appreciate surgery follow up Iv Protonix Appreciate GI, oncology consult Zosyn and Zithromax Sent for blood culture and sputum culture if available Palliative care also seen the patient in the daughter, the patient refused to accept palliative care, plan is still for aggressive treatment DVT prophylaxis with SCD due to GI bleed Radiation DONE PAIN CONTROL PER ONCOLOGY HOSPICE CONSULT A.mJean labs LEVY RN AND PT AND FAMILY ADJUST PAIN MEDS TRANSITION OFF OF ENERGY BROKER WANTS TO GO TO HOSPICE ON 02-21 Baldomero Gutierrez DO Feb 20, 2017 10:28
[2017-02-20] MEDS: POTASSIUM CHLORIDE INJ 40 MEQ in SODIUM CHLOR 0.45% 1000 ML INJ 1,000 ML IV SCH (11:00)
[2017-02-20 12:00] VITALS: BP 127/56; PULSE 95; RESP 16; TEMP 98.3; O2SAT 96
[2017-02-20 13:56] VITALS: RESP 18
[2017-02-20] MEDS ORDERED: DILA4TAB2 PO (14:01)
[2017-02-20] MEDS ORDERED: MORP1TAB24 PO (14:01)
[2017-02-20] MEDS ORDERED: POLY17S J-TUBE (14:01)
[2017-02-20] MEDS ORDERED: LORA-392 PO (14:01)
[2017-02-20] MEDS ORDERED: SENN8.6T15 PO (14:01)
[2017-02-20] MEDS ORDERED: Simethicone Chew CHEW (14:01)
--- NOTE | 2017-02-20 14:05 | HHI.DS ---
Discharge Summary Admission Date Feb 11, 2017 at 10:58 Discharge Date: Feb 20, 2017 Admitting Diagnosis upper GI bleed, SBO, ? pneumonia (1) Decrease in appetite ICD Code: R63.0 - Anorexia Diagnosis: Principal (2) Constipation ICD Code: K59.00 - Constipation, unspecified Diagnosis: Secondary (3) DVT of lower extremity, bilateral ICD Code: I82.403 - Acute embolism and thrombosis of unspecified deep veins of lower extremity, bilateral Diagnosis: Secondary Status: Acute (4) Nausea & vomiting ICD Code: R11.2 - Nausea with vomiting, unspecified Diagnosis: Principal (5) Pain ICD Code: R52 - Pain, unspecified Diagnosis: Principal (6) Debility ICD Code: R53.81 - Other malaise Diagnosis: Principal (7) Parkinsons disease ICD Code: G20 - Parkinson's disease Diagnosis: Secondary (8) Upper GI bleed ICD Code: K92.2 - Gastrointestinal hemorrhage, unspecified Diagnosis: Secondary Status: Acute (9) Esophageal cancer ICD Code: C15.9 - Esophageal cancer Diagnosis: Principal Status: Chronic (10) Bowel obstruction ICD Code: K56.60 - Unspecified intestinal obstruction Diagnosis: Principal Status: Acute (11) Nausea & vomiting ICD Code: R11.2 - Nausea with vomiting, unspecified Diagnosis: Principal (12) Lytic bone lesions on xray ICD Code: M89.9 - Disorder of bone, unspecified Diagnosis: Principal Status: Acute (13) PNA (pneumonia) ICD Code: J18.9 - PNA (pneumonia) Diagnosis: Principal Status: Acute (14) Altered mental status ICD Code: R41.82 - Altered mental status Diagnosis: Principal Status: Acute (15) Chronic back pain ICD Code: M54.9 - Dorsalgia, unspecified; G89.29 - Other chronic pain Diagnosis: Principal Status: Acute (16) Weakness ICD Code: R53.1 - Weakness Diagnosis: Secondary Status: Acute (17) Anxiety state Diagnosis: Principal Status: Chronic Procedures Umbilical hernia repair and diagnostic laparoscopy and laparoscopic G-tube placement on 02/09/[address] 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 Patient returned back this afternoon prior to see his oncologist Dr. Irizarry because of multiple hematemesis, up to 15 times as per the daughter and the patient, the daughter told me the blood was dark, however she told the surgery GROUND TRANSPORTATION OPERATOR that it was bright, there was multiple contiguous addiction between with the patient on to say and the daughter mentioning, saying that he is not right and she knows better because she take care of him. Patient currently resting in bed he is in no pain, no acute vomit , he stated he has been having loose stool, a lot of it as per the daughter, no fever or chills, patient has been seen by surgery team, I discussed with GROUND TRANSPORTATION OPERATOR, plan for possible exploratory laparotomy and possible G-tube to alleviate his symptoms CBC/BMP: 02/20/17 0620 02/20/17 0620 Significant Findings Laboratory Tests Test 02/18/17 07:45 02/19/17 06:00 02/20/17 06:20 Red Blood Count 3.20 MIL/MM3 (4.50-5.90) 3.10 MIL/MM3 (4.50-5.90) 3.13 MIL/MM3 (4.50-5.90) Hemoglobin 9.9 GM/DL (13.0-17.0) 9.6 GM/DL (13.0-17.0) 9.8 GM/DL (13.0-17.0) Hematocrit 29.5 % (39.0-51.0) 28.9 % (39.0-51.0) 28.8 % (39.0-51.0) Red Cell Distribution Width 19.4 % (11.6-17.2) 19.4 % (11.6-17.2) 19.1 % (11.6-17.2) Monocytes (%) (Auto) 13.3 % (0.0-8.0) 13.0 % (0.0-8.0) 12.6 % (0.0-8.0) Random Glucose 132 MG/DL (74-106) 139 MG/DL (74-106) 130 MG/DL (74-106) Albumin 2.3 GM/DL (3.4-5.0) 2.3 GM/DL (3.4-5.0) 2.3 GM/DL (3.4-5.0) Calcium Level 10.2 MG/DL (8.5-10.1) 10.2 MG/DL (8.5-10.1) Phosphorus Level 2.2 MG/DL (2.5-4.9) 2.1 MG/DL (2.5-4.9) 2.2 MG/DL (2.5-4.9) Alanine Aminotransferase (ALT/SGPT) 6 U/L (12-78) 9 U/L (12-78) LESS THAN 6 U/L (12-78) Sodium Level 134 MEQ/L (136-145) Neutrophils (%) (Auto) 71.9 % (16.0-70.0) Lymphocytes # (Auto) 0.8 TH/MM3 (1.0-4.8) Imaging Last Impressions Upper Extremity CT 02/14/17 0000 Signed Impressions: Service Date/Time: Tuesday, February 14, 2017 19:53 - CONCLUSION: 1. Moth-eaten appearance of mid humeral shaft on the endosteal surface extending over more than 5 cm most characteristic of metastatic bone disease given history of lung cancer. No pathologic fracture. Selvin Whittington MD Wrist X-Ray 02/13/17 0000 Signed Impressions: Service Date/Time: Monday, February 13, 2017 11:30 - CONCLUSION: Intact left wrist. 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 Robbin Cheney MD Radius/Ulna X-Ray 02/13/17 0000 Signed Impressions: Service Date/Time: Monday, February 13, 2017 11:34 - CONCLUSION: Radiographic appearance of the left forearm is within normal limits. Robbin Cheney MD Abdomen/Pelvis CT 02/08/17 0939 Signed Impressions: Service Date/Time: January 13:23 - CONCLUSION: 1. New areas of consolidation in the left lower lobe most characteristic of pneumonia. 2. Worsening bowel gas pattern with increased dilatation of multiple loops of small bowel with air-fluid levels. Contrast is noted in the distal colon and this could indicate a partial small bowel obstruction. 3. Right adrenal mass again noted. Anam Agarwal MD PE at Discharge - GENERAL: This is a well-nourished, well-developed patient, in moderate distress.- HAS CHRONIC PAIN SKIN: No rashes, warm and dry HEAD: Atraumatic. Normocephalic. EYES: Pupils equal round and reactive. Extraocular motions intact. No scleral icterus. ENT: Nose without bleeding, or drainage, Airway patent. Tongue is midline oral mucosa is moist NECK: Trachea midline. Supple CARDIOVASCULAR: Regular rate and rhythm without murmurs, gallops, or rubs. S1- S2 no S3 or S4 no heave or thrill RESPIRATORY: Fair air entry bilaterally. No wheezes, rales, or rhonchi. GASTROINTESTINAL: Abdomen soft, non-tender, nondistended. POSITIVE bowel sounds , G-tube in place --STILL ON tube feeds at night MUSCULOSKELETAL: Extremities without clubbing, cyanosis, or edema. Pedal pulses appreciated NEUROLOGICAL: Awake and alert. Moves all extremity. Normal speech.no focal neurological deficit Insight and judgment is okay mood and behavior is somewhat appropriate Hospital Course 9-3 Discussed with patient and daughter Status post laparoscopy and exploratory 2 days ago Has G-tube to suction Family wanting to know when he can eat we'll defer that to surgery and GI Many questions answered Restart Xanax and Sinemet Discussed with patient and RN and daughter 9-4 NOT HAVING BMS YET COMPLAINS OF GAS STILL USING IMPORT COORDINATION AND PRODUCTION HEAD PUMP QUITE OFTEN GI WANTS ON MIRALAX SO HE CAN HAVE BOWEL MOVEMENTS DW RN AND PT STILL ON TUBE FEEDS AT 10ML/HR ONLY 9-5 TOLERATING TUBE FEEDS DW RN AND PT HAD BMS STILL USING IMPORT COORDINATION AND PRODUCTION HEAD PUMP ON TUBE FEEDS AT 30ML/HR 9-6 COMPLAINING OF PAIN OF LEFT HUMERUS AREA DW RN AND PT AND FAMILY NOT TOLERATING TUBE FEEDS TUBE FEEDS ON HOLD AM LABS STILL USING IMPORT COORDINATION AND PRODUCTION HEAD 9-7 radiation therapy regarding the left humerus starting today Going to the [facility] for radiation today Still using IMPORT COORDINATION AND PRODUCTION HEAD on occasion lots of UNCONTROLLED PAIN 9-8HAD RADIATION TODAY OF LEFT HUMERUS STILL COMPLAINING OF PAIN ONLY WANTS TO TRY TUBE FEEDS AT 40ML/HR MAX AT THIS TIME DW RN AND PATIENT AND FAMILY 9-9 ADJUST HOME PAIN MEDICATIONS AND ANXIETY MEDICATIONS HOSPICE HAS BEEN CONSULTED BY ONCOLOGY STATES PAIN A LITTLE BETTER TODAY 9-10 FAMILY WANTS PAIN MEDS ADJUSTED AGAIN HAS CHRONIC PAIN RESTART SCHEDULED DILAUDID 4MG PO Q4HR INCREASE MIRALAX TO 17GRAMS BID VIA J-TUBE LEVY RN AND PT AND FAMILY CONSTIPATED 02-19 HAD BOWEL MOVEMENTS YESTERDAY DOING BETTER WITH HIS PAIN NEEDS TO TRANSITION OFF OF IMPORT COORDINATION AND PRODUCTION HEAD LEVY PT AND RN 02-20 NOW STATES HE WANTS HOSPICE AND TO GO THERE TOMORROW WILL RECONSULT THEM HAD [facility] [place] YESTERDAY, HE AGREED AND SUGGESTED HOSPICE TO THE PATIENT DC ANTIBIOTICS HOPEFULLY TO HOSPICE ON 02-20 Pt Condition on Discharge: Fair Discharge Disposition: Hospice/Med Facility Discharge Time: > 30 minutes Discharge Instructions DIET: Follow Instructions for: As Tolerated, No Restrictions, On Tube Feeding Activities you can perform: Regular-No Restrictions Follow up Referrals: PCP Follow-up New Medications: Hydromorphone (Dilaudid) 4 Mg Tab 4 MG PO Q4H for Pain Management, #60 TAB Lorazepam (Ativan) 0.5 Mg Tab 0.5 MG PO Q6HR PRN for ANXIETY, #120 TAB Morphine ER (Morphine ER) 15 Mg Tab 15 MG PO Q8H for Pain Management, #60 TAB Polyethylene Glycol 3350 Powder (Polyethylene Glycol 3350 Powder) 17 Gram Pow 17 GM J-TUBE BID for Constipation, #1020 GM Sennosides (Senna Lax) 8.6 Mg Tab 8.6 MG PO BID PRN for CONSTIPATION, #120 TAB [Simethicone Chew] () 80 MG CHEW 80 MG CHEW PCHS PRN for FLATULENCE, #120 Continued Medications: Carbidopa-Levodopa (Carbidopa-Levodopa) 25-100 Mg Tab 1 TAB PO Q4HR for Parkinson Disease Mgmt, #90 TAB 0 Refills Gabapentin (Gabapentin) 100 Mg Cap 100 MG PO Q6HR PRN for PAIN 1 TO 10 AND/OR AGITATION, #90 CAP 0 Refills Morphine ER (Morphine ER) 30 Mg Tab 30 MG PO DAILY for Pain Management, TAB 0 Refills Omeprazole (Omeprazole) 20 Mg Tab 20 MG PO BID, #30 TAB 0 Refills Discontinued Medications: Alprazolam (Xanax) 1 Mg Tab 1 MG PO TID PRN for ANXIETY, TAB 0 Refills Rivaroxaban (Xarelto) 10 Mg Tab 20 MG PO DAILY for Blood Clot Prevention, TAB 0 Refills Baldomero Gutierrez DO Feb 20, 2017 14:04
== END 2017-02-20 16:05 | disposition hospice, inpatient (51) | DRG 353 ==
LOC: NEPE 06:39 → NEDA 16:39 → NEPHCDU 18:53 → N07B 02-09 13:47 → OBSVTOIN 02-11 10:58
PROVIDERS: ADMIT Hospitalist; ATTEND Hospitalist
PROC: 0WJP4ZZ Inspection of Gastrointestinal Tract, Percutaneous Endoscopic Approach (ICD-10-PCS; 2017-02-09)
PROC: 0WQF4ZZ Repair Abdominal Wall, Percutaneous Endoscopic Approach (ICD-10-PCS; principal; 2017-02-09 13:42)
PROC: 0DH63UZ Insertion of Feeding Device into Stomach, Percutaneous Approach (ICD-10-PCS; 2017-02-09 13:42)
DX: K92.0 Hematemesis (principal); J69.0 Pneumonitis due to inhalation of food and vomit; C78.7 Secondary malignant neoplasm of liver and intrahepatic bile duct; C79.51 Secondary malignant neoplasm of bone; C15.5 Malignant neoplasm of lower third of esophagus; E83.39 Other disorders of phosphorus metabolism; G20 Parkinson's disease; D64.9 Anemia, unspecified; K21.9 Gastro-esophageal reflux disease without esophagitis; F41.9 Anxiety disorder, unspecified; Z86.718 Personal history of other venous thrombosis and embolism; N40.0 Benign prostatic hyperplasia without lower urinary tract symptoms; G89.29 Other chronic pain; M54.9 Dorsalgia, unspecified; Z87.891 Personal history of nicotine dependence; Z66 Do not resuscitate; E87.6 Hypokalemia; F43.10 Post-traumatic stress disorder, unspecified; M19.90 Unspecified osteoarthritis, unspecified site; Z92.21 Personal history of antineoplastic chemotherapy; Z92.3 Personal history of irradiation; R63.4 Abnormal weight loss; K42.9 Umbilical hernia without obstruction or gangrene
CPT/HCPCS: 73090; 73110; 73200; 74176; 77280; 77295; 77300; 77334; 77412; 80048; 80053; 82948; 83036; 83605; 83735; 84100; 84439; 84443; 85014; 85018; 85025; 85610; 85730; 86850; 86900; 86901; 87040; 96361; 96365; 96366; 96367; 96368; 96375; 96376; 99221; C9113; G0378; J0456; J0690; J0696; J1170; J2250; J2270; J2405; J2543; J2710; J3010; J3475; J3480; J7030; J7050; Q9963